=== PATIENT | male | born 1945 | race Caucasian/White ===

== ENCOUNTER 2019-01-25 13:12 | Emergency (ER) | payer MEDICARE ==
[2019-01-25 13:31] VITALS: TEMP 97.4
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
[2019-01-25] MEDS ORDERED: MORPHINE SULFATE 4 MG/ML SYRINGE IVP STA ×2 (14:55→15:59)
[2019-01-25] MEDS ORDERED: ETOMIDATE 2 MG/ML 10 ML VIAL IVP STA ×2 (14:55→15:59)
[2019-01-25] MEDS ORDERED: SODIUM CHLORIDE 0.9% 500 ML 500 ML IV STA (14:58)
--- NOTE | 2019-01-25 15:08 | XR ---
EXAMINATION TYPE: XR shoulder limited LT DATE OF EXAM: 01/25/2019 CLINICAL HISTORY: Falling injury with pain TECHNIQUE: 2 views of the left shoulder are obtained. COMPARISON: None. FINDINGS: There is inferior medial anterior positioning of humeral head relative to glenoid cavity c onsistent anterior dislocation. Glenoid rim is intact. Mild to moderate narrowing and spurring adequ ately thicker joint is present. No acute fracture is identified. The visualized ribs are intact and u nremarkable. IMPRESSION: There is anterior glenohumeral joint dislocation.
[2019-01-25] MEDS ORDERED: MIDAZOLAM 1 MG/ML 5 ML VIAL IV STA (15:59)
--- NOTE | 2019-01-25 16:39 | XR ---
EXAMINATION TYPE: XR shoulder complete LT DATE OF EXAM: 01/25/2019 CLINICAL HISTORY: Post reduction COMPARISON: NONE TECHNIQUE: Two views of the left shoulder are obtained. FINDINGS: Glenohumeral joint is relocated. No evidence for fracture. Degenerative changes AC joint an d glenohumeral joint space. IMPRESSION: 1. Glenohumeral joint is relocated. ICD 10 NO FRACTURE, INITIAL EVALUATION
[2019-01-25 16:56] VITALS: BP 130/71; PULSE 84; RESP 16
== END 2019-01-25 17:27 | disposition home or self-care (01) ==
LOC: EC 13:12
DX: S43.015A Anterior dislocation of left humerus, initial encounter (principal); I10 Essential (primary) hypertension; F03.90 Unspecified dementia, unspecified severity, without behavioral disturbance, psychotic disturbance, mood disturbance, and anxiety; E78.5 Hyperlipidemia, unspecified; V98.8XXA Other specified transport accidents, initial encounter; Y92.39 Other specified sports and athletic area as the place of occurrence of the external cause
CPT/HCPCS: 73030; 73020; 99283; 23650; 99152; 99153; 96374; 96376; 96361 ×2; J2270; J2250

== ENCOUNTER 2021-01-19 00:02 | Emergency (ER) | payer MEDICARE ==
[2021-01-19] MEDS ORDERED: SODIUM CHLORIDE 0.9% 1,000 ML IV STA ×2 (00:15→02:08)
[2021-01-19 00:20] VITALS: TEMP 98.2
--- NOTE | 2021-01-19 00:29 | ED ---
Weakness HPI - General Chief complaint: Nausea/Vomiting/Diarrhea Stated complaint: nausea,diarrhea, feels heavy in extremities Time Seen by Provider: 01/19/21 00:15 Source: patient, RN notes reviewed, old records reviewed, Caregiver Mode of arrival: wheelchair Limitations: no limitations, altered mental status - History of Present Illness Initial comments: This is a 75-year-old male sent from dementia so blood pressure issues. Patient coming in for nausea vomiting and diarrhea, not feeling well week symptoms for a month. No other significant medical history, diarrhea was worse tonight. No fevers. No abdominal pain. No chest pain or shortness of breath no other complaints MD Complaint: generalized weakness -: month(s) Location: generalized Severity: moderate Severity scale (1-10): 5 Consistency: constant Improves with: none Worsens with: none Context: recent illness, history of similar Associated Symptoms: confusion, loss of appetite, nausea/vomiting - Related Data Allergies Allergy/AdvReac Type Severity Reaction Status Date / Time No Known Allergies Allergy Verified 01/25/19 13:31 Review of Systems ROS Statement: Those systems with pertinent positive or pertinent negative responses have been documented in the HPI. ROS Other: All systems not noted in ROS Statement are negative. Past Medical History Past Medical History: Dementia, Hyperlipidemia, Hypertension History of Any Multi-Drug Resistant Organisms: None Reported Past Surgical History: No Surgical Hx Reported Past Psychological History: No Psychological Hx Reported Smoking Status: Never smoker Past Alcohol Use History: None Reported Past Drug Use History: None Reported General Exam Limitations: no limitations General appearance: alert, in no apparent distress Head exam: Present: atraumatic, normocephalic, normal inspection Eye exam: Present: normal appearance, PERRL, EOMI. Absent: scleral icterus, conjunctival injection, periorbital swelling ENT exam: Present: normal exam, mucous membranes moist Neck exam: Present: normal inspection. Absent: tenderness, meningismus, lymphadenopathy Respiratory exam: Present: normal lung sounds bilaterally. Absent: respiratory distress, wheezes, rales, rhonchi, stridor Cardiovascular Exam: Present: regular rate, normal rhythm, normal heart sounds. Absent: systolic murmur, diastolic murmur, rubs, gallop, clicks GI/Abdominal exam: Present: soft, normal bowel sounds. Absent: distended, tenderness, guarding, rebound, rigid Extremities exam: Present: normal inspection, full ROM, normal capillary refill. Absent: tenderness, pedal edema, joint swelling, calf tenderness Back exam: Present: normal inspection Neurological exam: Present: alert, oriented X3, CN II-XII intact Psychiatric exam: Present: normal affect, normal mood Skin exam: Present: warm, dry, intact, normal color. Absent: rash Course Vital Signs 01/19/21 01/19/21 01/19/21 00:14 01:59 02:42 Temperature 98.2 F Pulse Rate 65 68 71 Respiratory 18 20 20 Rate Blood Pressure 124/65 135/74 151/71 O2 Sat by Pulse 95 97 97 Oximetry - Reevaluation(s) Reevaluation #1: 01/19/21 01:00 Medical record is reviewed EKG Findings - EKG Comments: EKG Findings:: EKG is sinus rhythm 64 MS 266 QRS 114 QTc 455 Medical Decision Making - Lab Data Result diagrams: 01/19/21 00:45 01/19/21 00:45 Lab Results 01/19/21 01/19/21 01/19/21 Range/Units 00:45 00:45 00:45 WBC 15.4 H (3.8-10.6) k/uL RBC 4.71 (4.30-5.90) m/uL Hgb 14.7 (13.0-17.5) gm/dL Hct 44.6 (39.0-53.0) % MCV 94.7 (80.0-100.0) fL MCH 31.3 (25.0-35.0) pg MCHC 33.0 (31.0-37.0) g/dL RDW 13.2 (11.5-15.5) % Plt Count 324 (150-450) k/uL MPV 7.4 Neutrophils % 83 % Lymphocytes % 8 % Monocytes % 7 % Eosinophils % 1 % Basophils % 0 % Neutrophils # 12.8 H (1.3-7.7) k/uL Lymphocytes # 1.2 (1.0-4.8) k/uL Monocytes # 1.0 (0-1.0) k/uL Eosinophils # 0.2 (0-0.7) k/uL Basophils # 0.0 (0-0.2) k/uL Sodium 141 (137-145) mmol/L Potassium 3.9 (3.5-5.1) mmol/L Chloride 103 (98-107) mmol/L Carbon Dioxide 24 (22-30) mmol/L Anion Gap 14 mmol/L BUN 24 H (9-20) mg/dL Creatinine 1.50 H (0.66-1.25) mg/dL Est GFR (CKD-EPI)AfAm 52 (>60 ml/min/1.73 sqM) Est GFR (CKD-EPI)NonAf 45 (>60 ml/min/1.73 sqM) Glucose 188 H (74-99) mg/dL Plasma Lactic Acid Noé (0.7-2.0) mmol/L Calcium 9.6 (8.4-10.2) mg/dL Phosphorus 3.9 (2.5-4.5) mg/dL Magnesium 1.9 (1.6-2.3) mg/dL Total Bilirubin 0.5 (0.2-1.3) mg/dL AST 35 (17-59) U/L ALT 38 (4-49) U/L Alkaline Phosphatase 95 (38-126) U/L Lactate Dehydrogenase (313-618) U/L Troponin I (0.000-0.034) ng/mL C-Reactive Protein (<1.0) mg/dL NT-Pro-B Natriuret Pep pg/mL Total Protein 8.2 (6.3-8.2) g/dL Albumin 4.6 (3.5-5.0) g/dL Urine Color Yellow Urine Appearance Clear (Clear) Urine pH 5.0 (5.0-8.0) Ur Specific [place] 1.035 (1.001-1.035) Urine Protein 1+ H (Negative) Urine Glucose (UA) 4+ H (Negative) Urine Ketones Negative (Negative) Urine Blood Negative (Negative) Urine Nitrite Negative (Negative) Urine Bilirubin Negative (Negative) Urine Urobilinogen <2.0 (<2.0) mg/dL Ur Leukocyte Esterase Negative (Negative) Urine RBC <1 (0-5) /hpf Urine WBC <1 (0-5) /hpf Urine Mucus Rare H (None) /hpf Coronavirus (PCR) (Not Detectd) 01/19/21 01/19/21 01/19/21 Range/Units 00:45 00:45 00:45 WBC (3.8-10.6) k/uL RBC (4.30-5.90) m/uL Hgb (13.0-17.5) gm/dL Hct (39.0-53.0) % MCV (80.0-100.0) fL MCH (25.0-35.0) pg MCHC (31.0-37.0) g/dL RDW (11.5-15.5) % Plt Count (150-450) k/uL MPV Neutrophils % % Lymphocytes % % Monocytes % % Eosinophils % % Basophils % % Neutrophils # (1.3-7.7) k/uL Lymphocytes # (1.0-4.8) k/uL Monocytes # (0-1.0) k/uL Eosinophils # (0-0.7) k/uL Basophils # (0-0.2) k/uL Sodium (137-145) mmol/L Potassium (3.5-5.1) mmol/L Chloride (98-107) mmol/L Carbon Dioxide (22-30) mmol/L Anion Gap mmol/L BUN (9-20) mg/dL Creatinine (0.66-1.25) mg/dL Est GFR (CKD-EPI)AfAm (>60 ml/min/1.73 sqM) Est GFR (CKD-EPI)NonAf (>60 ml/min/1.73 sqM) Glucose (74-99) mg/dL Plasma Lactic Acid Noé 1.3 (0.7-2.0) mmol/L Calcium (8.4-10.2) mg/dL Phosphorus (2.5-4.5) mg/dL Magnesium (1.6-2.3) mg/dL Total Bilirubin (0.2-1.3) mg/dL AST (17-59) U/L ALT (4-49) U/L Alkaline Phosphatase (38-126) U/L Lactate Dehydrogenase (313-618) U/L Troponin I <0.012 (0.000-0.034) ng/mL C-Reactive Protein (<1.0) mg/dL NT-Pro-B Natriuret Pep 146 pg/mL Total Protein (6.3-8.2) g/dL Albumin (3.5-5.0) g/dL Urine Color Urine Appearance (Clear) Urine pH (5.0-8.0) Ur Specific [place] (1.001-1.035) Urine Protein (Negative) Urine Glucose (UA) (Negative) Urine Ketones (Negative) Urine Blood (Negative) Urine Nitrite (Negative) Urine Bilirubin (Negative) Urine Urobilinogen (<2.0) mg/dL Ur Leukocyte Esterase (Negative) Urine RBC (0-5) /hpf Urine WBC (0-5) /hpf Urine Mucus (None) /hpf Coronavirus (PCR) (Not Detectd) 01/19/21 01/19/21 Range/Units 00:45 04:41 WBC (3.8-10.6) k/uL RBC (4.30-5.90) m/uL Hgb (13.0-17.5) gm/dL Hct (39.0-53.0) % MCV (80.0-100.0) fL MCH (25.0-35.0) pg MCHC (31.0-37.0) g/dL RDW (11.5-15.5) % Plt Count (150-450) k/uL MPV Neutrophils % % Lymphocytes % % Monocytes % % Eosinophils % % Basophils % % Neutrophils # (1.3-7.7) k/uL Lymphocytes # (1.0-4.8) k/uL Monocytes # (0-1.0) k/uL Eosinophils # (0-0.7) k/uL Basophils # (0-0.2) k/uL Sodium (137-145) mmol/L Potassium (3.5-5.1) mmol/L Chloride (98-107) mmol/L Carbon Dioxide (22-30) mmol/L Anion Gap mmol/L BUN (9-20) mg/dL Creatinine (0.66-1.25) mg/dL Est GFR (CKD-EPI)AfAm (>60 ml/min/1.73 sqM) Est GFR (CKD-EPI)NonAf (>60 ml/min/1.73 sqM) Glucose (74-99) mg/dL Plasma Lactic Acid Noé (0.7-2.0) mmol/L Calcium (8.4-10.2) mg/dL Phosphorus (2.5-4.5) mg/dL Magnesium (1.6-2.3) mg/dL Total Bilirubin (0.2-1.3) mg/dL AST (17-59) U/L ALT (4-49) U/L Alkaline Phosphatase (38-126) U/L Lactate Dehydrogenase 528 (313-618) U/L Troponin I (0.000-0.034) ng/mL C-Reactive Protein <0.5 (<1.0) mg/dL NT-Pro-B Natriuret Pep pg/mL Total Protein (6.3-8.2) g/dL Albumin (3.5-5.0) g/dL Urine Color Urine Appearance (Clear) Urine pH (5.0-8.0) Ur Specific [place] (1.001-1.035) Urine Protein (Negative) Urine Glucose (UA) (Negative) Urine Ketones (Negative) Urine Blood (Negative) Urine Nitrite (Negative) Urine Bilirubin (Negative) Urine Urobilinogen (<2.0) mg/dL Ur Leukocyte Esterase (Negative) Urine RBC (0-5) /hpf Urine WBC (0-5) /hpf Urine Mucus (None) /hpf Coronavirus (PCR) Not Detected (Not Detectd) Disposition Clinical Impression: Gastroenteritis Disposition: HOME SELF-CARE Condition: Good Instructions (If sedation given, give patient instructions): Acute Nausea and Vomiting (ED) Is patient prescribed a controlled substance at d/c from ED?: No Referrals: Seng Geiger MD [Primary Care Provider] - 1-2 days
[2021-01-19 01:04] LABS: Appearance,Urine Clear (Clear); Bilirubin,Urine Negative (Negative); Blood,Urine Negative (Negative); Color,Urine Yellow; Glucose,Urine (UA) 4+ (Negative); Ketones,Urine Negative (Negative); Leukocyte Esterase,Urine Negative (Negative); Mucus,Urine Rare /hpf; Nitrite,Urine Negative (Negative); Protein,Urine 1+ (Negative); RBC,Urine <1 /hpf (0-5); Specific Gravity,Urine 1.035 (1.001-1.035); Urobilinogen,Urine <2.0 mg/dL (<2.0); WBC,Urine <1 /hpf (0-5)
[2021-01-19 01:17] LABS: Albumin 4.6 g/dL (3.5-5.0); Calcium 9.6 mg/dL (8.4-10.2); Magnesium 1.9 mg/dL (1.6-2.3); Phosphorus 3.9 mg/dL (2.5-4.5); Potassium 3.9 mmol/L (3.5-5.1); Total Bilirubin 0.5 mg/dL (0.2-1.3); Total Protein 8.2 g/dL (6.3-8.2)
[2021-01-19 01:54] LABS: Basophils % (A) 0 %; Eosinophils # (A) 0.2 k/uL (0-0.7); Eosinophils % (A) 1 %; HCT 44.6 % (39.0-53.0); HGB 14.7 gm/dL (13.0-17.5); Lymphocytes # (A) 1.2 k/uL (1.0-4.8); Lymphocytes % (A) 8 %; MCH 31.3 pg (25.0-35.0); MCV 94.7 fL (80.0-100.0); Mean Platelet Volume 7.4; Monocytes % (A) 7 %; Neutrophils # (A) 12.8 k/uL (1.3-7.7); Neutrophils % (A) 83 %; Platelet Count 324 k/uL (150-450); RBC 4.71 m/uL (4.30-5.90); RDW 13.2 % (11.5-15.5); WBC 15.4 k/uL (3.8-10.6)
[2021-01-19 01:59] VITALS: RESP 20
[2021-01-19] MEDS ORDERED: KETOROLAC 15 MG/ML 1 ML VIAL IVP STA (02:09)
[2021-01-19] MEDS ORDERED: MORPHINE SULFATE 4 MG/ML SYRINGE IVP STA (02:09)
[2021-01-19] MEDS ORDERED: ONDANSETRON 4 MG/2 ML VIAL IVP STA (02:09)
--- NOTE | 2021-01-19 02:56 | CT ---
EXAMINATION TYPE: CT angio chest DATE OF EXAM: 01/19/2021 COMPARISON: None HISTORY: R/O PE, Weakness CT DLP: 426.4 mGycm Automated exposure control for dose reduction was used. CONTRAST: Performed with IV Contrast, patient injected with 80 mL of Isovue 370. There are 3-D post processed images. The lungs are clear of infiltrate. There is no pleural effusion. There is no pericardial effusion. Th ere are no hilar masses. There is normal contrast opacification of the pulmonary arteries. There are no filling defects. Thora cic aorta appears intact. There is no aneurysm or dissection. There is no mediastinal adenopathy. The bony thorax is intact. There is degenerative hypertrophic spurring throughout the thoracic spine. There is no compression fracture. Sternum is intact. IMPRESSION: Negative exam. No evidence of pulmonary embolism.
--- NOTE | 2021-01-19 03:04 | CT ---
EXAMINATION TYPE: CT abdomen pelvis w con DATE OF EXAM: 01/19/2021 COMPARISON: None HISTORY: N/V/D, Weakness CT DLP: 1279.7 mGycm Automated exposure control for dose reduction was used. CONTRAST: Performed with IV Contrast, patient injected with 80 mL of Isovue 370. Images obtained from the diaphragm to the floor the pelvis with IV contrast. Lung bases are clear. There is no pleural effusion. Heart size is normal. There is no pericardial eff usion. Liver spleen stomach pancreas gallbladder appear intact. The bile ducts are not dilated. There is no adrenal mass. Kidneys show satisfactory contrast opacification. There is no hydronephrosi s. Delayed images show normal renal excretion. There is no retroperitoneal adenopathy. Ureters are no t dilated. Abdominal aorta shows mild atheromatous change. The prostate is enlarged and measures 6.4 cm. Bladder distends smoothly. There is no inguinal hernia. There is no free fluid in the pelvis. The re is no evidence of a pelvic mass. Appendix appears normal. There is no mesenteric edema. There is no ascites or free air. There is no sign of a bowel obstructio n. The lumbar vertebra have normal alignment. There is disc space narrowing at L4-5. There is spurring o f the endplates throughout the lumbar spine. There is no compression fracture. The bony pelvis is int act. The hip joints are intact. There is some degenerative cyst formation in the right acetabulum. IMPRESSION: Enlarged prostate. No acute abnormality of the abdomen pelvis. Normal appendix. No intestinal abnorma lity identified.
[2021-01-19 04:09] LABS: C Reactive Protein <0.5 mg/dL (<1.0); LDH 528 U/L (313-618)
[2021-01-19 05:52] VITALS: BP 135/84; PULSE 74
== END 2021-01-19 05:51 | disposition home or self-care (01) ==
LOC: EC 00:02
DX: K52.9 Noninfective gastroenteritis and colitis, unspecified (principal); I10 Essential (primary) hypertension; E78.5 Hyperlipidemia, unspecified; F03.90 Unspecified dementia, unspecified severity, without behavioral disturbance, psychotic disturbance, mood disturbance, and anxiety; Z20.822 Contact with and (suspected) exposure to COVID-19
CPT/HCPCS: 99285; 96374; 96375 ×2; 96361 ×5; 36415; 93005; 83880; 80053; 83605; 83615; 83735; 84100; 84484; 85025; 86140; 81001; 87635; 71275; 74177; J2270; J2405; J1885; Q9967

== ENCOUNTER → 2021-03-12 | Outpatient (CLI) | payer MEDICARE ==
[2021-03-12 12:11] LABS: Appearance,Urine Clear (Clear); Bilirubin,Urine Negative (Negative); Blood,Urine Negative (Negative); Color,Urine Yellow; Glucose,Urine (UA) 4+ (Negative); Ketones,Urine Negative (Negative); Leukocyte Esterase,Urine Negative (Negative); Nitrite,Urine Negative (Negative); Protein,Urine Negative (Negative); Urobilinogen,Urine <2.0 mg/dL (<2.0)
[2021-03-12 12:19] LABS: Partial Thromboplastin Time 23.6 sec (22.0-30.0); Prothrombin Time 10.5 sec (9.0-12.0)
[2021-03-12 12:37] LABS: Albumin 4.4 g/dL (3.5-5.0); Calcium 9.3 mg/dL (8.4-10.2); Total Bilirubin 0.3 mg/dL (0.2-1.3); Total Protein 7.5 g/dL (6.3-8.2)
[2021-03-12 13:01] LABS: HCT 40.2 % (39.0-53.0); HGB 13.2 gm/dL (13.0-17.5); MCH 31.1 pg (25.0-35.0); MCHC 32.8 g/dL (31.0-37.0); MCV 94.8 fL (80.0-100.0); Mean Platelet Volume 7.8; Platelet Count 362 k/uL (150-450); RBC 4.24 m/uL (4.30-5.90); RDW 13.2 % (11.5-15.5); WBC 8.5 k/uL (3.8-10.6)
== END | disposition home or self-care (01) ==
LOC: LABPAT 10:34
PROVIDERS: ATTEND Orthopaedic Surgery
DX: Z01.812 Encounter for preprocedural laboratory examination (principal); M17.11 Unilateral primary osteoarthritis, right knee
CPT/HCPCS: 80053; 81003; 85027; 85610; 85730; 87070

== ENCOUNTER → 2021-03-30 | Outpatient (CLI) | payer MEDICARE ==
[2021-03-30 19:45] LABS: ALT 33 U/L (10-49); AST 22 U/L (14-35); Chol/HDL Ratio 2.65 Ratio; LDL Cholesterol,Calculated 25.2 mg/dL (0.0-131.0)
== END | disposition home or self-care (01) ==
LOC: LABWHC1 08:43
PROVIDERS: ATTEND Internal Medicine Interventional Cardiology
DX: E78.2 Mixed hyperlipidemia (principal)
CPT/HCPCS: 36415; 80061; 84450; 84460

== ENCOUNTER → 2021-05-31 | Outpatient (CLI) | payer MEDICARE ==
[2021-05-31 14:59] LABS: Appearance,Urine Clear (Clear); Bilirubin,Urine Negative (Negative); Blood,Urine Negative (Negative); Color,Urine Yellow; Glucose,Urine (UA) 4+ (Negative); Ketones,Urine Negative (Negative); Leukocyte Esterase,Urine Negative (Negative); Nitrite,Urine Negative (Negative); PH, Urine 6.5 (5.0-8.0); Protein,Urine Negative (Negative); Specific Gravity,Urine 1.029 (1.001-1.035); Urobilinogen,Urine <2.0 mg/dL (<2.0)
[2021-05-31 15:12] LABS: Prothrombin Time 10.9 sec (9.0-12.0)
[2021-05-31 18:21] LABS: HCT 40.5 % (39.6-50.0); MCH 29.3 pg (27.0-32.0); MCHC 32.1 g/dL (32.0-37.0); MCV 91.2 fL (80.0-97.0); Mean Platelet Volume 10.1 fL (9.5-12.2); NRBC Per 100 WBC 0 /100 WBCS (0.0-0.0); Platelet Count 315 X 10*3/uL (140-440); RBC 4.44 X 10*6/uL (4.40-5.60); WBC 9.49 X 10*3/uL (4.50-10.00)
[2021-05-31 18:42] LABS: African American GFR (CKD) 47.5 (60.0-200.0); Albumin 4.4 g/dL (3.8-4.9); Albumin/Globulin Ratio 1.52 (1.60-3.17); Anion Gap 14.2 mmol/L (10.00-18.00); BUN/Creat Ratio 14.31 Ratio (12.00-20.00); Blood Urea Nitrogen 22.9 mg/dL (9.0-27.0); Calcium 9.2 mg/dL (8.7-10.3); Globulin 2.9 g/dL (1.6-3.3); Total Bilirubin 0.3 mg/dL (0.30-1.20); Total Protein 7.2 g/dL (6.2-8.2)
== END | disposition home or self-care (01) ==
LOC: LABPAT 13:01
PROVIDERS: ATTEND Orthopaedic Surgery
DX: Z01.812 Encounter for preprocedural laboratory examination (principal); M17.11 Unilateral primary osteoarthritis, right knee
CPT/HCPCS: 36415; 80053; 81003; 85027; 85610; 85730; 87070

== ENCOUNTER 2021-06-07 12:45 | Day surgery (SDC) | payer MEDICARE ==
[2021-06-03 09:57] VITALS: BMI 34.7
[~2021-06-07 12:45] MED LIST: ACETAMINOPHEN TAB 500 MG TAB PO PRN; DEXAMETHASONE SOD PHOSPHATE 4 MG/ML 1 ML VIAL IV ONE; MELOXICAM 7.5 MG TAB PO PRN; ONDANSETRON 4 MG/2 ML VIAL IVP ONE; ONDANSETRON 4 MG/2 ML VIAL IVP PRN; TRANEXAMIC ACID 1,000 MG in SODIUM CHLORIDE 0.9% 100 ML IVPB PRN
[2021-06-07 13:35] LABS: Glucose,Whole Blood 143 mg/dL (75-99)
[2021-06-07] MEDS: LACTATED RINGERS 1,000 ML IV SCH (13:45)
[2021-06-07] MEDS ORDERED: MIDAZOLAM 2 MG/2 ML VIAL IVP ONE ×2 (14:39→14:50)
[2021-06-07] MEDS ORDERED: bisacodyL 10 MG SUPP RECTAL PRN (14:59)
[2021-06-07] MEDS ORDERED: NA PHOS,M-B/NA PHOS,DI-BA 133 ML ENEMA RECTAL PRN (14:59)
[2021-06-07] MEDS ORDERED: NALOXONE 0.4 MG/ML 1 ML VIAL IV PRN (14:59)
[2021-06-07] MEDS ORDERED: HYDROmorphone 0.2 MG/1 ML SYRINGE IVP PRN (14:59)
[2021-06-07] MEDS ORDERED: ONDANSETRON 4 MG/2 ML VIAL IVP PRN (14:59)
[2021-06-07] MEDS ORDERED: TEMAZEPAM 15 MG CAP PO PRN (14:59)
[2021-06-07] MEDS ORDERED: HYDROcodone/APAP 7.5-325MG 1 EACH TAB PO PRN (14:59)
[2021-06-07] MEDS ORDERED: MAGNESIUM HYDROXIDE 2,400 MG/10 ML CUP PO PRN (14:59)
[2021-06-07] MEDS ORDERED: ROPIVACAINE 0.2%-NS ON-Q PUMP 1,090 MG, EMPTY PAIN BALL 1 EACH MISCELLANE PRN (14:59)
[2021-06-07] MEDS ORDERED: HYDROcodone/APAP 5-325MG 1 EACH TAB PO PRN (14:59)
[2021-06-07] MEDS ORDERED: HYDROmorphone 1 MG/ML 1 ML SYRINGE IVP PRN ×2 (14:59)
--- NOTE | 2021-06-07 15:01 | P.ANPRN ---
Procedure Note - Anesthesia - Nerve Block Performed Right Adductor Canal Infusion Time Out Performed: Yes Date of Procedure: 06/07/21 Procedure Start Time: 14:38 Procedure Stop Time: 14:50 Location of Patient: PreOp Indication: Requested by Surgeon Specifically requested for management of pain by DrJina: Juan Garibay Sedation Type: Sedate with meaningful contact maintained Preparation: Sterile Prep, Sterile Dressing Position: Supine Catheter: Indwelling Needle Types: Pajunk Needle Gauge: 18 Ultrasound used to visualize needle placement: Yes Ultrasound used to observe medication spread: Yes Injectate: 0.5% Ropivacaine (see comment for volume) (15 ml + 15 ml NS PF) Blood Aspirated: No Pain Paresthesia on Injection Noted: No Resistance on Injection: Normal Image Stored and Saved: Yes Events: Uneventful and Well Tolerated
--- NOTE | 2021-06-07 15:03 | P.ANPRN ---
Procedure Note - Anesthesia - Nerve Block Performed Right iPack Single Time Out Performed: Yes Date of Procedure: 06/07/21 Procedure Start Time: 14:51 Procedure Stop Time: 14:58 Location of Patient: PreOp Indication: Requested by Surgeon Specifically requested for management of pain by DrJina: Juan Garibay Sedation Type: Sedate with meaningful contact maintained Preparation: Sterile Prep Position: Left Lateral Needle Types: Pajunk Needle Gauge: 21 Ultrasound used to visualize needle placement: Yes Ultrasound used to observe medication spread: Yes Injectate: 0.5% Ropivacaine (see comment for volume) (15 ml + 15 ml NS PF) Blood Aspirated: No Pain Paresthesia on Injection Noted: No Resistance on Injection: Normal Image Stored and Saved: Yes Events: Uneventful and Well Tolerated
[2021-06-07] MEDS ORDERED: SODIUM CHLORIDE 0.9% (PF) 10 ML VIAL ONE (15:13)
[2021-06-07] MEDS ORDERED: TRANEXAMIC ACID 1,000 MG/10 ML VIAL ONE (15:13)
[2021-06-07] MEDS ORDERED: MIDAZOLAM 2 MG/2 ML VIAL ONE (15:13)
[2021-06-07] MEDS ORDERED: ROPIVACAINE 5 MG/ML 30 ML VIAL ONE (15:13)
[2021-06-07] MEDS ORDERED: PROPOFOL 10 MG/ML 20 ML VIAL IV ONE (15:13)
[2021-06-07] MEDS ORDERED: SODIUM CHLORIDE 0.9% 100 ML BAG ONE (15:13)
[2021-06-07] MEDS ORDERED: ceFAZolin 3,000 MG in SODIUM CHLORIDE 0.9% IRRIGATIO 3,000 ML IRRIGATION ONE (15:56)
[2021-06-07] MEDS ORDERED: LACTATED RINGERS 1,000 ML IV ONE ×3 (16:04→18:49)
--- NOTE | 2021-06-07 17:01 | P.OP ---
Date of Procedure: 06/07/21 Procedure(s) Performed: PREOPERATIVE DIAGNOSIS: Right knee severe osteoarthritis with genu varum POSTOPERATIVE DIAGNOSIS: Right knee severe osteoarthritis with genu varum OPERATION: Right knee cemented total replacement arthroplasty. ANESTHESIA: General plus regional with On-Q pain pump for postoperative pain relief ESTIMATED BLOOD LOSS: 100 ml. ICT QUALITY ASSURANCE ENGINEER: Chastity Felton PA-C (assistance with: patient positioning, retraction, exposure, hemostasis, leg positioning, implantation, irrigation, closure, dressing) COMPLICATIONS: None apparent. COMPONENTS IMPLANTED: Persona system from [employer] INDICATIONS: Christopher is a 76 year old male with a history of right knee osteoarthritis. The patient's knee is end-stage, and conservative management has failed. The operation of knee replacement has been discussed at length in the office, as well as potential risks and complications. These are inclusive of, but not limited to: bleeding, infection, scarring, discomfort, blood vessel and nerve damage, need for further surgery, failure to relieve symptoms, persistence, recurrence, or worsening of problems, loosening, dislocation, wear, blood clot, pulmonary embolism, , gait dysfunction, stiffness, and other risks as discussed in the office. The patient elects to proceed and the consent form has been signed. PROCEDURE: The patient was taken to the operating room and positioned on the operating room table in the supine position. Anesthesia was initiated. Care was taken to make sure that all pressure points were adequately padded. The operative lower extremity was prepped and draped in the usual aseptic fashion using ChloraPrep. Ioban drape was used for the case and the patient received intravenous antibiotics within one hour of the incision. A pneumotourniquet and leg matos were used for the case. The limb was exsanguinated with an Esmarch bandage and the tourniquet was inflated to 250 mmHg. Time-out was called confirming the patient's identity, side, procedure and administration of antibiotics and tranexamic acid. The incision was then created midline directly over the knee, carried down through skin and into the subcutaneous tissues and down to fascia. Full thickness subcutaneous medial flap was developed. Medial parapatellar arthrotomy was performed and the interior of the knee was inspected. There was end-stage osteoarthritis of the knee with a mild to moderate genu varum type deformity. The fat pad was excised and proximal medial release on the tibia was completed using meticulous dissection and a curved osteotome. The anterior cruciate ligament was taken down. Note was made of significant attrition of the anterior and significant degenerative appearance of the cruciate ligaments. The exposure was excellent. The knee was flexed 90 degrees and the patella was everted. A spot was chosen on the femur approximately 1 cm anterior to the posterior cruciate ligament insertion and an intramedullary hole was created within the femur. The intramedullary guide was then set to 5 degrees of valgus. The distal cutting block was attached and pinned into position. An appropriate amount of distal femoral resection was set. The oscillating saw was then used to make the distal femoral cut. This cut was confirmed to be flat with the flat end of an oste otome. The retractors were placed around the tibia and the tibial surface was addressed. The angle and depth of resection was adjusted using an extramedullary cutting guide. The guide had a built-in 3 degree posterior slope cut. Once the cutting guide was adjusted appropriately and in line with the axis of the tibia and confirmed to be in good position in relation to the second metatarsal and t ransmalleolar axis, the tibial cut was then created with protection of the posterior neurovascular structures and the collateral ligaments. The tibial cut surface was removed and sized. Femoral sizing was then accomplished using anterior referencing. Care was taken to analyze the posterior condyles for signs of deficiency or severe wear, and adjustments to the guide were made, as appropriate. 3 degree external rotation pins were placed. The cutting jig for the femur was applied to these pins. The planned cuts were further analyzed prior to performing them with the oscillating saw. No femoral notching was produced. Bone fragments were removed and the cut surfaces were finished, as necessary, with a reciprocating saw. Spacer block technique was then used to confirm that the flexion and extension gaps were equal. Soft tissue releases and adjustment of the tibial and/or femoral cuts were made, as necessary, until the gaps were equal. This included release of the posterior cruciate ligament, which was excessively tight in this patient. The femur was then further finished for a posterior cruciate ligament substituting component. Patellar resurfacing was performed using a reamer. The size of the required patellar component was estimated and the patellar surface was then reamed down to a residual thickness which would recreate the ewiiaapaayp thickness with the component. The exact placement of the patellar component was adjusted for position based on preoperative x-rays and intraoperative findings. The trial components were inserted. The tibial tray was allowed to self center and the patella was noted to track very well. The position of the tibial component was marked and the tibia was then finished for a stemmed tibial component. Cement was mixed on the back table and applied to the final components. Trial components were removed and the cut surfaces of the bone were pulse lavaged thoroughly and dried. Cement was then applied to the tibial surface and pressurized into the surface using finger pressurization technique. The tibial component was then applied and excess cement was removed after it was impacted securely and noted to be flush with the cut surface. In similar fashion, the cement was applied to the cut femoral surface, pressurized in using finger pressurization and the component was impacted into place. Excess cement was removed. The polyethylene spacer was then implanted and locked into position. The patellar component was then applied in similar technique and a patellar clamp was used to hold the patella in place as the cement hardened. Once the cement had fully hardened, the knee was reinspected. Any other cement extrusion was removed and final kinematic testing showed range of motion from 0 to 130 degrees with excellent stability, both medially and laterally and appropriate alignment of the leg. Patellar tracking was excellent. The knee was then thoroughly pulse lavaged with normal saline. The tourniquet was deflated and hemostasis was obtained with electrocautery and IV tranexamic acid, 1 g given at the start of the operation and 1 g at the start of closure. Closure was with #2 Ethibond in the fascia/capsule and supplemented with #2 Quill, 2-0 Vicryl suture was used for the subcutaneous tissues and 3-0 Quill for the skin. Dermabond/Steri-Strips were then applied. A lightly compressive dressing was applied using Webril and an Santhosh wrap. The patient was then transferred to [facility] and taken to the recovery room in stable condition. Sponge and needle counts were correct.
[2021-06-07] MEDS: HYDROmorphone 0.5 MG/0.5 ML SYRINGE IVP PRN ×3 (18:24→18:45)
--- NOTE | 2021-06-07 18:32 | XR ---
EXAMINATION TYPE: XR knee limited RT DATE OF EXAM: 06/07/2021 5:59 PM INDICATION: Patient age:Male; 76 years old; Reason for study: Evaluation for Postop abnormality and alignment; COMPARISON: None. TECHNIQUE: The Right knee(s) was examined in AP lateral projections. FINDINGS: Total right knee arthroplasty changes with hardware in place. No acute fractures identifi ed. Gas seen within the suprapatellar recess of the knee joint. Osseous density seen within the media l aspect of the thigh could represent bony fragment from surgery. There is good anatomic alignment of the right lower extremity. IMPRESSION: 1. Interval right total knee arthroplasty changes with good anatomic alignment.
[2021-06-07] MEDS ORDERED: SENNOSIDES-DOCUSATE SODIUM 1 EACH TAB PO SCH (21:00)
[2021-06-07 21:50] LABS: Glucose,Whole Blood 235 mg/dL (75-99)
[2021-06-07] MEDS ORDERED: TAMSULOSIN 0.4 MG CAP.ER.24H PO SCH (22:15)
[2021-06-07] MEDS: INSULIN ASPART (NovoLOG) 100 UNIT/ML VIAL SQ SCH (22:44)
[2021-06-08] MEDS ORDERED: ASPIRIN 81 MG PO SCH (06:00)
[2021-06-08 06:49] LABS: Glucose,Whole Blood 217 mg/dL (75-99)
--- NOTE | 2021-06-08 07:15 | P.PN ---
Progress Note - Text Progress Note Date: 06/08/21 Postoperative day # 1 status post total knee arthroplasty, and adductor canal catheter placed for postoperative analgesia, currently at ropivacaine 0.2% 8 mL per hour and continuous infusion, visual analogue scale is 3-4/10, patient using oral pain medication for breakthrough pain. Assessment and plan= Acute postoperative pain, adductor canal catheter for pain control, pain is well controlled we'll continue the same management.
[2021-06-08] MEDS ORDERED: INSULIN ASPART (NovoLOG) 100 UNIT/ML VIAL SQ SCH (07:30)
[2021-06-08] MEDS ORDERED: PANTOPRAZOLE 40 MG TABLET PO SCH (07:30)
[2021-06-08] MEDS ORDERED: INSULN ASP PRT/INSULIN ASPART 100 UNIT/ML 10 ML VIAL SQ SCH (07:30)
[2021-06-08 07:33] VITALS: BP 132/72; PULSE 64; RESP 18; TEMP 97.8
--- NOTE | 2021-06-08 08:20 | P.CONS ---
History of Present Illness - Reason for Consult Consult date: 06/08/21 Diabetes and medical management Requesting physician: Juan Garibay - Chief Complaint Postop knee - History of Present Illness This is a consultation on a 76-year-old who is here for knee repair. No new complaints history diabetes blood sugar has been stable. Pain is nominal. Appropriate postop protocols are in place. No nausea, vomiting or diarrhea. Review of Systems All systems: negative Past Medical History Past Medical History: Coronary Artery Disease (CAD), Diabetes Mellitus, GERD/Reflux, Hyperlipidemia, Hypertension, Myocardial Infarction ([place]), Osteoarthritis (OA), Sleep Apnea/CPAP/BIPAP Additional Past Medical History / Comment(s): hx seizures "years ago", heart murmer, Last Myocardial Infarction Date:: unknown History of Any Multi-Drug Resistant Organisms: None Reported Past Surgical History: No Surgical Hx Reported Additional Past Surgical History / Comment(s): cherri cataracts Past Anesthesia/Blood Transfusion Reactions: No Reported Reaction Past Psychological History: No Psychological Hx Reported Smoking Status: Former smoker Past Alcohol Use History: None Reported Additional Past Alcohol Use History / Comment(s): quit smoking 35 yrs ago Past Drug Use History: None Reported - Past Family History Mother Family Medical History: No Reported History Medications and Allergies Home Medications Medication Instructions Recorded Confirmed Type Apo Perindopril 4 mg PO DAILY 03/23/21 06/03/21 History Canagliflozin [Invokana] 300 mg PO DAILY 03/23/21 06/03/21 History Ezetimibe [Zetia] 10 mg PO DAILY 03/23/21 06/03/21 History Insulin NPH Hum/Reg Insulin Hm 33 unit SQ AC-BID 03/23/21 06/03/21 History [NovoLIN 70-30 100 UNIT/ML VIAL] Nitroglycerin [Nitro-Dur 0.6MG/Hr 1 patch TRANSDERM DAILY 03/23/21 06/03/21 History Patch] Rosuvastatin [Crestor] 10 mg PO DAILY 03/23/21 06/03/21 History Tamsulosin [Flomax] 0.4 mg PO PC-SUPPER 03/23/21 06/03/21 History amLODIPine BESYLATE 10 mg PO DAILY 03/23/21 06/03/21 History Aspirin [Adult Low Dose Aspirin EC] 81 mg PO DAILY 06/03/21 06/03/21 History Pantoprazole [Protonix] 40 mg PO DAILY 06/03/21 06/03/21 History hydrALAZINE HCL [Apresoline] 25 mg PO DAILY 06/03/21 06/03/21 History sitaGLIPtin PHOS/metFORMIN HCL 2 each PO HS 06/03/21 06/03/21 History [Janumet 50-1,000 mg Tablet] Aspirin [Adult Low Dose Aspirin EC] 81 mg PO BID #1 tab 06/07/21 Rx Gabapentin [Neurontin] 300 mg PO BID 5 Days #10 cap 06/07/21 Rx HYDROcodone/APAP 7.5-325MG [[place] 1 - 2 tab PO Q6HR PRN #32 tab 06/07/21 Rx 7.5-325] Ondansetron Odt [Zofran Odt] 4 mg PO Q8HR PRN #14 tab 06/07/21 Rx Sennosides-Docusate Sodium 1 tab PO BID #60 tablet 06/07/21 Rx [Senokot-S] Allergies Allergy/AdvReac Type Severity Reaction Status Date / Time aspirin AdvReac Abdominal Verified 06/07/21 13:07 Pain Physical Exam Vitals: Vital Signs Temp Pulse Pulse Resp BP Pulse Ox 06/08/21 07:32 97.8 F 64 18 132/72 94 L 06/08/21 01:29 98.1 F 60 60 16 115/57 93 L 06/07/21 19:24 97.9 F 59 L 18 149/68 96 06/07/21 19:04 60 16 131/60 98 06/07/21 18:46 60 16 131/73 98 06/07/21 18:31 56 L 16 136/61 98 06/07/21 18:15 56 L 16 131/75 99 06/07/21 18:02 57 L 16 126/63 99 06/07/21 17:45 54 L 16 121/59 99 06/07/21 17:35 97.2 F L 58 L 16 117/55 94 L 06/07/21 13:34 97.3 F L 59 L 20 113/83 98 06/07/21 13:16 97.3 F L 59 L 20 113/83 98 Intake and Output 06/07/21 06/08/21 06/08/21 22:59 06:59 14:59 Intake Total 1351 Output Total 100 1800 Balance 1251 -1800 Intake: IV 1351 Output: Urine 1800 Estimated Blood Loss 100 Other: Voiding Method Toilet # Voids 3 # Bowel Movements 0 Weight 86 kg - Constitutional General appearance: no acute distress - EENT Eyes: EOMI - Neck Neck: no lymphadenopathy - Respiratory Respiratory: bilateral: CTA - Cardiovascular Rhythm: regular Heart sounds: normal: S1, S2 Abnormal Heart Sounds: no S3 Gallop - Gastrointestinal General gastrointestinal: soft, no tenderness - Integumentary Integumentary: no cellulitis - Neurologic Neurologic: CNII-XII intact Results Labs: Abnormal Lab Results - Last 24 Hours (Table) 06/07/21 06/07/21 06/08/21 Range/Units 13:33 21:29 06:46 POC Glucose (mg/dL) 143 H 235 H 217 H (75-99) mg/dL Assessment and Plan (1) CAD (coronary artery disease) Current Visit: Yes Status: Acute Code(s): I25.10 - ATHSCL HEART DISEASE OF [place] CORONARY ARTERY W/O ANG PCTRS SNOMED Code(s): 93489442 (2) History of myocardial infarction Current Visit: Yes Status: Acute Code(s): I25.2 - OLD MYOCARDIAL INFARCTION SNOMED Code(s): 383318737 (3) Hypertension Current Visit: Yes Status: Acute Code(s): I10 - ESSENTIAL (PRIMARY) HYPERTENSION SNOMED Code(s): 82412209 (4) Diabetes Current Visit: Yes Status: Acute Code(s): E11.9 - TYPE 2 DIABETES MELLITUS WITHOUT COMPLICATIONS SNOMED Code(s): 78062203 (5) Osteoarthritis of right knee Current Visit: Yes Status: Acute Code(s): M17.11 - UNILATERAL PRIMARY OSTEOARTHRITIS, RIGHT KNEE SNOMED Code(s): 234154717445396 (6) Status post total right knee replacement Current Visit: Yes Status: Acute Code(s): Z96.651 - PRESENCE OF RIGHT ARTIFICIAL KNEE JOINT SNOMED Code(s): 6322428046850 Plan: We'll can reconcile medications. Follow blood sugar and vitals closely. Postop pulmonary toilet with anticoagulation as dedicated from orthopedics for new prep anticipate discharge later today secondary to the fact that he is already ambulating without difficulty and pain is nominal.
[2021-06-08] MEDS: INSULIN ASPART (NovoLOG) 100 UNIT/ML VIAL SQ SCH ×2 (08:36→13:35)
[2021-06-08] MEDS: LACTATED RINGERS 1,000 ML IV SCH (08:41)
[2021-06-08] MEDS ORDERED: amLODIPine 10 MG TAB PO SCH (09:00)
[2021-06-08] MEDS ORDERED: hydrALAZINE HCL 25 MG TAB PO SCH (09:00)
[2021-06-08] MEDS ORDERED: lisinopriL 10 MG TAB PO SCH (09:00)
[2021-06-08] MEDS ORDERED: NON FORMULARY DRUG (Canagliflozin [Invokana] 300 MG Tablet) PO SCH (09:00)
[2021-06-08] MEDS ORDERED: EZETIMIBE 10 MG TAB PO SCH (09:00)
[2021-06-08] MEDS ORDERED: ATORVASTATIN 20 MG TAB PO SCH (09:00)
[2021-06-08] MEDS ORDERED: NITROGLYCERIN 0.3MG/HR PATCH TRANSDERM SCH (09:00)
[2021-06-08 09:13] LABS: Basophils # (A) 0.02 X 10*3/uL (0.00-0.10); Basophils % (A) 0.2 %; Eosinophils # (A) 0 X 10*3/uL (0.04-0.35); Eosinophils % (A) 0 %; HCT 34.8 % (39.6-50.0); HGB 11.3 g/dL (13.0-17.0); Immature Grans, Automated 0.3 %; Lymphocytes # (A) 1.52 X 10*3/uL (0.90-5.00); Lymphocytes % (A) 14.2 %; MCH 29.4 pg (27.0-32.0); MCHC 32.5 g/dL (32.0-37.0); MCV 90.6 fL (80.0-97.0); Monocytes % (A) 11.2 %; NRBC Per 100 WBC 0 /100 WBCS (0.0-0.0); Neutrophils # (A) 7.94 X 10*3/uL (1.80-7.70); Neutrophils % (A) 74.1 %; Platelet Count 306 X 10*3/uL (140-440); RBC 3.84 X 10*6/uL (4.40-5.60); RDW 13.1 % (11.5-14.5); WBC 10.71 X 10*3/uL (4.50-10.00)
--- NOTE | 2021-06-08 09:40 | P.DS ---
Providers Expected date of discharge: 06/08/21 Attending physician: Juan Garibay Consults: 06/07/21 21:50 Consult Physician Routine Consulting Provider: Seng Geiger Reason/Comments: medical management Do you want consulting provider notified?: Yes Primary care physician: Seng Geiger [facility] Course: This is a 76-year-old male who has been followed in our office by Dr. Garibay for continued complaints of right knee pain due to right knee osteoarthritis. Treatment options were discussed, and patient elected to undergo a right total knee arthroplasty. Patient was seen pre-operatively by Dr. Geiger, Dr. Marshall and cleared for surgery. Patient underwent a right total knee arthroplasty on 06/07/[address] Garibay. The procedure was performed without complication or sequelae. The patient is doing fairly well postoperatively. Vital signs and labs are stable on postoperative day #1. Patient was examined bedside today. Patient states he is overall doing very well and the pain in his right knee is well-controlled. He has been ambulating with a walker with minimal assistance. Patient has been working with physical therapy. Patient is tolerating his diet well. He is voiding without issues. Patient is comfortable being discharged home today. Patient denies chest pain, shortness of breath, nausea, vomiting, fevers, chills. On examination, the patient is sitting up in the bedside chair in no apparent distress. He is alert and orientated 3. On inspection of the right knee, there is a clean, dry, intact Optifoam dressing in place. There is no bleeding or drainage the dressing. Patient has good strength and ROM of the right ankle and toes. Motor and sensory function is intact of the right lower extremity. The dorsalis pedis pulse is easily palpable, the right lower extremity is warm and well perfused with brisk capillary refill. Calf is soft and non-tender to palpation. Patient is discharged home with home health care today in good condition, pending medical clearance. Patient will follow-up with Chastity Felton PA-C, Dr. Garibay in the office in 2 weeks. Please see med rec for accurate list of discharge medication. Plan - Discharge Summary Discharge Rx Participant: Yes New Discharge Prescriptions: New HYDROcodone/APAP 7.5-325MG [[place] 7.5-325] 1 - 2 tab PO Q6HR PRN #32 tab PRN Reason: Pain Sennosides-Docusate Sodium [Senokot-S] 1 tab PO BID #60 tablet Aspirin [Adult Low Dose Aspirin EC] 81 mg PO BID #1 tab Gabapentin [Neurontin] 300 mg PO BID 5 Days #10 cap Ondansetron Odt [Zofran Odt] 4 mg PO Q8HR PRN #14 tab PRN Reason: Nausea No Action sitaGLIPtin PHOS/metFORMIN HCL [Janumet 50-1,000 mg Tablet] 2 each PO HS Nitroglycerin [Nitro-Dur 0.6MG/Hr Patch] 1 patch TRANSDERM DAILY Canagliflozin [Invokana] 300 mg PO DAILY Insulin NPH Hum/Reg Insulin Hm [NovoLIN 70-30 100 UNIT/ML VIAL] 33 unit SQ AC-BID amLODIPine BESYLATE 10 mg PO DAILY Ezetimibe [Zetia] 10 mg PO DAILY Rosuvastatin [Crestor] 10 mg PO DAILY Tamsulosin [Flomax] 0.4 mg PO PC-SUPPER Apo Perindopril 4 mg PO DAILY Pantoprazole [Protonix] 40 mg PO DAILY Aspirin [Adult Low Dose Aspirin EC] 81 mg PO DAILY hydrALAZINE HCL [Apresoline] 25 mg PO DAILY Discharge Medication List Apo Perindopril 4 mg PO DAILY 03/23/21 [History] Canagliflozin [Invokana] 300 mg PO DAILY 03/23/21 [History] Ezetimibe [Zetia] 10 mg PO DAILY 03/23/21 [History] Insulin NPH Hum/Reg Insulin Hm [NovoLIN 70-30 100 UNIT/ML VIAL] 33 unit SQ AC- BID 03/23/21 [History] Nitroglycerin [Nitro-Dur 0.6MG/Hr Patch] 1 patch TRANSDERM DAILY 03/23/21 [History] Rosuvastatin [Crestor] 10 mg PO DAILY 03/23/21 [History] Tamsulosin [Flomax] 0.4 mg PO PC-SUPPER 03/23/21 [History] amLODIPine BESYLATE 10 mg PO DAILY 03/23/21 [History] Aspirin [Adult Low Dose Aspirin EC] 81 mg PO DAILY 06/03/21 [History] Pantoprazole [Protonix] 40 mg PO DAILY 06/03/21 [History] hydrALAZINE HCL [Apresoline] 25 mg PO DAILY 06/03/21 [History] sitaGLIPtin PHOS/metFORMIN HCL [Janumet 50-1,000 mg Tablet] 2 each PO HS 06/03/21 [History] Aspirin [Adult Low Dose Aspirin EC] 81 mg PO BID #1 tab 06/07/21 [Rx] Gabapentin [Neurontin] 300 mg PO BID 5 Days #10 cap 06/07/21 [Rx] HYDROcodone/APAP 7.5-325MG [[place] 7.5-325] 1 - 2 tab PO Q6HR PRN #32 tab 06/07/21 [Rx] Ondansetron Odt [Zofran Odt] 4 mg PO Q8HR PRN #14 tab 06/07/21 [Rx] Sennosides-Docusate Sodium [Senokot-S] 1 tab PO BID #60 tablet 06/07/21 [Rx] Follow up Appointment(s)/Referral(s): Chastity Felton, PAC [PHYSICIAN [employer]] - 2 Weeks Activity/Diet/Wound Care/Special Instructions: May bear wt as tolerated w walker. May shower. Leave Optifoam dressng intact 7 days. Continue Protonix while on aspirin.
[2021-06-08 11:26] LABS: Glucose,Whole Blood 223 mg/dL (75-99)
== END 2021-06-08 14:15 | disposition home health service (06) ==
LOC: OR 12:45 → 4SSUR 17:29 → OR 06-08 14:15
PROVIDERS: ATTEND Orthopaedic Surgery
DX: M17.11 Unilateral primary osteoarthritis, right knee (principal); M21.161 Varus deformity, not elsewhere classified, right knee; I10 Essential (primary) hypertension; E78.2 Mixed hyperlipidemia; E11.9 Type 2 diabetes mellitus without complications; E78.5 Hyperlipidemia, unspecified; I25.2 Old myocardial infarction; I25.10 Atherosclerotic heart disease of native coronary artery without angina pectoris; K21.9 Gastro-esophageal reflux disease without esophagitis; G47.30 Sleep apnea, unspecified; R00.2 Palpitations; Z79.4 Long term (current) use of insulin; Z79.899 Other long term (current) drug therapy; Z87.891 Personal history of nicotine dependence; Z79.84 Long term (current) use of oral hypoglycemic drugs; Z79.82 Long term (current) use of aspirin; Z88.6 Allergy status to analgesic agent; Z98.42 Cataract extraction status, left eye; Z98.41 Cataract extraction status, right eye; Z97.3 Presence of spectacles and contact lenses; Z83.3 Family history of diabetes mellitus
CPT/HCPCS: 97161; 64999; 64448; 76942; 85025; 88300; 83036; 73560; 27447; C1713 ×2; C1776; J2250; J1100; J0690 ×3; J2405; J2795 ×2; J2704; J1170

== ENCOUNTER 2021-12-27 06:32 | Observation (INO) | payer MEDICARE ==
[2021-12-27] MEDS ORDERED: ASPIRIN 81 MG PO STA (06:45)
--- NOTE | 2021-12-27 06:53 | ED ---
Chest Pain HPI - General Chief Complaint: Chest Pain Stated Complaint: Chest Pain Time Seen by Provider: 12/27/21 06:34 Source: patient, RN notes reviewed Mode of arrival: ambulatory Limitations: no limitations - History of Present Illness Initial Comments: 76-year-old male presents emergency Department chief complaint of chest pain. Patient states he is having some left-sided pain but has worsened left-sided chest pain. Patient does have a history of hyperlipidemia, diabetes. Patient states blood sugar was elevated today. Patient does see Dr. Marshall and Dr. Geiger. Patient denies any shortness breath patient had mild cough no fever or chills bodyaches no nausea vomiting diarrhea constipation. - Related Data Home Medications Medication Instructions Recorded Confirmed Apo Perindopril 4 mg PO DAILY 03/23/21 06/03/21 Canagliflozin [Invokana] 300 mg PO DAILY 03/23/21 06/03/21 Ezetimibe [Zetia] 10 mg PO DAILY 03/23/21 06/03/21 Insulin NPH Hum/Reg Insulin Hm 33 unit SQ AC-BID 03/23/21 06/03/21 [NovoLIN 70-30 100 UNIT/ML VIAL] Nitroglycerin [Nitro-Dur 0.6MG/Hr 1 patch TRANSDERM DAILY 03/23/21 06/03/21 Patch] Rosuvastatin [Crestor] 10 mg PO DAILY 03/23/21 06/03/21 Tamsulosin [Flomax] 0.4 mg PO PC-SUPPER 03/23/21 06/03/21 amLODIPine BESYLATE 10 mg PO DAILY 03/23/21 06/03/21 Aspirin [Adult Low Dose Aspirin EC] 81 mg PO DAILY 06/03/21 06/03/21 Pantoprazole [Protonix] 40 mg PO DAILY 06/03/21 06/03/21 hydrALAZINE HCL [Apresoline] 25 mg PO DAILY 06/03/21 06/03/21 sitaGLIPtin PHOS/metFORMIN HCL 2 each PO HS 06/03/21 06/03/21 [Janumet 50-1,000 mg Tablet] Previous Rx's Medication Instructions Recorded Aspirin [Adult Low Dose Aspirin EC] 81 mg PO BID #1 tab 06/07/21 Gabapentin [Neurontin] 300 mg PO BID 5 Days #10 cap 06/07/21 HYDROcodone/APAP 7.5-325MG [[place] 1 - 2 tab PO Q6HR PRN #32 tab 06/07/21 7.5-325] Ondansetron Odt [Zofran Odt] 4 mg PO Q8HR PRN #14 tab 06/07/21 Sennosides-Docusate Sodium 1 tab PO BID #60 tablet 06/07/21 [Senokot-S] Allergies Allergy/AdvReac Type Severity Reaction Status Date / Time aspirin AdvReac Abdominal Verified 12/27/21 06:37 Pain Review of Systems ROS Statement: Those systems with pertinent positive or pertinent negative responses have been documented in the HPI. ROS Other: All systems not noted in ROS Statement are negative. EKG Findings - EKG Comments: EKG Findings:: EKG performed at 6:53 sinus rhythm with first-degree block rate of 68 NE 238 QRS 128 QT/QTC 4:30/432 diffuse inverted T waves noted on prior EKG Past Medical History Past Medical History: Dementia, Hyperlipidemia, Hypertension History of Any Multi-Drug Resistant Organisms: None Reported Past Surgical History: No Surgical Hx Reported Past Psychological History: No Psychological Hx Reported Smoking Status: Never smoker Past Alcohol Use History: None Reported Past Drug Use History: None Reported General Exam Limitations: no limitations General appearance: alert, in no apparent distress Head exam: Present: atraumatic, normocephalic, normal inspection Eye exam: Present: normal appearance, PERRL, EOMI. Absent: scleral icterus, conjunctival injection, periorbital swelling ENT exam: Present: normal exam, normal oropharynx, mucous membranes moist Neck exam: Present: normal inspection, full ROM. Absent: tenderness, meningismus, lymphadenopathy Respiratory exam: Present: normal lung sounds bilaterally. Absent: respiratory distress, wheezes, rales, rhonchi, stridor Cardiovascular Exam: Present: regular rate, normal rhythm, normal heart sounds. Absent: systolic murmur, diastolic murmur, rubs, gallop, clicks Course Vital Signs 12/27/21 12/27/21 06:35 07:44 Temperature 98.1 F Pulse Rate 67 62 Pulse Rate [ 60 [employer] ] Respiratory 18 18 Rate Blood Pressure 152/73 130/83 O2 Sat by Pulse 99 98 Oximetry Chest Pain MDM - MDM 76-year-old male presented for chest pain and short was negative including labs, EKG and chest x-ray no acute changes patient will be admitted for cardiac rule out Disposition Clinical Impression: Chest pain Disposition: ADMITTED IP TO THIS HOSP Condition: Fair Referrals: Seng Geiger MD [Primary Care Provider] - 1-2 days Time of Disposition: 07:57
[2021-12-27 07:18] LABS: Basophils # (A) 0.1 k/uL (0-0.2); Basophils % (A) 1 %; Eosinophils # (A) 0.2 k/uL (0-0.7); Eosinophils % (A) 2 %; HCT 43.8 % (39.0-53.0); HGB 14.3 gm/dL (13.0-17.5); Lymphocytes # (A) 3.1 k/uL (1.0-4.8); Lymphocytes % (A) 25 %; MCH 29.7 pg (25.0-35.0); MCHC 32.6 g/dL (31.0-37.0); MCV 91.2 fL (80.0-100.0); Monocytes # (A) 0.8 k/uL (0-1.0); Monocytes % (A) 6 %; Neutrophils % (A) 64 %; Platelet Count 312 k/uL (150-450); RDW 13.8 % (11.5-15.5); WBC 12.5 k/uL (3.8-10.6)
[2021-12-27 07:28] LABS: Albumin 4.7 g/dL (3.5-5.0); Calcium 9.4 mg/dL (8.4-10.2); Total Bilirubin 0.7 mg/dL (0.2-1.3)
[2021-12-27 07:31] LABS: Partial Thromboplastin Time 24.7 sec (22.0-30.0); Prothrombin Time 10.9 sec (9.0-12.0)
[2021-12-27 07:33] LABS: Magnesium 1.7 mg/dL (1.6-2.3); Potassium 4.5 mmol/L (3.5-5.1)
--- NOTE | 2021-12-27 07:51 | XR ---
EXAMINATION TYPE: XR chest 2V DATE OF EXAM: 12/27/2021 COMPARISON: None HISTORY: 76-year-old male with chest pain TECHNIQUE: PA and lateral views FINDINGS: Heart normal size. Aorta and pulmonary vasculature within normal limits. No consolidation or pleural effusion. IMPRESSION: No acute cardiopulmonary process.
[2021-12-27] MEDS ORDERED: NITROGLYCERIN SL TABS 0.4 MG TAB SUBLINGUAL PRN (07:57)
--- NOTE | 2021-12-27 08:20 | P.HPIM ---
History of Present Illness Chief Complaint: chest pain This is a 76-year-old male with known history of diabetes who came in with chest pain which has been lasting for the last several weeks. No provocative palliative factors stated however the patient states that it is obese a 7 out of 10 and was getting worse and more frequent. Some dizziness no loss of consciousness. Blood sugars fairly well-controlled at this time the patient is compliant with his other medication. Some nausea but no diaphoresis. No radiation to the left arm or jaw. He states it felt more musculoskeletal across his chest wall. Review of Systems Constitutional: Denies chills, Denies fever Ears, nose, mouth and throat: Denies headache, Denies sore throat Cardiovascular: Reports as per HPI, Reports chest pain, Reports lightheadedness, Denies shortness of breath Respiratory: Denies cough Gastrointestinal: Denies abdominal pain, Denies diarrhea, Denies nausea, Denies vomiting Musculoskeletal: Denies myalgias Integumentary: Denies pruritus, Denies rash Past Medical History Past Medical History: Dementia, Hyperlipidemia, Hypertension History of Any Multi-Drug Resistant Organisms: None Reported Past Surgical History: No Surgical Hx Reported Past Psychological History: No Psychological Hx Reported Smoking Status: Never smoker Past Alcohol Use History: None Reported Past Drug Use History: None Reported Medications and Allergies Home Medications Medication Instructions Recorded Confirmed Type Apo Perindopril 4 mg PO DAILY 03/23/21 06/03/21 History Canagliflozin [Invokana] 300 mg PO DAILY 03/23/21 06/03/21 History Ezetimibe [Zetia] 10 mg PO DAILY 03/23/21 06/03/21 History Insulin NPH Hum/Reg Insulin Hm 33 unit SQ AC-BID 03/23/21 06/03/21 History [NovoLIN 70-30 100 UNIT/ML VIAL] Nitroglycerin [Nitro-Dur 0.6MG/Hr 1 patch TRANSDERM DAILY 03/23/21 06/03/21 History Patch] RX: amLODIPine BESYLATE 10 mg PO DAILY 03/23/21 06/03/21 History Rosuvastatin [Crestor] 10 mg PO DAILY 03/23/21 06/03/21 History Tamsulosin [Flomax] 0.4 mg PO PC-SUPPER 03/23/21 06/03/21 History Aspirin [Adult Low Dose Aspirin EC] 81 mg PO DAILY 06/03/21 06/03/21 History Pantoprazole [Protonix] 40 mg PO DAILY 06/03/21 06/03/21 History hydrALAZINE HCL [Apresoline] 25 mg PO DAILY 06/03/21 06/03/21 History sitaGLIPtin PHOS/metFORMIN HCL 2 each PO HS 06/03/21 06/03/21 History [Janumet 50-1,000 mg Tablet] HYDROcodone/APAP 7.5-325MG [[place] 1 - 2 tab PO Q6HR PRN #32 tab 06/07/21 Rx 7.5-325] Ondansetron Odt [Zofran Odt] 4 mg PO Q8HR PRN #14 tab 06/07/21 Rx RX: Aspirin [Adult Low Dose 81 mg PO BID #1 tab 06/07/21 Rx Aspirin EC] RX: Gabapentin [Neurontin] 300 mg PO BID 5 Days #10 cap 06/07/21 Rx Sennosides-Docusate Sodium 1 tab PO BID #60 tablet 06/07/21 Rx [Senokot-S] Allergies Allergy/AdvReac Type Severity Reaction Status Date / Time aspirin AdvReac Abdominal Verified 12/27/21 06:37 Pain Physical Exam Vitals: Vital Signs Temp Pulse Pulse Resp BP Pulse Ox 12/27/21 07:44 62 60 18 130/83 98 12/27/21 06:35 98.1 F 67 18 152/73 99 Intake and Output 12/26/21 12/27/21 12/27/21 22:59 06:59 14:59 Other: Weight 86.183 kg - Constitutional General appearance: no acute distress - EENT Eyes: EOMI - Neck Neck: no lymphadenopathy - Respiratory Respiratory: bilateral: diminished - Cardiovascular Rhythm: regular Heart sounds: normal: S1, S2 Abnormal Heart Sounds: no S3 Gallop - Gastrointestinal General gastrointestinal: soft, no tenderness - Neurologic Neurologic: CNII-XII intact Results CBC & Chem 7: 12/27/21 06:53 12/27/21 06:53 Labs: Abnormal Lab Results - Last 24 Hours (Table) 12/27/21 12/27/21 Range/Units 06:53 06:53 WBC 12.5 H (3.8-10.6) k/uL Neutrophils # 8.0 H (1.3-7.7) k/uL Sodium 135 L (137-145) mmol/L Carbon Dioxide 19 L (22-30) mmol/L BUN 30 H (9-20) mg/dL Glucose 312 H (74-99) mg/dL Assessment and Plan (1) Chest pain Current Visit: Yes Status: Acute Code(s): R07.9 - CHEST PAIN, UNSPECIFIED SNOMED Code(s): 41664770 (2) CAD (coronary artery disease) Current Visit: No Status: Acute Code(s): I25.10 - ATHSCL HEART DISEASE OF [place] CORONARY ARTERY W/O ANG PCTRS SNOMED Code(s): 50135038 (3) Diabetes Current Visit: No Status: Acute Code(s): E11.9 - TYPE 2 DIABETES MELLITUS WITHOUT COMPLICATIONS SNOMED Code(s): 10741194 (4) History of myocardial infarction Current Visit: No Status: Acute Code(s): I25.2 - OLD MYOCARDIAL INFARCTION SNOMED Code(s): 032842086 Plan: Atypical type chest pain and history of diabetes with coronary artery disease. History of myocardial infarctions past. Reconcile home medications. Consult cardiology. Probable stress testing as necessary. Observation to rule out myocardial infarction. Time with Patient: Less than 30
[2021-12-27] MEDS ORDERED: DEXTROSE 50% SYRINGE 50 ML IVP PRN ×2 (08:21)
[2021-12-27] MEDS ORDERED: HEPARIN SODIUM 1,000 UN/ML (10ML VL) IV PRN (09:34)
[2021-12-27] MEDS ORDERED: HEPARIN SODIUM 1,000 UN/ML (10ML VL) IV ONE (09:34)
--- NOTE | 2021-12-27 09:40 | P.CRDCN ---
History of Present Illness History of present illness: HISTORY OF PRESENT ILLNESS: This is a 76-year-old male with a past medical history significant for mild CAD per patient, hyperlipidemia, hypertension, and diabetes. Patient follows in the office with Dr. Marshall. We have been asked to see the patient in consultation for chest pain. Patient examined at the bedside. Patient reports having chest pain for the past couple weeks. He states the pain starts on the left side of his chest and goes across his chest. He states it feels like an electrical shock. He states the pain lasts about 10 seconds and then goes away but he reports multiple episodes of it. He states the pain occurs at rest and with exertion. He is a nonsmoker. He currently denies chest pain or pressure. Patient reports he had a cardiac catheterization many years ago and was told he had mild blockages but has not required any stenting. * EKG reveals and his mechanism with T-wave inversions in anterolateral leads with mild ST elevation in V1-V2, similar to previous EKG * Repeat EKG reveals T-wave inversions now in inferior leads, new from previous EKG * Chest xray negative for acute process * Laboratory data: WBC 12.5. Platelet count 312. Hemoglobin 14.3. Sodium 135. Potassium 4.5. BUN 30. Creatinine 1.21. Troponin negative 1. ProBNP 103. * Current home cardiac medications include Crestor 10 mg at night, hydrochlorothiazide 25 mg daily, Zetia 10 mg daily, aspirin 81 mg daily, amlodipine 10 mg daily * Most recent echocardiogram obtained in March 2021 revealed ejection fraction 55-60%, small hypokinetic area of anterior lateral wall from the base to the mid wall. Mild MR, mild TR * Patient underwent Lexiscan stress test in April 2021 which revealed small fixed inferior wall defect consistent with small tissue attenuation. No evidence of stress-induced ischemia REVIEW OF SYSTEMS: At the time of my exam: CONSTITUTIONAL: Denies fever or chills. HEENT: Denies blurred vision, vision changes, or eye pain. Denies hemoptysis CARDIOVASCULAR: Denies chest pain. Denies orthopnea. Denies PND. Denies palpitations RESPIRATORY: Denies shortness of breath. GASTROINTESTINAL: Denies abdominal pain. Denies nausea or vomiting. HEMATOLOGIC: Denies bleeding disorders. GENITOURINARY: Denies any blood in urine. SKIN: Denies pruitis. Denies rash. PHYSICAL EXAM: VITAL SIGNS: Reviewed. GENERAL: Well-developed in no acute distress. HEENT: Head is normocephalic. Pupils are equal, round. Sclerae anicteric. Mucous membranes of the mouth are moist. Neck supple. No JVD or thyromegaly LUNGS: Respirations even and unlabored. Lungs essentially clear to auscultation bilaterally. HEART: Regular rate and rhythm. S1 and S2 heard. ABDOMEN: Soft. Nondistended. Nontender. EXTREMITIES: Normal range of motion. No clubbing or cyanosis. Peripheral pulses intact. No lower extremity edema NEUROLOGIC: Awake and alert. Oriented x 3. ASSESSMENT: Unstable angina Abnormal EKG Mild CAD per patient Hyperlipidemia Hypertension Diabetes PLAN: Obtain 2-D echo to assess cardiac structure and function Resume home cardiac medications Hold hydrochlorothiazide due to elevated BUN Begin IV heparin Trend troponins Add Imdur 30 mg daily and metoprolol tartrate 12.5 mg twice a day Further recommendations pending patient's course Nurse practitioner note has been reviewed by physician. Signing provider agrees with the documented findings, assessment, and plan of care. Past Medical History Past Medical History: Dementia, Hyperlipidemia, Hypertension History of Any Multi-Drug Resistant Organisms: None Reported Past Surgical History: No Surgical Hx Reported Past Psychological History: No Psychological Hx Reported Smoking Status: Never smoker Past Alcohol Use History: None Reported Past Drug Use History: None Reported Medications and Allergies Home Medications Medication Instructions Recorded Confirmed Type Canagliflozin [Invokana] 300 mg PO DAILY 03/23/21 12/27/21 History Ezetimibe [Zetia] 10 mg PO DAILY 03/23/21 12/27/21 History Insulin NPH Hum/Reg Insulin Hm 33 unit SQ AC-BID 03/23/21 12/27/21 History [NovoLIN 70-30 100 UNIT/ML VIAL] Rosuvastatin [Crestor] 10 mg PO HS 03/23/21 12/27/21 History Tamsulosin [Flomax] 0.4 mg PO HS 03/23/21 12/27/21 History amLODIPine BESYLATE 10 mg PO DAILY 03/23/21 12/27/21 History Aspirin [Adult Low Dose Aspirin EC] 81 mg PO DAILY 06/03/21 12/27/21 History Pantoprazole [Protonix] 40 mg PO DAILY 06/03/21 12/27/21 History Ascorbic Acid [Vitamin C] 500 mg PO DAILY 12/27/21 12/27/21 History Cholecalciferol (Vitamin D3) 125 mcg PO DAILY 12/27/21 12/27/21 History [Vitamin D3 (125 MCG = 5,000 IU)] hydroCHLOROthiazide [Hydrodiuril] 25 mg PO DAILY 12/27/21 12/27/21 History sitaGLIPtin PHOS/metFORMIN HCL 2 tab PO W/SUPPER 12/27/21 12/27/21 History [Janumet Xr 50-1,000 mg Tablet] Allergies Allergy/AdvReac Type Severity Reaction Status Date / Time aspirin AdvReac Abdominal Verified 12/27/21 06:37 Pain Physical Exam Vitals: Vital Signs Temp Pulse Pulse Resp BP Pulse Ox 12/27/21 07:44 62 60 18 130/83 98 12/27/21 06:35 98.1 F 67 18 152/73 99 Intake and Output 12/26/21 12/27/21 12/27/21 22:59 06:59 14:59 Other: Weight 86.183 kg Results 12/27/21 06:53 12/27/21 06:53 Cardiac Enzymes 12/27/21 12/27/21 Range/Units 06:53 06:53 AST 36 (17-59) U/L Troponin I <0.012 (0.000-0.034) ng/mL Coagulation 12/27/21 Range/Units 06:53 PT 10.9 (9.0-12.0) sec APTT 24.7 (22.0-30.0) sec CBC 12/27/21 Range/Units 06:53 WBC 12.5 H (3.8-10.6) k/uL RBC 4.80 (4.30-5.90) m/uL Hgb 14.3 (13.0-17.5) gm/dL Hct 43.8 (39.0-53.0) % Plt Count 312 (150-450) k/uL Comprehensive Metabolic Panel 12/27/21 Range/Units 06:53 Sodium 135 L (137-145) mmol/L Potassium 4.5 (3.5-5.1) mmol/L Chloride 98 (98-107) mmol/L Carbon Dioxide 19 L (22-30) mmol/L BUN 30 H (9-20) mg/dL Creatinine 1.21 (0.66-1.25) mg/dL Glucose 312 H (74-99) mg/dL Calcium 9.4 (8.4-10.2) mg/dL AST 36 (17-59) U/L ALT 37 (4-49) U/L Alkaline Phosphatase 93 (38-126) U/L Total Protein 8.0 (6.3-8.2) g/dL Albumin 4.7 (3.5-5.0) g/dL Current Medications Generic Name Dose Route Start Last Admin Trade Name Freq PRN Reason Stop Dose Admin Aspirin 325 mg 12/28/21 09:00 Aspirin 325 Mg Tab PO DAILY KRYSTAL Nitroglycerin 0.4 mg 12/27/21 07:57 Nitroglycerin Sl Tabs 0.4 Mg Tab SUBLINGUAL Q5M PRN Chest Pain Intake and Output 12/26/21 12/27/21 12/27/21 22:59 06:59 14:59 Other: Weight 86.183 kg 12/27/21 06:53 12/27/21 06:53
[2021-12-27] MEDS ORDERED: hydroCHLOROthiazide 25 MG TAB PO SCH (09:45)
[2021-12-27 10:07] LABS: Basophils # (A) 0.1 k/uL (0-0.2); Basophils % (A) 1 %; Eosinophils # (A) 0.2 k/uL (0-0.7); Eosinophils % (A) 2 %; HCT 40.9 % (39.0-53.0); HGB 13.3 gm/dL (13.0-17.5); Lymphocytes # (A) 2.4 k/uL (1.0-4.8); Lymphocytes % (A) 22 %; MCH 29.5 pg (25.0-35.0); MCHC 32.5 g/dL (31.0-37.0); MCV 90.7 fL (80.0-100.0); Mean Platelet Volume 8.1; Monocytes # (A) 0.7 k/uL (0-1.0); Monocytes % (A) 6 %; Neutrophils # (A) 7.5 k/uL (1.3-7.7); Neutrophils % (A) 67 %; Platelet Count 304 k/uL (150-450); RDW 13.7 % (11.5-15.5); WBC 11.1 k/uL (3.8-10.6)
[2021-12-27 10:23] LABS: Partial Thromboplastin Time 24.2 sec (22.0-30.0); Prothrombin Time 10.4 sec (9.0-12.0)
[2021-12-27 10:37] LABS: Glucose,Whole Blood 161 mg/dL (70-110)
[2021-12-27] MEDS: EZETIMIBE 10 MG TAB PO SCH (10:40)
[2021-12-27] MEDS: amLODIPine 10 MG TAB PO SCH (10:40)
[2021-12-27] MEDS: HEPARIN SOD,PORK IN 0.45% NACL 25,000 UNIT in 0.45% NACL 1 250ML.BAG IV SCH (10:45)
[2021-12-27 17:03] LABS: Glucose,Whole Blood 272 mg/dL (70-110)
[2021-12-27] MEDS: LINAGLIPTIN 5 MG TABLET PO SCH (17:33)
[2021-12-27] MEDS: INSULN ASP PRT/INSULIN ASPART 100 UNIT/ML 10 ML VIAL SQ SCH (17:33)
[2021-12-27] MEDS: metFORMIN 500 MG TAB PO SCH (17:33)
[2021-12-27 20:20] LABS: Glucose,Whole Blood 273 mg/dL (70-110)
[2021-12-27] MEDS ORDERED: TAMSULOSIN 0.4 MG CAP.ER.24H PO SCH (21:00)
[2021-12-27] MEDS ORDERED: ATORVASTATIN 20 MG TAB PO SCH (21:00)
[2021-12-27] MEDS: METOPROLOL TARTRATE 12.5 MG TAB PO SCH (21:07)
[2021-12-28 06:48] LABS: Partial Thromboplastin Time 42.3 sec (22.0-30.0); Prothrombin Time 10.7 sec (9.0-12.0)
[2021-12-28 06:58] LABS: Glucose,Whole Blood 148 mg/dL (70-110)
[2021-12-28] MEDS ORDERED: PANTOPRAZOLE 40 MG TABLET PO SCH (07:30)
--- NOTE | 2021-12-28 08:28 | P.PN ---
Subjective Principal diagnosis: Chest pain. The patient is 76-year-old who came in with chest pain yesterday. Stress testing is pending today. The patient states she slept relatively well and had minimal problems. He did not have any chest pain when going to the bathroom no dizziness or syncope. Objective - Vital Signs Vital signs: Vital Signs Temp 98.1 F 12/28/21 07:00 Pulse 55 L 12/28/21 07:00 Resp 16 12/28/21 07:00 BP 115/67 12/28/21 07:00 Pulse Ox 97 12/28/21 07:00 FiO2 Intake & Output 12/27/21 12/28/21 12/28/21 18:59 06:59 18:59 Intake Total 118 250 Balance 118 250 Weight 86.183 kg Intake: Oral 118 250 Other: Voiding Method Toilet # Voids 1 2 - Constitutional General appearance: Present: cooperative. Absent: no acute distress - Neck Neck: Absent: lymphadenopathy - Respiratory Respiratory: bilateral: diminished - Cardiovascular Rhythm: regular Heart sounds: normal: S1, S2 Abnormal Heart Sounds: Absent: S3 Gallop - Gastrointestinal General gastrointestinal: Present: soft. Absent: tenderness - Integumentary Integumentary: Absent: cellulitis - Labs CBC & Chem 7: 12/27/21 09:37 12/27/21 06:53 Labs: Abnormal Lab Results - Last 24 Hours (Table) 12/27/21 12/27/21 12/27/21 Range/Units 09:37 09:37 10:35 WBC 11.1 H (3.8-10.6) k/uL APTT (22.0-30.0) sec POC Glucose (mg/dL) 161 H (70-110) mg/dL Hemoglobin A1c 9.9 H (0.0-6.0) % 12/27/21 12/27/21 12/27/21 Range/Units 15:36 17:02 20:18 WBC (3.8-10.6) k/uL APTT 44.7 H (22.0-30.0) sec POC Glucose (mg/dL) 272 H 273 H (70-110) mg/dL Hemoglobin A1c (0.0-6.0) % 12/28/21 12/28/21 Range/Units 05:27 06:55 WBC (3.8-10.6) k/uL APTT 42.3 H (22.0-30.0) sec POC Glucose (mg/dL) 148 H (70-110) mg/dL Hemoglobin A1c (0.0-6.0) % Assessment and Plan (1) Chest pain Current Visit: Yes Status: Acute Code(s): R07.9 - CHEST PAIN, UNSPECIFIED SNOMED Code(s): 86580952 (2) CAD (coronary artery disease) Current Visit: No Status: Acute Code(s): I25.10 - ATHSCL HEART DISEASE OF [place] CORONARY ARTERY W/O ANG PCTRS SNOMED Code(s): 29647468 (3) Diabetes Current Visit: No Status: Acute Code(s): E11.9 - TYPE 2 DIABETES MELLITUS WITHOUT COMPLICATIONS SNOMED Code(s): 17216672 (4) History of myocardial infarction Current Visit: No Status: Acute Code(s): I25.2 - OLD MYOCARDIAL INFARCTION SNOMED Code(s): 933059549 Plan: Atypical type chest pain and history of diabetes with coronary artery disease. Await stress testing. We'll continue to follow. See orders otherwise. Anticipate discharge if workup is negative
[2021-12-28] MEDS: HEPARIN SOD,PORK IN 0.45% NACL 25,000 UNIT in 0.45% NACL 1 250ML.BAG IV SCH (08:56)
[2021-12-28] MEDS ORDERED: ASPIRIN 81 MG PO SCH (09:00)
[2021-12-28] MEDS ORDERED: ASCORBIC ACID 500 MG TAB PO SCH (09:00)
[2021-12-28] MEDS ORDERED: ASPIRIN 325 MG TAB PO SCH (09:00)
[2021-12-28] MEDS ORDERED: DAPAGLIFLOZIN PROPANEDIOL 10 MG TABLET PO SCH (09:00)
[2021-12-28] MEDS ORDERED: CHOLECALCIFEROL 125 MCG (5000 IU) TABLET PO SCH (09:00)
[2021-12-28] MEDS ORDERED: ISOSORBIDE MONONITRATE ER 30 MG TAB.ER.24H PO SCH (09:00)
[2021-12-28] MEDS ORDERED: ASPIRIN 325 MG TAB PO STA (09:18)
[2021-12-28] MEDS ORDERED: NITROGLYCERIN SL TABS 0.4 MG TAB SUBLINGUAL PRN (09:18)
[2021-12-28] MEDS ORDERED: ATORVASTATIN 80 MG TAB PO STA (09:18)
[2021-12-28] MEDS ORDERED: ALPRAZolam 0.5 MG TAB PO PRN (09:18)
[2021-12-28] MEDS ORDERED: ALPRAZolam 0.25 MG TAB PO PRN (09:18)
[2021-12-28 09:29] LABS: Basophils # (A) 0.04 X 10*3/uL (0.00-0.10); Basophils % (A) 0.4 %; Eosinophils # (A) 0.39 X 10*3/uL (0.04-0.35); Eosinophils % (A) 3.4 %; HCT 38.5 % (39.6-50.0); HGB 12.5 g/dL (13.0-17.0); Immature Grans, Automated 0.7 %; Lymphocytes # (A) 2.91 X 10*3/uL (0.90-5.00); Lymphocytes % (A) 25.6 %; MCH 29.6 pg (27.0-32.0); MCHC 32.5 g/dL (32.0-37.0); Mean Platelet Volume 10.5 fL (9.5-12.2); Monocytes # (A) 1.12 X 10*3/uL (0.20-1.00); Monocytes % (A) 9.8 %; NRBC Per 100 WBC 0 /100 WBCS (0.0-0.0); Neutrophils # (A) 6.84 X 10*3/uL (1.80-7.70); Neutrophils % (A) 60.1 %; Platelet Count 303 X 10*3/uL (140-440); RBC 4.23 X 10*6/uL (4.40-5.60); RDW 13.9 % (11.5-14.5); WBC 11.38 X 10*3/uL (4.50-10.00)
[2021-12-28] MEDS ORDERED: SODIUM CHLORIDE 0.9% 1,000 ML in EMPTY BAG 1 BAG IV SCH (09:30)
--- NOTE | 2021-12-28 09:47 | CA ---
Transthoracic Echo Report Name: Christopher Reeves Age: 76 Gender: M : 1945 Exam Date: 12/27/2021 14:26 Exam Location: [facility] Ht (in): 62 Wt (lb): 190 Ordering Physician: Luis Augustin Attending/Referring Phys: [id number], Demetria Advertising Project Manager Bridgette Melgoza, MEERA Procedure CPT: Indications: Chest Pain Cardiac Hx: Technical Quality: Contrast 1: Total Dose (mL): Contrast 2: Total Dose (mL): MEASUREMENTS (Male / Female) Normal Values 2D ECHO LV Diastolic Diameter PLAX 4.4 cm 4.2 - 5.9 / 3.9 - 5.3 cm LV Systolic Diameter PLAX 4.0 cm IVS Diastolic Thickness 1.2 cm 0.6 - 1.0 / 0.6 - 0.9 cm LVPW Diastolic Thickness 1.3 cm 0.6 - 1.0 / 0.6 - 0.9 cm LV Relative Wall Thickness 0.6 LA Systolic Diameter LX 3.6 cm 3.0 - 4.0 / 2.7 - 3.8 cm LA Volume 50.6 cm??? 18 - 58 / 22 - 52 cm??? M-MODE Aortic Root Diameter MM 3.6 cm LA Systolic Diameter MM 3.5 cm LA Ao Ratio MM 1.0 MV E Point Septal Separation 0.6 cm AV Cusp Separation MM 2.0 cm DOPPLER MV Area PHT 3.4 cm??? Mitral E Point Velocity 46.6 cm/s Mitral A Point Velocity 82.9 cm/s Mitral E to A Ratio 0.6 MV Deceleration Time 224.0 ms FINDINGS Left Ventricle Left ventricular ejection fraction is estimated at 50-55%. Right Ventricle Normal right ventricular size and function. Right ventricular systolic pressure within normal limits. Right Atrium Normal right atrial size. Left Atrium Normal left atrial size. Mitral Valve Structurally normal mitral valve. Mild mitral regurgitation. Mitral annular calcification. Aortic Valve Trileaflet aortic valve. Aortic valve sclerosis. Tricuspid Valve Structurally normal tricuspid valve. Pulmonic Valve Structurally normal pulmonic valve. Pericardium Normal pericardium. Aorta Normal size aortic root and proximal ascending aorta. CONCLUSIONS Normal left ventricular dimension and systolic function Previewed by: Dr. Jose Brizuela MD (Electronically Signed) Final Date: 28 December 2021 09:46
[2021-12-28 10:01] LABS: Chol/HDL Ratio 2.41 Ratio; LDL Cholesterol,Calculated 3.2 mg/dL (0.0-131.0)
[2021-12-28] MEDS: metFORMIN 500 MG TAB PO SCH (10:40)
[2021-12-28] MEDS: amLODIPine 10 MG TAB PO SCH (10:40)
[2021-12-28] MEDS: METOPROLOL TARTRATE 12.5 MG TAB PO SCH (10:40)
[2021-12-28] MEDS: INSULN ASP PRT/INSULIN ASPART 100 UNIT/ML 10 ML VIAL SQ SCH ×2 (10:40→17:51)
[2021-12-28] MEDS: EZETIMIBE 10 MG TAB PO SCH (10:42)
[2021-12-28] MEDS ORDERED: HEPARIN SODIUM 1,000 UN/ML (10ML VL) ONE (11:56)
[2021-12-28] MEDS ORDERED: VERAPAMIL 2.5 MG/ML 2 ML AMP ONE (11:56)
[2021-12-28] MEDS ORDERED: fentaNYL (PF) 50 MCG/ML 2 ML AMP ONE (11:56)
[2021-12-28] MEDS ORDERED: LIDOCAINE 1% INJ 10MG/ML (30 ML VIAL-PF) SQ ONE (12:33)
[2021-12-28] MEDS ORDERED: fentaNYL (PF) 50 MCG/ML 2 ML AMP IV ONE (12:33)
[2021-12-28] MEDS ORDERED: VERAPAMIL SYRINGE (5 MG/10 ML) INTRAARTER ONE ×2 (12:34→12:35)
[2021-12-28] MEDS ORDERED: IV FLUID CONTINUATION 1,000 ML IV ONE (12:35)
[2021-12-28] MEDS ORDERED: HEPARIN SODIUM 1,000 UN/ML (10ML VL) IV ONE (12:42)
[2021-12-28] MEDS ORDERED: RX INFO: IV CONTRAST WAS GIVEN 1 EACH MISC MISCELLANE PRN (12:53)
[2021-12-28] MEDS ORDERED: SODIUM CHLORIDE 0.9% 1,000 ML IV SCH (13:00)
--- NOTE | 2021-12-28 13:00 | P.CARDCATH ---
Date of Procedure: 12/28/21 Description of Procedure: Cardiac Catheterization: The patient is a 76-year-old male with a known history of CAD who presented with symptoms of chest discomfort, he had no evidence of enzymatic changes but because of the recurrent symptoms and his baseline EKG recommendations were made regarding further evaluation. Recommendations were made regarding cardiac catheterization, the risks and the complications were discussed with the patient who is in full understanding and agreement. Procedure Description: Patient was brought to cardiac cath lab technologist in fasting semi-sedated state after receiving Fentanyl and Benadryl achieiving moderate conscious sedated state. Using Xylocaine Anesthesia and Seldinger technique, a 6-[place] sheath was introduced in the right radial artery . Subsequently, selective coronary angiography was performed using a 5-[place] 3.5 bend Shaan catheter. Multiple views of the coronary artery including hemiaxial views were obtained. The 5-[place] Pigtail catheter was used to cross the aortic valve and LVEDP was calculated. Following that, catheter and sheath were removed. Hemostasis was obtained with deployment of TR band . There was no immediate complication. Patient was returned to room in stable condition. Of note, the patient received a total of 4500 units of intravenous heparin as well as intra-arterial verapamil. Findings: Fluoroscopy: Significant calcifications of the coronary arteries was noted Left main: This is a short sized vessel, bifurcating into LAD and left cir cumflex, left main has no high-grade stenosis LAD: This is a large size vessel, reaching to the apex, giving rise to small diagonal branch, the LAD has mild plaque proximally of 20% there is another 20- 30% plaque in the midsegment with no high-grade stenosis Left circumflex: This is a large codominant vessel giving rise to 2 obtuse marginal branch and distally bifurcating into PDA and PLV, the left circumflex has mild intimal disease but no high-grade stenosis RCA: This is a large codominant vessel giving rise to a large PDA, the right coronary artery has mild intimal disease in the distal stenosis segment of 20% and there is a plaque in the midsegment of 20% Left Ventriculogram: Not performed Hemodynamics: There was no gradient across the aortic valve , LVEDP was 12-14 mmHg Conclusion: 1. Calcified coronary arteries 2. Mild triple-vessel coronary artery disease 3. Codominant system 4. Normal LVEDP Recommendations: I have recommended to continue medical therapy with the aggressive coronary risk modification. The findings and the recommendations were discussed with the patient and the family and they were in full understanding and agreement. Duration of sedation is 16 minutes.
[2021-12-28 13:05] VITALS: RESP 18; TEMP 97.9
--- NOTE | 2021-12-28 13:51 | P.DS ---
Providers Date of admission: 12/27/21 07:19 Attending physician: Seng Geiger Consults: 12/27/21 07:57 Consult Physician Urgent Consulting Provider: Jose Brizuela Consult Reason/Comments: chest pain Do you want consulting provider notified?: Yes Primary care physician: Seng Geiger - Discharge Diagnosis(es) (1) Chest pain Current Visit: Yes Status: Acute (2) CAD (coronary artery disease) Current Visit: No Status: Acute (3) Diabetes Current Visit: No Status: Acute (4) History of myocardial infarction Current Visit: No Status: Acute Hospital Course: This is discharge summary 76-year-old male who is admitted for Chest pain with typical features. Given his history and physical, cardiology ended up doing a cardiac catheterization which found mild disease but nothing of prominence to repair. The patient will be discharged once stable and cleared by cardiology the patient's follow-up with me in about 3-5 days. Patient Condition at Discharge: Fair Plan - Discharge Summary New Discharge Prescriptions: No Action Ascorbic Acid [Vitamin C] 500 mg PO DAILY Cholecalciferol (Vitamin D3) [Vitamin D3 (125 MCG = 5,000 IU)] 125 mcg PO DAILY hydroCHLOROthiazide [Hydrodiuril] 25 mg PO DAILY Canagliflozin [Invokana] 300 mg PO DAILY Insulin NPH Hum/Reg Insulin Hm [NovoLIN 70-30 100 UNIT/ML VIAL] 33 unit SQ AC-BID amLODIPine BESYLATE 10 mg PO DAILY Ezetimibe [Zetia] 10 mg PO DAILY Rosuvastatin [Crestor] 10 mg PO HS Tamsulosin [Flomax] 0.4 mg PO HS Pantoprazole [Protonix] 40 mg PO DAILY Aspirin [Adult Low Dose Aspirin EC] 81 mg PO DAILY sitaGLIPtin PHOS/metFORMIN HCL [Janumet Xr 50-1,000 mg Tablet] 2 tab PO W/SUPPER Discharge Medication List Canagliflozin [Invokana] 300 mg PO DAILY 03/23/21 [History] Ezetimibe [Zetia] 10 mg PO DAILY 03/23/21 [History] Insulin NPH Hum/Reg Insulin Hm [NovoLIN 70-30 100 UNIT/ML VIAL] 33 unit SQ AC- BID 03/23/21 [History] Rosuvastatin [Crestor] 10 mg PO HS 03/23/21 [History] Tamsulosin [Flomax] 0.4 mg PO HS 03/23/21 [History] amLODIPine BESYLATE 10 mg PO DAILY 03/23/21 [History] Aspirin [Adult Low Dose Aspirin EC] 81 mg PO DAILY 06/03/21 [History] Pantoprazole [Protonix] 40 mg PO DAILY 06/03/21 [History] Ascorbic Acid [Vitamin C] 500 mg PO DAILY 12/27/21 [History] Cholecalciferol (Vitamin D3) [Vitamin D3 (125 MCG = 5,000 IU)] 125 mcg PO DAILY 12/27/21 [History] hydroCHLOROthiazide [Hydrodiuril] 25 mg PO DAILY 12/27/21 [History] sitaGLIPtin PHOS/metFORMIN HCL [Janumet Xr 50-1,000 mg Tablet] 2 tab PO W/SUPPER 12/27/21 [History] Follow up Appointment(s)/Referral(s): Juan M Marshall MD [STAFF PHYSICIAN] - 1 Week Seng Geiger MD [Primary Care Provider] - 1-2 days Activity/Diet/Wound Care/Special Instructions: Resume Metformin in 48 hours Discharge Disposition: HOME SELF-CARE
[2021-12-28 17:05] LABS: Glucose,Whole Blood 248 mg/dL (70-110)
[2021-12-28 17:15] VITALS: BP 110/61; PULSE 54
[2021-12-28] MEDS: LINAGLIPTIN 5 MG TABLET PO SCH (17:52)
[2021-12-29] MEDS ORDERED: HEPARIN SODIUM,PORCINE 10,000 UNIT in SODIUM CHLORIDE 0.9% 1,000 ML IRRIGATION PRN (07:00)
[2021-12-29] MEDS ORDERED: HEPARIN SODIUM,PORCINE 2,500 UNIT in SODIUM CHLORIDE 0.9% 250 ML IRRIGATION PRN (07:00)
== END 2021-12-28 18:37 | disposition home or self-care (01) ==
LOC: EC 06:32 → 6NMEDSUR 07:19
PROVIDERS: ADMIT Family Medicine; ATTEND Family Medicine
DX: I25.110 Atherosclerotic heart disease of native coronary artery with unstable angina pectoris (principal); R94.31 Abnormal electrocardiogram [ECG] [EKG]; F03.90 Unspecified dementia, unspecified severity, without behavioral disturbance, psychotic disturbance, mood disturbance, and anxiety; I10 Essential (primary) hypertension; E78.5 Hyperlipidemia, unspecified; E11.9 Type 2 diabetes mellitus without complications; I25.2 Old myocardial infarction; Z79.4 Long term (current) use of insulin; Z79.82 Long term (current) use of aspirin; Z79.84 Long term (current) use of oral hypoglycemic drugs; Z79.899 Other long term (current) drug therapy; Z88.6 Allergy status to analgesic agent
CPT/HCPCS: 96365; 96366 ×2; 96372; 96375; 96376; 99285; 36415; 93005; 93306; 93458; 83880; 80061; 80053; 83735; 84484; 85025 ×2; 85610 ×2; 85730 ×2; 83036; 71046; G0378 ×2; C1894; C1769; J2001; J3010; J1644 ×4

== ENCOUNTER 2022-08-06 13:07 | Inpatient (IN) | payer MEDICARE ==
[2022-08-06] MEDS ORDERED: SODIUM CHLORIDE 0.9% 500 ML 500 ML IV STA (13:41)
--- NOTE | 2022-08-06 13:49 | ED ---
General Adult HPI - General Chief complaint: Neuro Symptoms/Deficit Stated complaint: AMS Time Seen by Provider: 08/06/22 13:35 Source: patient, family, RN notes reviewed, old records reviewed Mode of arrival: wheelchair - History of Present Illness Initial comments: 77-year-old male presenting for evaluation of generalized weakness. Family had noted that the patient did have some slurred speech at around noon today which was 90 minutes prior to arrival. This is improved at the time of my evaluation with clear speech. The onset of this symptom was not known, the patient was last seen 24 hours prior to this and he is uncertain if or when he had developed any slurring of his speech. He denied focal numbness or weakness. Denied chest pain. Denied abdominal pain. No pain complaints. No vomiting. No fever. - Related Data Home Medications Medication Instructions Recorded Confirmed Canagliflozin [Invokana] 300 mg PO DAILY 03/23/21 12/27/21 Ezetimibe [Zetia] 10 mg PO DAILY 03/23/21 12/27/21 Insulin NPH Hum/Reg Insulin Hm 33 unit SQ AC-BID 03/23/21 12/27/21 [NovoLIN 70-30 100 UNIT/ML VIAL] Rosuvastatin [Crestor] 10 mg PO HS 03/23/21 12/27/21 Tamsulosin [Flomax] 0.4 mg PO HS 03/23/21 12/27/21 amLODIPine BESYLATE 10 mg PO DAILY 03/23/21 12/27/21 Aspirin [Adult Low Dose Aspirin EC] 81 mg PO DAILY 06/03/21 12/27/21 Pantoprazole [Protonix] 40 mg PO DAILY 06/03/21 12/27/21 Ascorbic Acid [Vitamin C] 500 mg PO DAILY 12/27/21 12/27/21 Cholecalciferol (Vitamin D3) 125 mcg PO DAILY 12/27/21 12/27/21 [Vitamin D3 (125 MCG = 5,000 IU)] hydroCHLOROthiazide [Hydrodiuril] 25 mg PO DAILY 12/27/21 12/27/21 sitaGLIPtin PHOS/metFORMIN HCL 2 tab PO W/SUPPER 12/27/21 12/27/21 [Janumet Xr 50-1,000 mg Tablet] Previous Rx's Medication Instructions Recorded Isosorbide Mononitrate ER [Imdur] 30 mg PO DAILY #30 tab 12/28/21 Metoprolol Tartrate [Lopressor] 12.5 mg PO BID #60 tab 12/28/21 Nitroglycerin Sl Tabs [Nitrostat] 0.4 mg SUBLINGUAL Q5M PRN #50 tab 12/28/21 Allergies Allergy/AdvReac Type Severity Reaction Status Date / Time aspirin AdvReac Abdominal Verified 08/06/22 13:29 Pain Review of Systems ROS Statement: Those systems with pertinent positive or pertinent negative responses have been documented in the HPI. ROS Other: All systems not noted in ROS Statement are negative. Past Medical History Past Medical History: Dementia, Hyperlipidemia, Hypertension History of Any Multi-Drug Resistant Organisms: None Reported Past Surgical History: No Surgical Hx Reported Additional Past Surgical History / Comment(s): Right Knee replacement, cataracts, Left knee steriod injection Past Psychological History: No Psychological Hx Reported Smoking Status: Never smoker Past Alcohol Use History: None Reported Past Drug Use History: None Reported General Exam General appearance: alert, in no apparent distress Head exam: Present: atraumatic, normocephalic Eye exam: Present: normal appearance, PERRL Neck exam: Present: normal inspection. Absent: tenderness Cardiovascular Exam: Present: regular rate, normal rhythm GI/Abdominal exam: Present: soft. Absent: distended, tenderness, guarding Extremities exam: Present: normal inspection, normal capillary refill. Absent: pedal edema Neurological exam: Present: alert, oriented X3, CN II-XII intact, other (NIH of 0). Absent: motor sensory deficit Psychiatric exam: Present: normal affect, normal mood Skin exam: Present: warm, dry, intact. Absent: cyanosis, diaphoretic Course Vital Signs 08/06/22 08/06/22 08/06/22 13:25 13:50 14:00 Temperature 98.3 F Pulse Rate 81 63 64 Respiratory 18 18 20 Rate Blood Pressure 138/70 150/77 150/77 O2 Sat by Pulse 99 95 99 Oximetry 08/06/22 08/06/22 08/06/22 14:10 14:20 14:30 Temperature Pulse Rate 63 64 61 Respiratory 16 16 20 Rate Blood Pressure 144/79 140/70 140/70 O2 Sat by Pulse 99 95 98 Oximetry EKG Findings - EKG Comments: EKG Findings:: EKG: Sinus rhythm with first-degree AV block, left axis deviation rate of 65, VT interval 258, QRS duration 141 Medical Decision Making - Medical Decision Making Was pt. sent in by a medical professional or institution (, [facility], APPEALS NURSE, urgent care, hospital, or [place] [facility] facility...) When possible be specific @ -No Did you speak to anyone other than the patient for history (EMS, parent, family, police, friend...)? What history was obtained from this source @ -No Did you review nursing and triage notes (agree or disagree)? Why? @ -I reviewed and agree with nursing and triage notes Were old charts reviewed (outside hosp., previous admission, EMS record, old EKG, old radiological studies, urgent care reports/EKG's, [place] [facility] facility records)? Report findings @ -No old charts were reviewed Differential Diagnosis (chest pain, altered mental status, abdominal pain women, abdominal pain men, vaginal bleeding, weakness, fever, dyspnea, syncope, headache, dizziness, GI bleed, back pain, seizure, CVA, palpatations, mental health, musculoskeletal)? @ Differential CVA Ischemic stroke, hemorrhagic stroke, brain tumor, atypical migraine, Wernicke's encephalopathy, seizure, multiple sclerosis, meningitis, encephalitis, hypog lycemia, Guillain-Ventura, electrolytes disturbance, myasthenia gravis.... This is not meant to be an all-inclusive list EKG interpreted by me (3pts min.). @ -As above X-rays interpreted by me (1pt min.). @ -None done CT interpreted by me (1pt min.). @Negative for intracranial hemorrhage or mass effect U/S interpreted by me (1pt. min.). @ -None done What testing was considered but not performed or refused? (CT, X-rays, U/S, labs)? Why? @ -None What meds were considered but not given or refused? Why? @ -None Did you discuss the management of the patient with other professionals (professionals i.e. , RAFA[facility], APPEALS NURSE, lab, RT, psych nurse, older adult social work specialist, slash trimmer, teacher, child support officer, case maker)? Give summary @ -Dr. West Was smoking cessation discussed for >3mins.? @ -No Was critical care preformed (if so, how long)? @ -No Were there social determinants of health that impacted care today? How? (Homelessness, low income, unemployed, alcoholism, drug addiction, transportation, low edu. Level, literacy, decrease access to med. care, assisted, rehab)? @ -No Was there de-escalation of care discussed even if they declined (Discuss DNR or withdrawal of care, Hospice)? DNR status @ -No What co-morbidities impacted this encounter? (DM, HTN, Smoking, COPD, CAD, Canc er, CVA, ARF, Chemo, Hep., AIDS, mental health diagnosis, sleep apnea, morbid obesity)? @ -[Hypertension, dementia Was patient admitted / discharged? Hospital course, mention meds given and route, prescriptions, significant lab abnormalities, going to OR and other pertinent info. @77-year-old male with an episode of slurred speech, generalized weakness. No focal weakness, no speech abnormality present on evaluation. NIH of 0. Symptoms suggestive of TIA. I did perform CT imaging as well as laboratory testing in the emergency department. Patient will require admission for further evaluation of TIA and neurology consultation. Undiagnosed new problem with uncertain prognosis? @ -No Drug Therapy requiring intensive monitoring for toxicity (Heparin, Nitro, Insulin, Cardizem)? @ -No Were any procedures done? @ -No Diagnosis/symptom? @TIA Acute, or Chronic, or Acute on Chronic? @Acute Uncomplicated (without systemic symptoms) or Complicated (systemic symptoms)? @Complicated Side effects of treatment? @ -No Exacerbation, Progression, or Severe Exacerbation? @ -No Poses a threat to life or bodily function? How? (Chest pain, [place], AL, pneumonia, PE, COPD, DKA, ARF, appy, cholecystitis, CVA, Diverticulitis, Homicidal, Suicidal, threat to staff... and all critical care pts) @ -[Yes, CVA - Lab Data Result diagrams: 08/06/22 13:43 08/06/22 13:43 Lab Results 08/06/22 08/06/22 08/06/22 Range/Units 13:43 13:43 13:43 WBC 10.3 (3.8-10.6) k/uL RBC 4.56 (4.30-5.90) m/uL Hgb 13.8 (13.0-17.5) gm/dL Hct 42.0 (39.0-53.0) % MCV 92.0 (80.0-100.0) fL MCH 30.3 (25.0-35.0) pg MCHC 32.9 (31.0-37.0) g/dL RDW 14.4 (11.5-15.5) % Plt Count 351 (150-450) k/uL MPV 8.0 Neutrophils % 61 % Lymphocytes % 27 % Monocytes % 7 % Eosinophils % 2 % Basophils % 0 % Neutrophils # 6.2 (1.3-7.7) k/uL Lymphocytes # 2.8 (1.0-4.8) k/uL Monocytes # 0.8 (0-1.0) k/uL Eosinophils # 0.2 (0-0.7) k/uL Basophils # 0.0 (0-0.2) k/uL PT 10.2 (9.0-12.0) sec INR 1.0 (<1.2) APTT 23.0 (22.0-30.0) sec Sodium 139 (137-145) mmol/L Potassium 4.2 (3.5-5.1) mmol/L Chloride 101 (98-107) mmol/L Carbon Dioxide 24 (22-30) mmol/L Anion Gap 14 mmol/L BUN 22 H (9-20) mg/dL Creatinine 1.29 H (0.66-1.25) mg/dL Est GFR (CKD-EPI)AfAm 61 (>60 ml/min/1.73 sqM) Est GFR (CKD-EPI)NonAf 53 (>60 ml/min/1.73 sqM) Glucose 166 H (74-99) mg/dL Calcium 9.0 (8.4-10.2) mg/dL Total Bilirubin 0.6 (0.2-1.3) mg/dL AST 44 (17-59) U/L ALT 48 (4-49) U/L Alkaline Phosphatase 74 (38-126) U/L Troponin I (0.000-0.034) ng/mL Total Protein 8.2 (6.3-8.2) g/dL Albumin 4.5 (3.5-5.0) g/dL 08/06/22 Range/Units 13:43 WBC (3.8-10.6) k/uL RBC (4.30-5.90) m/uL Hgb (13.0-17.5) gm/dL Hct (39.0-53.0) % MCV (80.0-100.0) fL MCH (25.0-35.0) pg MCHC (31.0-37.0) g/dL RDW (11.5-15.5) % Plt Count (150-450) k/uL MPV Neutrophils % % Lymphocytes % % Monocytes % % Eosinophils % % Basophils % % Neutrophils # (1.3-7.7) k/uL Lymphocytes # (1.0-4.8) k/uL Monocytes # (0-1.0) k/uL Eosinophils # (0-0.7) k/uL Basophils # (0-0.2) k/uL PT (9.0-12.0) sec INR (<1.2) APTT (22.0-30.0) sec Sodium (137-145) mmol/L Potassium (3.5-5.1) mmol/L Chloride (98-107) mmol/L Carbon Dioxide (22-30) mmol/L Anion Gap mmol/L BUN (9-20) mg/dL Creatinine (0.66-1.25) mg/dL Est GFR (CKD-EPI)AfAm (>60 ml/min/1.73 sqM) Est GFR (CKD-EPI)NonAf (>60 ml/min/1.73 sqM) Glucose (74-99) mg/dL Calcium (8.4-10.2) mg/dL Total Bilirubin (0.2-1.3) mg/dL AST (17-59) U/L ALT (4-49) U/L Alkaline Phosphatase (38-126) U/L Troponin I 0.017 (0.000-0.034) ng/mL Total Protein (6.3-8.2) g/dL Albumin (3.5-5.0) g/dL Disposition Clinical Impression: Transient cerebral ischemia Disposition: ADMITTED IP TO THIS HOSP Condition: Stable Is patient prescribed a controlled substance at d/c from ED?: No Referrals: Seng Geiger MD [Primary Care Provider] - 1-2 days Time of Disposition: 15:26
[2022-08-06 13:53] LABS: Basophils % (A) 0 %; Eosinophils # (A) 0.2 k/uL (0-0.7); Eosinophils % (A) 2 %; HGB 13.8 gm/dL (13.0-17.5); Lymphocytes # (A) 2.8 k/uL (1.0-4.8); Lymphocytes % (A) 27 %; MCH 30.3 pg (25.0-35.0); MCHC 32.9 g/dL (31.0-37.0); Monocytes # (A) 0.8 k/uL (0-1.0); Monocytes % (A) 7 %; Neutrophils # (A) 6.2 k/uL (1.3-7.7); Neutrophils % (A) 61 %; Platelet Count 351 k/uL (150-450); RBC 4.56 m/uL (4.30-5.90); RDW 14.4 % (11.5-15.5); WBC 10.3 k/uL (3.8-10.6)
--- NOTE | 2022-08-06 14:08 | CT ---
EXAMINATION TYPE: CT brain wo con DATE OF EXAM: 08/06/2022 COMPARISON: None HISTORY: Neuro deficit, acute, stroke suspected CT DLP: 1159.4 mGycm Automated exposure control for dose reduction was used. FINDINGS: The ventricles, basal cisterns and sulci over convexities are within normal limits for the patient's age and there is no mass effect or shift of midline structures. No abnormal density is seen throughout the brain parenchyma. There is no acute intra or extra-axial h emorrhage. The posterior fossa including the brainstem, fourth ventricle and cerebellar pontine angles appear no rmal. The intraorbital contents appear normal and symmetric. Visualized paranasal sinuses and mastoid air cells are well aerated. IMPRESSION: NO ACUTE BLEED OR MASS EFFECT. NO SIGNIFICANT ABNORMALITY SEEN.
[2022-08-06 14:11] LABS: Albumin 4.5 g/dL (3.5-5.0); Potassium 4.2 mmol/L (3.5-5.1); Total Bilirubin 0.6 mg/dL (0.2-1.3); Total Protein 8.2 g/dL (6.3-8.2)
--- NOTE | 2022-08-06 14:11 | XR ---
EXAMINATION TYPE: XR chest 2V DATE OF EXAM: 08/06/2022 COMPARISON: 12/27/2021 HISTORY: Mental status change TECHNIQUE: Frontal and lateral views of the chest are obtained. FINDINGS: There is no focal air space opacity, pleural effusion, or pneumothorax seen. The cardiac silhouette size is within normal limits. The osseous structures are intact. IMPRESSION: No acute cardiopulmonary process.
[2022-08-06 14:12] LABS: Prothrombin Time 10.2 sec (9.0-12.0)
--- NOTE | 2022-08-06 15:12 | P.HPIM ---
History of Present Illness H&P Date: 08/06/22 History of present illness; patient is 77-year-old gentleman with past medical history significant for hyperlipidemia, hypertension who presented to the ER because of slurred speech. Patient was all right 2 hours ago when he started noticing that he was not his usual self, family noticed that his speech was slurred. 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 Denies any weakness of any extremity. Denies any numbness. There was no noticeable facial droop. Because of this slurred speech patient brought to the ER. Initial lab work in the ER showed WBC 10.3, hemoglobin 13.8, sodium 139, potassium 4.2, BUN 22, creatinine 1.[address] head without contrast done showed no acute intracranial process REVIEW OF SYSTEMS: CONSTITUTIONAL: No fever, no malaise, no fatigue. HEENT: No recent visual problems or hearing problems. Denied any sore throat. CARDIOVASCULAR: No chest pain, orthopnea, PND, no palpitations, no syncope. PULMONARY: No shortness of breath, no cough, no hemoptysis. GASTROINTESTINAL: No diarrhea, no nausea, no vomiting, no abdominal pain. NEUROLOGICAL: No headaches, no weakness, no numbness. HEMATOLOGICAL: Denies any bleeding or petechiae. GENITOURINARY: Denies any burning micturition, frequency, or urgency. MUSCULOSKELETAL/RHEUMATOLOGICAL: Denies any joint pain, swelling, or any muscle pain. ENDOCRINE: Denies any polyuria or polydipsia. The rest of the 14-point review of systems is negative. PHYSICAL EXAMINATION: GENERAL: The patient is alert and oriented x3, not in any acute distress. Well developed, well nourished. HEENT: Pupils are round and equally reacting to light. EOMI. No scleral icterus. No conjunctival pallor. Normocephalic, atraumatic. No pharyngeal erythema. No thyromegaly. CARDIOVASCULAR: S1 and S2 present. No murmurs, rubs, or gallops. PULMONARY: Chest is clear to auscultation, no wheezing or crackles. ABDOMEN: Soft, nontender, nondistended, normoactive bowel sounds. No palpable organomegaly. MUSCULOSKELETAL: No joint swelling or deformity. EXTREMITIES: No cyanosis, clubbing, or pedal edema. NEUROLOGICAL: Gross neurological examination did not reveal any focal deficits. SKIN: No rashes. Assessment and plan TIA Hyperlipidemia Hypertension Plan Monitor vital signs monitor CBC Monitor CMP Telemetry monitoring MRI brain ordered. Consult neurology Resume home meds Past Medical History Past Medical History: Dementia, Hyperlipidemia, Hypertension History of Any Multi-Drug Resistant Organisms: None Reported Past Surgical History: No Surgical Hx Reported Additional Past Surgical History / Comment(s): Right Knee replacement, cataracts, Left knee steriod injection Past Psychological History: No Psychological Hx Reported Smoking Status: Never smoker Past Alcohol Use History: None Reported Past Drug Use History: None Reported Medications and Allergies Home Medications Medication Instructions Recorded Confirmed Type Canagliflozin [Invokana] 300 mg PO DAILY 03/23/21 12/27/21 History Ezetimibe [Zetia] 10 mg PO DAILY 03/23/21 12/27/21 History Insulin NPH Hum/Reg Insulin Hm 33 unit SQ AC-BID 03/23/21 12/27/21 History [NovoLIN 70-30 100 UNIT/ML VIAL] Rosuvastatin [Crestor] 10 mg PO HS 03/23/21 12/27/21 History Tamsulosin [Flomax] 0.4 mg PO HS 03/23/21 12/27/21 History amLODIPine BESYLATE 10 mg PO DAILY 03/23/21 12/27/21 History Aspirin [Adult Low Dose Aspirin EC] 81 mg PO DAILY 06/03/21 12/27/21 History Pantoprazole [Protonix] 40 mg PO DAILY 06/03/21 12/27/21 History Ascorbic Acid [Vitamin C] 500 mg PO DAILY 12/27/21 12/27/21 History Cholecalciferol (Vitamin D3) 125 mcg PO DAILY 12/27/21 12/27/21 History [Vitamin D3 (125 MCG = 5,000 IU)] hydroCHLOROthiazide [Hydrodiuril] 25 mg PO DAILY 12/27/21 12/27/21 History sitaGLIPtin PHOS/metFORMIN HCL 2 tab PO W/SUPPER 12/27/21 12/27/21 History [Janumet Xr 50-1,000 mg Tablet] Isosorbide Mononitrate ER [Imdur] 30 mg PO DAILY #30 tab 12/28/21 Rx Metoprolol Tartrate [Lopressor] 12.5 mg PO BID #60 tab 12/28/21 Rx Nitroglycerin Sl Tabs [Nitrostat] 0.4 mg SUBLINGUAL Q5M PRN #50 tab 12/28/21 Rx Allergies Allergy/AdvReac Type Severity Reaction Status Date / Time aspirin AdvReac Abdominal Verified 08/06/22 13:29 Pain Physical Exam Vitals: Vital Signs Temp Pulse Resp BP Pulse Ox 08/06/22 14:30 61 20 140/70 98 08/06/22 14:20 64 16 140/70 95 08/06/22 14:10 63 16 144/79 99 08/06/22 14:00 64 20 150/77 99 08/06/22 13:50 63 18 150/77 95 08/06/22 13:25 98.3 F 81 18 138/70 99 Intake and Output 08/06/22 08/06/22 08/06/22 06:59 14:59 22:59 Other: Weight 86.183 kg Results CBC & Chem 7: 08/06/22 13:43 08/06/22 13:43 Labs: Abnormal Lab Results - Last 24 Hours (Table) 08/06/22 Range/Units 13:43 BUN 22 H (9-20) mg/dL Creatinine 1.29 H (0.66-1.25) mg/dL Glucose 166 H (74-99) mg/dL
[2022-08-06 16:27] LABS: Glucose,Whole Blood 128 mg/dL (70-110)
[2022-08-06] MEDS ORDERED: DEXTROSE 50% SYRINGE 50 ML IVP PRN ×2 (16:34)
[2022-08-06] MEDS: INSULIN ASPART (NovoLOG) 100 UNIT/ML VIAL SQ SCH ×2 (16:41→20:16)
[2022-08-06 17:37] LABS: Appearance,Urine Clear (Clear); Bilirubin,Urine Negative (Negative); Blood,Urine Negative (Negative); Color,Urine Light Yellow; Glucose,Urine (UA) 4+ (Negative); Ketones,Urine Negative (Negative); Leukocyte Esterase,Urine Negative (Negative); Nitrite,Urine Negative (Negative); Protein,Urine Negative (Negative); Specific Gravity,Urine 1.022 (1.001-1.035); Urobilinogen,Urine <2.0 mg/dL (<2.0)
[2022-08-06] MEDS: SODIUM CHLORIDE 0.9% 1,000 ML IV SCH (17:45)
[2022-08-06 20:05] LABS: Glucose,Whole Blood 220 mg/dL (70-110)
[2022-08-06] MEDS: TAMSULOSIN 0.4 MG CAP.ER.24H PO SCH (20:17)
[2022-08-06] MEDS: ATORVASTATIN 20 MG TAB PO SCH (20:17)
[2022-08-06] MEDS ORDERED: INSULN ASP PRT/INSULIN ASPART 100 UNIT/ML 10 ML VIAL SQ SCH (21:00)
[2022-08-07] MEDS: SODIUM CHLORIDE 0.9% 1,000 ML IV SCH ×2 (04:32→12:02)
[2022-08-07 06:02] LABS: Glucose,Whole Blood 166 mg/dL (70-110)
[2022-08-07] MEDS: INSULIN ASPART (NovoLOG) 100 UNIT/ML VIAL SQ SCH ×4 (06:10→20:48)
[2022-08-07 07:46] LABS: HGB 12.7 gm/dL (13.0-17.5); MCH 29.8 pg (25.0-35.0); MCHC 31.8 g/dL (31.0-37.0); MCV 93.7 fL (80.0-100.0); Mean Platelet Volume 8.3; Platelet Count 333 k/uL (150-450); RBC 4.27 m/uL (4.30-5.90); RDW 14.5 % (11.5-15.5); WBC 8.6 k/uL (3.8-10.6)
[2022-08-07 08:04] LABS: ALT 43 U/L (4-49); AST 33 U/L (17-59); African American GFR (CKD) 62 (>60 ml/min/1.73 sqM); Alkaline Phosphatase 64 U/L (38-126); Anion Gap 11 mmol/L; Blood Urea Nitrogen 22 mg/dL (9-20); Calcium 8.8 mg/dL (8.4-10.2); Carbon Dioxide 24 mmol/L (22-30); Chloride 104 mmol/L (98-107); Glucose 172 mg/dL (74-99); Non-African American GFR(CKD) 54 (>60 ml/min/1.73 sqM); Potassium 4.3 mmol/L (3.5-5.1); Sodium 139 mmol/L (137-145); Total Bilirubin 0.6 mg/dL (0.2-1.3); Total Protein 7.4 g/dL (6.3-8.2)
[2022-08-07] MEDS: amLODIPine 10 MG TAB PO SCH (08:08)
[2022-08-07] MEDS: EZETIMIBE 10 MG TAB PO SCH (08:08)
[2022-08-07] MEDS: hydrALAZINE HCL 25 MG TAB PO SCH (08:08)
[2022-08-07] MEDS: CLOPIDOGREL 75 MG TAB PO SCH (08:09)
[2022-08-07] MEDS: lisinopriL 10 MG TAB PO SCH (08:09)
[2022-08-07] MEDS: ASPIRIN 81 MG PO SCH (08:09)
[2022-08-07] MEDS: NITROGLYCERIN 0.3MG/HR PATCH TRANSDERM SCH (08:52)
[2022-08-07] MEDS ORDERED: NITROGLYCERIN 0.6 MG/HR TRANSDERM SCH (09:00)
[2022-08-07 11:27] LABS: Glucose,Whole Blood 220 mg/dL (70-110)
--- NOTE | 2022-08-07 13:19 | P.PN ---
Subjective Progress Note Date: 08/07/22 patient is 77-year-old gentleman with past medical history significant for hyperlipidemia, hypertension who presented to the ER because of slurred speech. Patient was all right 2 hours ago when he started noticing that he was not his usual self, family noticed that his speech was slurred. 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 Denies any weakness of any extremity. Denies any numbness. There was no noticeable facial droop. Because of this slurred speech patient brought to the ER. Initial lab work in the ER showed WBC 10.3, hemoglobin 13.8, sodium 139, potassium 4.2, BUN 22, creatinine 1.[address] head without contrast done showed no acute intracranial proceess 08/07. Patient seen and examined. Denies any slurred speech. States he feels better but not completely back to normal REVIEW OF SYSTEMS: CONSTITUTIONAL: No fever, no malaise,. CARDIOVASCULAR: No chest pain, no palpitations, no syncope. PULMONARY: No shortness of breath, no cough, GASTROINTESTINAL: No diarrhea, no nausea, no vomiting, no abdominal pain. NEUROLOGICAL: No headaches, no weakness, PHYSICAL EXAMINATION: GENERAL: The patient is alert and oriented x3, not in any acute distress. Well developed, well nourished. HEENT: Pupils are round and equally reacting to light. EOMI. No scleral icterus. No conjunctival pallor. Normocephalic, atraumatic. No pharyngeal erythema. No thyromegaly. CARDIOVASCULAR: S1 and S2 present. No murmurs, rubs, or gallops. PULMONARY: Chest is clear to auscultation, no wheezing or crackles. ABDOMEN: Soft, nontender, nondistended, normoactive bowel sounds. No palpable organomegaly. MUSCULOSKELETAL: No joint swelling or deformity. EXTREMITIES: No cyanosis, clubbing, or pedal edema. NEUROLOGICAL: Gross neurological examination did not reveal any focal deficits. SKIN: No rashes. Assessment and plan TIA Hyperlipidemia Hypertension Plan Monitor vital signs Monitor CBC Monitor CMP Continue aspirin and Lipitor Continue telemetry monitoring ordered 2-D echo Ordered MRI brain Follow-up in neurology recommendations Objective - Vital Signs Vital signs: Vital Signs Temp 97.2 F L 08/07/22 12:00 Pulse 58 L 08/07/22 12:00 Resp 16 08/07/22 12:00 BP 124/59 08/07/22 12:00 Pulse Ox 95 08/07/22 13:06 FiO2 Intake & Output 08/06/22 08/07/22 08/07/22 18:59 06:59 18:59 Intake Total 118 807 480 Balance 118 807 480 Weight 86.183 kg Intake: Oral 118 807 480 Other: Voiding Method Toilet Toilet # Voids 1 1 - Labs CBC & Chem 7: 08/07/22 07:18 08/07/22 07:18 Labs: Abnormal Lab Results - Last 24 Hours (Table) 08/06/22 08/06/22 08/06/22 Range/Units 13:43 16:26 17:20 RBC (4.30-5.90) m/uL Hgb (13.0-17.5) gm/dL BUN 22 H (9-20) mg/dL Creatinine 1.29 H (0.66-1.25) mg/dL Glucose 166 H (74-99) mg/dL POC Glucose (mg/dL) 128 H (70-110) mg/dL Hemoglobin A1c (0.0-6.0) % Urine Glucose (UA) 4+ H (Negative) 08/06/22 08/07/22 08/07/22 Range/Units 20:04 06:01 07:18 RBC (4.30-5.90) m/uL Hgb (13.0-17.5) gm/dL BUN (9-20) mg/dL Creatinine (0.66-1.25) mg/dL Glucose (74-99) mg/dL POC Glucose (mg/dL) 220 H 166 H (70-110) mg/dL Hemoglobin A1c 9.0 H (0.0-6.0) % Urine Glucose (UA) (Negative) 08/07/22 08/07/22 08/07/22 Range/Units 07:18 07:18 11:25 RBC 4.27 L (4.30-5.90) m/uL Hgb 12.7 L (13.0-17.5) gm/dL BUN 22 H (9-20) mg/dL Creatinine 1.27 H (0.66-1.25) mg/dL Glucose 172 H (74-99) mg/dL POC Glucose (mg/dL) 220 H (70-110) mg/dL Hemoglobin A1c (0.0-6.0) % Urine Glucose (UA) (Negative)
[2022-08-07 14:31] LABS: Chol/HDL Ratio 3.02 Ratio; LDL Cholesterol,Calculated 26.7 mg/dL (0.0-131.0)
--- NOTE | 2022-08-07 16:09 | P.CNNES ---
History of Present Illness Consult date: 08/07/22 History of Present Illness: The patient is a 77-year-old male who is seen in neurologic consultation on August 07, 2022, via teleneurology. The patient has some difficulty telling me why he came into the hospital. He reports that his speech was slurred and his eyes were blurred. The patient reportedly was having difficulty walking. His says his arms and legs wouldn't work. According to the patient's was present at the bedside. The patient was initially at their daughter's home. The kids did not feel he was acting quite right. The patient then left, getting into his car and drove home. He states that at home he was sitting on the couch and was having difficulty with all of these symptoms. He apparently called his telling her of his symp toms. When the family got to the home, they had to assist the patient to the car. He was reportedly very unsteady. He had difficulty walking. He had difficulty getting up from the couch. The patient denies a history of previous symptoms. He reports that he is feeling much better now. He is unable to tell me how long his symptoms lasted. In the emergency department, a CT scan the brain was performed. There was no sign of acute hemorrhage or infarct. CT angiogram was not performed. Past Medical History Past Medical History: Dementia, Diabetes Mellitus, Hyperlipidemia, Hypertension, Myocardial Infarction (MS), Osteoarthritis (OA), Prostate Disorder, Sleep Apnea/CPAP/BIPAP Last Myocardial Infarction Date:: 0000 History of Any Multi-Drug Resistant Organisms: None Reported Past Surgical History: Orthopedic Surgery Additional Past Surgical History / Comment(s): Right Knee replacement, cataracts, Left knee steriod injection Past Anesthesia/Blood Transfusion Reactions: No Reported Reaction Past Psychological History: No Psychological Hx Reported Smoking Status: Never smoker Past Alcohol Use History: None Reported Past Drug Use History: None Reported - Past Family History Father Additional Family Medical History / Comment(s): brain aneurysm Mother Family Medical History: Coronary Artery Disease (CAD), Diabetes Mellitus Medications and Allergies Home Medications Medication Instructions Recorded Confirmed Type Canagliflozin [Invokana] 300 mg PO DAILY 03/23/21 08/06/22 History Ezetimibe [Zetia] 10 mg PO DAILY 03/23/21 08/06/22 History Insulin NPH Hum/Reg Insulin Hm 33 unit SQ BID 03/23/21 08/06/22 History [NovoLIN 70-30 100 UNIT/ML VIAL] Rosuvastatin [Crestor] 10 mg PO HS 03/23/21 08/06/22 History Tamsulosin [Flomax] 0.4 mg PO HS 03/23/21 08/06/22 History amLODIPine BESYLATE 10 mg PO DAILY 03/23/21 08/06/22 History Aspirin [Adult Low Dose Aspirin EC] 81 mg PO DAILY 06/03/21 08/06/22 History Dulaglutide [Trulicity] 0.75 mg SQ TU 08/06/22 08/06/22 History Hydrazide 25mg 25 mg PO DAILY 08/06/22 08/06/22 History Nitroglycerin [Nitro-Dur 0.6MG/Hr 1 patch TRANSDERM DAILY 08/06/22 08/06/22 History Patch] Perindopril 4mg 4 mg PO DAILY 08/06/22 08/06/22 History metFORMIN HCL 1,000 mg PO BID 08/06/22 08/06/22 History Allergies Allergy/AdvReac Type Severity Reaction Status Date / Time aspirin AdvReac Abdominal Verified 08/06/22 15:38 Pain Physical Examination - Vital Signs Vital Signs: Vital Signs Temp Pulse Pulse Resp BP BP Pulse Ox 08/07/22 08:20 61 16 08/07/22 08:12 98.0 F 61 16 130/70 95 08/07/22 04:00 97.2 F L 58 L 20 139/65 98 08/07/22 02:00 61 18 08/07/22 00:00 96.8 F L 61 18 135/72 98 08/06/22 20:00 98.5 F 64 16 143/65 96 08/06/22 16:03 97.0 F L 62 16 134/77 97 08/06/22 15:30 59 L 20 145/69 95 08/06/22 15:00 60 18 134/67 95 08/06/22 14:30 61 20 140/70 98 08/06/22 14:20 64 16 140/70 95 08/06/22 14:10 63 16 144/79 99 08/06/22 14:00 64 20 150/77 99 08/06/22 13:50 63 18 150/77 95 08/06/22 13:25 98.3 F 81 18 138/70 99 Intake and Output 08/06/22 08/07/22 08/07/22 22:59 06:59 14:59 Intake Total 365 560 480 Balance 365 560 480 Intake: Oral 365 560 480 Other: Voiding Method Toilet Toilet Toilet # Voids 1 1 Weight 86.183 kg Gen.: The patient is reclining in the bed. He is in no acute distress. He is noted to be frequently moving arms and legs. He acts as if he is restless or fidgeting. According to the patient and his , these movements have been present for a long time. HEENT: Head is atraumatic, normocephalic. Fundus not visualized. There is no scleral icterus. Mucous membranes are moist Neck: Supple without carotid bruits Heart: Regular rate and rhythm Lungs: Essentially clear to auscultation. The patient has a strong cough and sniff reflex Extremities: Without edema Neurological examination Mental status: The patient is awake, alert and oriented 3. Is able to state his name, date of , age, current location, year and president. His speech is clear. Cranial nerves: Pupils are equal at 2 mm and reactive. Visual koch are full to confrontation. Extraocular movements are intact. Facial sensation is intact. There is bilateral ptosis. There is no facial asymmetry. Hearing is diminished. Uvula and palate are midline. Shoulder shrug is symmetric. Tongue protrudes midline Motor: Right sided strength 5/5. Left agency operator and biceps strength 4/5. Left hip flexors 4/5. Left ankle plantar and dorsiflexors 5/5. Coordination: Finger to nose and rapid alternating movements are intact. Xzkn-in-[id number] testing is intact. Deep tendon reflexes: 2+/4+ in the upper extremities. Lower extremity reflexes are absent. Gait: Not assessed Results - Laboratory Findings CBC and BMP: 08/07/22 07:18 08/07/22 07:18 Abnormal Lab Findings: Abnormal Labs 08/06/22 08/06/22 08/06/22 13:43 16:26 17:20 RBC Hgb BUN 22 H Creatinine 1.29 H Glucose 166 H POC Glucose (mg/dL) 128 H Hemoglobin A1c Urine Glucose (UA) 4+ H 08/06/22 08/07/22 08/07/22 20:04 06:01 07:18 RBC Hgb BUN Creatinine Glucose POC Glucose (mg/dL) 220 H 166 H Hemoglobin A1c 9.0 H Urine Glucose (UA) 08/07/22 08/07/22 08/07/22 07:18 07:18 11:25 RBC 4.27 L Hgb 12.7 L BUN 22 H Creatinine 1.27 H Glucose 172 H POC Glucose (mg/dL) 220 H Hemoglobin A1c Urine Glucose (UA) Assessment and Plan Assessment: 1. Reported slurred speech and ataxia in a 77-year-old patient with multiple stroke risk factors. Must consider TIA involving the posterior circulation 2. Reported history of dementia 3. History of hyperlipidemia 4. History of hypertension 5. History of diabetes mellitus Plan: 1. MRI of the brain for further evaluation of cerebral ischemia and posterior circulation 2. 2-D echocardiogram 3. Lipid panel, hemoglobin A1c, TSH 4. PT, OT and speech therapy evaluations 5. Plavix 75 mg should be added to the patient's medication regimen. Dual antiplatelet therapy should continue for 21 days then aspirin discontinued and the patient should continue on Plavix monotherapy Thank you for allowing us to participate in care of this patient Dr. Victor Manuel Zhang will assume neurologic coverage of this patient as of August 08, 2022 Time with Patient: Greater than 30 (Spent 60 minutes caring for this patient today including, obtaining a history, doing the examination, reviewing imaging, chart documentation, labs, placing orders and creating this note)
[2022-08-07 16:41] LABS: Glucose,Whole Blood 223 mg/dL (70-110)
[2022-08-07 20:47] LABS: Glucose,Whole Blood 214 mg/dL (70-110)
[2022-08-07] MEDS: ATORVASTATIN 20 MG TAB PO SCH (20:48)
[2022-08-07] MEDS: TAMSULOSIN 0.4 MG CAP.ER.24H PO SCH (20:48)
[2022-08-08] MEDS: SODIUM CHLORIDE 0.9% 1,000 ML IV SCH ×3 (01:19→16:45)
[2022-08-08 06:22] LABS: Glucose,Whole Blood 194 mg/dL (70-110)
[2022-08-08] MEDS: INSULIN ASPART (NovoLOG) 100 UNIT/ML VIAL SQ SCH ×4 (06:25→20:37)
--- NOTE | 2022-08-08 09:05 | MR ---
EXAMINATION TYPE: MR brain wo con DATE OF EXAM: 08/08/2022 COMPARISON: CT 08/06/2022 HISTORY: 77-year-old male TIA TECHNIQUE: Multiplanar, multisequence images of the brain and brainstem were obtained without IV con trast. Diffusion weighted imaging is performed. FINDINGS: No evidence for acute infarction, hemorrhage, mass, mass effect, midline shift, herniation, effacemen t of basal cisterns, or extra-axial fluid collection. There is [id number] volume loss overlying the bilateral convexities. No hydrocephalus. Major intracranial flow voids are intact. Moderate scattered burden of T2 bright white matter change with foci throughout the subcortical, deep white matter, and periventricular regions of both cerebral hemispheres. Additional foci of increased white matter change in the bilateral paramedian kali. Midline structures demonstrate normal morphology. The craniocervical junction is normal. Post contrast images demonstrate no evidence of pathologic enhancement. Dural venous sinuses are pat ent. There is mild mucosal thickening in the ethmoid air cells. Globes are intact. IMPRESSION: 1. No acute intracranial abnormality seen. 2. Mild to moderate cerebral atrophy. 3. Moderate burden of chronic small vessel ischemic disease. 4. Mild chronic ethmoid sinus disease.
[2022-08-08] MEDS: ASPIRIN 81 MG PO SCH (09:15)
[2022-08-08] MEDS: EZETIMIBE 10 MG TAB PO SCH (09:16)
[2022-08-08] MEDS: hydrALAZINE HCL 25 MG TAB PO SCH (09:16)
[2022-08-08] MEDS: amLODIPine 10 MG TAB PO SCH (09:16)
[2022-08-08] MEDS: CLOPIDOGREL 75 MG TAB PO SCH (09:16)
[2022-08-08] MEDS: lisinopriL 10 MG TAB PO SCH (09:17)
[2022-08-08] MEDS: NITROGLYCERIN 0.3MG/HR PATCH TRANSDERM SCH (09:17)
--- NOTE | 2022-08-08 11:08 | P.PN ---
Subjective Progress Note Date: 08/08/22 I am seeing the patient for the first time during this admission. Patient stated he had slurred speech and felt off at home. He currently feels back to baseline. Please refer to Dr. Foy's note for further details. Objective - Vital Signs Vital signs: Vital Signs Temp 97.6 F 08/08/22 08:10 Pulse 58 L 08/08/22 08:10 Resp 16 08/08/22 08:10 BP 138/71 08/08/22 08:10 Pulse Ox 98 08/08/22 08:10 FiO2 Intake & Output 08/07/22 08/08/22 08/08/22 18:59 06:59 18:59 Intake Total 716 168 Output Total 400 Balance 716 -400 168 Intake: Intake, IV Titration 50 Amount Sodium Chloride 0.9% 1, 50 000 ml @ 100 mls/hr IV . Q10H KRYSTAL Rx#:[id number] Oral 716 118 Output: Urine 400 Other: Voiding Method Toilet # Voids 1 - Exam GENERAL: The patient is lying in bed and is not in acute distress. NEUROLOGICAL: Higher mental function: The patient is awake, alert, oriented to self, place and time. Patient is following commands. No aphasia and no neglect. Cranial nerves: The pupils are round, equal and reactive to light. Visual koch are full to confrontation throughout. Extraocular movement is intact no nystagmus is noted. The facial strength is normal throughout. Tongue is midline and moved [id number] without any difficulty. No dysarthria is noted. Shoulder shrug is normal bilaterally. Motor: The strength is 5 over 5 throughout. Normal tone and bulk. Cerebellum: Normal finger to nose bilaterally. Sensation: Sensation is normal to touch throughout. SOME OF THE WORK-UP DURING THIS HOSPITAL VISIT CONSISTED OF: Lipid panel triglycerides 147, cholesterol is 84, LDL of 26 and HDL 27 TSH is 2.2 Hemoglobin A1c is 9.0. MR the brain is reported as no acute intracranial abnormality seen. Mild to moderate cerebral atrophy. I personally reviewed the MRI and agree there is no acute or subacute ischemia. - Labs CBC & Chem 7: 08/07/22 07:18 08/07/22 07:18 Labs: Abnormal Lab Results - Last 24 Hours (Table) 08/07/22 08/07/22 08/07/22 Range/Units 07:18 11:25 16:38 POC Glucose (mg/dL) 220 H 223 H (70-110) mg/dL HDL Cholesterol 27.80 L (40.00-60.00) mg/dL 08/07/22 08/08/22 Range/Units 20:45 06:21 POC Glucose (mg/dL) 214 H 194 H (70-110) mg/dL HDL Cholesterol (40.00-60.00) mg/dL Assessment and Plan Assessment: 1. Reported slurred speech and ataxia in a 77-year-old patient with multiple stroke risk factors. Probable TIA. MRI Brain is negative for acute or subacute ischemic stroke. 2. Reported history of dementia 3. History of hyperlipidemia 4. History of hypertension 5. History of diabetes mellitus and recent HbA1c is 9.0 Plan: Patient states he was suppose to be on ASA at home but not taking it since giving him upset stomach and refuses ASA EC as well. He is on Plavix 75mg daily (new) for secondary prophylaxis and Lipitor 20mg qhs for secondary stroke prophylaxis. Pending 2-D echocardiogram I ordered 2D echo. PT, OT and speech therapy evaluations Will defer the rest of medical management to the primary team. For DVT prophylaxis: Started on subq heparin 5000U every 8 hours. Upon discharge, patient to follow-up with neurologist within 1-2 weeks. If all work-up is negative and no further new issues, patient is clear from neurological perspective. The plan is discussed with patient and his nurse. Time with Patient: Less than 30
--- NOTE | 2022-08-08 11:25 | CA ---
Transthoracic Echo Report Name: Christopher Reeves Age: 77 Gender: M : 1945 Exam Date: 08/08/2022 10:03 Exam Location: [place] Echo Ht (in): 62 Wt (lb): 190 Ordering Physician: Tong West MD Attending/Referring Phys: Hris Specialist Piter Rockwell RDCS Procedure CPT: Indications: tia Cardiac Hx: HTN; CP; High Chol; Obesity; DM; Technical Quality: Fair Contrast 1: Total Dose (mL): Contrast 2: Total Dose (mL): MEASUREMENTS (Male / Female) Normal Values 2D ECHO LV Diastolic Diameter PLAX 5.2 cm 4.2 - 5.9 / 3.9 - 5.3 cm LV Systolic Diameter PLAX 4.5 cm LV Fractional Shortening PLAX 13.5 % IVS Diastolic Thickness 1.2 cm 0.6 - 1.0 / 0.6 - 0.9 cm IVS Systolic Thickness 1.5 cm LVPW Diastolic Thickness 1.3 cm 0.6 - 1.0 / 0.6 - 0.9 cm LVPW Systolic Thickness 1.3 cm LV Relative Wall Thickness 0.5 LVOT Diameter 2.2 cm LA Systolic Diameter LX 3.5 cm 3.0 - 4.0 / 2.7 - 3.8 cm LV Diastolic Volume MOD BP 128.0 cm??? 67 - 155 / 56 - 104 cm??? LV Systolic Volume MOD BP 38.1 cm??? 22 - 58 / 19 - 49 cm??? LV Ejection Fraction MOD BP 70.2 % >= 55 % LV Stroke Volume MOD BP 89.8 cm??? LV Diastolic Volume MOD 4C 120.4 cm??? LV Systolic Volume MOD 4C 46.6 cm??? LV Ejection Fraction MOD 4C 61.3 % LV Stroke Volume MOD 4C 73.7 cm??? LV Diastolic Length 4C 8.0 cm LV Systolic Length 4C 6.2 cm LV Diastolic Volume MOD 2C 127.9 cm??? LV Systolic Volume MOD 2C 30.6 cm??? LV Ejection Fraction MOD 2C 76.1 % LV Stroke Volume MOD 2C 97.3 cm??? LV Diastolic Length 2C 8.5 cm LV Systolic Length 2C 6.3 cm Ascending Aorta Diameter 3.1 cm M-MODE Aortic Root Diameter MM 3.7 cm LA Systolic Diameter MM 4.5 cm LA Ao Ratio MM 1.2 MV E Point Septal Separation 1.1 cm AV Cusp Separation MM 1.3 cm DOPPLER AV Peak Velocity 131.0 cm/s AV Peak Gradient 6.9 mmHg LVOT Peak Velocity 98.5 cm/s LVOT Peak Gradient 3.9 mmHg AV Area Cont Eq pk 2.9 cm??? MV Deceleration Beauregard 392.9 cm/s??? MR Peak Velocity 241.8 cm/s MR Peak Gradient 23.4 mmHg Mitral E Point Velocity 88.9 cm/s Mitral A Point Velocity 117.1 cm/s Mitral E to A Ratio 0.8 MV Deceleration Time 226.3 ms MV E' Velocity 4.4 cm/s Mitral E to MV E' Ratio 20.1 TR Peak Velocity 265.6 cm/s TR Peak Gradient 28.2 mmHg Right Ventricular Systolic Press 38.2 mmHg PV Peak Velocity 80.1 cm/s PV Peak Gradient 2.6 mmHg FINDINGS Left Ventricle Left ventricular ejection fraction is estimated at 50-55%. Mild concentric left ventricular hypertrophy. Abnormal left ventricular diastolic filling pattern. Normal basal systolic function. Right Ventricle Normal right ventricular size and function. RVSP- 38 mm Hg Right Atrium Mild right atrial dilatation. Left Atrium Normal left atrial size. Mitral Valve Mild thickening/calcification of the anterior mitral valve leaflet. Mild thickening/calcification of the posterior mitral valve leaflet. Mitral annular calcification. No mitral stenosis. Mild mitral regurgitation. Aortic Valve Trileaflet aortic valve. Diffuse thickening (sclerosis) of the aortic valve cusps without reduced excursion. No aortic stenosis. No aortic regurgitation. Tricuspid Valve [id number] tricuspid regurgitation. Pulmonic Valve Pulmonic valve not well visualized. Pericardium Normal pericardium. No pericardial effusion. Aorta Normal aortic size CONCLUSIONS Left ventricular ejection fraction 50-55% Mildly increased left ventricular wall thickness RVSP 38 Mild mitral regurgitation Mild to moderate tricuspid regurgitation No pericardial effusion Previewed by: Dr. Mat Dietz DO (Electronically Signed) Final Date: 08 Aug 2022 11:24
[2022-08-08 11:51] LABS: Glucose,Whole Blood 308 mg/dL (70-110)
[2022-08-08 13:38] VITALS: BMI 34.7
--- NOTE | 2022-08-08 15:37 | US ---
EXAMINATION TYPE: US carotid duplex BILAT DATE OF EXAM: 08/08/2022 COMPARISON: NONE CLINICAL INDICATION: Male, 77 years old with history of stroke; TECHNIQUE: Carotid duplex ultrasound examination. Indirect Doppler criteria was utilized. FINDINGS: Fuel House Attendant notes: Exam done portable EXAM MEASUREMENTS: RIGHT: Peak Systolic Velocity (PSV) cm/sec ----- Right CCA: 84.9 ----- Right ICA: 105.2 ----- Right ECA: 86.5 ICA/CCA ratio: 1.2 RIGHT: End Diastole cm/sec ----- Right CCA: 9.8 ----- Right ICA: 21.6 ----- Right ECA: 0.0 LEFT: Peak Systolic Velocity (PSV) cm/sec ----- Left CCA: 75.6 ----- Left ICA: 77.3 ----- Left ECA: 184.7 ICA/CCA ratio: 1.0 LEFT: End Diastole cm/sec ----- Left CCA: 11.5 ----- Left ICA: 19.8 ----- Left ECA: 9.8 VERTEBRALS (direction of flow): Right Vertebral: Antegrade Left Vertebral: Antegrade Rhythm: Normal Fuel House Attendant notes: No significant stenosis IMPRESSION: No hemodynamically significant internal carotid artery stenosis on either side. Criteria for Assigning % of Stenosis / Diameter reduction (Estimation based on the indirect measurements of the internal carotid artery velocities (ICA PSV). 1. Normal (no stenosis)=ICA PSV < 125 cm/s: ratio < 2.0: ICA EDV<40 cm/s. 2. Less than 50% stenosis=ICA PSV < 125 cm/s: ratio < 2.0: ICA EDV<40 cm/s. 3. 50 to 69% stenosis=ICA PSV of 125 to 230 cm/s: ration 2.0 ? 4.0: ICA EDV 40-100 cm/s. 4. Greater than 70% stenosis to near occlusion= ICA PSV > 230 cm/s: ratio > 4.0: ICA EDV > 100 cm/s. 5. Near occlusion= ICA PSV velocities may be low or undetectable: variable ratio and ICA EDV. 6. Total occlusion=unable to detect flow.
[2022-08-08 16:48] LABS: Glucose,Whole Blood 250 mg/dL (70-110)
--- NOTE | 2022-08-08 17:50 | P.PN ---
Subjective Progress Note Date: 08/08/22 Principal diagnosis: Slurred speech with TIA symptoms. The patient is a 77-year-old male with slurred speech and fatigue. He is admitted essentially for TIA symptomatology. He is seen now after significant workup in speech and swallowing study which he passed appropriately. He does complain of significant fatigue. No more slurred speech stated however. Objective - Vital Signs Vital signs: Vital Signs Temp 97.7 F 08/08/22 16:00 Pulse 54 L 08/08/22 16:00 Resp 16 08/08/22 16:00 BP 149/72 08/08/22 16:00 Pulse Ox 97 08/08/22 16:00 FiO2 Intake & Output 08/07/22 08/08/22 08/08/22 18:59 06:59 18:59 Intake Total 716 818 Output Total 400 Balance 716 -400 818 Weight 86.183 kg Intake: Intake, IV Titration 450 Amount Sodium Chloride 0.9% 1, 450 000 ml @ 100 mls/hr IV . Q10H KRYSTAL Rx#:[id number] Oral 716 368 Output: Urine 400 Other: Voiding Method Toilet # Voids 1 - Constitutional General appearance: Present: obese - EENT Eyes: Absent: abnormal pupil - Neck Neck: Absent: lymphadenopathy - Respiratory Respiratory: bilateral: diminished - Cardiovascular Rhythm: regular Heart sounds: normal: S1, S2 Abnormal Heart Sounds: Absent: S3 Gallop - Gastrointestinal General gastrointestinal: Present: soft. Absent: tenderness - Musculoskeletal Musculoskeletal Comment(s): No lateralizing weakness. Good records management clerk strength - Psychiatric Psychiatric: Present: A&O x's 3 - Labs CBC & Chem 7: 08/07/22 07:18 08/07/22 07:18 Labs: Abnormal Lab Results - Last 24 Hours (Table) 08/07/22 08/08/22 08/08/22 Range/Units 20:45 06:21 11:50 POC Glucose (mg/dL) 214 H 194 H 308 H (70-110) mg/dL 08/08/22 Range/Units 16:46 POC Glucose (mg/dL) 250 H (70-110) mg/dL Assessment and Plan (1) Transient cerebral ischemia Current Visit: Yes Status: Acute Code(s): G45.9 - TRANSIENT CEREBRAL ISCHEMIC ATTACK, UNSPECIFIED SNOMED Code(s): 857898954 (2) Diabetes Current Visit: No Status: Acute Code(s): E11.9 - TYPE 2 DIABETES MELLITUS WITHOUT COMPLICATIONS SNOMED Code(s): 10867048 (3) History of myocardial infarction Current Visit: No Status: Acute Code(s): I25.2 - OLD MYOCARDIAL INFARCTION SNOMED Code(s): 326317106 (4) Hypertension Current Visit: No Status: Acute Code(s): I10 - ESSENTIAL (PRIMARY) HYPERTENSION SNOMED Code(s): 89976473 (5) Osteoarthritis of right knee Current Visit: No Status: Acute Code(s): M17.11 - UNILATERAL PRIMARY OSTEOARTHRITIS, RIGHT KNEE SNOMED Code(s): 241527736000955 Plan: Appreciate neurology input. Speech therapy and I had a short discussion. He did do quite well with this. We will continue to follow with neurologic checks. Anticipate discharge in next 24 hours if he is stabilizing.
[2022-08-08 19:36] LABS: Glucose,Whole Blood 328 mg/dL (70-110)
[2022-08-08] MEDS: ATORVASTATIN 20 MG TAB PO SCH (20:37)
[2022-08-08] MEDS: TAMSULOSIN 0.4 MG CAP.ER.24H PO SCH (20:37)
[2022-08-09 05:44] LABS: Glucose,Whole Blood 216 mg/dL (70-110)
[2022-08-09] MEDS: INSULIN ASPART (NovoLOG) 100 UNIT/ML VIAL SQ SCH (06:21)
[2022-08-09] MEDS: ASPIRIN 81 MG PO SCH (08:07)
[2022-08-09] MEDS: SODIUM CHLORIDE 0.9% 1,000 ML IV SCH (08:08)
[2022-08-09] MEDS: NITROGLYCERIN 0.3MG/HR PATCH TRANSDERM SCH (08:14)
[2022-08-09] MEDS: CLOPIDOGREL 75 MG TAB PO SCH (08:14)
[2022-08-09] MEDS: lisinopriL 10 MG TAB PO SCH (08:14)
[2022-08-09] MEDS: amLODIPine 10 MG TAB PO SCH (08:14)
[2022-08-09] MEDS: EZETIMIBE 10 MG TAB PO SCH (08:14)
[2022-08-09] MEDS: hydrALAZINE HCL 25 MG TAB PO SCH (08:14)
--- NOTE | 2022-08-09 08:50 | P.DS ---
Providers Date of admission: 08/06/22 15:22 Attending physician: Seng Geiger Consults: 08/07/22 10:41 Consult Physician Routine Consulting Provider: Caitie Foy Consult Reason/Comments: TIA Do you want consulting provider notified?: Already Contacted Primary care physician: Seng Geiger - Discharge Diagnosis(es) (1) Transient cerebral ischemia Current Visit: Yes Status: Acute (2) Diabetes Current Visit: No Status: Acute (3) History of myocardial infarction Current Visit: No Status: Acute (4) Hypertension Current Visit: No Status: Acute (5) Osteoarthritis of right knee Current Visit: No Status: Acute Hospital Course: This is 69-year-old male who was originally presented to the emergency room with slurred speech and fatigue. He was admitted for a TIA. Testing has been negative, and patient passed swallow study. He reports he is more well rested today. Denies any neurologic complaints, is not moving around in the room, tolerating diet. He will be discharged today and will need to follow up with a neurologist in 1-2 weeks. We'll send a prescription for Plavix. Patient seen and evaluated by nurse practitioner, physician in agreement with plan Patient Condition at Discharge: Stable Plan - Discharge Summary Discharge Rx Participant: Yes New Discharge Prescriptions: New Clopidogrel [Plavix] 75 mg PO DAILY #90 tab Continue metFORMIN HCL 1,000 mg PO BID Dulaglutide [Trulicity] 0.75 mg SQ TU Canagliflozin [Invokana] 300 mg PO DAILY Insulin NPH Hum/Reg Insulin Hm [NovoLIN 70-30 100 UNIT/ML VIAL] 33 unit SQ BID amLODIPine BESYLATE 10 mg PO DAILY Ezetimibe [Zetia] 10 mg PO DAILY Rosuvastatin [Crestor] 10 mg PO HS Tamsulosin [Flomax] 0.4 mg PO HS Aspirin [Adult Low Dose Aspirin EC] 81 mg PO DAILY Nitroglycerin [Nitro-Dur 0.6MG/Hr Patch] 1 patch TRANSDERM DAILY Hydrazide 25mg 25 mg PO DAILY Perindopril 4mg 4 mg PO DAILY Discharge Medication List Canagliflozin [Invokana] 300 mg PO DAILY 03/23/21 [History] Ezetimibe [Zetia] 10 mg PO DAILY 03/23/21 [History] Insulin NPH Hum/Reg Insulin Hm [NovoLIN 70-30 100 UNIT/ML VIAL] 33 unit SQ BID 03/23/21 [History] Rosuvastatin [Crestor] 10 mg PO HS 03/23/21 [History] Tamsulosin [Flomax] 0.4 mg PO HS 03/23/21 [History] amLODIPine BESYLATE 10 mg PO DAILY 03/23/21 [History] Aspirin [Adult Low Dose Aspirin EC] 81 mg PO DAILY 06/03/21 [History] Dulaglutide [Trulicity] 0.75 mg SQ TU 08/06/22 [History] Hydrazide 25mg 25 mg PO DAILY 08/06/22 [History] Nitroglycerin [Nitro-Dur 0.6MG/Hr Patch] 1 patch TRANSDERM DAILY 08/06/22 [History] Perindopril 4mg 4 mg PO DAILY 08/06/22 [History] metFORMIN HCL 1,000 mg PO BID 08/06/22 [History] Clopidogrel [Plavix] 75 mg PO DAILY #90 tab 08/09/22 [Rx] Follow up Appointment(s)/Referral(s): Nano Rodriguez MD [REFERRING] - 1 Week (needs to see neurologist in 1-2 weeks ) Seng Geiger MD [Primary Care Provider] - 1 Week Discharge Disposition: HOME SELF-CARE
[2022-08-09 10:00] VITALS: BP 140/68; PULSE 56; RESP 16; TEMP 97.7
== END 2022-08-09 09:59 | disposition home or self-care (01) | DRG 69 ==
LOC: EC 13:07 → 3SCARD 15:22
PROVIDERS: ADMIT Family Medicine; ATTEND Family Medicine
DX: G45.9 Transient cerebral ischemic attack, unspecified (principal); R47.81 Slurred speech; R29.700 NIHSS score 0; R27.0 Ataxia, unspecified; H53.8 Other visual disturbances; F03.90 Unspecified dementia, unspecified severity, without behavioral disturbance, psychotic disturbance, mood disturbance, and anxiety; E78.5 Hyperlipidemia, unspecified; N42.9 Disorder of prostate, unspecified; I44.0 Atrioventricular block, first degree; E11.9 Type 2 diabetes mellitus without complications; M17.11 Unilateral primary osteoarthritis, right knee; I10 Essential (primary) hypertension; G47.30 Sleep apnea, unspecified; Z96.651 Presence of right artificial knee joint; I25.2 Old myocardial infarction; Z79.899 Other long term (current) drug therapy; Z79.84 Long term (current) use of oral hypoglycemic drugs; Z79.4 Long term (current) use of insulin; Z71.3 Dietary counseling and surveillance; Z88.6 Allergy status to analgesic agent
CPT/HCPCS: 36415; 70450; 70551; 71046; 80053; 80061; 81003; 83036; 84443; 84484; 85025; 85027; 85610; 85730; 93005; 93306; 93880; 94760; 96360; 99285

== ENCOUNTER → 2023-02-17 | Outpatient (CLI) | payer MEDICARE | END | disposition home or self-care (01) | LOC: LABPRL 15:30 | PROVIDERS: ATTEND Family Medicine | DX: R19.7 Diarrhea, unspecified (principal) | CPT/HCPCS: 87045; 87046 ==

== ENCOUNTER 2023-05-10 11:09 | Observation (INO) | payer MEDICARE ==
[2023-05-10] MEDS: SODIUM CHLORIDE 0.9% 1,000 ML IV STA (12:10)
[2023-05-10 12:17] LABS: Basophils # (A) 0.1 k/uL (0-0.2); Basophils % (A) 1 %; Eosinophils # (A) 0.2 k/uL (0-0.7); Eosinophils % (A) 2 %; HCT 38.7 % (39.0-53.0); HGB 12.7 gm/dL (13.0-17.5); Lymphocytes # (A) 1.8 k/uL (1.0-4.8); Lymphocytes % (A) 19 %; MCH 30.9 pg (25.0-35.0); MCHC 32.7 g/dL (31.0-37.0); MCV 94.4 fL (80.0-100.0); Mean Platelet Volume 7.7; Monocytes # (A) 0.6 k/uL (0-1.0); Monocytes % (A) 7 %; Neutrophils # (A) 6.5 k/uL (1.3-7.7); Neutrophils % (A) 70 %; Platelet Count 406 k/uL (150-450); RDW 13.2 % (11.5-15.5); WBC 9.3 k/uL (3.8-10.6)
[2023-05-10 12:30] LABS: ALT 19 U/L (4-49); AST 22 U/L (17-59); African American GFR (CKD) 89 (>60 ml/min/1.73 sqM); Albumin 4.2 g/dL (3.5-5.0); Alkaline Phosphatase 67 U/L (38-126); Anion Gap 12 mmol/L; Blood Urea Nitrogen 18 mg/dL (9-20); Calcium 9.1 mg/dL (8.4-10.2); Carbon Dioxide 22 mmol/L (22-30); Chloride 106 mmol/L (98-107); Glucose 122 mg/dL (74-99); Magnesium 1.4 mg/dL (1.6-2.3); Non-African American GFR(CKD) 77 (>60 ml/min/1.73 sqM); Potassium 4.2 mmol/L (3.5-5.1); Sodium 140 mmol/L (137-145); Total Bilirubin 0.5 mg/dL (0.2-1.3); Total Protein 7.5 g/dL (6.3-8.2)
[2023-05-10 12:37] LABS: Partial Thromboplastin Time 22.8 sec (22.0-30.0)
--- NOTE | 2023-05-10 12:40 | CT ---
EXAMINATION TYPE: CT brain brian wo con DATE OF EXAM: 05/10/2023 COMPARISON: 08/06/2022 HISTORY: Fall, syncope, +LOC, pt states he has been falling more frequently CT DLP: 1490.[address] of the brain was performed. The ventricles, basal cisterns and sulci overlying the cerebral convexities demonstrate mild enlargem ent. There is no evidence for intracranial hemorrhage or sulcal effacement. There is decreased attenuatio n about the periventricular white matter and deep white matter of both cerebral hemispheres, compatib le with chronic small vessel ischemia. No mass effects are seen. If symptoms persist consider MRI. Osseous calvarium is intact. IMPRESSION: 1. Age related atrophic and chronic small vessel ischemic change without acute intracranial process seen at this time.
--- NOTE | 2023-05-10 13:01 | XR ---
EXAMINATION TYPE: XR chest 2V DATE OF EXAM: 05/10/2023 12:39 PM CLINICAL INDICATION:Male, 78 years old with history of syncope; COMPARISON: Chest radiographs from 08/06/2022. TECHNIQUE: XR chest 2V Frontal and lateral views of the chest. FINDINGS: Lungs/Pleura: There is no evidence of pleural effusion, focal consolidation, or pneumothorax. Pulmonary vascularity: Unremarkable. Heart/mediastinum: Cardiomediastinal silhouette is unremarkable. Musculoskeletal: Degenerative changes of the shoulder joints. Other findings: None IMPRESSION: No acute cardiopulmonary disease/process.
--- NOTE | 2023-05-10 14:07 | ED ---
General Adult HPI - General Chief complaint: Syncope Stated complaint: Dizziness Time Seen by Provider: 05/10/23 11:31 Source: patient, RN notes reviewed Mode of arrival: ambulatory Limitations: no limitations - History of Present Illness Initial comments: 78-year-old male presents emergency department with chief complaint of syncopal episode. Patient was at urology office in which she had a prostate biopsy was going to leave his at the counter and when he passed out. He states he had no sensations this can happen. Patient did strike his head patient does complain of mild headache he denies any chest pain shortness of breath no nausea vomiting he states he did eat some light breakfast. He has had no change in appetite he states he is still extremely lightheaded, dizzy at this time. - Related Data Home Medications Medication Instructions Recorded Confirmed Canagliflozin [Invokana] 300 mg PO DAILY 03/23/21 08/06/22 Ezetimibe [Zetia] 10 mg PO DAILY 03/23/21 08/06/22 Insulin NPH Hum/Reg Insulin Hm 33 unit SQ BID 03/23/21 08/06/22 [NovoLIN 70-30 100 UNIT/ML VIAL] Rosuvastatin [Crestor] 10 mg PO HS 03/23/21 08/06/22 Tamsulosin [Flomax] 0.4 mg PO HS 03/23/21 08/06/22 amLODIPine BESYLATE 10 mg PO DAILY 03/23/21 08/06/22 Aspirin [Adult Low Dose Aspirin EC] 81 mg PO DAILY 06/03/21 08/06/22 Dulaglutide [Trulicity] 0.75 mg SQ TU 08/06/22 08/06/22 Hydrazide 25mg 25 mg PO DAILY 08/06/22 08/06/22 Nitroglycerin [Nitro-Dur 0.6MG/Hr 1 patch TRANSDERM DAILY 08/06/22 08/06/22 Patch] Perindopril 4mg 4 mg PO DAILY 08/06/22 08/06/22 metFORMIN HCL 1,000 mg PO BID 08/06/22 08/06/22 Previous Rx's Medication Instructions Recorded Clopidogrel [Plavix] 75 mg PO DAILY #90 tab 08/09/22 Allergies Allergy/AdvReac Type Severity Reaction Status Date / Time aspirin AdvReac Abdominal Verified 05/10/23 11:22 Pain Review of Systems ROS Statement: Those systems with pertinent positive or pertinent negative responses have been documented in the HPI. ROS Other: All systems not noted in ROS Statement are negative. Past Medical History Past Medical History: Dementia, Diabetes Mellitus, Hyperlipidemia, Hypertension, Myocardial Infarction (LA), Osteoarthritis (OA), Prostate Disorder, Sleep Apnea/CPAP/BIPAP Last Myocardial Infarction Date:: 0000 History of Any Multi-Drug Resistant Organisms: None Reported Past Surgical History: Orthopedic Surgery Additional Past Surgical History / Comment(s): Right Knee replacement, cataracts, Left knee steriod injection Past Anesthesia/Blood Transfusion Reactions: No Reported Reaction Past Psychological History: No Psychological Hx Reported Smoking Status: Never smoker Past Alcohol Use History: None Reported Past Drug Use History: None Reported - Past Family History Father Additional Family Medical History / Comment(s): brain aneurysm Mother Family Medical History: Coronary Artery Disease (CAD), Diabetes Mellitus General Exam Limitations: no limitations General appearance: alert, in no apparent distress Head exam: Present: atraumatic, normocephalic, normal inspection Eye exam: Present: normal appearance, PERRL, EOMI. Absent: scleral icterus, conjunctival injection, periorbital swelling ENT exam: Present: normal exam, normal oropharynx, mucous membranes moist Neck exam: Present: normal inspection, full ROM. Absent: tenderness, meningismus, lymphadenopathy Respiratory exam: Present: normal lung sounds bilaterally. Absent: respiratory distress, wheezes, rales, rhonchi, stridor Cardiovascular Exam: Present: regular rate, normal rhythm, normal heart sounds. Absent: systolic murmur, diastolic murmur, rubs, gallop, clicks Neurological exam: Present: alert, oriented X3, CN II-XII intact, reflexes normal. Absent: motor sensory deficit Course Vital Signs 05/10/23 05/10/23 05/10/23 11:18 11:50 13:13 Temperature 97.4 F L Pulse Rate 62 59 L Pulse Rate [ 70 Sitting Cigar Binder] Pulse Rate [ 68 Standing Cigar Binder ] Pulse Rate [ 65 Supine Cigar Binder] Respiratory 18 16 18 Rate Blood Pressure 108/60 130/66 Blood Pressure 122/65 [Right Arm Sitting] Blood Pressure 132/72 [Right Arm Standing] Blood Pressure 122/70 [Right Arm Supine] O2 Sat by Pulse 99 98 96 Oximetry EKG Findings - EKG Comments: EKG Findings:: EKG performed at 11: 31 sinus rhythm rate of 61 MN 201 QRS 121 QT/QTc 269/271 - EKG Results: EKG: interpreted by DANIAD Medical Decision Making - Medical Decision Making Was pt. sent in by a medical professional or institution (, RAFAEL, TRAIN SYSTEM OPERATOR, urgent care, hospital, or fdc...) When possible be specific @ -Your just Did you speak to anyone other than the patient for history (EMS, parent, family, police, friend...)? What history was obtained from this source @ -No Did you review nursing and triage notes (agree or disagree)? Why? @ -I reviewed and agree with nursing and triage notes Were old charts reviewed (outside hosp., previous admission, EMS record, old EKG, old radiological studies, urgent care reports/EKG's, fdc records)? Report findings @ -No old charts were reviewed Differential Diagnosis (chest pain, altered mental status, abdominal pain women, abdominal pain men, vaginal bleeding, weakness, fever, dyspnea, syncope, headache, dizziness, GI bleed, back pain, seizure, CVA, palpatations, mental health, musculoskeletal)? @ -Differential Syncope: Valvular disease, hypertrophic cardiomyopathy, pulmonary embolism, tamponade, tachycardia, bradycardia, LA, hypovolemia, hemorrhage, dissection, anemia, intracranial hemorrhage, seizure, hypoglycemia, carbon monoxide poisoning, this is not meant to be an all-inclusive list. EKG interpreted by me (3pts min.). @ -As above X-rays interpreted by me (1pt min.). @ -[Chest x-ray shows no acute process CT interpreted by me (1pt min.). @ -CT brain, C-spine show no acute intracranial hemorrhage, mass effect cervical fracture U/S interpreted by me (1pt. min.). @ -[None done What testing was considered but not performed or refused? (CT, X-rays, U/S, labs)? Why? @ -None What meds were considered but not given or refused? Why? @ -None Did you discuss the management of the patient with other professionals (professionals i.e. RAFAEL Daugherty, TRAIN SYSTEM OPERATOR, lab, RT, psych nurse, social media analyst, patient service coordinator, t eacher, aadc plans staff officer, business case analyst)? Give summary @ -[Dr. Geiger for admission Was smoking cessation discussed for >3mins.? @ -No Was critical care preformed (if so, how long)? @ -No Were there social determinants of health that impacted care today? How? (Homelessness, low income, unemployed, alcoholism, drug addiction, transportation, low edu. Level, literacy, decrease access to med. care, group home, rehab)? @ -No Was there de-escalation of care discussed even if they declined (Discuss DNR or withdrawal of care, Hospice)? DNR status @ -No What co-morbidities impacted this encounter? (DM, HTN, Smoking, COPD, CAD, Cancer, CVA, ARF, Chemo, Hep., AIDS, mental health diagnosis, sleep apnea, morbid obesity)? @ -None Was patient admitted / discharged? Hospital course, mention meds given and route, prescriptions, significant lab abnormalities, going to OR and other pertinent info. @ -Admitted patient presented for syncopal episode laboratory studies unremarkable, orthostatics were negative. Patient remains symptomatic and unsafe for discharge. Patient be admitted with echocardiogram, cardiology evaluation Undiagnosed new problem with uncertain prognosis? @ -No Drug Therapy requiring intensive monitoring for toxicity (Heparin, Nitro, Insulin, Cardizem)? @ -No Were any procedures done? @ -No Diagnosis/symptom? @ -[Syncope Acute, or Chronic, or Acute on Chronic? @ -Acute Uncomplicated (without systemic symptoms) or Complicated (systemic symptoms)? @ -[Complicated Side effects of treatment? @ -[No Exacerbation, Progression, or Severe Exacerbation? @ -No Poses a threat to life or bodily function? How? (Chest pain, USA, LA, pneumonia, PE, COPD, DKA, ARF, appy, cholecystitis, CVA, Diverticulitis, Homicidal, Suicidal, threat to staff... and all critical care pts) @ -No - Lab Data Result diagrams: 05/10/23 11:56 05/10/23 11:56 Lab Results 05/10/23 05/10/23 05/10/23 Range/Units 11:56 11:56 11:56 WBC 9.3 (3.8-10.6) k/uL RBC 4.10 L (4.30-5.90) m/uL Hgb 12.7 L (13.0-17.5) gm/dL Hct 38.7 L (39.0-53.0) % MCV 94.4 (80.0-100.0) fL MCH 30.9 (25.0-35.0) pg MCHC 32.7 (31.0-37.0) g/dL RDW 13.2 (11.5-15.5) % Plt Count 406 (150-450) k/uL MPV 7.7 Neutrophils % 70 % Lymphocytes % 19 % Monocytes % 7 % Eosinophils % 2 % Basophils % 1 % Neutrophils # 6.5 (1.3-7.7) k/uL Lymphocytes # 1.8 (1.0-4.8) k/uL Monocytes # 0.6 (0-1.0) k/uL Eosinophils # 0.2 (0-0.7) k/uL Basophils # 0.1 (0-0.2) k/uL PT 11.0 (10.0-12.5) sec INR 1.0 (<1.2) APTT 22.8 (22.0-30.0) sec Sodium 140 (137-145) mmol/L Potassium 4.2 (3.5-5.1) mmol/L Chloride 106 (98-107) mmol/L Carbon Dioxide 22 (22-30) mmol/L Anion Gap 12 mmol/L BUN 18 (9-20) mg/dL Creatinine 0.94 (0.66-1.25) mg/dL Est GFR (CKD-EPI)AfAm 89 (>60 ml/min/1.73 sqM) Est GFR (CKD-EPI)NonAf 77 (>60 ml/min/1.73 sqM) Glucose 122 H (74-99) mg/dL Calcium 9.1 (8.4-10.2) mg/dL Magnesium 1.4 L (1.6-2.3) mg/dL Total Bilirubin 0.5 (0.2-1.3) mg/dL AST 22 (17-59) U/L ALT 19 (4-49) U/L Alkaline Phosphatase 67 (38-126) U/L Troponin I (0.000-0.034) ng/mL Total Protein 7.5 (6.3-8.2) g/dL Albumin 4.2 (3.5-5.0) g/dL 05/10/23 Range/Units 11:56 WBC (3.8-10.6) k/uL RBC (4.30-5.90) m/uL Hgb (13.0-17.5) gm/dL Hct (39.0-53.0) % MCV (80.0-100.0) fL MCH (25.0-35.0) pg MCHC (31.0-37.0) g/dL RDW (11.5-15.5) % Plt Count (150-450) k/uL MPV Neutrophils % % Lymphocytes % % Monocytes % % Eosinophils % % Basophils % % Neutrophils # (1.3-7.7) k/uL Lymphocytes # (1.0-4.8) k/uL Monocytes # (0-1.0) k/uL Eosinophils # (0-0.7) k/uL Basophils # (0-0.2) k/uL PT (10.0-12.5) sec INR (<1.2) APTT (22.0-30.0) sec Sodium (137-145) mmol/L Potassium (3.5-5.1) mmol/L Chloride (98-107) mmol/L Carbon Dioxide (22-30) mmol/L Anion Gap mmol/L BUN (9-20) mg/dL Creatinine (0.66-1.25) mg/dL Est GFR (CKD-EPI)AfAm (>60 ml/min/1.73 sqM) Est GFR (CKD-EPI)NonAf (>60 ml/min/1.73 sqM) Glucose (74-99) mg/dL Calcium (8.4-10.2) mg/dL Magnesium (1.6-2.3) mg/dL Total Bilirubin (0.2-1.3) mg/dL AST (17-59) U/L ALT (4-49) U/L Alkaline Phosphatase (38-126) U/L Troponin I <0.012 (0.000-0.034) ng/mL Total Protein (6.3-8.2) g/dL Albumin (3.5-5.0) g/dL Disposition Clinical Impression: Syncope Disposition: ADMITTED IP TO THIS [facility] Referrals: Seng Geiger MD [Primary Care Provider] - 1-2 days Time of Disposition: 14:06
[2023-05-10] MEDS: MAGNESIUM OXIDE 400 MG TAB PO STA (14:26)
[2023-05-10] MEDS: SODIUM CHLORIDE 0.9% 1,000 ML IV SCH (14:26)
[2023-05-10 20:33] LABS: Glucose,Whole Blood 175 mg/dL (70-110)
[2023-05-10] MEDS ORDERED: DEXTROSE 50% SYRINGE 50 ML IVP PRN ×2 (21:45)
[2023-05-10] MEDS: INSULIN ASPART (NovoLOG) 100 UNIT/ML VIAL SQ ONE (22:06)
[2023-05-10] MEDS: TAMSULOSIN 0.4 MG CAP.ER.24H PO SCH (22:06)
[2023-05-10] MEDS: ATORVASTATIN 20 MG TAB PO SCH (22:06)
[2023-05-11 06:19] LABS: Glucose,Whole Blood 106 mg/dL (70-110)
[2023-05-11] MEDS: INSULIN ASPART (NovoLOG) 100 UNIT/ML VIAL SQ SCH (06:34)
--- NOTE | 2023-05-11 06:59 | CA ---
Transthoracic Echo Report Name: Christopher Reeves Age: 78 Gender: M : 1945 Exam Date: 05/10/2023 15:52 Exam Location: [place] [facility] Ht (in): 62 Wt (lb): 170 Ordering Physician: Luis Augustin Attending/Referring Phys: [id number], Demetria Pickle Water Pump Operator Cheryl Shannon RDCS Procedure CPT: Indications: Syncope Cardiac Hx: Technical Quality: Fair Contrast 1: Total Dose (mL): Contrast 2: Total Dose (mL): MEASUREMENTS (Male / Female) Normal Values 2D ECHO LV Diastolic Diameter PLAX 4.8 cm 4.2 - 5.9 / 3.9 - 5.3 cm LV Systolic Diameter PLAX 3.7 cm IVS Diastolic Thickness 1.0 cm 0.6 - 1.0 / 0.6 - 0.9 cm LVPW Diastolic Thickness 1.1 cm 0.6 - 1.0 / 0.6 - 0.9 cm LV Relative Wall Thickness 0.4 RV Internal Dim ED PLAX 3.4 cm LA Systolic Diameter LX 4.2 cm 3.0 - 4.0 / 2.7 - 3.8 cm LV Diastolic Volume MOD 4C 115.6 cm??? LV Systolic Volume MOD 4C 47.6 cm??? LV Ejection Fraction MOD 4C 58.8 % LV Cardiac Index MOD 4C 2368.6 cm???/min???m??? LV Diastolic Length 4C 9.2 cm LV Systolic Length 4C 7.6 cm LV Diastolic Volume MOD 2C 118.1 cm??? LV Systolic Volume MOD 2C 40.9 cm??? LV Ejection Fraction MOD 2C 65.3 % LV Cardiac Index MOD 2C 2688.3 cm???/min???m??? LV Diastolic Length 2C 8.7 cm LV Systolic Length 2C 7.2 cm LA Volume 50.9 cm??? 18 - 58 / 22 - 52 cm??? LA Volume Index 27.3 cm???/m??? 16 - 28 cm???/m??? M-MODE Aortic Root Diameter MM 3.9 cm MV E Point Septal Separation 0.9 cm AV Cusp Separation MM 1.8 cm DOPPLER AV Peak Velocity 152.5 cm/s AV Peak Gradient 9.3 mmHg MV Area PHT 2.4 cm??? Mitral E Point Velocity 77.2 cm/s Mitral A Point Velocity 118.7 cm/s Mitral E to A Ratio 0.7 MV Deceleration Time 314.4 ms MV E' Velocity 5.2 cm/s Mitral E to MV E' Ratio 14.9 TR Peak Velocity 232.2 cm/s TR Peak Gradient 21.6 mmHg Right Ventricular Systolic Press 25.9 mmHg FINDINGS Left Ventricle Left ventricular ejection fraction is estimated at 55-60 %. Left ventricular cavity size normal. Left ventricular wall thickness normal.normal left ventricular wall motion. Right Ventricle Mild right ventricular dilatation. Right ventricular systolic pressure within normal limits. Right Atrium Normal right atrial size. Left Atrium Mildly increased left atrial diameter. Mitral Valve Structurally normal mitral valve. No mitral stenosis or prolapse.trace mitral regurgitation. Mitral annular calcification. Aortic Valve Trileaflet aortic valve. No aortic valve stenosis or regurgitation.aortic valve sclerosis. Tricuspid Valve Structurally normal tricuspid valve. Mild tricuspid regurgitation. Pulmonic Valve No pulmonic regurgitation.pulmonic valve not well visualized. Pericardium No pericardial effusion. Aorta Mild aortic dilatation at the level of the sinuses of valsalva 39 mm CONCLUSIONS 1. Normal left ventricle size and systolic function 2. Mild tricuspid regurgitation with trace mitral regurgitation. Previewed by: Dr. Juan M Marshall MD (Electronically Signed) Final Date: 11 May 2023 06:58
[2023-05-11 08:22] VITALS: BP 123/62; PULSE 65; RESP 16; TEMP 97.4
--- NOTE | 2023-05-11 08:57 | P.CRDCN ---
History of Present Illness Consult date: 05/11/23 History of present illness: History of Present Illness: The patient is a 78-year-old male with a known history of mild CAD, hypertension, hyperlipidemia, diabetes mellitus and a prior history of CVA who yesterday was at his urologist and after undergoing prostate biopsy because of an elevated PSA he got up to the window to make an appointment when he felt dizzy and had a brief syncopal episode. He does not recall any tonic-clonic activity, no loss of bladder control. He denies any chest discomfort or change in his breathing. His activity level has been stable, he has mild dyspnea on exertion but no PND or orthopnea. He underwent cardiac catheterization in 2021 and was found to have mild triple-vessel disease. His low ventricle systolic function by echocardiography was normal. Since admission he had no evidence of arrhythmia. He continues to be in sinus mechanism. Troponin was normal on admission and he had a normal renal functions. Echocardiogram done yesterday with a normal ventricular size and systolic function with mild tricuspid regurgitation. Medications: Ozempic, amlodipine, insulin, Synjardy, rosuvastatin 10 mg daily, clopidogrel 75 mg daily, tamsulosin. Aceon 40 mg daily Review of Systems: Respiratory: He has mild dyspnea on exertion but no recent wheezing or cough GI: No nausea or vomiting . No history of peptic ulcer disease. No recent GI bleed. : No hematuria or dysuria. He has nocturia Nervous System: No seizure. He has a prior history of stroke with recovery and no evidence of significant residual Physical Examination: 78-year-old male, alert oriented no apparent distress,Blood pressure 123/62, Heart rate 65 Head: Normocephalic. Eyes: Sclerae nonicteric. Neck: Good carotid upstroke, no bruit, no jugular venous distention. Lungs: Clear to auscultation. Heart: Regular rate and rhythm, S1-S2, no S3, no rub. Systolic ejection murmur. Abdomen: Soft nontender, positive bowel sounds no organomegaly. Extremities: No edema, intact distal pulses. Labs: Hemoglobin 12.7, WBC 9.3, platelets 406. BUN 18, creatinine 1.94. Troponin less than 0.012. Chest x-ray with no acute infiltrate. EKG: Sinus mechanism normal axis with nonspecific ST-T wave changes with no change compared to prior EKG Impression: 1. Syncope, probable orthostatic hypotension after the procedure, patient was n.p.o. prior to the procedure. No evidence of ischemia or malignant arrhythmia 2. History of CAD, stable 3. History of hypertension 4. History of diabetes 5. History of hyperlipidemia Plan: 1. Continue present therapy 2. Increase physical activity 3. If stable probable discharge home today 4. Thank you for this consult we will follow with you Past Medical History Past Medical History: Dementia, Diabetes Mellitus, Hyperlipidemia, Hypertension, Myocardial Infarction ([place]), Osteoarthritis (OA), Prostate Disorder, Sleep Apnea/CPAP/BIPAP Last Myocardial Infarction Date:: History of Any Multi-Drug Resistant Organisms: None Reported Past Surgical History: Orthopedic Surgery Additional Past Surgical History / Comment(s): Right Knee replacement, cataracts, Left knee steriod injection Past Anesthesia/Blood Transfusion Reactions: No Reported Reaction Past Psychological History: No Psychological Hx Reported Smoking Status: Never smoker Past Alcohol Use History: None Reported Past Drug Use History: None Reported - Past Family History Father Additional Family Medical History / Comment(s): brain aneurysm Mother Family Medical History: Coronary Artery Disease (CAD), Diabetes Mellitus Medications and Allergies Home Medications Medication Instructions Recorded Confirmed Type Tamsulosin [Flomax] 0.4 mg PO HS 03/23/21 05/10/23 History amLODIPine BESYLATE 10 mg PO DAILY 03/23/21 05/10/23 History Ascorbic Acid [Vitamin C] 1,000 mg PO DAILY 05/10/23 05/10/23 History Ciprofloxacin HCl [Cipro] 500 mg PO ONCE 05/10/23 05/10/23 History Clopidogrel [Plavix] 75 mg PO DIRECTED 05/10/23 05/10/23 History Empagliflozin/Metformin HCl 1 tab PO BID 05/10/23 05/10/23 History [Synjardy 12.5-1,000 mg Tablet] Insulin Glargine,Hum.rec.anlog 31 unit SQ AC-SUPPER 05/10/23 05/10/23 History [Basaglar Zayraikpen U-100] Perindopril Erbumine [Aceon] 4 mg PO DAILY 05/10/23 05/10/23 History Rosuvastatin [Crestor] 10 mg PO HS 05/10/23 05/10/23 History Semaglutide [Ozempic] 2 mg SQ TU 05/10/23 05/10/23 History Turmeric Root Extract [Turmeric] 500 mg PO DAILY 05/10/23 05/10/23 History Vitamin E (Dl,Tocopheryl Acet) 400 unit PO DAILY 05/10/23 05/10/23 History [Vitamin E (400 Iu = 180 mg)] Allergies Allergy/AdvReac Type Severity Reaction Status Date / Time aspirin AdvReac Abdominal Verified 05/10/23 17:57 Pain Physical Exam Vitals: Vital Signs Temp Pulse Pulse Pulse Pulse Pulse Resp 05/11/23 07:00 97.4 F L 65 16 05/11/23 00:04 97.9 F 67 18 05/10/23 22:00 61 05/10/23 20:53 97.5 F L 61 16 05/10/23 20:40 64 16 05/10/23 20:27 84 16 05/10/23 14:30 62 16 05/10/23 13:13 70 68 65 18 05/10/23 11:50 59 L 16 05/10/23 11:18 97.4 F L 62 18 BP BP BP BP BP Pulse Ox 05/11/23 07:00 123/62 96 05/11/23 00:04 143/71 99 05/10/23 22:00 05/10/23 20:53 131/68 96 05/10/23 20:40 131/72 95 05/10/23 20:27 110/51 97 05/10/23 14:30 121/73 98 05/10/23 13:13 122/65 132/72 122/70 96 05/10/23 11:50 130/66 98 05/10/23 11:18 108/60 99 Intake and Output 05/10/23 05/11/23 05/11/23 22:59 06:59 14:59 Other: Voiding Method Toilet # Voids 1 2 Results 05/10/23 11:56 05/10/23 11:56 Cardiac Enzymes 05/10/23 05/10/23 05/10/23 Range/Units 11:56 11:56 15:05 AST 22 (17-59) U/L Troponin I <0.012 <0.012 (0.000-0.034) ng/mL 05/10/23 Range/Units 17:15 AST (17-59) U/L Troponin I <0.012 (0.000-0.034) ng/mL Coagulation 05/10/23 Range/Units 11:56 PT 11.0 (10.0-12.5) sec APTT 22.8 (22.0-30.0) sec CBC 05/10/23 Range/Units 11:56 WBC 9.3 (3.8-10.6) k/uL RBC 4.10 L (4.30-5.90) m/uL Hgb 12.7 L (13.0-17.5) gm/dL Hct 38.7 L (39.0-53.0) % Plt Count 406 (150-450) k/uL Comprehensive Metabolic Panel 05/10/23 Range/Units 11:56 Sodium 140 (137-145) mmol/L Potassium 4.2 (3.5-5.1) mmol/L Chloride 106 (98-107) mmol/L Carbon Dioxide 22 (22-30) mmol/L BUN 18 (9-20) mg/dL Creatinine 0.94 (0.66-1.25) mg/dL Glucose 122 H (74-99) mg/dL Calcium 9.1 (8.4-10.2) mg/dL AST 22 (17-59) U/L ALT 19 (4-49) U/L Alkaline Phosphatase 67 (38-126) U/L Total Protein 7.5 (6.3-8.2) g/dL Albumin 4.2 (3.5-5.0) g/dL Current Medications Generic Name Dose Route Start Last Admin Trade Name Freq PRN Reason Stop Dose Admin Ascorbic Acid 1,000 mg 05/11/23 09:00 Ascorbic Acid 500 Mg Tab PO DAILY [facility] Atorvastatin Calcium 20 mg 05/10/23 21:45 05/10/23 22:06 Atorvastatin 20 Mg Tab PO 20 mg HS KRYSTAL Administration Dapagliflozin 10 mg 05/11/23 09:00 Dapagliflozin Propanediol 10 Mg Tablet PO DAILY KRYSTAL Dextrose/Water 25 ml 05/10/23 21:45 Dextrose 50% Syringe 50 Ml IVP PER PROTOCOL PRN Hypoglycemia Protocol Dextrose/Water 50 ml 05/10/23 21:45 Dextrose 50% Syringe 50 Ml IVP PER PROTOCOL PRN Hypoglycemia Protocol Sodium Chloride 1,000 mls @ 75 mls/hr 05/10/23 14:15 05/11/23 06:53 Saline 0.9% IV 75 mls/hr .[id number] [facility] Administration Insulin Aspart 0 unit 05/11/23 07:30 05/11/23 06:34 Insulin Aspart (Novolog) 100 Unit/Ml Vial SQ Not Given ACHS [facility] Protocol Lisinopril 10 mg 05/11/23 09:00 Lisinopril 10 Mg Tab PO DAILY [facility] Metformin HCl 1,000 mg 05/11/23 09:00 Metformin 500 Mg Tab PO BID [facility] Tamsulosin HCl 0.4 mg 05/10/23 21:45 05/10/23 22:06 Tamsulosin 0.4 Mg Cap.Er.24h PO 0.4 mg HS [facility] Administration Vitamin E 400 unit 05/11/23 09:00 Vitamin E (Dl,Tocopheryl Acet) 400 Unit (180 Mg) Cap PO DAILY [facility] Intake and Output 05/10/23 05/11/23 05/11/23 22:59 06:59 14:59 Other: Voiding Method Toilet # Voids 1 2 05/10/23 11:56 05/10/23 11:56
[2023-05-11] MEDS: ASCORBIC ACID 500 MG TAB PO SCH (09:46)
[2023-05-11] MEDS: lisinopriL 10 MG TAB PO SCH (09:46)
[2023-05-11] MEDS: DAPAGLIFLOZIN PROPANEDIOL 10 MG TABLET PO SCH (09:46)
[2023-05-11] MEDS: VITAMIN E (DL,TOCOPHERYL ACET) 400 UNIT (180 MG) CAP PO SCH (09:46)
[2023-05-11] MEDS: metFORMIN 500 MG TAB PO SCH (09:47)
[2023-05-11] MEDS ORDERED: Magnesium Replacement Protocol 1 EACH MISC MISCELLANE PRN (11:20)
[2023-05-11] MEDS: MAGNESIUM SULFATE-D5W PMX 1 GM in DEXTROSE/WATER 1 100ML.BAG IVPB SCH (11:31)
--- NOTE | 2023-05-12 08:55 | P.DS ---
Providers Date of admission: 05/10/23 13:43 Expected date of discharge: 05/11/23 Attending physician: Seng Geiger Consults: 05/10/23 14:07 Consult Physician Urgent Consulting Provider: Jose Brizuela Consult Reason/Comments: syncope Do you want consulting provider notified?: Yes Primary care physician: Seng Geiger Hospital Course: Final diagnosis Episode of dizziness and lightheadedness with syncope, likely orthostatic hypotension Status post prostate biopsy at urology office yesterday prior to the syncopal event Elevated PSA, currently undergoing workup outpatient History of coronary artery disease Hypomagnesemia Hypertension history Diabetes mellitus history Hyperlipidemia History of sleep apnea Obesity with a BMI of 31.1 GI prophylaxis DVT prophylaxis Full code Discharge disposition Patient is being discharged in a stable condition with guarded prognosis to home. Patient will follow-up with Dr. Geiger in the outpatient setting upon discharge. Patient is to continue with current medications and close blood pressure monitoring by keeping a diary of daily readings and outpatient follow- up with cardiology as scheduled. Recommend repeat labs in the next few days to monitor magnesium level. Total time taken is greater than 35 minutes. Hospital course This is a 78-year-old male who was recently admitted with feeling dizzy and lightheaded while being at an appointment at the urology office with a brief episode of syncope. Patient was seen and evaluated by cardiology most likely orthostatic hypotension after the procedure as patient was n.p.o. and having a biopsy. Patient did have a mildly low magnesium level of 1.4 which is being replaced and recommend outpatient follow-up with repeat labs and keeping scheduled appointment with Dr. Geiger early this week. Patient has been cleared by cardiology with medication adjustments recommending outpatient follow-up in the next 1 to 2 weeks. Instructed the patient to obtain blood pressure daily and keep a diary of readings for primary as well as cardiology follow-up. Please refer to cardiology notes for further HPI. Currently no reports of chest pain, shortness of breath, or palpitations. Patient is afebrile. No reports of nausea or vomiting and patient is tolerating diet. Patient will be discharged home today. Physical exam: Gen: This is a 78-year-old male who is awake, alert and oriented x 3, well- developed, well-nourished, obese HEENT: Head is atraumatic, normocephalic. Pupils equal, round. Sclerae is anicteric. NECK: Supple. No JVD. No lymphadenopathy. No thyromegaly. LUNGS: Clear to auscultation. No wheezes or rhonchi. No intercostal retractions. HEART: S1, S2 are muffled ABDOMEN: Soft. Bowel sounds are present. No masses. No tenderness. EXTREMITIES: No pedal edema. No calf tenderness. NEUROLOGICAL: Patient is awake, alert and oriented x3. Cranial nerves 2 through 12 are grossly intact. Please refer to medication reconciliation sheet for a list of medications. The impression and plan of care has been dictated by Stephanie Chase, Nurse Practitioner as directed. Dr. Brandon MD I have performed a history and examination and MDM of this patient, discussed the same with the dictator, and agree with the dictator's assessment and plan as written ,documented as a scribe. Based on total visit time, I have performed more than 50% of the visit. Patient Condition at Discharge: Fair Plan - Discharge Summary Discharge Rx Participant: No New Discharge Prescriptions: New lisinopriL [Zestril] 10 mg PO DAILY #30 tab Continue Rosuvastatin [Crestor] 10 mg PO HS Ascorbic Acid [Vitamin C] 1,000 mg PO DAILY Tamsulosin [Flomax] 0.4 mg PO HS Clopidogrel [Plavix] 75 mg PO DIRECTED Vitamin E (Dl,Tocopheryl Acet) [Vitamin E (400 Iu = 180 mg)] 400 unit PO DAILY Insulin Glargine,Hum.rec.anlog [Basaglar Kwikpen U-100] 31 unit SQ AC-SUPPER Empagliflozin/Metformin HCl [Synjardy 12.5-1,000 mg Tablet] 1 tab PO BID Turmeric Root Extract [Turmeric] 500 mg PO DAILY Semaglutide [Ozempic] 2 mg SQ TU Discontinued Perindopril Erbumine [Aceon] 4 mg PO DAILY Ciprofloxacin HCl [Cipro] 500 mg PO ONCE amLODIPine BESYLATE 10 mg PO DAILY Discharge Medication List Tamsulosin [Flomax] 0.4 mg PO HS 03/23/21 [History] Ascorbic Acid [Vitamin C] 1,000 mg PO DAILY 05/10/23 [History] Clopidogrel [Plavix] 75 mg PO DIRECTED 05/10/23 [History] Empagliflozin/Metformin HCl [Synjardy 12.5-1,000 mg Tablet] 1 tab PO BID 05/10/23 [History] Insulin Glargine,Hum.rec.anlog [Basaglar Kwikpen U-100] 31 unit SQ AC-SUPPER 05/10/23 [History] Rosuvastatin [Crestor] 10 mg PO HS 05/10/23 [History] Semaglutide [Ozempic] 2 mg SQ TU 05/10/23 [History] Turmeric Root Extract [Turmeric] 500 mg PO DAILY 05/10/23 [History] Vitamin E (Dl,Tocopheryl Acet) [Vitamin E (400 Iu = 180 mg)] 400 unit PO DAILY 05/10/23 [History] lisinopriL [Zestril] 10 mg PO DAILY #30 tab 05/11/23 [Rx] Follow up Appointment(s)/Referral(s): Juan M Marshall MD [STAFF PHYSICIAN] - 05/19/23 9:30 am Seng Geiger MD [Primary Care Provider] - 1-2 days Ambulatory/Diagnostic Orders: Basic Metabolic Panel [LAB.AMB] Time Frame: 3 Days, Location: None Selected Patient Instructions/Handouts: Syncope (DC) Activity/Diet/Wound Care/Special Instructions: Activity limited until follow-up Follow-up with primary care provider on discharge Follow-up cardiology outpatient Follow-up primary care provider at your scheduled appointment Continue taking medications as prescribed Monitor blood pressure and keep a diary of all readings for primary and cardiology follow-up Repeat labs in 2 to 3 days to monitor kidney functions and magnesium level Discharge Disposition: HOME SELF-CARE
--- NOTE | 2023-05-12 09:19 | P.HPIM ---
History of Present Illness H&P Date: 05/11/23 This is a 78-year-old male who presented to the emergency department with a possible syncopal episode while at the urology office undergoing a prostate biopsy. Patient was getting up and started feeling lightheaded and had a brief syncopal episode and sent here for further evaluation. Patient had been n.p.o. the night before and reports to feeling fine before the procedure. Patient follows with Dr. Geiger in the outpatient setting with a past medical history of hypertension, diabetes, hyperlipidemia, sleep apnea, elevated PSA undergoing urological workup outpatient. Adjustments to medications being made per cardiology and also encouraged increase activity as tolerated to evaluate for a ny further episodes. Patient's magnesium slightly low at 1.4 and will replace per protocol recommend outpatient labs. Other labs within normal limits. REVIEW OF SYSTEMS: CONSTITUTIONAL: No fever, no malaise, no fatigue. HEENT: No recent visual problems or hearing problems. Denied any sore throat. CARDIOVASCULAR: No chest pain, orthopnea, PND, no palpitations, no syncope. PULMONARY: No shortness of breath, no cough, no hemoptysis. GASTROINTESTINAL: No diarrhea, no nausea, no vomiting, no abdominal pain. NEUROLOGICAL: No headaches, no weakness, no numbness. HEMATOLOGICAL: Denies any bleeding or petechiae. GENITOURINARY: Denies any burning micturition, frequency, or urgency. MUSCULOSKELETAL/RHEUMATOLOGICAL: Denies any joint pain, swelling, or any muscle pain. ENDOCRINE: Denies any polyuria or polydipsia. The rest of the 14-point review of systems is negative. PHYSICAL EXAMINATION: GENERAL: The patient is alert and oriented x3,. Well developed, well nourished. Obese. HEENT: Pupils are round and equally reacting to light. EOMI. No scleral icterus. No conjunctival pallor. Normocephalic, atraumatic. No pharyngeal erythema. No thyromegaly. CARDIOVASCULAR: S1 and S2 present. No murmurs, rubs, or gallops. PULMONARY: Chest is clear to auscultation, no wheezing or crackles. ABDOMEN: Soft, nontender, nondistended, normoactive bowel sounds. No palpable organomegaly. MUSCULOSKELETAL: No joint swelling or deformity. EXTREMITIES: No cyanosis, clubbing, or pedal edema. NEUROLOGICAL: Gross neurological examination did not reveal any focal deficits. SKIN: No rashes. Assessment: Episode of dizziness and lightheadedness with syncope, likely orthostatic hypotension Status post prostate biopsy at urology office yesterday prior to the syncopal event Elevated PSA, currently undergoing workup outpatient History of coronary artery disease Hypomagnesemia Hypertension history Diabetes mellitus history Hyperlipidemia History of sleep apnea Obesity with a BMI of 31.1 GI prophylaxis DVT prophylaxis Full code Plan: Patient was admitted for syncopal episode being evaluated by cardiology most likely orthostatic hypotension and patient had been n.p.o. from the night before for a biopsy at the urology office having a syncopal episode. Patient continued on telemetry monitoring with no episodes Patient's magnesium slightly low at 1.4 and will replace recommend follow-up labs in the outpatient setting and close outpatient follow-up with primary care provider Patient would like to go home and has been cleared by cardiology. Will replace magnesium and likely discharge this afternoon. The impression and plan of care has been dictated by Stephanie Chase, Nurse Practitioner as directed. Dr. Brandon MD I have performed a history and examination and MDM of this patient, discussed the same with the dictator, and agree with the dictator's assessment and plan as written ,documented as a scribe. Based on total visit time, I have performed more than 50% of the visit. Past Medical History Past Medical History: Dementia, Diabetes Mellitus, Hyperlipidemia, Hypertension, Myocardial Infarction ([place]), Osteoarthritis (OA), Prostate Disorder, Sleep Apnea/CPAP/BIPAP Last Myocardial Infarction Date:: History of Any Multi-Drug Resistant Organisms: None Reported Past Surgical History: Orthopedic Surgery Additional Past Surgical History / Comment(s): Right Knee replacement, cataracts, Left knee steriod injection Past Anesthesia/Blood Transfusion Reactions: No Reported Reaction Past Psychological History: No Psychological Hx Reported Smoking Status: Never smoker Past Alcohol Use History: None Reported Past Drug Use History: None Reported - Past Family History Father Additional Family Medical History / Comment(s): brain aneurysm Mother Family Medical History: Coronary Artery Disease (CAD), Diabetes Mellitus Medications and Allergies Home Medications Medication Instructions Recorded Confirmed Type Tamsulosin [Flomax] 0.4 mg PO HS 03/23/21 05/10/23 History Ascorbic Acid [Vitamin C] 1,000 mg PO DAILY 05/10/23 05/10/23 History Clopidogrel [Plavix] 75 mg PO DIRECTED 05/10/23 05/10/23 History Empagliflozin/Metformin HCl 1 tab PO BID 05/10/23 05/10/23 History [Synjardy 12.5-1,000 mg Tablet] Insulin Glargine,Hum.rec.anlog 31 unit SQ AC-SUPPER 05/10/23 05/10/23 History [Basaglar Kwikpen U-100] Rosuvastatin [Crestor] 10 mg PO HS 05/10/23 05/10/23 History Semaglutide [Ozempic] 2 mg SQ TU 05/10/23 05/10/23 History Turmeric Root Extract [Turmeric] 500 mg PO DAILY 05/10/23 05/10/23 History Vitamin E (Dl,Tocopheryl Acet) 400 unit PO DAILY 05/10/23 05/10/23 History [Vitamin E (400 Iu = 180 mg)] lisinopriL [Zestril] 10 mg PO DAILY #30 tab 05/11/23 Rx Allergies Allergy/AdvReac Type Severity Reaction Status Date / Time aspirin AdvReac Abdominal Verified 05/10/23 17:57 Pain Physical Exam Vitals: Vital Signs Pulse Ox 05/11/23 09:17 97 Results CBC & Chem 7: 05/10/23 11:56 05/10/23 11:56 Thrombosis Risk Factor Assmnt - Choose All That Apply Any of the Below Risk Factors Present?: Yes Each Factor Represents 1 point: Obesity (BMI >25) Other Risk Factors: Yes Each Risk Factor Represents 3 Points: Age 75 years or older Other congenital or acquired thrombophilia - If yes, enter type in comment: No Thrombosis Risk Factor Assessment Total Risk Factor Score: 4 Thrombosis Risk Factor Assessment Level: Moderate Risk
== END 2023-05-11 14:16 | disposition home or self-care (01) ==
LOC: EC 11:09 → 6NMEDSUR 13:43
PROVIDERS: ADMIT Family Medicine; ATTEND Family Medicine
DX: R55 Syncope and collapse (principal); R97.20 Elevated prostate specific antigen [PSA]; E83.42 Hypomagnesemia; I25.10 Atherosclerotic heart disease of native coronary artery without angina pectoris; I10 Essential (primary) hypertension; E11.9 Type 2 diabetes mellitus without complications; E78.5 Hyperlipidemia, unspecified; G47.30 Sleep apnea, unspecified; F03.90 Unspecified dementia, unspecified severity, without behavioral disturbance, psychotic disturbance, mood disturbance, and anxiety; I25.2 Old myocardial infarction; E66.9 Obesity, unspecified; Z68.31 Body mass index [BMI] 31.0-31.9, adult; Z86.73 Personal history of transient ischemic attack (TIA), and cerebral infarction without residual deficits; Z79.4 Long term (current) use of insulin; Z79.02 Long term (current) use of antithrombotics/antiplatelets; Z79.82 Long term (current) use of aspirin; Z79.84 Long term (current) use of oral hypoglycemic drugs; Z79.85 Long-term (current) use of injectable non-insulin antidiabetic drugs; Z79.899 Other long term (current) drug therapy; Z88.6 Allergy status to analgesic agent
CPT/HCPCS: 96365; 96372; 96361; 99285; 36415; 94760; 93005; 93306; 80053; 83735 ×2; 84484; 85025; 85610; 85730; 83036; 71046; 72125; 70450; G0378 ×2; J3475

== ENCOUNTER → 2023-05-12 | Outpatient (CLI) | payer MEDICARE ==
[2023-05-12 15:22] LABS: BUN/Creat Ratio 16.92 Ratio (12.00-20.00); Blood Urea Nitrogen 20.3 mg/dL (9.0-27.0); Calcium 9.4 mg/dL (8.7-10.3); Carbon Dioxide 23.5 mmol/L (21.6-31.8); Chloride 105 mmol/L (96-109); Glucose 123 mg/dL (70-110); Potassium 4.4 mmol/L (3.5-5.5); Sodium 139 mmol/L (135-145)
== END | disposition home or self-care (01) ==
LOC: LABWHC1 08:36
PROVIDERS: ATTEND Registered Nurse
DX: E83.42 Hypomagnesemia (principal); R55 Syncope and collapse
CPT/HCPCS: 36415; 80048

== ENCOUNTER → 2023-10-09 | Outpatient (CLI) | payer MEDICARE | END | disposition home or self-care (01) | LOC: LABWHC1 07:57 | PROVIDERS: ATTEND Urology | DX: R97.20 Elevated prostate specific antigen [PSA] (principal) | CPT/HCPCS: 36415; 84153 ==

== ENCOUNTER → 2023-11-13 | Outpatient (CLI) | payer MEDICARE ==
--- NOTE | 2023-12-12 09:14 | MR ---
Patient: Christopher Reeves W Ordering Physician: Unknown, Unknown ID: [id number] Phone, Pager: Phone: N/ A Pager: N/A : 1945 Age/Gender: 78Y, M Primary Location: N/A Procedure: MRI PROSTATE WWO CONTR AST Study Date: 11/13/2023 8:07:34 AM EXAMINATION TYPE: MR Prostate wo/w con DATE OF EXAM: 11/25/2023 7:46 AM COMPARISON: None. CLINICAL INDICATION: Elevated PSA TECHNIQUE: Multi-planar, multi-sequence imaging of the pelvis is performed prior to and following the uncomplicated administration of bolus intravenous gadolinium. CONTRAST: 7 cc Gadavist. Interpretive Criteria: PI-RADS v2.1 SERUM PSA: 02/2023 =20.9, 03/2023=17.9, 10/2023=18.1 SURGICAL PATHOLOGY: No data available. FINDINGS: Prostatic dimensions: 7.1 x 5.7 x 4.4 cm. Ellipsoid Volume:93.24 (PSA density=0.22 ng/mL/mL) CENTRAL GLAND (Central and Transition Zones/CZ+TZ): Geographic area of high DWI and low ADC signal extending across midline extending apex to base measur ing 38 x 22 x 36 mm. There is postcontrast enhancement within this region. PI-RADS 5 PERIPHERAL ZONE (PZ): Bilateral linear, indistinct wedgelike areas of low ADC, and low T2 signal, No evidence of masslike a bnormality, or localized perfusional hypervascularity, to further suggest a focus of clinically signi ficant prostate cancer. (PI-RADS 2) SEMINAL VESICLES (SV): Symmetric and unremarkable. PERIPROSTATIC TISSUES: Unremarkable. LYMPH NODES: No enlarged pelvic lymph node. REMAINING PELVIS: Trabeculated bladder wall likely secondary to chronic bladder outlet obstruction. No abnormal free or organized intrapelvic fluid collection. No pathologic bowel dilation or mural thickening. No hernia visualized OSSEOUS STRUCTURES: No suspicious osseous abnormality. Right degeneration of the head with subchondral cystic change of t he superior acetabulum. IMPRESSION: 1. PI-RADS 5 lesion of the mid gland crossing midline extending base to apex 38 x 22 x 36 mm. No extr acapsular extension definitively visualized at this time. 2. Substantial BPH, estimated gland volume 93.24 mL. 3. No suspicious osseous lesion. No lymphadenopathy. No evidence of prostate adenocarcinoma involving the periprostatic tissues.
== END | disposition home or self-care (01) ==
LOC: RADMRIMAIN 08:35
PROVIDERS: ATTEND Urology
DX: R97.20 Elevated prostate specific antigen [PSA] (principal); N40.0 Benign prostatic hyperplasia without lower urinary tract symptoms
CPT/HCPCS: 72197; A9585

== ENCOUNTER → 2024-03-21 | Outpatient (CLI) | payer MEDICARE ==
--- NOTE | 2024-03-21 15:55 | CT ---
EXAMINATION TYPE: CT brain wo con CT DLP: 1219 mGycm, Automated exposure control for dose reduction was used. DATE OF EXAM: 03/21/2024 3:25 PM COMPARISON: CT brain C-spine 05/10/2023, MRI brain 08/08/2022, CT brain 08/06/2022 CLINICAL INDICATION:Male, 78 years old with history of G45.9 TRANSIENT CEREBRAL ISCHEMIC ATTACK, Head aches and dizzy spells x2 years. TECHNIQUE: Brain: Multiple axial CT images of the brain were obtained without IV contrast. . Coronal and sagitta l reformats reviewed. FINDINGS: Brain: Extra-axial spaces: No abnormal extra-axial fluid collections. Ventricular system: Within normal limits Cerebral parenchyma: Mild cerebral atrophy. No acute intraparenchymal hemorrhage or mass effect. The arreaga-white junction is well differentiated. Scattered hypoattenuating areas are seen within the joana ventricular white matter. Cerebellum: Unremarkable. Mass effect: No evidence of midline shift. Intracranial vasculature: Atherosclerotic calcifications of the intracranial vessels. Soft tissues: Normal. Calvarium/osseous structures: No depressed skull fracture. Paranasal sinuses and mastoid air cells: Clear Visualized orbits: Bilateral aphakia IMPRESSION: 1. No acute intracranial process. 2. Nonspecific white matter changes, likely secondary to chronic small vessel ischemic disease. [facility], , 03/21/2024 3:53 PM
== END | disposition home or self-care (01) ==
LOC: RADCTMAIN 15:01
PROVIDERS: ATTEND Family Medicine
DX: G45.9 Transient cerebral ischemic attack, unspecified (principal); R90.82 White matter disease, unspecified; H27.03 Aphakia, bilateral
CPT/HCPCS: 70450

== ENCOUNTER 2024-04-17 11:12 | Emergency (ER) | payer MEDICARE ==
[2024-04-17 11:26] VITALS: RESP 18
--- NOTE | 2024-04-17 12:17 | ED ---
Back Pain HPI - General Chief Complaint: Back Pain/Injury Stated Complaint: back and leg pain Time Seen by Provider: 04/17/24 11:25 Source: patient, RN notes reviewed Mode of arrival: ambulatory Limitations: no limitations - History of Present Illness Initial Comments: This is an 79-year-old male with history of chronic pain and arthritis presenting with bilateral leg and low back pain (01/10) x 3 days. Patient endorses history of chronic "all over" pain, which he normally manages with Tylenol. Describes knee pain as "throbbing" that worsens when both upright/walking and supine. Patient denies radiculopathy, paresthesia, saddle paresthesia, urinary incontinence/retention. MD Complaint: other Onset/Timin -: days(s) Similar Symptoms Previously: Yes Severity scale (1-10): 10 Worsens With: movement, supine, sitting upright Associated Symptoms: denies other symptoms - Related Data Home Medications Medication Instructions Recorded Confirmed Tamsulosin [Flomax] 0.4 mg PO HS 03/23/21 05/10/23 Ascorbic Acid [Vitamin C] 1,000 mg PO DAILY 05/10/23 05/10/23 Clopidogrel [Plavix] 75 mg PO DIRECTED 05/10/23 05/10/23 Empagliflozin/Metformin HCl 1 tab PO BID 05/10/23 05/10/23 [Synjardy 12.5-1,000 mg Tablet] Insulin Glargine,Hum.rec.anlog 31 unit SQ AC-SUPPER 05/10/23 05/10/23 [Basaglar Kwikpen U-100] Rosuvastatin [Crestor] 10 mg PO HS 05/10/23 05/10/23 Semaglutide [Ozempic] 2 mg SQ TU 05/10/23 05/10/23 Turmeric Root Extract [Turmeric] 500 mg PO DAILY 05/10/23 05/10/23 Vitamin E (Dl,Tocopheryl Acet) 400 unit PO DAILY 05/10/23 05/10/23 [Vitamin E (400 Iu = 180 mg)] Previous Rx's Medication Instructions Recorded lisinopriL [Zestril] 10 mg PO DAILY #30 tab 05/11/23 Allergies Allergy/AdvReac Type Severity Reaction Status Date / Time aspirin AdvReac Abdominal Verified 04/17/24 11:26 Pain Review of Systems ROS Statement: Those systems with pertinent positive or pertinent negative responses have been documented in the HPI. ROS Other: All systems not noted in ROS Statement are negative. Past Medical History Past Medical History: Dementia, Diabetes Mellitus, Hyperlipidemia, Hypertension, Myocardial Infarction ([place]), Osteoarthritis (OA), Prostate Disorder, Sleep Apnea/CPAP/BIPAP Last Myocardial Infarction Date:: 0000 History of Any Multi-Drug Resistant Organisms: None Reported Past Surgical History: Orthopedic Surgery Additional Past Surgical History / Comment(s): Right Knee replacement, cataracts, Left knee steriod injection Past Anesthesia/Blood Transfusion Reactions: No Reported Reaction Past Psychological History: No Psychological Hx Reported Smoking Status: Never smoker Past Alcohol Use History: None Reported Past Drug Use History: None Reported - Past Family History Father Additional Family Medical History / Comment(s): brain aneurysm Mother Family Medical History: Coronary Artery Disease (CAD), Diabetes Mellitus General Exam Limitations: no limitations General appearance: alert, in no apparent distress Head exam: Present: atraumatic, normocephalic, normal inspection Eye exam: Present: normal appearance, PERRL, EOMI. Absent: scleral icterus, conjunctival injection, periorbital swelling ENT exam: Present: normal exam, mucous membranes moist Neck exam: Present: normal inspection. Absent: tenderness, meningismus, lymphadenopathy Respiratory exam: Present: normal lung sounds bilaterally. Absent: respiratory distress, wheezes, rales, rhonchi, stridor Cardiovascular Exam: Present: regular rate, normal rhythm, normal heart sounds. Absent: systolic murmur, diastolic murmur, rubs, gallop, clicks GI/Abdominal exam: Present: soft, normal bowel sounds. Absent: distended, tenderness, guarding, rebound, rigid Extremities exam: Present: normal inspection, full ROM, normal capillary refill. Absent: tenderness, pedal edema, joint swelling, calf tenderness Back exam: Present: normal inspection. Absent: tenderness, paraspinal tenderness, vertebral tenderness Neurological exam: Present: alert, oriented X3, CN II-XII intact Psychiatric exam: Present: normal affect, normal mood Skin exam: Present: warm, dry, intact, normal color. Absent: rash Course Vital Signs 04/17/24 11:23 Temperature 98.6 F Pulse Rate 74 Respiratory 18 Rate Blood Pressure 139/84 O2 Sat by Pulse 99 Oximetry Medical Decision Making - Medical Decision Making Was pt. sent in by a medical professional or institution (RAFAEL Daugherty, CIRCULATION TENDER, urgent care, hospital, or penitentiary...) When possible be specific @ -[No] Did you speak to anyone other than the patient for history (EMS, parent, family, police, friend...)? What history was obtained from this source @ -[No] Did you review nursing and triage notes (agree or disagree)? Why? @ -[I reviewed and agree with nursing and triage notes] Were old charts reviewed (outside hosp., previous admission, EMS record, old EKG, old radiological studies, urgent care reports/EKG's, penitentiary records)? Report findings @ -[No old charts were reviewed] Differential Diagnosis (chest pain, altered mental status, abdominal pain women, abdominal pain men, vaginal bleeding, weakness, fever, dyspnea, syncope, headache, dizziness, GI bleed, back pain, seizure, CVA, palpatations, mental health, musculoskeletal)? @ -Differential Back Pain: Strain, zoster, cauda equina syndrome, epidural abscess, vertebral osteomyelitis, discitis, fracture, subluxation, disc herniation, DJD, spinal stenosis, dissection, AAA, pancreatitis, peptic ulcer disease, pyelonephritis, kidney stone, this is not meant to be an all-inclusive list. EKG interpreted by me (3pts min.). @ -Not done X-rays interpreted by me (1pt min.). @ -[None done] CT interpreted by me (1pt min.). @ -[None done] U/S interpreted by me (1pt. min.). @ -[None done] What testing was considered but not performed or refused? (CT, X-rays, U/S, labs)? Why? @ -[None] What meds were considered but not given or refused? Why? @ -[None] Did you discuss the management of the patient with other professionals (professionals i.e. RAFAEL Daugherty, CIRCULATION TENDER, lab, RT, psych nurse, social work coordinator, director of distribution, teacher, risk officer, housing case manager)? Give summary @ -[No] Was smoking cessation discussed for >3mins.? @ -[No] Was critical care preformed (if so, how long)? @ -[No] Were there social determinants of health that impacted care today? How? (Homelessness, low income, unemployed, alcoholism, drug addiction, transportation, low edu. Level, literacy, decrease access to med. care, fdc, rehab)? @ -[No] Was there de-escalation of care discussed even if they declined (Discuss DNR or withdrawal of care, Hospice)? DNR status @ -[No] What co-morbidities impacted this encounter? (DM, HTN, Smoking, COPD, CAD, Cancer, CVA, ARF, Chemo, Hep., AIDS, mental health diagnosis, sleep apnea, morbid obesity)? @ -[None] Was patient admitted / discharged? Hospital course, mention meds given and route, prescriptions, significant lab abnormalities, going to OR and other pertinent info. @ -[hospital course] Undiagnosed new problem with uncertain prognosis? @ -[No] Drug Therapy requiring intensive monitoring for toxicity (Heparin, Nitro, Insulin, Cardizem)? @ -[No] Were any procedures done? @ -[No] Diagnosis/symptom? @ -Arthritis/chronic pain Acute, or Chronic, or Acute on Chronic? @ -Acute on chronic Uncomplicated (without systemic symptoms) or Complicated (systemic symptoms)? @ -Uncomplicated Side effects of treatment? @ -[No] Exacerbation, Progression, or Severe Exacerbation? @ -[No] Poses a threat to life or bodily function? How? (Chest pain, [place], [place], pneumonia, PE, COPD, DKA, ARF, appy, cholecystitis, CVA, Diverticulitis, Homicidal, Diamond icidal, threat to staff... and all critical care pts) @ -[No] Disposition Clinical Impression: Mechanical back pain, Arthritis Disposition: HOME SELF-CARE Condition: Good Instructions (If sedation given, give patient instructions): Acute Low Back Pain (ED) Is patient prescribed a controlled substance at d/c from ED?: No Referrals: Seng Geiger MD [Primary Care Provider] - 1-2 days Time of Disposition: 12:58
[2024-04-17] MEDS: KETOROLAC 15 MG/ML 1 ML VIAL IM STA (12:24)
[2024-04-17] MEDS: methylPREDNISolone SOD SUCCI 125 MG/2 ML VIAL IM ONE (12:24)
[2024-04-17 13:17] VITALS: BP 129/78; PULSE 67; TEMP 98.1
== END 2024-04-17 13:17 | disposition home or self-care (01) ==
LOC: EC 11:12
DX: M54.50 Low back pain, unspecified (principal); M19.90 Unspecified osteoarthritis, unspecified site; Z88.6 Allergy status to analgesic agent
CPT/HCPCS: 99283; 96372; J1885; J2919

== ENCOUNTER 2024-05-24 23:13 | Emergency (ER) | payer MEDICARE ==
[2024-05-24 23:19] VITALS: TEMP 97.7
[2024-05-25] MEDS: KETOROLAC 15 MG/ML 1 ML VIAL IVP STA ×2 (00:18→03:53)
[2024-05-25 00:27] LABS: Basophils % (A) 0 %; Eosinophils # (A) 0.2 k/uL (0-0.7); Eosinophils % (A) 2 %; HCT 38.4 % (39.0-53.0); Lymphocytes # (A) 2.1 k/uL (1.0-4.8); Lymphocytes % (A) 17 %; MCH 31.6 pg (25.0-35.0); MCHC 33.8 g/dL (31.0-37.0); MCV 93.6 fL (80.0-100.0); Mean Platelet Volume 7.2; Monocytes # (A) 0.9 k/uL (0-1.0); Monocytes % (A) 7 %; Neutrophils # (A) 8.7 k/uL (1.3-7.7); Neutrophils % (A) 71 %; Platelet Count 350 k/uL (150-450); RDW 13.6 % (11.5-15.5); WBC 12.2 k/uL (3.8-10.6)
[2024-05-25 02:15] LABS: ALT 17 U/L (4-49); African American GFR (CKD) >90 (>60 ml/min/1.73 sqM); Anion Gap 16 mmol/L; Blood Urea Nitrogen 25 mg/dL (9-20); Calcium 8.6 mg/dL (8.4-10.2); Carbon Dioxide 18 mmol/L (22-30); Chloride 102 mmol/L (98-107); Glucose 103 mg/dL (74-99); Non-African American GFR(CKD) 84 (>60 ml/min/1.73 sqM); Sodium 136 mmol/L (137-145)
[2024-05-25 02:29] LABS: Appearance,Urine Clear (Clear); Bilirubin,Urine Negative (Negative); Blood,Urine Negative (Negative); Color,Urine Light Yellow; Glucose,Urine (UA) 4+ (Negative); Ketones,Urine Negative (Negative); Leukocyte Esterase,Urine Negative (Negative); Nitrite,Urine Negative (Negative); PH, Urine 5.5 (5.0-8.0); Protein,Urine Trace (Negative); Specific Gravity,Urine 1.037 (1.001-1.035); Urobilinogen,Urine <2.0 mg/dL (<2.0)
[2024-05-25 02:48] LABS: AST 57 U/L (17-59); Alkaline Phosphatase 326 U/L (38-126); Potassium 4.9 mmol/L (3.5-5.1); Total Bilirubin 0.9 mg/dL (0.2-1.3); Total Protein 7.2 g/dL (6.3-8.2)
--- NOTE | 2024-05-25 03:47 | CT ---
EXAM: CT Abdomen and Pelvis With Intravenous Contrast CLINICAL HISTORY: ITS.REASON CT Reason: right groin pain TECHNIQUE: Axial computed tomography images of the abdomen and pelvis with intravenous contrast. CTDI is 18.6 mGy and DLP is 860.1 mGy-cm. This CT exam was performed using one or more of the following dose reduction techniques: automated exposure control, adjustment of the mA and/or kV according to patient size, and/or use of iterative reconstruction technique. COMPARISON: No relevant prior studies available. FINDINGS: Lung bases: Unremarkable. No mass. No consolidation. ABDOMEN: Liver: Unremarkable. No mass. Gallbladder and bile ducts: Unremarkable. No calcified stones. No ductal dilation. Pancreas: Unremarkable. No mass. No ductal dilation. Spleen: Unremarkable. No splenomegaly. Adrenals: Unremarkable. No mass. Kidneys and ureters: Unremarkable. No hydronephrosis or delayed nephrogram. Stomach and bowel: Mild fecal retention, correlate for constipation. No mucosal thickening. No bowel obstruction. No free air. PELVIS: Appendix: No findings to suggest acute appendicitis. Bladder: Wall thickening of the urinary bladder, correlate for UTI. Reproductive: Unremarkable as visualized. ABDOMEN and PELVIS: Intraperitoneal space: See above. Bones/joints: No acute fracture. No dislocation. Soft tissues: Unremarkable. Vasculature: Unremarkable. No abdominal aortic aneurysm. Lymph nodes: Unremarkable. No enlarged lymph nodes. IMPRESSION: 1. No bowel obstruction. No free air. 2. Wall thickening of the urinary bladder, correlate for UTI. 3. Mild fecal retention, correlate for constipation.
--- NOTE | 2024-05-25 03:50 | ED ---
General Adult HPI - General Chief complaint: Recheck/Abnormal Lab/Rx Stated complaint: abd back and leg pain Time Seen by Provider: 05/25/24 03:48 Source: patient, RN notes reviewed Mode of arrival: ambulatory Limitations: no limitations - History of Present Illness Initial comments: 79-year-old male presenting for right groin pain x 2 weeks. Patient states pain is dull and constant. Denies urinary symptoms, abdominal pain, back pain, nausea, vomiting. Denies testicular pain or swelling. - Related Data Home Medications Medication Instructions Recorded Confirmed Tamsulosin [Flomax] 0.4 mg PO HS 03/23/21 05/10/23 Ascorbic Acid [Vitamin C] 1,000 mg PO DAILY 05/10/23 05/10/23 Clopidogrel [Plavix] 75 mg PO DIRECTED 05/10/23 05/10/23 Empagliflozin/Metformin HCl 1 tab PO BID 05/10/23 05/10/23 [Synjardy 12.5-1,000 mg Tablet] Insulin Glargine,Hum.rec.anlog 31 unit SQ AC-SUPPER 05/10/23 05/10/23 [Basaglar Kwikpen U-100] Rosuvastatin [Crestor] 10 mg PO HS 05/10/23 05/10/23 Semaglutide [Ozempic] 2 mg SQ TU 05/10/23 05/10/23 Turmeric Root Extract [Turmeric] 500 mg PO DAILY 05/10/23 05/10/23 Vitamin E (Dl,Tocopheryl Acet) 400 unit PO DAILY 05/10/23 05/10/23 [Vitamin E (400 Iu = 180 mg)] Previous Rx's Medication Instructions Recorded lisinopriL [Zestril] 10 mg PO DAILY #30 tab 05/11/23 Allergies Allergy/AdvReac Type Severity Reaction Status Date / Time aspirin AdvReac Abdominal Verified 05/24/24 23:19 Pain Review of Systems ROS Statement: Those systems with pertinent positive or pertinent negative responses have been documented in the HPI. ROS Other: All systems not noted in ROS Statement are negative. Past Medical History Past Medical History: Dementia, Diabetes Mellitus, Hyperlipidemia, Hypertension, Myocardial Infarction (AL), Osteoarthritis (OA), Prostate Disorder, Sleep Apnea/CPAP/BIPAP Last Myocardial Infarction Date:: 0000 History of Any Multi-Drug Resistant Organisms: None Reported Past Surgical History: Orthopedic Surgery Additional Past Surgical History / Comment(s): Right Knee replacement, cataracts, Left knee steriod injection Past Anesthesia/Blood Transfusion Reactions: No Reported Reaction Past Psychological History: No Psychological Hx Reported Smoking Status: Never smoker Past Alcohol Use History: None Reported Past Drug Use History: None Reported - Past Family History Father Additional Family Medical History / Comment(s): brain aneurysm Mother Family Medical History: Coronary Artery Disease (CAD), Diabetes Mellitus General Exam Limitations: no limitations General appearance: alert, in no apparent distress Head exam: Present: atraumatic, normocephalic, normal inspection GI/Abdominal exam: Present: soft, normal bowel sounds. Absent: distended, tenderness, guarding, rebound, rigid, pulsatile mass, hernia Back exam: Absent: CVA tenderness (R), CVA tenderness (L) Neurological exam: Present: alert, oriented X3 Psychiatric exam: Present: normal affect, normal mood Skin exam: Present: warm, dry, intact, normal color. Absent: rash Course Vital Signs 05/24/24 05/25/24 23:14 03:59 Temperature 97.7 F Pulse Rate 78 62 Respiratory 18 16 Rate Blood Pressure 151/81 169/84 O2 Sat by Pulse 99 99 Oximetry Medical Decision Making - Medical Decision Making Was pt. sent in by a medical professional or institution ([facility]FA[facility] Daugherty, [facility], urgent care, hospital, or retirement...) When possible be specific @ -No Did you speak to anyone other than the patient for history (EMS, parent, family, police, friend...)? What history was obtained from this source @ -No Did you review nursing and triage notes (agree or disagree)? Why? @ -I reviewed and agree with nursing and triage notes Were old charts reviewed (outside hosp., previous admission, EMS record, old EKG, old radiological studies, urgent care reports/EKG's, retirement records)? Report findings @ -No old charts were reviewed Differential Diagnosis (chest pain, altered mental status, abdominal pain women, abdominal pain men, vaginal bleeding, weakness, fever, dyspnea, syncope, headache, dizziness, GI bleed, back pain, seizure, CVA, palpatations, mental health, musculoskeletal)? @ -Differential Abdominal Pain Men: Appendicitis, cholecystitis, diverticulosis, ischemic bowel, pancreatitis, hepatitis, UTI, gastroenteritis, AAA, incarcerated hernia, bowel obstruction, constipation, inflammatory bowel, hepatitis, peptic ulcer disease, splenic infa rction, perforated viscus, testicular torsion, this is not meant to be an all- inclusive list EKG interpreted by me (3pts min.). @ -None X-rays interpreted by me (1pt min.). @ -None done CT interpreted by me (1pt min.). @ -CT abdomen pelvis negative for acute process U/S interpreted by me (1pt. min.). @ -None done What testing was considered but not performed or refused? (CT, X-rays, U/S, labs)? Why? @ -None What meds were considered but not given or refused? Why? @ -None Did you discuss the management of the patient with other professionals (professionals i.e. , PA, [facility], lab, RT, psych nurse, social sciences instructor, check processing clerk, teacher, parcel post officer, nurse case management)? Give summary @ -No Was smoking cessation discussed for >3mins.? @ -No Was critical care preformed (if so, how long)? @ -No Were there social determinants of health that impacted care today? How? (Homelessness, low income, unemployed, alcoholism, drug addiction, transportation, low edu. Level, literacy, decrease access to med. care, [facility], rehab)? @ -No Was there de-escalation of care discussed even if they declined (Discuss DNR or withdrawal of care, Hospice)? DNR status @ -No What co-morbidities impacted this encounter? (DM, HTN, Smoking, COPD, CAD, Cancer, CVA, ARF, Chemo, Hep., AIDS, mental health diagnosis, sleep apnea, mor bid obesity)? @ -None Was patient admitted / discharged? Hospital course, mention meds given and rou te, prescriptions, significant lab abnormalities, going to OR and other pertinent info. @ -Discharge. 79-year-old male presenting for right groin pain x 2 weeks. Abdomen soft and nontender. No testicular pain or swelling. Patient was provided with dose of Toradol for supportive care pending workup. Lab work remarkable for mild leukocytosis of 12.2, alk phos fate 326, BUN 25. Urinalysis remarkable for 4+ glucose however negative for blood or bacteria. CT abdomen pelvis negative for acute process. Discussed results with patient. There does not appear to be any emergent etiology causing symptoms today. Appropriate return precautions and follow-up care discussed. Case was discussed with my ED attending Dr. Ghosh. Undiagnosed new problem with uncertain prognosis? @ -No Drug Therapy requiring intensive monitoring for toxicity (Heparin, Nitro, Insulin, Cardizem)? @ -No Were any procedures done? @ -No Diagnosis/symptom? @ -Right groin pain Acute, or Chronic, or Acute on Chronic? @ -Acute Uncomplicated (without systemic symptoms) or Complicated (systemic symptoms)? @ -Uncomplicated Side effects of treatment? @ -No Exacerbation, Progression, or Severe Exacerbation? @ -No Poses a threat to life or bodily function? How? (Chest pain, USA, AL, pneumonia, PE, COPD, DKA, ARF, appy, cholecystitis, CVA, Diverticulitis, Homicidal, Suicidal, threat to staff... and all critical care pts) @ -No - Lab Data Result diagrams: 05/25/24 00:16 05/25/24 00:16 Lab Results 05/25/24 05/25/24 05/25/24 Range/Units 00:16 00:16 02:21 WBC 12.2 H (3.8-10.6) k/uL RBC 4.10 L (4.30-5.90) m/uL Hgb 13.0 (13.0-17.5) gm/dL Hct 38.4 L (39.0-53.0) % MCV 93.6 (80.0-100.0) fL MCH 31.6 (25.0-35.0) pg MCHC 33.8 (31.0-37.0) g/dL RDW 13.6 (11.5-15.5) % Plt Count 350 (150-450) k/uL MPV 7.2 Neutrophils % 71 % Lymphocytes % 17 % Monocytes % 7 % Eosinophils % 2 % Basophils % 0 % Neutrophils # 8.7 H (1.3-7.7) k/uL Lymphocytes # 2.1 (1.0-4.8) k/uL Monocytes # 0.9 (0-1.0) k/uL Eosinophils # 0.2 (0-0.7) k/uL Basophils # 0.0 (0-0.2) k/uL Sodium 136 L (137-145) mmol/L Potassium 4.9 (3.5-5.1) mmol/L Chloride 102 (98-107) mmol/L Carbon Dioxide 18 L (22-30) mmol/L Anion Gap 16 mmol/L BUN 25 H (9-20) mg/dL Creatinine 0.81 (0.66-1.25) mg/dL Est GFR (CKD-EPI)AfAm >90 (>60 ml/min/1.73 sqM) Est GFR (CKD-EPI)NonAf 84 (>60 ml/min/1.73 sqM) Glucose 103 H (74-99) mg/dL Calcium 8.6 (8.4-10.2) mg/dL Total Bilirubin 0.9 (0.2-1.3) mg/dL AST 57 (17-59) U/L ALT 17 (4-49) U/L Alkaline Phosphatase 326 H (38-126) U/L Total Protein 7.2 (6.3-8.2) g/dL Albumin 4.0 (3.5-5.0) g/dL Urine Color Light Yellow Urine Appearance Clear (Clear) Urine pH 5.5 (5.0-8.0) Ur Specific [place] 1.037 H (1.001-1.035) Urine Protein Trace H (Negative) Urine Glucose (UA) 4+ H (Negative) Urine Ketones Negative (Negative) Urine Blood Negative (Negative) Urine Nitrite Negative (Negative) Urine Bilirubin Negative (Negative) Urine Urobilinogen <2.0 (<2.0) mg/dL Ur Leukocyte Esterase Negative (Negative) Disposition Clinical Impression: Right groin pain Disposition: HOME SELF-CARE Condition: Stable Additional Instructions: Please return to the Emergency Department if symptoms worsen or any other c oncerns. Is patient prescribed a controlled substance at d/c from ED?: No Referrals: Seng Geiger MD [Primary Care Provider] - 1-2 days Time of Disposition: 04:14
[2024-05-25 03:59] VITALS: BP 169/84; PULSE 62; RESP 16
== END 2024-05-25 04:19 | disposition home or self-care (01) ==
LOC: EC 23:13
DX: R10.31 Right lower quadrant pain (principal); Z88.6 Allergy status to analgesic agent
CPT/HCPCS: 99284 ×2; 96376 ×2; 96374 ×2; 36415; 80053; 85025; 81003; 74177; J1885; Q9967

== ENCOUNTER → 2024-06-21 | Outpatient (CLI) | payer MEDICARE ==
--- NOTE | 2024-06-21 14:45 | NM ---
EXAMINATION TYPE: NM bone scan whole body DATE OF EXAM: 06/21/2024 COMPARISON: NONE CLINICAL INDICATION: Male, 79 years old with history of M89.70 MAJOR OSSEOUS DEFECT, UNSPECIFIED SITE ; Delayed whole-body scanning was performed following the injection of mCi Tc 99m MDP. Images acquired hours post injection. FINDINGS: There is evidence of bony metastatic disease involving the proximal humeri, left scapula, bilateral r ibs right greater than left, lower sternal body, thoracic and lumbar segments, sacrum and left hemipe lvis as well as the right femur including the intertrochanteric region through the proximal diaphysis . Superior pubic and inferior rami seen bilaterally. 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 [facility], , 06/21/2024 2:43 PM
== END | disposition home or self-care (01) ==
LOC: RADNMMAIN 06-18 06:47
PROVIDERS: ATTEND Family Medicine
DX: C79.51 Secondary malignant neoplasm of bone (principal); M89.70 Major osseous defect, unspecified site
CPT/HCPCS: 78306; A9503

== ENCOUNTER 2024-06-24 07:23 | Emergency (ER) | payer MEDICARE ==
[2024-06-24 07:31] VITALS: TEMP 98.4
--- NOTE | 2024-06-24 07:47 | ED ---
General Adult HPI - General Chief complaint: Recheck/Abnormal Lab/Rx Stated complaint: back pain Time Seen by Provider: 06/24/24 07:25 Source: patient, RN notes reviewed, old records reviewed Mode of arrival: wheelchair Limitations: no limitations - History of Present Illness Initial comments: This is a 79-year-old male who presents to the emergency department complaining of lower back pain. Patient states he is always had chronic back pain but he wa s recently diagnosed with metastatic disease to his bones but he does not know what the cancer is at this time and still being investigated. Patient states the pain is much worse today and he was nauseous all night and is not sure if it is from the pain or from the tramadol that he is taking. Patient states the tramadol is not helping him much. Patient denies any recent injury or trauma. Patient denies any tenderness to palpation. Patient denies any nausea vomiting or diarrhea. Patient denies any recent fever or chills. - Related Data Home Medications Medication Instructions Recorded Confirmed Tamsulosin [Flomax] 0.4 mg PO HS 03/23/21 05/10/23 Ascorbic Acid [Vitamin C] 1,000 mg PO DAILY 05/10/23 05/10/23 Clopidogrel [Plavix] 75 mg PO DIRECTED 05/10/23 05/10/23 Empagliflozin/Metformin HCl 1 tab PO BID 05/10/23 05/10/23 [Synjardy 12.5-1,000 mg Tablet] Insulin Glargine,Hum.rec.anlog 31 unit SQ AC-SUPPER 05/10/23 05/10/23 [Basaglar Kwikpen U-100] Rosuvastatin [Crestor] 10 mg PO HS 05/10/23 05/10/23 Semaglutide [Ozempic] 2 mg SQ TU 05/10/23 05/10/23 Turmeric Root Extract [Turmeric] 500 mg PO DAILY 05/10/23 05/10/23 Vitamin E (Dl,Tocopheryl Acet) 400 unit PO DAILY 05/10/23 05/10/23 [Vitamin E (400 Iu = 180 mg)] Previous Rx's Medication Instructions Recorded lisinopriL [Zestril] 10 mg PO DAILY #30 tab 05/11/23 Allergies Allergy/AdvReac Type Severity Reaction Status Date / Time aspirin AdvReac Abdominal Verified 06/24/24 07:31 Pain Review of Systems ROS Statement: Those systems with pertinent positive or pertinent negative responses have been documented in the HPI. ROS Other: All systems not noted in ROS Statement are negative. Past Medical History Past Medical History: Dementia, Diabetes Mellitus, Hyperlipidemia, Hypertension, Myocardial Infarction ([place]), Osteoarthritis (OA), Prostate Disorder, Sleep Apnea/CPAP/BIPAP Last Myocardial Infarction Date:: 0000 History of Any Multi-Drug Resistant Organisms: None Reported Past Surgical History: Orthopedic Surgery Additional Past Surgical History / Comment(s): Right Knee replacement, cataracts, Left knee steriod injection Past Anesthesia/Blood Transfusion Reactions: No Reported Reaction Past Psychological History: No Psychological Hx Reported Smoking Status: Never smoker Past Alcohol Use History: None Reported Past Drug Use History: None Reported - Past Family History Father Additional Family Medical History / Comment(s): brain aneurysm Mother Family Medical History: Coronary Artery Disease (CAD), Diabetes Mellitus General Exam - General Exam Comments Initial Comments: GENERAL: Patient is well-developed and well-nourished. Patient is nontoxic and well- hydrated and is in mild distress. ENT: Neck is soft and supple. No significant lymphadenopathy is noted. Oropharynx is clear. Moist mucous membranes. Neck has full range of motion without eliciting any pain. EYES: The sclera were anicteric and conjunctiva were pink and moist. Extraocular movements were intact and pupils were equal round and reactive to light. Eyelids were unremarkable. PULMONARY: Unlabored respirations. Good breath sounds bilaterally. No audible rales rhonchi or wheezing was noted. CARDIOVASCULAR: There is a regular rate and rhythm without any murmurs gallops or rubs. ABDOMEN: Soft and nontender with normal bowel sounds. SKIN: Skin is clear with no lesions or rashes and otherwise unremarkable. NEUROLOGIC: Patient is alert and oriented x3. Cranial nerves II through XII are grossly intact. Motor and sensory are also intact. Normal speech, volume and content. Symmetrical smile. MUSCULOSKELETAL: Normal extremities with adequate strength and full range of motion. No lower extremity swelling or edema. No calf tenderness. LYMPHATICS: No significant lymphadenopathy is noted PSYCHIATRIC: Normal psychiatric evaluation. Limitations: no limitations Course Vital Signs 06/24/24 06/24/24 07:24 09:11 Temperature 98.4 F Pulse Rate 78 74 Respiratory 18 20 Rate Blood Pressure 161/83 134/76 O2 Sat by Pulse 99 95 Oximetry Medical Decision Making - Medical Decision Making Was pt. sent in by a medical professional or institution ([facility], [facility], urgent care, hospital, or halfway...) When possible be specific @ -No Did you speak to anyone other than the patient for history (EMS, parent, family, police, friend...)? What history was obtained from this source @ -No Did you review nursing and triage notes (agree or disagree)? Why? @ -I reviewed and agree with nursing and triage notes Were old charts reviewed (outside hosp., previous admission, EMS record, old EKG, old radiological studies, urgent care reports/EKG's, halfway records)? Report findings @ -No old charts were reviewed Differential Diagnosis? @ -Differential Back Pain: Strain, zoster, cauda equina syndrome, epidural abscess, vertebral osteomyelit is, discitis, fracture, subluxation, disc herniation, DJD, spinal stenosis, dissection, AAA, pancreatitis, peptic ulcer disease, pyelonephritis, kidney stone, this is not meant to be an all-inclusive list. EKG interpreted by me (3pts min.). @ -As above X-rays interpreted by me (1pt min.). @ -None done CT interpreted by me (1pt min.). @ -No scan done U/S interpreted by me (1pt. min.). @ -None done What testing was considered but not performed or refused? (CT, X-rays, U/S, labs)? Why? @ -None What meds were considered but not given or refused? Why? @ -None Did you discuss the management of the patient with other professionals (professionals i.e. RAFAEL Daugherty, [facility] [employer], lab, RT, psych nurse, administrator social welfare, receivable manager, teacher, parachute officer, medical case manager)? Give summary @ -No Was smoking cessation discussed for >3mins.? @ -No Was critical care preformed (if so, how long)? @ -No Were there social determinants of health that impacted care today? How? (Homelessness, low income, unemployed, alcoholism, drug addiction, transportation, low edu. Level, literacy, decrease access to med. care, [facility], rehab)? @ -No Was there de-escalation of care discussed even if they declined (Discuss DNR or withdrawal of care, Hospice)? DNR status @ -No What co-morbidities impacted this encounter? (DM, HTN, Smoking, COPD, CAD, Cancer, CVA, ARF, Chemo, Hep., AIDS, mental health diagnosis, sleep apnea, morbid obesity)? @ -None Was patient admitted / discharged? Hospital course, mention meds given and route, prescriptions, significant lab abnormalities, going to OR and other pertinent info. @ -I reviewed patient's recent bone scan that showed metastatic disease to multiple sites. Patient was given Solu-Medrol Toradol and Dilaudid for his pain he was doing much better. Patient will also be given a few more Ultram for when he goes home because he is running out. Patient states he will start taking Motrin and Tylenol every 3 hours he will alternate he will continue taking the tramadol and if that is not enough he will follow-up with Dr. Geiger Undiagnosed new problem with uncertain prognosis? @ -No Drug Therapy requiring intensive monitoring for toxicity (Heparin, Nitro, Insulin, Cardizem)? @ -No Were any procedures done? @ -No Diagnosis/symptom? @ -Back pain Acute, or Chronic, or Acute on Chronic? @ -Acute Uncomplicated (without systemic symptoms) or Complicated (systemic symptoms)? @ -Complicated Side effects of treatment? @ -No Exacerbation, Progression, or Severe Exacerbation? @ -No Poses a threat to life or bodily function? How? (Chest pain, USA, NE, pneumonia, PE, COPD, DKA, ARF, appy, cholecystitis, CVA, Diverticulitis, Homicidal, Suicidal, threat to staff... and all critical care pts) @ -No Diagnosis/symptom? @ -Metastatic bone lesions Acute, or Chronic, or Acute on Chronic? @ -Acute Uncomplicated (without systemic symptoms) or Complicated (systemic symptoms)? @ -Complicated Side effects of treatment? @ -None Exacerbation, Progression, or Severe Exacerbation] @ -No Poses a threat to life or bodily function? @ -No - Lab Data Result diagrams: 06/24/24 08:05 06/24/24 08:05 Lab Results 06/24/24 06/24/24 06/24/24 Range/Units 07:51 08:05 08:05 WBC 8.7 (3.8-10.6) k/uL RBC 4.25 L (4.30-5.90) m/uL Hgb 12.8 L (13.0-17.5) gm/dL Hct 38.1 L (39.0-53.0) % MCV 89.5 (80.0-100.0) fL MCH 30.2 (25.0-35.0) pg MCHC 33.8 (31.0-37.0) g/dL RDW 13.8 (11.5-15.5) % Plt Count 367 (150-450) k/uL MPV 7.2 Neutrophils % 75 % Lymphocytes % 15 % Monocytes % 7 % Eosinophils % 1 % Basophils % 0 % Neutrophils # 6.5 (1.3-7.7) k/uL Lymphocytes # 1.3 (1.0-4.8) k/uL Monocytes # 0.6 (0-1.0) k/uL Eosinophils # 0.1 (0-0.7) k/uL Basophils # 0.0 (0-0.2) k/uL Sodium 131 L (137-145) mmol/L Potassium 5.1 (3.5-5.1) mmol/L Chloride 96 L (98-107) mmol/L Carbon Dioxide 21 L (22-30) mmol/L Anion Gap 14 mmol/L BUN 22 H (9-20) mg/dL Creatinine 0.60 L (0.66-1.25) mg/dL Est GFR (CKD-EPI)AfAm >90 (>60 ml/min/1.73 sqM) Est GFR (CKD-EPI)NonAf >90 (>60 ml/min/1.73 sqM) Glucose 136 H (74-99) mg/dL Calcium 9.0 (8.4-10.2) mg/dL Total Bilirubin 1.2 (0.2-1.3) mg/dL AST 249 H (17-59) U/L ALT 15 (4-49) U/L Alkaline Phosphatase 761 H (38-126) U/L Total Protein 7.8 (6.3-8.2) g/dL Albumin 4.3 (3.5-5.0) g/dL Urine Color Light yellow Urine Appearance Clear (Clear) Urine pH 6.0 (5.0-8.0) Ur Specific [place] 1.028 (1.001-1.035) Urine Protein 1+ H (Negative) Urine Glucose (UA) 4+ H (Negative) Urine Ketones 2+ H (Negative) Urine Blood Trace H (Negative) Urine Nitrite Negative (Negative) Urine Bilirubin Negative (Negative) Urine Urobilinogen <2.0 (<2.0) mg/dL Ur Leukocyte Esterase Negative (Negative) Urine RBC 3 (0-5) /hpf Urine WBC 2 (0-5) /hpf Ur Squamous Epith Cells 2 (0-4) /hpf Urine Bacteria Rare H (None) /hpf Urine Mucus Rare H (None) /hpf Disposition Clinical Impression: Back pain, Cancer, metastatic to bone Disposition: HOME SELF-CARE Condition: Good Instructions (If sedation given, give patient instructions): Back Pain (ED) Is patient prescribed a controlled substance at d/c from ED?: No Referrals: Seng Geiger MD [Primary Care Provider] - 1-2 days Time of Disposition: 09:48
[2024-06-24] MEDS: KETOROLAC 15 MG/ML 1 ML VIAL IVP STA (08:04)
[2024-06-24] MEDS: HYDROmorphone 0.5 MG/0.5 ML SYRINGE IVP STA ×2 (08:05→09:41)
[2024-06-24] MEDS: methylPREDNISolone SOD SUCCI 125 MG/2 ML VIAL IV STA (08:08)
[2024-06-24 08:11] LABS: Appearance,Urine Clear (Clear); Bacteria,Urine Rare /hpf; Bilirubin,Urine Negative (Negative); Blood,Urine Trace (Negative); Glucose,Urine (UA) 4+ (Negative); Leukocyte Esterase,Urine Negative (Negative); Mucus,Urine Rare /hpf; Nitrite,Urine Negative (Negative); Protein,Urine 1+ (Negative); RBC,Urine 3 /hpf (0-5); Specific Gravity,Urine 1.028 (1.001-1.035); Squamous Epithelial Cell,Urine 2 /hpf (0-4); Urobilinogen,Urine <2.0 mg/dL (<2.0); WBC,Urine 2 /hpf (0-5)
[2024-06-24 08:21] LABS: Basophils % (A) 0 %; Eosinophils # (A) 0.1 k/uL (0-0.7); Eosinophils % (A) 1 %; HCT 38.1 % (39.0-53.0); HGB 12.8 gm/dL (13.0-17.5); Lymphocytes # (A) 1.3 k/uL (1.0-4.8); Lymphocytes % (A) 15 %; MCH 30.2 pg (25.0-35.0); MCHC 33.8 g/dL (31.0-37.0); MCV 89.5 fL (80.0-100.0); Mean Platelet Volume 7.2; Monocytes # (A) 0.6 k/uL (0-1.0); Monocytes % (A) 7 %; Neutrophils # (A) 6.5 k/uL (1.3-7.7); Neutrophils % (A) 75 %; Platelet Count 367 k/uL (150-450); RBC 4.25 m/uL (4.30-5.90); RDW 13.8 % (11.5-15.5); WBC 8.7 k/uL (3.8-10.6)
[2024-06-24 08:26] LABS: Color,Urine Light yellow; Ketones,Urine 2+ (Negative)
[2024-06-24 08:35] LABS: ALT 15 U/L (4-49); African American GFR (CKD) >90 (>60 ml/min/1.73 sqM); Anion Gap 14 mmol/L; Blood Urea Nitrogen 22 mg/dL (9-20); Carbon Dioxide 21 mmol/L (22-30); Chloride 96 mmol/L (98-107); Glucose 136 mg/dL (74-99); Non-African American GFR(CKD) >90 (>60 ml/min/1.73 sqM); Sodium 131 mmol/L (137-145)
[2024-06-24 08:37] LABS: AST 249 U/L (17-59); Albumin 4.3 g/dL (3.5-5.0); Alkaline Phosphatase 761 U/L (38-126); Potassium 5.1 mmol/L (3.5-5.1); Total Bilirubin 1.2 mg/dL (0.2-1.3); Total Protein 7.8 g/dL (6.3-8.2)
--- NOTE | 2024-06-24 08:43 | XR ---
EXAMINATION TYPE: XR KUB DATE OF EXAM: 06/24/2024 8:33 AM CLINICAL INDICATION: Male, 79 years old with history of Abdominal pain lower, pain TECHNIQUE: 2 upright images of the abdomen are obtained. COMPARISON: CT abdomen and pelvis May 25, 2024. FINDINGS: Scattered gas is seen in non-distended small bowel loops. Gas and fecal material is seen in non-distended colon and rectum. Moderate degenerative change of both hips is present. There is multi level spurring in the thoracolumbar spine. No free air is seen. Lung bases are clear. No suspicious c alcifications. IMPRESSION: Overall nonobstructive bowel gas pattern redemonstrated. [facility], , 06/24/2024 8:41 AM
[2024-06-24 09:12] VITALS: RESP 20
[2024-06-24] MEDS: traMADol 50 MG STARTER PACK 3 TAB BTL PO STA (09:42)
[2024-06-24 10:18] VITALS: BP 137/84; PULSE 72
== END 2024-06-24 10:17 | disposition home or self-care (01) ==
LOC: EC 07:23
DX: C79.51 Secondary malignant neoplasm of bone (principal); M54.50 Low back pain, unspecified; Z88.6 Allergy status to analgesic agent
CPT/HCPCS: 36415; 80053; 85025; 81001; 74018; 99283; 96374; 96375 ×2; 96376; J1885; J1171; J2919

== ENCOUNTER 2024-07-10 14:56 | Emergency (ER) | payer MEDICARE ==
--- NOTE | 2024-07-10 15:40 | ED ---
Back Pain HPI - General Source: patient, RN notes reviewed Limitations: no limitations <Brenda Bhagat - Last Filed: 07/10/24 15:38> <Felipe Logan - Last Filed: 07/12/24 00:51> - General Chief Complaint: Back Pain/Injury Stated Complaint: back pain Time Seen by Provider: 07/10/24 15:38 - History of Present Illness Initial Comments: Quick [id number] male presenting for acute on chronic back pain. States he has been dealing with back pain for several months due to metastatic cancer. States he has been taking Percocet for pain however it has not been helping. He has an appointment with Dr. Go tomorrow. He attempted to contact his PCP Dr. Geiger however were told he was not in the office today and to come to the ER. Reports he has been unable to sleep for the past couple of nights due to pain and is hoping to get pain relief today. (Brenda Bhagat) - Related Data Home Medications Medication Instructions Recorded Confirmed Tamsulosin [Flomax] 0.4 mg PO PC-BRKFST 03/23/21 07/11/24 Clopidogrel [Plavix] 75 mg PO HS 05/10/23 07/11/24 Empagliflozin/Metformin HCl 1 tab PO BID 05/10/23 07/11/24 [Synjardy 12.5-1,000 mg Tablet] Rosuvastatin [Crestor] 10 mg PO HS 05/10/23 07/11/24 Insulin Degludec [Tresiba 20 units SQ AC-SUPPER 07/11/24 07/11/24 Flextouch U-100 Pen] Ondansetron Odt [Zofran Odt] 4 mg PO QID PRN 07/11/24 07/11/24 Pantoprazole [Protonix] 40 mg PO DAILY 07/11/24 07/11/24 Semaglutide [Ozempic] 1 mg SQ TU 07/11/24 07/11/24 Previous Rx's Medication Instructions Recorded lisinopriL [Zestril] 10 mg PO DAILY #30 tab 05/11/23 HYDROcodone/APAP 10-325MG [[place] 1 tab PO Q6HR PRN 3 Days #12 tab 07/10/24 10-325] Allergies Allergy/AdvReac Type Severity Reaction Status Date / Time aspirin AdvReac Abdominal Verified 07/11/24 14:16 Pain Review of Systems ROS Other: All systems not noted in ROS Statement are negative. <Brenda Bhagat - Last Filed: 07/10/24 15:38> ROS Other: All systems not noted in ROS Statement are negative. <Felipe Logan - Last Filed: 07/12/24 00:51> ROS Statement: Those systems with pertinent positive or pertinent negative responses have been documented in the HPI. Past Medical History Past Medical History: Dementia, Diabetes Mellitus, Hyperlipidemia, Hypertension, Myocardial Infarction (MS), Osteoarthritis (OA), Prostate Disorder, Sleep Apnea/CPAP/BIPAP Last Myocardial Infarction Date:: 0000 History of Any Multi-Drug Resistant Organisms: None Reported Past Surgical History: Orthopedic Surgery Additional Past Surgical History / Comment(s): Right Knee replacement, cataracts, Left knee steriod injection Past Anesthesia/Blood Transfusion Reactions: No Reported Reaction Past Psychological History: No Psychological Hx Reported Smoking Status: Never smoker Past Alcohol Use History: None Reported Past Drug Use History: None Reported - Past Family History Father Additional Family Medical History / Comment(s): brain aneurysm Mother Family Medical History: Coronary Artery Disease (CAD), Diabetes Mellitus <Brenda Bhagat - Last Filed: 07/10/24 15:38> General Exam Limitations: no limitations <Brenda Bhagat - Last Filed: 07/10/24 15:38> Limitations: no limitations General appearance: alert, in no apparent distress Head exam: Present: atraumatic, normocephalic, normal inspection Eye exam: Present: normal appearance, EOMI Neck exam: Present: normal inspection. Absent: meningismus Respiratory exam: Present: normal lung sounds bilaterally. Absent: respiratory distress, wheezes, rales, rhonchi, stridor Cardiovascular Exam: Present: regular rate, normal rhythm, normal heart sounds. Absent: systolic murmur, diastolic murmur, rubs, gallop, clicks Back exam: Present: normal inspection, tenderness Neurological exam: Present: alert, oriented X3 Psychiatric exam: Present: normal affect, normal mood Skin exam: Present: warm, dry, normal color <Felipe Logan - Last Filed: 07/12/24 00:51> - General Exam Comments Initial Comments: Visual Physical Exam Vital signs reviewed General: Well-appearing, nontoxic, no acute distress. Head: Normocephalic, atraumatic Eyes: PERRLA, EOMI ENT: Airway patent Chest: Nonlabored breathing Skin: No visual rash, normal skin tone Neuro: Alert and oriented 3 Musculoskeletal: No gross abnormalities (Brenda Bhagat) Course Vital Signs 07/10/24 07/10/24 15:04 19:07 Temperature 98.9 F 98.0 F Pulse Rate 80 81 Respiratory 17 20 Rate Blood Pressure 125/77 132/73 O2 Sat by Pulse 96 95 Oximetry Medical Decision Making <Brenda Bhagat - Last Filed: 07/10/24 15:38> - Lab Data Result diagrams: 07/10/24 15:39 07/10/24 15:39 <Felipe Logan - Last Filed: 07/12/24 00:51> - Medical Decision Making I completed the quick note portion of this chart signed Brenda Bhagat PA-C (Brenda Bhagat) Was pt. sent in by a medical professional or institution (, PA, TRACK WELDER, urgent care, hospital, or [place] health care facility...) When possible be specific @ -No Did you speak to anyone other than the patient for history (EMS, parent, family, police, friend...)? What history was obtained from this source @ - Did you review nursing and triage notes (agree or disagree)? Why? @ -I reviewed and agree with nursing and triage notes Were old charts reviewed (outside hosp., previous admission, EMS record, old EKG, old radiological studies, urgent care reports/EKG's, [place] health care facility records)? Report findings @ -No old charts were reviewed Differential Diagnosis (chest pain, altered mental status, abdominal pain women, abdominal pain men, vaginal bleeding, weakness, fever, dyspnea, syncope, headache, dizziness, GI bleed, back pain, seizure, CVA, palpatations, mental health, musculoskeletal)? @ - MDM Differential Back Pain: Strain, zoster, cauda equina syndrome, epidural abscess, vertebral osteomyelitis, discitis, fracture, subluxation, disc herniation, DJD, spinal stenosis, dissection, AAA, pancreatitis, peptic ulcer disease, pyelonephritis, kidney stone… this is not meant to be an all-inclusive list. EKG interpreted by me (3pts min.). @ -As above X-rays interpreted by me (1pt min.). @ -None done CT interpreted by me (1pt min.). @ -None done U/S interpreted by me (1pt. min.). @ -None done What testing was considered but not performed or refused? (CT, X-rays, U/S, labs)? Why? @ -None What meds were considered but not given or refused? Why? @ -None Did you discuss the management of the patient with other professionals (professionals i.e. Dr., PA, TRACK WELDER, lab, RT, psych nurse, sr. social media & mobile manager, information services vice president, teacher, uniform patrol police officer, spring encaser)? Give summary @ -No Was smoking cessation discussed for >3mins.? @ -No Was critical care preformed (if so, how long)? @ -No Were there social determinants of health that impacted care today? How? (Homelessness, low income, unemployed, alcoholism, drug addiction, transportation, low edu. Level, literacy, decrease access to med. care, long-term, rehab)? @ -No Was there de-escalation of care discussed even if they declined (Discuss DNR or withdrawal of care, Hospice)? DNR status @ -No What co-morbidities impacted this encounter? (DM, HTN, Smoking, COPD, CAD, Cancer, CVA, ARF, Chemo, Hep., AIDS, mental health diagnosis, sleep apnea, morbid obesity)? @ -None Was patient admitted / discharged? Hospital course, mention meds given and route, prescriptions, significant lab abnormalities, going to OR and other pertinent info. @ -79-year-old male presenting with chief complaint of low back pain. He has metastatic disease and has an appointment with oncology tomorrow for further diagnostics. He is having no new loss of bowel or bladder control or saddle paresthesia. States that for years now he has had some difficulty controlling his bowel and bladder attributed to his age. No new injury or trauma. Patient is given pain medication on reassessment he reports significant improvement in his pain. He would like to be discharged home. I offered admission and patient would prefer to go home and follow-up at his appointment tomorrow. Provided with [place] for home. Follow-up with PCP. Report back to ER with any new or worsening symptoms. Discussed return parameters and answered all questions. Patient conveyed verbal understanding and agreed to the plan. I discussed this case in detail with my attending Dr. Sweeney Undiagnosed new problem with uncertain prognosis? @ -No Drug Therapy requiring intensive monitoring for toxicity (Heparin, Nitro, Insulin, Cardizem)? @ -No Were any procedures done? @ -No Diagnosis/symptom? @ -Back pain Acute, or Chronic, or Acute on Chronic? @ -Acute Uncomplicated (without systemic symptoms) or Complicated (systemic symptoms)? @ -Uncomplicated Side effects of treatment? @ -No Exacerbation, Progression, or Severe Exacerbation? @ -No Poses a threat to life or bodily function? How? (Chest pain, USA, MS, pneumonia, PE, COPD, DKA, ARF, appy, cholecystitis, CVA, Diverticulitis, Homicidal, Suicidal, threat to staff... and all critical care pts) @ -Considering this back pain is likely due to metastatic disease there is some threat (Felipe Logan) - Lab Data Lab Results 07/10/24 07/10/24 07/10/24 Range/Units 15:39 15:39 17:36 WBC 9.78 (4.50-10.00) 10*3/uL RBC 3.62 L (4.40-5.60) 10*6/uL Hgb 11.0 L (13.0-17.0) g/dL Hct 32.6 L (39.6-50.0) % MCV 90.1 (80.0-97.0) fL MCH 30.4 (27.0-32.0) pg MCHC 33.7 (32.0-37.0) g/dL Plt Count 370 (140-440) 10*3/uL MPV 9.0 L (9.5-12.2) fL Immature Gran % (Auto) 0.8 % Neutrophils % 65.8 % Lymphocytes % 18.5 % Monocytes % 12.6 % Eosinophils % 2.0 % Basophils % 0.3 % Immature Gran # 0.08 H (0.00-0.04) 10*3/uL Neutrophils # 6.43 (1.80-7.70) 10*3/uL Lymphocytes # 1.81 (0.90-5.00) 10*3/uL Monocytes # 1.23 H (0.20-1.00) 10*3/uL Eosinophils # 0.20 (0.04-0.35) 10*3/uL Basophils # 0.03 (0.00-0.10) 10*3/uL Sodium 132 L (137-145) mmol/L Potassium 4.4 (3.5-5.1) mmol/L Chloride 96 L (98-107) mmol/L Carbon Dioxide 24 (22-30) mmol/L Anion Gap 12 mmol/L BUN 17 (9-20) mg/dL Creatinine 0.77 (0.66-1.25) mg/dL Est GFR (CKD-EPI)AfAm >90 (>60 ml/min/1.73 sqM) Est GFR (CKD-EPI)NonAf 86 (>60 ml/min/1.73 sqM) Glucose 93 (74-99) mg/dL Calcium 8.8 (8.4-10.2) mg/dL Total Bilirubin 0.5 (0.2-1.3) mg/dL AST 174 H (17-59) U/L ALT 15 (4-49) U/L Alkaline Phosphatase 907 H (38-126) U/L Total Protein 6.8 (6.3-8.2) g/dL Albumin 3.7 (3.5-5.0) g/dL Urine Color Light Yellow Urine Appearance Clear (Clear) Urine pH 6.0 (5.0-8.0) Ur Specific [place] 1.027 (1.001-1.035) Urine Protein Trace H (Negative) Urine Glucose (UA) 4+ H (Negative) Urine Ketones Negative (Negative) Urine Blood Negative (Negative) Urine Nitrite Negative (Negative) Urine Bilirubin Negative (Negative) Urine Urobilinogen <2.0 (<2.0) mg/dL Ur Leukocyte Esterase Trace H (Negative) Urine RBC 2 (0-5) /hpf Urine WBC 3 (0-5) /hpf Ur Squamous Epith Cells 3 (0-4) /hpf Urine Bacteria Rare H (None) /hpf Urine Mucus Rare H (None) /hpf Disposition <Brenda Bhagat - Last Filed: 07/10/24 15:38> Is patient prescribed a controlled substance at d/c from ED?: Yes If prescribed controlled substance>3 days was MAPS reviewed?: Prescribed <3 Days If opioid is for acute pain is fill amount 7 days or less?: Yes Time of Disposition: 18:24 <Felipe Logan - Last Filed: 07/12/24 00:51> Clinical Impression: Cancer, metastatic to bone, Back pain Disposition: HOME SELF-CARE Condition: Fair Instructions (If sedation given, give patient instructions): Acute Low Back Pain (ED) Additional Instructions: Follow-up with PCP and oncologist. Report back to ER with any new or worsening symptoms. Prescriptions: HYDROcodone/APAP 10-325MG [[place] 10-325] 1 tab PO Q6HR PRN 3 Days #12 tab PRN Reason: Pain Referrals: Seng Geiger MD [Primary Care Provider] - 1-2 days Richard Go [STAFF PHYSICIAN] - 1-2 days
[2024-07-10 16:46] LABS: Basophils # (A) 0.03 10*3/uL (0.00-0.10); Basophils % (A) 0.3 %; HCT 32.6 % (39.6-50.0); Lymphocytes # (A) 1.81 10*3/uL (0.90-5.00); Lymphocytes % (A) 18.5 %; MCH 30.4 pg (27.0-32.0); MCHC 33.7 g/dL (32.0-37.0); MCV 90.1 fL (80.0-97.0); Monocytes # (A) 1.23 10*3/uL (0.20-1.00); Monocytes % (A) 12.6 %; Neutrophils # (A) 6.43 10*3/uL (1.80-7.70); Neutrophils % (A) 65.8 %; Platelet Count 370 10*3/uL (140-440); RBC 3.62 10*6/uL (4.40-5.60); RDW 13.9 % (11.5-14.5); WBC 9.78 10*3/uL (4.50-10.00)
[2024-07-10] MEDS: HYDROmorphone 1 MG/ML 1 ML SYRINGE IVP STA (16:48)
[2024-07-10 17:05] LABS: ALT 15 U/L (4-49); AST 174 U/L (17-59); African American GFR (CKD) >90 (>60 ml/min/1.73 sqM); Albumin 3.7 g/dL (3.5-5.0); Alkaline Phosphatase 907 U/L (38-126); Anion Gap 12 mmol/L; Blood Urea Nitrogen 17 mg/dL (9-20); Calcium 8.8 mg/dL (8.4-10.2); Carbon Dioxide 24 mmol/L (22-30); Chloride 96 mmol/L (98-107); Glucose 93 mg/dL (74-99); Non-African American GFR(CKD) 86 (>60 ml/min/1.73 sqM); Potassium 4.4 mmol/L (3.5-5.1); Sodium 132 mmol/L (137-145); Total Bilirubin 0.5 mg/dL (0.2-1.3); Total Protein 6.8 g/dL (6.3-8.2)
[2024-07-10 17:57] LABS: Appearance,Urine Clear (Clear); Bacteria,Urine Rare /hpf; Bilirubin,Urine Negative (Negative); Blood,Urine Negative (Negative); Color,Urine Light Yellow; Glucose,Urine (UA) 4+ (Negative); Ketones,Urine Negative (Negative); Leukocyte Esterase,Urine Trace (Negative); Mucus,Urine Rare /hpf; Nitrite,Urine Negative (Negative); Protein,Urine Trace (Negative); RBC,Urine 2 /hpf (0-5); Specific Gravity,Urine 1.027 (1.001-1.035); Squamous Epithelial Cell,Urine 3 /hpf (0-4); Urobilinogen,Urine <2.0 mg/dL (<2.0); WBC,Urine 3 /hpf (0-5)
[2024-07-10] MEDS: HYDROcodone/APAP 10-325MG 1 EACH TAB PO ONE (18:56)
[2024-07-10 19:10] VITALS: BP 132/73; PULSE 81; RESP 20; TEMP 98
== END 2024-07-10 19:10 | disposition home or self-care (01) ==
LOC: EC 14:56
DX: C79.51 Secondary malignant neoplasm of bone (principal); G89.3 Neoplasm related pain (acute) (chronic); M54.50 Low back pain, unspecified; Z88.6 Allergy status to analgesic agent
CPT/HCPCS: 36415; 80053; 85025; 81001; 99283; 96374; J1171

== ENCOUNTER 2024-07-11 03:53 | Emergency (ER) | payer MEDICARE ==
[2024-07-11 04:02] VITALS: TEMP 98.8
[2024-07-11] MEDS: MORPHINE SULFATE 4 MG/ML SYRINGE IM STA (04:48)
--- NOTE | 2024-07-11 05:17 | CT ---
EXAMINATION TYPE: CT brain wo con DATE OF EXAM: 07/11/2024 COMPARISON: CT brain March 21, 2024 CLINICAL INDICATION: Male, 79 years old with history of fall injury, headache TECHNIQUE: CT scan of the head is performed without contrast. Automated Exposure Control for Dose Reduction was Utilized. FINDINGS: There is no acute intracranial hemorrhage or midline shift identified. There is mild diff use ventricular and sulcal prominence are demonstrated. There is mild to moderate low-attenuation in the periventricular white matter redemonstrated. The calvarium is intact. Bilateral aphakia is seen . The visualized sinuses are clear. IMPRESSION: No acute intracranial hemorrhage or midline shift. No significant change from most recen t prior. [facility], , 07/11/2024 5:15 AM
--- NOTE | 2024-07-11 05:48 | ED ---
Fall HPI - General Chief Complaint: Fall Stated Complaint: general pain Time Seen by Provider: 07/11/24 03:57 Source: patient, EMS Mode of arrival: EMS - History of Present Illness Initial Comments: This patient is an 79-year-old man here to have evaluation after a ground-level fall. The patient had gotten up to use the bathroom and then was lightheaded and fell. The patient does not believe that he had lost consciousness. Only mild headache, but patient does take Plavix. The patient does have some pre- existing back pain related to metastatic prostate cancer but states he is not having any new back pain. No weakness or numbness of the extremities. No change in bladder or bowel function. 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 Fall Witnessed: no Place Fall Occurred: home Loss of Consciousness: none Prolonged Down Time?: no Symptoms Prior to Fall: lightheadedness Location: head Severity: mild Quality: dull Context: tripped/slipped - Related Data Home Medications Medication Instructions Recorded Confirmed Tamsulosin [Flomax] 0.4 mg PO PC-BRKFST 03/23/21 07/11/24 Clopidogrel [Plavix] 75 mg PO HS 05/10/23 07/11/24 Empagliflozin/Metformin HCl 1 tab PO BID 05/10/23 07/11/24 [Synjardy 12.5-1,000 mg Tablet] Rosuvastatin [Crestor] 10 mg PO HS 05/10/23 07/11/24 Insulin Degludec [Tresiba 20 units SQ AC-SUPPER 07/11/24 07/11/24 Flextouch U-100 Pen] Ondansetron Odt [Zofran ODT] 4 mg PO QID PRN 07/11/24 07/11/24 Pantoprazole [Protonix] 40 mg PO DAILY 07/11/24 07/11/24 Semaglutide [Ozempic] 1 mg SQ TU 07/11/24 07/11/24 Previous Rx's Medication Instructions Recorded lisinopriL [Zestril] 10 mg PO DAILY #30 tab 05/11/23 HYDROcodone/APAP 10-325MG [[place] 1 tab PO Q6HR PRN 3 Days #12 tab 07/10/24 10-325] HYDROcodone/APAP 10-325MG [[place] 1 each PO Q4HR PRN #180 tab 07/18/24 10-325] Morphine Sulfate ER [Ms Contin] 15 mg PO Q12HR #60 tab 07/18/24 Pantoprazole [Protonix] 40 mg PO AC-BID #60 tab 07/18/24 Sennosides-Docusate Sodium 1 each PO BID #60 07/18/24 [Senokot-S] dexAMETHasone ORAL [Hexadrol] 4 mg PO BID #30 tab 07/18/24 polyethylene glycoL 3350 [Miralax] 17 gm PO DAILY PRN #30 packet 07/18/24 Allergies Allergy/AdvReac Type Severity Reaction Status Date / Time aspirin AdvReac Abdominal Verified 07/16/24 14:10 Pain Review of Systems ROS Statement: Those systems with pertinent positive or pertinent negative responses have been documented in the HPI. ROS Other: All systems not noted in ROS Statement are negative. Constitutional: Denies: fever, chills, weakness Respiratory: Denies: cough, dyspnea Cardiovascular: Denies: chest pain, edema, syncope Gastrointestinal: Denies: abdominal pain, vomiting, diarrhea, constipation Genitourinary: Denies: dysuria, frequency Musculoskeletal: Reports: as per HPI, back pain Skin: Denies: rash Neurological: Reports: headache. Denies: weakness, numbness, paresthesias, confusion Past Medical History Past Medical History: Dementia, Diabetes Mellitus, Hyperlipidemia, Hypertension, Myocardial Infarction ([place]), Osteoarthritis (OA), Prostate Disorder, Sleep Apnea/CPAP/BIPAP Last Myocardial Infarction Date:: 0000 History of Any Multi-Drug Resistant Organisms: None Reported Past Surgical History: Orthopedic Surgery Additional Past Surgical History / Comment(s): Right Knee replacement, cataracts, Left knee steriod injection Past Anesthesia/Blood Transfusion Reactions: No Reported Reaction Past Psychological History: No Psychological Hx Reported Smoking Status: Never smoker Past Alcohol Use History: None Reported Past Drug Use History: None Reported - Past Family History Father Additional Family Medical History / Comment(s): brain aneurysm Mother Family Medical History: Coronary Artery Disease (CAD), Diabetes Mellitus General Exam Limitations: no limitations General appearance: alert, in no apparent distress Head exam: Present: atraumatic, normocephalic Eye exam: Present: normal appearance. Absent: scleral icterus, conjunctival injection ENT exam: Present: normal oropharynx Neck exam: Present: normal inspection, full ROM. Absent: tenderness Respiratory exam: Present: normal lung sounds bilaterally. Absent: respiratory distress, wheezes, rales, rhonchi, stridor, accessory muscle use Cardiovascular Exam: Present: regular rate, normal rhythm, normal heart sounds. Absent: systolic murmur, diastolic murmur, rubs, gallop GI/Abdominal exam: Present: soft. Absent: distended, tenderness, guarding, rebound, rigid, mass Extremities exam: Present: normal inspection, normal capillary refill. Absent: pedal edema, calf tenderness Back exam: Present: normal inspection. Absent: CVA tenderness (R), CVA tenderness (L), paraspinal tenderness, vertebral tenderness Neurological exam: Present: alert. Absent: motor sensory deficit Skin exam: Present: warm, dry, intact, normal color. Absent: rash Course Vital Signs 07/11/24 07/11/24 07/11/24 03:57 06:06 07:45 Temperature 98.8 F 98.8 F Pulse Rate 100 98 101 H Respiratory 17 17 16 Rate Blood Pressure 132/76 136/81 129/67 O2 Sat by Pulse 97 96 94 L Oximetry Medical Decision Making - Medical Decision Making The patient had CT scan of the brain that I interpreted as negative for acute bony injury, negative for acute intercranial hemorrhage, mass effect or midline shift. Was pt. sent in by a medical professional or institution (RAFAEL Daugherty, FRAUD REPRESENTATIVE, urgent care, hospital, or snf...) When possible be specific @ -[No] Did you speak to anyone other than the patient for history (EMS, parent, family, police, friend...)? What history was obtained from this source @ -[No] Did you review nursing and triage notes (agree or disagree)? Why? @ -[I reviewed and agree with nursing and triage notes] Were old charts reviewed (outside hosp., previous admission, EMS record, old EKG, old radiological studies, urgent care reports/EKG's, snf records)? Report findings @ -[No old charts were reviewed] Differential Diagnosis (chest pain, altered mental status, abdominal pain women, abdominal pain men, vaginal bleeding, weakness, fever, dyspnea, syncope, headache, dizziness, GI bleed, back pain, seizure, CVA, palpatations, mental health, musculoskeletal)? @ -[Differential Musculoskeletal Muscular strain, contusion, ligament sprain, fracture, arthritis, septic arthritis, bursitis, cellulitis, muscle spasm, nerve compression, DVT, arterial occlusion, herpes zoster, electrolyte abnormality, tumor.... This is not meant t o be in all inclusive list EKG interpreted by me (3pts min.). @ -[As above] X-rays interpreted by me (1pt min.). @ -[None done] CT interpreted by me (1pt min.). @ -[I interpreted as above U/S interpreted by me (1pt. min.). @ -[None done] What testing was considered but not performed or refused? (CT, X-rays, U/S, labs)? Why? @ -[None] What meds were considered but not given or refused? Why? @ -[None] Did you discuss the management of the patient with other professionals (professionals i.e. , PA, FRAUD REPRESENTATIVE, lab, RT, psych nurse, social science manager, lance crewmember/mlrs sergeant, teacher, ecological technical officer, director case)? Give summary @ -[No] Was smoking cessation discussed for >3mins.? @ -[No] Was critical care preformed (if so, how long)? @ -[No] Were there social determinants of health that impacted care today? How? (Homelessness, low income, unemployed, alcoholism, drug addiction, transportation, low edu. Level, literacy, decrease access to med. care, fci, rehab)? @ -[No] Was there de-escalation of care discussed even if they declined (Discuss DNR or withdrawal of care, Hospice)? DNR status @ -[No] What co-morbidities impacted this encounter? (DM, HTN, Smoking, COPD, CAD, Cancer, CVA, ARF, Chemo, Hep., AIDS, mental health diagnosis, sleep apnea, morbid obesity)? @ -[Anticoagulant medication use Was patient admitted / discharged? Hospital course, mention meds given and route, prescriptions, significant lab abnormalities, going to OR and other pertinent info. @ -[Patient is an 79-year-old man here for ground-level fall. Given that the patient is taking blood thinners he had CT scan that I interpreted as negative. The patient then was at baseline and stable to return to his residence. Undiagnosed new problem with uncertain prognosis? @ -[No] Drug Therapy requiring intensive monitoring for toxicity (Heparin, Nitro, Insulin, Cardizem)? @ -[No] Were any procedures done? @ -[No] Diagnosis/symptom? @ -[Acute fall injury Minor closed head injury Acute, or Chronic, or Acute on Chronic? @ -[Acute Uncomplicated (without systemic symptoms) or Complicated (systemic symptoms)? @ -[Uncomplicated Side effects of treatment? @ -[No] Exacerbation, Progression, or Severe Exacerbation? @ -[No] Poses a threat to life or bodily function? How? (Chest pain, [place], [place], pneumonia, PE, COPD, DKA, ARF, appy, cholecystitis, CVA, Diverticulitis, Homicidal, Suicidal, threat to staff... and all critical care pts) @ -[No] All treatments are based on ideal body weight as in ED triage Disposition Clinical Impression: Fall Disposition: HOME SELF-CARE Condition: Fair Instructions (If sedation given, give patient instructions): Fall Prevention for Older Adults (ED) Is patient prescribed a controlled substance at d/c from ED?: No Referrals: Seng Geiger MD [Primary Care Provider] - 1-2 days
[2024-07-11] MEDS: HYDROmorphone 1 MG/ML 1 ML SYRINGE IM STA ×2 (06:02→07:47)
[2024-07-11 07:46] VITALS: BP 129/67; PULSE 101; RESP 16
[2024-07-11] MEDS: HYDROmorphone 1 MG/ML 1 ML SYRINGE IVP STA (08:59)
== END 2024-07-11 09:05 | disposition home or self-care (01) ==
LOC: EC 03:53
DX: S09.90XA Unspecified injury of head, initial encounter (principal); Z79.01 Long term (current) use of anticoagulants; Z88.6 Allergy status to analgesic agent; W01.0XXA Fall on same level from slipping, tripping and stumbling without subsequent striking against object, initial encounter; Y92.009 Unspecified place in unspecified non-institutional (private) residence as the place of occurrence of the external cause
CPT/HCPCS: 70450; 99284; 96374; 96372 ×3; J2270; J1171

== ENCOUNTER 2024-07-11 11:13 | Inpatient (IN) | payer MEDICARE ==
[2024-07-11] MEDS ORDERED: NALOXONE 0.4 MG/ML 1 ML VIAL IV PRN (12:27)
[2024-07-11] MEDS ORDERED: ONDANSETRON 4 MG/2 ML VIAL IVP PRN (12:27)
[2024-07-11] MEDS ORDERED: MORPHINE SULFATE 4 MG/ML SYRINGE IV PRN (12:27)
[2024-07-11] MEDS ORDERED: MORPHINE SULFATE 4 MG/ML SYRINGE IVP PRN (12:30)
--- NOTE | 2024-07-11 12:31 | ED ---
Recheck HPI - General Chief Complaint: Recheck/Abnormal Lab/Rx Stated Complaint: pain Time Seen by Provider: 07/11/24 11:54 Source: patient, family, RN notes reviewed Mode of arrival: ambulatory Limitations: no limitations - History of Present Illness Initial Comments: This is a 79-year-old male with multiple comorbid conditions presenting for reevaluation. Patient was recently evaluated in the emergency department for back pain where he was discharged to follow-up outpatient with oncology. Patient is reporting from Dr. Go's office was recommended that he be admitted for pain control with further oncology and orthopedic spine surgery consult. Patient states that he is having diffuse pain most notable of the lumbar spine at this time. He is denying abdominal pain, difficulty breathing, chest pain, heart palpitations, urinary bowel habit changes. - Related Data Home Medications Medication Instructions Recorded Confirmed Tamsulosin [Flomax] 0.4 mg PO PC-BRKFST 03/23/21 07/11/24 Clopidogrel [Plavix] 75 mg PO HS 05/10/23 07/11/24 Empagliflozin/Metformin HCl 1 tab PO BID 05/10/23 07/11/24 [Synjardy 12.5-1,000 mg Tablet] Rosuvastatin [Crestor] 10 mg PO HS 05/10/23 07/11/24 Insulin Degludec [Tresiba 20 units SQ AC-SUPPER 07/11/24 07/11/24 Flextouch U-100 Pen] Ondansetron Odt [Zofran Odt] 4 mg PO QID PRN 07/11/24 07/11/24 Pantoprazole [Protonix] 40 mg PO DAILY 07/11/24 07/11/24 Semaglutide [Ozempic] 1 mg SQ TU 07/11/24 07/11/24 Previous Rx's Medication Instructions Recorded lisinopriL [Zestril] 10 mg PO DAILY #30 tab 05/11/23 HYDROcodone/APAP 10-325MG [[place] 1 tab PO Q6HR PRN 3 Days #12 tab 07/10/24 10-325] Allergies Allergy/AdvReac Type Severity Reaction Status Date / Time aspirin AdvReac Abdominal Verified 07/11/24 14:16 Pain Review of Systems ROS Statement: Those systems with pertinent positive or pertinent negative responses have been documented in the HPI. ROS Other: All systems not noted in ROS Statement are negative. Past Medical History Past Medical History: Dementia, Diabetes Mellitus, Hyperlipidemia, Hypertension, Myocardial Infarction (CA), Osteoarthritis (OA), Prostate Disorder, Sleep Apnea/CPAP/BIPAP Last Myocardial Infarction Date:: 0000 History of Any Multi-Drug Resistant Organisms: None Reported Past Surgical History: Orthopedic Surgery Additional Past Surgical History / Comment(s): Right Knee replacement, cataracts, Left knee steriod injection Past Anesthesia/Blood Transfusion Reactions: No Reported Reaction Past Psychological History: No Psychological Hx Reported Smoking Status: Never smoker Past Alcohol Use History: None Reported Past Drug Use History: None Reported - Past Family History Father Additional Family Medical History / Comment(s): brain aneurysm Mother Family Medical History: Coronary Artery Disease (CAD), Diabetes Mellitus General Exam Limitations: no limitations Course Vital Signs 07/11/24 11:15 Temperature 97.8 F Pulse Rate 88 Respiratory 18 Rate Blood Pressure 139/71 O2 Sat by Pulse 95 Oximetry Medical Decision Making - Medical Decision Making Was pt. sent in by a medical professional or institution (, PA, [employer]PAR[employer]ER, urgent care, hospital, or jail...) When possible be specific @ -Was advised by Dr. go, report emergency room for admission for continued pain management with oncology and orthopedic non destructive testing specialist on consult. Did you speak to anyone other than the patient for history (EMS, parent, family, police, friend...)? What history was obtained from this source @ -No Did you review nursing and triage notes (agree or disagree)? Why? @ -I reviewed and agree with nursing and triage notes Were old charts reviewed (outside hosp., previous admission, EMS record, old EKG, old radiological studies, urgent care reports/EKG's, jail records)? Report findings @ -No old charts were reviewed Differential Diagnosis (chest pain, altered mental status, abdominal pain women, abdominal pain men, vaginal bleeding, weakness, fever, dyspnea, syncope, headache, dizziness, GI bleed, back pain, seizure, CVA, palpatations, mental health, musculoskeletal)? @ -Differential Weakness: Hypoglycemia, shock, sepsis, hyponatremia, anemia, infection, CA, ETOH, adverse medicine reaction, overdose, stroke, this is not meant to be an all-inclusive list. EKG interpreted by me (3pts min.). @ -none X-rays interpreted by me (1pt min.). @ -None done CT interpreted by me (1pt min.). @ -None done U/S interpreted by me (1pt. min.). @ -None done What testing was considered but not performed or refused? (CT, X-rays, U/S, labs)? Why? @ -None What meds were considered but not given or refused? Why? @ -None Did you discuss the management of the patient with other professionals (professionals i.e. DrJina, PA, [employer]ER, lab, RT, psych nurse, foster care social worker, shaker flatwork, teacher, licensing officer, behavioral health case manager)? Give summary @ -No Was smoking cessation discussed for >3mins.? @ -No Was critical care preformed (if so, how long)? @ -No Were there social determinants of health that impacted care today? How? (Homelessness, low income, unemployed, alcoholism, drug addiction, transportation, low edu. Level, literacy, decrease access to med. care, group home, r ehab)? @ -No Was there de-escalation of care discussed even if they declined (Discuss DNR or withdrawal of care, Hospice)? DNR status @ -No What co-morbidities impacted this encounter? (DM, HTN, Smoking, COPD, CAD, Cancer, CVA, ARF, Chemo, Hep., AIDS, mental health diagnosis, sleep apnea, morbid obesity)? @ -None Was patient admitted / discharged? Hospital course, mention meds given and route, prescriptions, significant lab abnormalities, going to OR and other pertinent info. @ Admitted. 79-year-old male presenting for generalized pain. Patient will be admitted to internal medicine, Dr. Geiger, with oncology and orthopedic non destructive testing specialist on consult. Is recommend that patient be placed on IV push Decadron every 6 hours. Case was discussed and the patient was personally evaluated by my attending Dr. Bang Undiagnosed new problem with uncertain prognosis? @ -No Drug Therapy requiring intensive monitoring for toxicity (Heparin, Nitro, Insulin, Cardizem)? @ -No Were any procedures done? @ -No Diagnosis/symptom? @ -intractable Pain, bony metastasis Acute, or Chronic, or Acute on Chronic? @ -Acute Uncomplicated (without systemic symptoms) or Complicated (systemic symptoms)? @ -Complicated Side effects of treatment? @ -No Exacerbation, Progression, or Severe Exacerbation? @ -No Poses a threat to life or bodily function? How? (Chest pain, [place], CA, pneumonia, PE, COPD, DKA, ARF, appy, cholecystitis, CVA, Diverticulitis, Homicidal, Suicidal, threat to staff... and all critical care pts) @ -No - Lab Data Result diagrams: 07/11/24 12:34 07/11/24 12:35 Disposition Clinical Impression: Intractable pain Disposition: ADMITTED IP TO THIS [facility] Condition: Stable Decision to Admit Reason: Admit from EC Decision Date: 07/11/24 Decision Time: 12:27
[2024-07-11] MEDS: DEXAMETHASONE SOD PHOSPHATE 4 MG/ML 1 ML VIAL IVP SCH (12:38)
[2024-07-11] MEDS: HYDROmorphone 0.5 MG/0.5 ML SYRINGE IVP STA (12:38)
[2024-07-11 12:42] LABS: Basophils # (A) 0.03 10*3/uL (0.00-0.10); Basophils % (A) 0.3 %; Eosinophils # (A) 0.02 10*3/uL (0.04-0.35); Eosinophils % (A) 0.2 %; HCT 32.5 % (39.6-50.0); HGB 11.3 g/dL (13.0-17.0); Lymphocytes # (A) 1.32 10*3/uL (0.90-5.00); Lymphocytes % (A) 11.2 %; MCH 31.4 pg (27.0-32.0); MCHC 34.8 g/dL (32.0-37.0); MCV 90.3 fL (80.0-97.0); Mean Platelet Volume 9.1 fL (9.5-12.2); Monocytes # (A) 1.56 10*3/uL (0.20-1.00); Monocytes % (A) 13.3 %; Neutrophils # (A) 8.75 10*3/uL (1.80-7.70); Neutrophils % (A) 74.3 %; Platelet Count 348 10*3/uL (140-440); RDW 14.1 % (11.5-14.5); WBC 11.76 10*3/uL (4.50-10.00)
[2024-07-11 13:14] LABS: ALT 16 U/L (4-49); AST 61 U/L (17-59); African American GFR (CKD) >90 (>60 ml/min/1.73 sqM); Albumin 3.5 g/dL (3.5-5.0); Alkaline Phosphatase 712 U/L (38-126); Anion Gap 12 mmol/L; Blood Urea Nitrogen 19 mg/dL (9-20); Calcium 8.3 mg/dL (8.4-10.2); Carbon Dioxide 24 mmol/L (22-30); Chloride 97 mmol/L (98-107); Glucose 99 mg/dL (74-99); Non-African American GFR(CKD) 87 (>60 ml/min/1.73 sqM); Sodium 133 mmol/L (137-145); Total Bilirubin 0.7 mg/dL (0.2-1.3); Total Protein 6.6 g/dL (6.3-8.2)
[2024-07-11] MEDS: HYDROmorphone 1 MG/ML 1 ML SYRINGE IVP PRN (14:42)
[2024-07-11] MEDS ORDERED: DEXTROSE 50% SYRINGE 50 ML IVP PRN ×2 (16:27)
[2024-07-11] MEDS ORDERED: polyethylene glycoL 3350 17 GM POWD.PACK PO PRN (16:50)
[2024-07-11] MEDS: MORPHINE SULFATE 4 MG/ML SYRINGE IVP STA (17:33)
[2024-07-11] MEDS ORDERED: ONDANSETRON ODT 4 MG TAB PO PRN (17:43)
[2024-07-11] MEDS ORDERED: DEXAMETHASONE SOD PHOSPHATE 4 MG/ML 1 ML VIAL IVP SCH (18:00)
[2024-07-11] MEDS: lisinopriL 10 MG TAB PO SCH (18:19)
[2024-07-11 18:20] LABS: Glucose,Whole Blood 173 mg/dL (70-110)
[2024-07-11] MEDS: INSULIN GLARGINE (LANTUS) 100 UNIT/ML SYR SQ SCH (18:20)
[2024-07-11 20:11] LABS: Glucose,Whole Blood 151 mg/dL (70-110)
[2024-07-11] MEDS: PANTOPRAZOLE 40 MG/10 ML VIAL IVP SCH (20:11)
[2024-07-11] MEDS: metFORMIN 500 MG TAB PO SCH (20:11)
[2024-07-11] MEDS: SENNOSIDES-DOCUSATE SODIUM 1 EACH TAB PO SCH (20:11)
[2024-07-11] MEDS: CLOPIDOGREL 75 MG TAB PO SCH (20:12)
[2024-07-11] MEDS: HYDROmorphone 2 MG/ML 1 ML SYRINGE IVP PRN (20:12)
[2024-07-11] MEDS: ATORVASTATIN 20 MG TAB PO SCH (20:12)
[2024-07-11] MEDS ORDERED: NON FORMULARY DRUG (Empagliflozin/Metformin Hcl [Synjardy 12.5-1,000 Mg Tablet] 1 EACH Tab PO SCH (21:00)
[2024-07-12] MEDS: MORPHINE SULFATE 4 MG/ML SYRINGE IVP PRN (00:08)
[2024-07-12 07:22] LABS: Glucose,Whole Blood 134 mg/dL (70-110)
--- NOTE | 2024-07-12 08:25 | P.HPIM ---
History of Present Illness H&P Date: 07/12/24 Chief Complaint: Fall Intractable pain this is a history and physical an 79-year-old male admitted for intractable pain. He has recently diagnosed with metastatic prostate cancer. He was home and had multiple falls and has had significant pain. He is admitted after being evaluated by the ER and oncology for appropriate pain control. Past medical history includes diabetes. Otherwise his past medical history includes coronary artery disease metastatic prostate cancer hypertension and hyperlipidemia and sleep apnea. Review of Systems Constitutional: Denies chills, Denies fever Eyes: denies blurred vision, denies pain Ears, nose, mouth and throat: Denies headache, Denies sore throat Cardiovascular: Denies chest pain, Denies shortness of breath Respiratory: Denies cough Gastrointestinal: Denies abdominal pain, Denies diarrhea, Denies nausea, Denies vomiting Past Medical History Past Medical History: Diabetes Mellitus, Hyperlipidemia, Hypertension, Myocardial Infarction ([place]), Osteoarthritis (OA), Prostate Disorder, Sleep Apnea/CPAP/BIPAP Additional Past Medical History / Comment(s): type 1 diabetes,has CPAP at home, back pain started in 2023 - metastatic cancer to bone but primary source is still unknown. Last Myocardial Infarction Date:: 1999 History of Any Multi-Drug Resistant Organisms: None Reported Past Surgical History: Orthopedic Surgery Additional Past Surgical History / Comment(s): Right Knee replacement, cataracts surgery, Left knee steriod injection,biopsy of prostate by Dr. Devries 2023 Past Anesthesia/Blood Transfusion Reactions: No Reported Reaction Past Psychological History: No Psychological Hx Reported Smoking Status: Former smoker Past Alcohol Use History: None Reported Past Drug Use History: None Reported - Past Family History Father Additional Family Medical History / Comment(s): brain aneurysm Mother Family Medical History: Coronary Artery Disease (CAD), Diabetes Mellitus Medications and Allergies Home Medications Medication Instructions Recorded Confirmed Type Tamsulosin [Flomax] 0.4 mg PO PC-BRKFST 03/23/21 07/11/24 History Clopidogrel [Plavix] 75 mg PO HS 05/10/23 07/11/24 History Empagliflozin/Metformin HCl 1 tab PO BID 05/10/23 07/11/24 History [Synjardy 12.5-1,000 mg Tablet] Rosuvastatin [Crestor] 10 mg PO HS 05/10/23 07/11/24 History lisinopriL [Zestril] 10 mg PO DAILY #30 tab 05/11/23 07/11/24 Rx HYDROcodone/APAP 10-325MG [[place] 1 tab PO Q6HR PRN 3 Days #12 tab 07/10/24 07/11/24 Rx 10-325] Insulin Degludec [Tresiba 20 units SQ AC-SUPPER 07/11/24 07/11/24 History Flextouch U-100 Pen] Ondansetron Odt [Zofran Odt] 4 mg PO QID PRN 07/11/24 07/11/24 History Pantoprazole [Protonix] 40 mg PO DAILY 07/11/24 07/11/24 History Semaglutide [Ozempic] 1 mg SQ TU 07/11/24 07/11/24 History Allergies Allergy/AdvReac Type Severity Reaction Status Date / Time aspirin AdvReac Abdominal Verified 07/11/24 14:16 Pain Physical Exam Vitals: Vital Signs Temp Pulse Pulse Resp BP BP Pulse Ox 07/12/24 07:15 97.6 F 82 22 142/77 93 L 07/12/24 01:12 97.5 F L 81 17 123/64 94 L 07/11/24 19:02 98.3 F 94 16 156/78 94 L 07/11/24 15:43 98.2 F 79 16 135/79 96 07/11/24 11:15 97.8 F 88 18 139/71 95 Intake and Output 07/11/24 07/12/24 07/12/24 22:59 06:59 14:59 Intake Total 480 Balance 480 Intake: Oral 480 Other: Voiding Method Toilet Urinal # Voids 1 # Bowel Movements 1 Weight 72.575 kg - Constitutional General appearance: no acute distress - EENT Eyes: EOMI - Neck Neck: no lymphadenopathy - Respiratory Respiratory: bilateral: diminished - Cardiovascular Rhythm: regular Heart sounds: normal: S1, S2 Abnormal Heart Sounds: no S3 Gallop - Gastrointestinal General gastrointestinal: soft, no tenderness - Integumentary Integumentary: no cellulitis - Psychiatric Psychiatric: A&O x's 3 Results CBC & Chem 7: 07/11/24 12:34 07/11/24 12:35 Labs: Abnormal Lab Results - Last 24 Hours (Table) 07/11/24 07/11/2425 Range/Units 12:34 12:35 18:18 WBC 11.76 H (4.50-10.00) 10*3/uL RBC 3.60 L (4.40-5.60) 10*6/uL Hgb 11.3 L (13.0-17.0) g/dL Hct 32.5 L (39.6-50.0) % MPV 9.1 L (9.5-12.2) fL Immature Gran # 0.08 H (0.00-0.04) 10*3/uL Neutrophils # 8.75 H (1.80-7.70) 10*3/uL Monocytes # 1.56 H (0.20-1.00) 10*3/uL Eosinophils # 0.02 L (0.04-0.35) 10*3/uL Sodium 133 L (137-145) mmol/L Chloride 97 L (98-107) mmol/L POC Glucose (mg/dL) 173 H (70-110) mg/dL Calcium 8.3 L (8.4-10.2) mg/dL AST 61 H (17-59) U/L Alkaline Phosphatase 712 H (38-126) U/L 07/11/24 07/12/24 Range/Units 20:09 07:11 WBC (4.50-10.00) 10*3/uL RBC (4.40-5.60) 10*6/uL Hgb (13.0-17.0) g/dL Hct (39.6-50.0) % MPV (9.5-12.2) fL Immature Gran # (0.00-0.04) 10*3/uL Neutrophils # (1.80-7.70) 10*3/uL Monocytes # (0.20-1.00) 10*3/uL Eosinophils # (0.04-0.35) 10*3/uL Sodium (137-145) mmol/L Chloride (98-107) mmol/L POC Glucose (mg/dL) 151 H 134 H (70-110) mg/dL Calcium (8.4-10.2) mg/dL AST (17-59) U/L Alkaline Phosphatase (38-126) U/L Thrombosis Risk Factor Assmnt - Choose All That Apply Any of the Below Risk Factors Present?: Yes Each Factor Represents 1 point: Obesity (BMI >25) Other Risk Factors: Yes Each Risk Factor Represents 2 Points: Malignancy Each Risk Factor Represents 3 Points: Age 75 years or older Other congenital or acquired thrombophilia - If yes, enter type in comment: No Thrombosis Risk Factor Assessment Total Risk Factor Score: 6 Thrombosis Risk Factor Assessment Level: High Risk Assessment and Plan (1) Prostate cancer Current Visit: Yes Status: Acute Code(s): C61 - MALIGNANT NEOPLASM OF PROSTATE SNOMED Code(s): 714876272 (2) Intractable pain Current Visit: Yes Status: Acute Code(s): R52 - PAIN, UNSPECIFIED SNOMED Code(s): 72952619 (3) CAD (coronary artery disease) Current Visit: No Status: Acute Code(s): I25.10 - ATHSCL HEART DISEASE OF [place] CORONARY ARTERY W/O ANG PCTRS SNOMED Code(s): 42398448 (4) Cancer, metastatic to bone Current Visit: No Status: Acute Code(s): C79.51 - SECONDARY MALIGNANT NEOPLASM OF BONE SNOMED Code(s): 36244935 (5) Diabetes Current Visit: No Status: Acute Code(s): E11.9 - TYPE 2 DIABETES MELLITUS WITHOUT COMPLICATIONS SNOMED Code(s): 18372215 (6) History of myocardial infarction Current Visit: No Status: Acute Code(s): I25.2 - OLD MYOCARDIAL INFARCTION SNOMED Code(s): 877409966 Plan: admitted for appropriate control and oncologic workup. Reconcile medications place on sliding scale. Check CBC and CMP in a.m. See orders otherwise.
--- NOTE | 2024-07-12 08:49 | XR ---
EXAMINATION TYPE: XR pelvis AP view, XR femur RT DATE OF EXAM: 07/12/2024 8:31 AM COMPARISON: None CLINICAL INDICATION: Male, 79 years old with history of metastasis; pain. TECHNIQUE: XR pelvis AP view, XR femur RT, examined in a single projection. Frontal and lateral views of the right femur demonstrate total knee arthroplasty. Hardware appears in tact. No evidence for osseous erosion. FINDINGS: No lytic or sclerotic lesions identified. There is no evidence of fracture or dislocation. There is no soft tissue abnormality. No abnormal calcifications are present. Multilevel degenerative changes of the lower spine. The hips appear intact. Osteophyte formation of the superior acetabulum bilaterally with mild joint space narrowing. Cam deformity of the femoral heads. Remote injury to the iliopsoas insertion on the right lesser trochanter. IMPRESSION: 1. No lytic or sclerotic lesion identified. 2. No acute osseous pathology. 3. Moderate degeneration changes of the hips with CAM deformity of the femoral heads. 4. Total right knee arthroplasty appears intact. [facility], , 07/12/2024 8:47 AM
--- NOTE | 2024-07-12 09:00 | XR ---
EXAMINATION TYPE: XR humerus LT DATE OF EXAM: 07/12/2024 8:31 AM COMPARISON: 01/25/2019. CLINICAL INDICATION: Male, 79 years old with history of metastasis; PHH, pain TECHNIQUE: XR humerus LT examined in frontal and lateral projections. FINDINGS: No sclerotic or lytic lesions identified. No evidence of acute osseous pathology, joint dis location, or soft tissue swelling. The remaining portions of the visualized chest are unremarkable. D egeneration changes of the shoulder with osteophyte formation of the glenoid, humeral head acromion a nd clavicle. There is superior migration of the humeral head on into the acromion. IMPRESSION: 1. No osteolytic or osteoblastic lesions. 2. No acute osseous pathology. 3. Moderate left shoulder osteoarthrosis changes with likely focal thickness rotator cuff tear. [facility], , 07/12/2024 8:57 AM
--- NOTE | 2024-07-12 09:01 | XR ---
EXAMINATION TYPE: XR lumbosacral spine min 4V DATE OF EXAM: 07/12/2024 8:31 AM COMPARISON: None CLINICAL INDICATION: Male, 79 years old with history of metastasis; , pain TECHNIQUE: XR lumbosacral spine min 4V - Frontal, lateral , bilateral oblique and coned in L5-S1 late ral views of the spine. FINDINGS: No lytic or blastic lesions. No evidence of any acute osseous pathology. No evidence of lo ss of vertebral body height is seen. There is normal alignment of the lumbar vertebral bodies. Modera te scattered disc space narrowing. Multilevel marginal osteophyte formation throughout the visualized spine. There is facet joint arthropathy throughout the spine. Scattered at least mild neural foramin al stenosis. Atherosclerosis of the arterial vasculature. IMPRESSION: 1. No acute fracture. 2. Moderate multilevel disc degeneration. [facility], , 07/12/2024 8:59 AM
[2024-07-12] MEDS: DAPAGLIFLOZIN PROPANEDIOL 10 MG TABLET PO SCH (09:08)
[2024-07-12] MEDS: TAMSULOSIN 0.4 MG CAP.ER.24H PO SCH (09:08)
--- NOTE | 2024-07-12 11:59 | P.CNOR ---
History of Present Illness - [facility] Consult date: 07/12/24 Requesting physician: Susie George Consult reason: low back pain History of present illness: Patient is a very pleasant 79-year-old male who is seen examined at the bedside with multiple family members present. He was seen and evaluated by Dr. Go in the outpatient setting yesterday and was referred to come to the hospital for admission for pain control. Patient states he has been experiencing ongoing low back pain near the lumbosacral junction since February 2024 without injury. He is not currently experiencing any significant lower extremity weakness or radiculopathy bilaterally. Patient is known to have metastatic cancer. Medicine notes states this is recently diagnosed as prostate. Patient states he just learned of their diagnosis yesterday and was not sure of the primary source. Patient did have bone scan imaging performed taken on 06/21/2024 which showed evidence of bony metastatic disease to the proximal humerus, left scapula, bilateral ribs, sternal body, thoracic and lumbar spines, sacrum, left hemipelvis, and right femur. Patient is neurovascular intact with his lower extremities. Since being admitted multiple imaging modalities have been ordered and performed with x-ray imaging. Multiple MRIs of the cervical, thoracic, lumbar spine are p ending. Patient is admitted to medicine. Past Medical History Past Medical History: Diabetes Mellitus, Hyperlipidemia, Hypertension, Myocardial Infarction ([place]), Osteoarthritis (OA), Prostate Disorder, Sleep Apnea/CPAP/BIPAP Additional Past Medical History / Comment(s): type 1 diabetes,has CPAP at home, back pain started in 2023 - metastatic cancer to bone but primary source is still unknown. Last Myocardial Infarction Date:: 1999 History of Any Multi-Drug Resistant Organisms: None Reported Past Surgical History: Orthopedic Surgery Additional Past Surgical History / Comment(s): Right Knee replacement, cataracts surgery, Left knee steriod injection,biopsy of prostate by Dr. Devries 2023 Past Anesthesia/Blood Transfusion Reactions: No Reported Reaction Past Psychological History: No Psychological Hx Reported Smoking Status: Former smoker Past Alcohol Use History: None Reported Past Drug Use History: None Reported - Past Family History Father Additional Family Medical History / Comment(s): brain aneurysm Mother Family Medical History: Coronary Artery Disease (CAD), Diabetes Mellitus Medications and Allergies Home Medications Medication Instructions Recorded Confirmed Type Tamsulosin [Flomax] 0.4 mg PO PC-BRKFST 03/23/21 07/11/24 History Clopidogrel [Plavix] 75 mg PO HS 05/10/23 07/11/24 History Empagliflozin/Metformin HCl 1 tab PO BID 05/10/23 07/11/24 History [Synjardy 12.5-1,000 mg Tablet] Rosuvastatin [Crestor] 10 mg PO HS 05/10/23 07/11/24 History lisinopriL [Zestril] 10 mg PO DAILY #30 tab 05/11/23 07/11/24 Rx HYDROcodone/APAP 10-325MG [[place] 1 tab PO Q6HR PRN 3 Days #12 tab 07/10/24 07/11/24 Rx 10-325] Insulin Degludec [Tresiba 20 units SQ AC-SUPPER 07/11/24 07/11/24 History Flextouch U-100 Pen] Ondansetron Odt [Zofran Odt] 4 mg PO QID PRN 07/11/24 07/11/24 History Pantoprazole [Protonix] 40 mg PO DAILY 07/11/24 07/11/24 History Semaglutide [Ozempic] 1 mg SQ TU 07/11/24 07/11/24 History Allergies Allergy/AdvReac Type Severity Reaction Status Date / Time aspirin AdvReac Abdominal Verified 07/11/24 14:16 Pain Physical Examination Osteopathic Statement: *. No significant issues noted on an osteopathic structural exam other than those noted in the History and Physical/Consult. Physical exam: Patient is awake, alert, and oriented 3 Vital signs stable Good chest excursion with deep inspiration and expiration Examination of lumbar spine reveals skin is intact with no abrasions, lacerations, or bruises; no erythema, purulence or signs of infection Dorsiflexion, plantarflexion, and extensor hallucis longus positive sustained bilaterally Lower extremity strength 5/5 bilaterally No lower extremity hyperreflexia bilaterally Straight leg test negative bilateral lower extremities No signs or symptoms of DVT; no calf pain No pain with internal and external rotation of the hips bilaterally Neurovascularly intact Results Pertinent Studies: X-rays of the lumbosacral spine taken on 07/12/2024: No lytic or blastic lesions; no evidence of acute osseous pathology; no compression fracture deformity; oste ophytic spurring X-rays of the left humerus taken on 07/12/2024: No osteolytic or osteoblastic lesions; no acute osseous pathology; moderate left shoulder osteoarthritis changes X-ray of the pelvis and right femur taken on 07/12/2024: No lytic or sclerotic l esion identified; no acute osseous pathology; moderate degenerative changes of the hips with cam deformity; no bony cortical destruction within the right femur; evidence of right total knee arthroplasty with hardware Nuclear medicine whole-body bone scan imaging taken on 06/21/2024: Evidence of bony metastatic disease to the proximal humerus, left scapula, bilateral ribs, sternal body, thoracic and lumbar spines, sacrum, left hemipelvis, and right femur. - Labs Labs: Abnormal Lab Results - Last 24 Hours (Table) 07/11/24 07/11/24 07/11/24 Range/Units 12:34 12:34 12:35 WBC 11.76 H (4.50-10.00) 10*3/uL RBC 3.60 L (4.40-5.60) 10*6/uL Hgb 11.3 L (13.0-17.0) g/dL Hct 32.5 L (39.6-50.0) % MPV 9.1 L (9.5-12.2) fL Immature Gran # 0.08 H (0.00-0.04) 10*3/uL Neutrophils # 8.75 H (1.80-7.70) 10*3/uL Monocytes # 1.56 H (0.20-1.00) 10*3/uL Eosinophils # 0.02 L (0.04-0.35) 10*3/uL Sodium 133 L (137-145) mmol/L Chloride 97 L (98-107) mmol/L POC Glucose (mg/dL) (70-110) mg/dL Hemoglobin A1c 7.0 H (<=6.0) % Calcium 8.3 L (8.4-10.2) mg/dL AST 61 H (17-59) U/L Alkaline Phosphatase 712 H (38-126) U/L 07/11/24 07/11/24 07/12/24 Range/Units 18:18 20:09 07:11 WBC (4.50-10.00) 10*3/uL RBC (4.40-5.60) 10*6/uL Hgb (13.0-17.0) g/dL Hct (39.6-50.0) % MPV (9.5-12.2) fL Immature Gran # (0.00-0.04) 10*3/uL Neutrophils # (1.80-7.70) 10*3/uL Monocytes # (0.20-1.00) 10*3/uL Eosinophils # (0.04-0.35) 10*3/uL Sodium (137-145) mmol/L Chloride (98-107) mmol/L POC Glucose (mg/dL) 173 H 151 H 134 H (70-110) mg/dL Hemoglobin A1c (<=6.0) % Calcium (8.4-10.2) mg/dL AST (17-59) U/L Alkaline Phosphatase (38-126) U/L H & H 07/11/24 Range/Units 12:34 Hgb 11.3 L (13.0-17.0) g/dL Hct 32.5 L (39.6-50.0) % Result Diagrams: 07/11/24 12:34 07/11/24 12:35 Assessment and Plan Assessment: Assessment: Intractable low back pain Metastatic prostate cancer to bone to the proximal humerus, left scapula, bilateral ribs, sternal body, thoracic and lumbar spines, sacrum, left hemipelvis, and right femur Diabetes mellitus Hypertension Hyperlipidemia History of prostate disorder History myocardial infarction (1) Intractable low back pain Current Visit: Yes Status: Acute Code(s): M54.59 - OTHER LOW BACK PAIN SNOMED Code(s): 67792555785693664 (2) Osteophyte Current Visit: Yes Status: Acute Code(s): M25.70 - OSTEOPHYTE, UNSPECIFIED JOINT SNOMED Code(s): 903229395316098 (3) Prostate cancer Current Visit: Yes Status: Acute Code(s): C61 - MALIGNANT NEOPLASM OF PROSTATE SNOMED Code(s): 215636249 (4) Cancer, metastatic to bone Current Visit: No Status: Acute Code(s): C79.51 - SECONDARY MALIGNANT NEOPLASM OF BONE SNOMED Code(s): 37154001 (5) Hyperlipidemia Current Visit: Yes Status: Acute Code(s): E78.5 - HYPERLIPIDEMIA, UNSPECIFIED SNOMED Code(s): 78424172 (6) History of prostate disorder Current Visit: Yes Status: Acute Code(s): Z87.438 - PERSONAL HISTORY OF OTHER DISEASES OF MALE GENITAL ORGANS SNOMED Code(s): 854928501 (7) History of myocardial infarction Current Visit: No Status: Acute Code(s): I25.2 - OLD MYOCARDIAL INFARCTION SNOMED Code(s): 025889908 (8) Hypertension Current Visit: No Status: Acute Code(s): I10 - ESSENTIAL (PRIMARY) HYPERTENSION SNOMED Code(s): 63353096 Plan: Plan: 1. Patient has been experiencing ongoing low back pain near the lumbosacral junction since February 2024. He did recently undergo nuclear medicine bone scan imaging on 06/21/2024 which shows evidence of bony metastatic disease to the proximal humerus, left scapula, bilateral ribs, sternal body, thoracic and lumbar spines, sacrum, left hemipelvis, and right femur. Cervical, thoracic, lumbar MRI imaging is pending. He has undergone multiple imaging modalities with x-ray. X-ray imaging does not show evidence of lytic or sclerotic lesions identified. I do not see any cortical bone destruction. Patient is neurovascularly intact to his bilateral lower extremities. He does not have specific weakness with his lower extremities. I do not see neurologic compromise. Currently, we will plan with conservative treatment. We will plan for LSO bracing. Prescription has been written, signed, and provided to case management to obtain his bracing. This bracing may be utilized for comfort and support with increased activities as needed. Brace does not need to be worn while lying in bed or bathing. 2. Patient will continue with extensive workup with oncology. Patient will continue be seen examined by medicine for his other medical diagnoses as well. 3. We could consider evaluation and possible treatment with Dr. Treviño in interventional radiology following completion and reviewing of further imaging. We could defer this to Dr. Go in patient has been experiencing oncology. The patient is seen and examined at bedside. I agree with the dictation and statements above. I reviewed the available imaging that we have thus far. The MRI of the cervical and thoracic is not yet available. The bone scan is reviewed. It shows evidence of uptake particularly at the lumbar spine and the left humerus and right femur. X-rays of these areas do not show acute fractures. There is significant degenerative changes at each of these areas. At the humerus and femur I do not see extensive cortical involvement or impending fracture areas. At this point I do not have any plans for surgical intervention. Much of his back pain may be stemming from exacerbation of his degenerative changes given his issues. He has metastasis diffusely through his skeletal system but we do not plan a specific orthopedic intervention at this point. He should continue with his oncology and possible radiation oncology management. It is okay for him to weight-bear as tolerated bilateral lower extremities. He may have some benefit with bracing for his lumbar spine. He should continue with pain control per medicine or oncology. Time with Patient: Greater than 30 (Including obtaining history, physical examination, reviewing of imaging, and dictation.)
[2024-07-12 12:07] LABS: Glucose,Whole Blood 152 mg/dL (70-110)
--- NOTE | 2024-07-12 12:53 | MR ---
EXAMINATION TYPE: MR cspine/tspine wo/w con DATE OF EXAM: 07/12/2024 11:16 AM COMPARISON: None. CLINICAL INDICATION: Male, 79 years old with history of Please do thoracic and cervical MRI 1st, Pain , falls, Hx of cancer TECHNIQUE: Multiplanar multiecho imaging on a 3.0 Marci magnet is performed through the cervical spin e. IV Contrast: 7.5 mL Gadobutrol (None, if empty) FINDINGS: The craniovertebral junction is normal. Vertebral body alignment is normal. C7-T1: There is a large central and left paracentral disc herniation with moderate anterior thecal s ac compression. No cord contact is evident. No spinal canal stenosis is present. This is better visua lized on the postcontrast images. C6-7: Broad-based disc bulge is moderate anterior thecal sac compression greater to the left paracent ral region. No AP spinal canal stenosis is present. No cord deformity is evident. Moderate left serafin inal narrowing from uncovertebral joint hypertrophy is present. C5-6: Broad-based disc bulge has moderate anterior thecal sac compression. Some central focal bulge m ay be present with anterior thecal sac contact. Cord contact is not identified. No spinal canal steno sis is evident. Right foraminal stenosis is present. Some left foraminal narrowing is present from un covertebral joint hypertrophy.. C4-5: Small central protrusion is present with minimal anterior thecal sac compression. No cord conta ct or spinal canal stenosis is present.. C3-4: Broad-based disc bulge is mild anterior thecal sac flattening. This may have cord contact. No A P spinal canal stenosis is present. Neural foramen are patent. C2-3: Small central bulge is present with mild anterior thecal sac compression. No AP spinal canal st enosis is present. Neural foramen are patent. IMPRESSION: 1. Central and left paracentral disc bulging with moderate anterior thecal sac compression C6-7. 2. Large central and left paracentral disc herniation with subligamentous disc extension is moderate anterior thecal sac compression without cord contact C7-T1. 3. C5-6 disc bulging has moderate anterior thecal sac compression. There may be a small central protr usion without spinal canal stenosis. This comes in close approximation with the spinal cord. 4. Signal change C6 and T1-T2 suspicious for metastatic disease. EXAMINATION TYPE: MR cspine/tspine wo/w con DATE OF EXAM: 07/12/2024 11:16 AM COMPARISON: None. CLINICAL INDICATION: Male, 79 years old with history of Please do thoracic and cervical MRI 1st, Pain , falls, Hx of cancer TECHNIQUE: Multiplanar, multiecho imaging on a 3.0 Marci magnet is performed through the thoracic spi ne. IV Contrast: 7.5 mL Gadobutrol (None, if empty) FINDINGS: Spinal cord maintains normal signal through its visualized course. Vertebral body alignment is normal. Vertebral body heights are preserved. There is diffuse signal changes throughout the thoracic spine s uspicious for metastasis. Disc space narrowing is present T9-10. Endplate changes are along the inferior T9 level. Disc hydration levels are preserved. No spinal canal stenosis is evident. IMPRESSION: 1. Diffuse signal change with enhancement throughout the thoracic vertebral bodies suspicious for met astatic disease. 2. Inferior endplate changes at T9. [facility], , 07/12/2024 12:51 PM
[2024-07-12 17:57] LABS: Glucose,Whole Blood 220 mg/dL (70-110)
[2024-07-12] MEDS: DEXAMETHASONE SOD PHOSPHATE 4 MG/ML 1 ML VIAL IVP SCH (20:05)
[2024-07-12 20:07] LABS: Glucose,Whole Blood 209 mg/dL (70-110)
[2024-07-13] MEDS: HYDROcodone/APAP 10-325MG 1 EACH TAB PO PRN (01:43)
[2024-07-13 06:53] LABS: Glucose,Whole Blood 137 mg/dL (70-110)
[2024-07-13] MEDS: IOPAMIDOL CONTRAST (ORAL USE) VIAL PO PRN (09:19)
[2024-07-13 09:24] LABS: ALT 24 U/L (10-49); AST 63 U/L (14-35); Albumin 3.1 g/dL (3.8-4.9); Albumin/Globulin Ratio 1.24 Ratio (1.60-3.17); Alkaline Phosphatase 601 U/L (41-126); Blood Urea Nitrogen 34.3 mg/dL (9.0-27.0); Calcium 7.8 mg/dL (8.7-10.3); Carbon Dioxide 21.8 mmol/L (21.6-31.8); Chloride 100 mmol/L (96-109); Globulin 2.5 g/dL (1.6-3.3); Glucose 146 mg/dL (70-110); Potassium 4.5 mmol/L (3.5-5.5); Sodium 134 mmol/L (135-145); Total Bilirubin 0.3 mg/dL (0.3-1.2); Total Protein 5.6 g/dL (6.2-8.2)
[2024-07-13 09:33] LABS: HCT 31.3 % (39.6-50.0); HGB 10.1 g/dL (13.0-17.0); MCH 29.7 pg (27.0-32.0); MCHC 32.3 g/dL (32.0-37.0); MCV 92.1 FL (80.0-97.0); Mean Platelet Volume 9.1 FL (9.5-12.2); NRBC Per 100 WBC 0 X 10*3/uL (0.00-0.01); Platelet Count 429 X 10*3/uL (140-440); RDW 14.5 % (11.5-14.5); WBC 11.18 X 10*3/uL (4.50-10.00)
--- NOTE | 2024-07-13 11:52 | CT ---
EXAMINATION TYPE: CT ChestAbdPelvis w con DATE OF EXAM: 07/13/2024 10:43 AM COMPARISON: 05/25/2024 CLINICAL INDICATION: Male, 79 years old with history of suspected metastatic prostate cancer, staging , Suspected metatstatic prostate cancer, staging TECHNIQUE: CT ChestAbdPelvis w con , with sagittal coronal reformats. If MIP/3-D images were created, there are created on a separate workstation. Contrast used:100 ml mL of Isovue 300 with IV Contrast, (none if empty) Oral contrast used: with Oral Contrast (none if empty) CT DLP: 868.2 mGycm, Automated exposure control for dose reduction was used. FINDINGS: CT CHEST: Portion of the thyroid visualized is normal. There are numerous punctate nodularities within the periphery of the lungs. Larger nodule measuring 0 .7 cm posterior right lung. Series 5 image 19. The 0.7 cm nodule is in the posterior right lung. Seri es 5 image 25. There is a 0.6 cm nodule in the periphery of the posterior right lung. Series 5 image 38. There is a 0.8 cm nodule in the left costophrenic sulcus. Series 5 image 52. No enlarged mediastinal or hilar adenopathy is evident. Moderate coronary artery calcifications pres ent. The ascending aorta diameter at the level of the main pulmonary artery is 3.5 cm. The main pulmonary artery diameter at the bifurcation is 3.[address] ABDOMEN: Liver: Normal Spleen: Normal Pancreas: Normal Adrenal glands: The adrenal glands are normal. Gallbladder: Normal Kidneys: No masses are evident. No hydronephrosis is present. No cysts are present. Delayed images were obtained through the kidneys, which remain unremarkable. Aorta: Vascular calcification is within the aorta. Inferior vena cava: Normal. CT PELVIS: Loops of bowel within the abdomen and pelvis are normal. Some wall thickening to the distal sigmoid c olon and rectum is not excluded. Consider follow-up this study is bilateral contrast limiting hortencia l evaluation. Appendix: Normal as visualized. Urinary bladder: Normal. Genitourinary structures: Prostate is prominent. Patient's prostate cancer however is not identified. Osseous structures: Sclerosis of the right femoral neck and intertrochanteric region. There is hetero genous appearance to the L5 vertebral body. Lucency is within the L4 vertebral body, L3 vertebral bod y, posterior L2 and L1 levels. Milder lucencies are within the thoracic vertebral levels. There is a sclerotic area at the right humeral head. IMPRESSION: 1. Multiple small scattered lung nodules. Larger reference nodules are measured above. Findings are s uspicious for metastatic disease. 2. Heterogenous lytic areas within the axial lumbar spine and within thoracic vertebral levels suspic ious for metastasis. Sclerotic area within the right femoral neck and right humeral head are suspicio us for metastasis. [facility], , 07/13/2024 11:50 AM
--- NOTE | 2024-07-13 12:04 | MR ---
EXAMINATION TYPE: MR lumbar spine wo/w con DATE OF EXAM: 07/13/2024 11:48 AM COMPARISON: None. CLINICAL INDICATION: Male, 79 years old with history of intractable back pain/bone mets, Intractable back pain, bone mets. TECHNIQUE: Multiplanar, multisequence images of the lumbar spine were acquired. IV Contrast: 7 mL Gadobutrol (None, if empty) FINDINGS: Cord ends at the L1-L2 level. There are multiple levels of heterogenous signal through the lumbar spine compatible with metastatic disease. L5-S1: Disc space narrowing is present. Mild disc bulge has anterior thecal sac contact. No AP spinal canal stenosis present. Mild facet hypertrophy is present. Left foraminal stenosis present. L4-L5: Mild disc bulge and thecal sac flattening. Facet hypertrophy and ligamentum flavum laxity post erior lateral thecal sac compression. Mild canal narrowing is present. No AP spinal canal stenosis pr esent. Moderate bilateral foraminal stenosis is present. L3-L4: No focal disc herniation or significant disc bulge. There is a superior endplate L3 soft tiss ue density extending into the vertebral body. Schmorl's node and neoplasm could be considered. No spi nal canal stenosis. Neural foramen are patent. L2-L3: No focal disc herniation or significant disc bulge. No spinal canal stenosis. Neural foramen are patent. Mild facet hypertrophy is present L1-L2: Mild disc bulge with anterior thecal sac contact. No AP spinal canal stenosis is present. T12-L1: No focal disc herniation or significant disc bulge. No spinal canal stenosis. Neural forame n are patent. IMPRESSION: 1. Extensive changes through the lumbar spine vertebral bodies compatible with metastatic disease, gr eatest L3 and L5. 2. Disc bulging L5-S1 and L4-5 with anterior thecal sac flattening. 3. Some mild canal narrowing at L4-5 is present from facet hypertrophy and ligamentum flavum laxity. [facility], , 07/13/2024 12:01 PM
[2024-07-13 12:20] LABS: Glucose,Whole Blood 104 mg/dL (70-110)
--- NOTE | 2024-07-13 13:01 | P.CONS ---
History of Present Illness - Reason for Consult Consult date: 07/13/24 intractable pain Requesting physician: Susie George - Chief Complaint BLE weakness, back pain - History of Present Illness Mr Reeves is a 79 year old male with multiple medical issues, who recently established care with Dr. Go for metastatic disease. The patient was noted to have elevated PSA, with deviation of the elevation not known at this time. According to available labs, in 02/23 it was 20.9, and in 03/25 17.9. 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 The patient then had DNA methylation test ordered by neurology, which confirmed a 57% likelihood of detecting cancer repeat biopsy. However the patient did not follow-up, as he was having other medical issues at the time. According to his family, who provided a significant amount of the history, these appear to be related to lightheadedness and near syncopal episodes CT brain and C-spine without contrast in 05/27 showed age-related atrophic and chronic small vessel ischemic change without any acute pathology. PSA in 10/24 w as 18.1. The patient had MRI of the prostate in 11/24, showing BI-RADS 5 lesion in the mid gland, crossing the midline, 3.8 x 2.2 x 3.6 cm there was no obvious extracapsular extension seen. It appears that the patient continued to refuse follow-up with urology. The patient started developing back pain in the mid to lower back, starting around 02/24. This has been progressive since. CT abdomen and pelvis with contrast on 05/25/24 showed some wall thickening of the urinary bladder, with mild constipation, with no other acute findings. Bone scan from 06/21/24 showed extensive bony metastatic disease involving proximal humeri, left scapula, bilateral ribs, lower sternum, thoracic and lumbar segments of the spine, sacrum, left hemipelvis, and right femur. MRI lumbar spine without contrast showed diffuse abnormal appearance He reports progressive decrease in his ability to bear weight and ambulate, especially over the past few weeks. He has had multiple falls and has had several visits to the ER for falls, and back pain. Most recent one was in 07/10/24. On close questioning he endorses some changes in sensation in the lower extremities, as well as episodes of loss of control of the bladder and bowel. Given his history, and PSA level, metastatic disease from the prostate is the primary differential. However he different primary with metastasis to the bone is not ruled out at this time. The immediate concern, given the patient's symptoms and physical exam, is early cord compression. He has extensive involvement throughout the spine. He has been having progressive symptoms, over the last several weeks with decreasing ability to ambulate, and multiple falls. Physical exam was concerning for possible patchy sensation loss of the lower extremities, as well as reported intermittent episodes of loss of bowel and bladder control, the patient was referred to the ER for admission and further evaluation with MRI spinal survey and spinal surgery consult. Patient has been started on IV decadron. At todays visit, he is reporting some improvement in symptoms. X-rays of LS spine, left humerus, right femur and pelvis negative for acute fracture. MRI thoracic and cervical spine have been ordered and are scheduled for today. MRI lumbar spine has also been ordered by admitting team. Review of Systems 10 point ROS is negative except as stated in the HPI Past Medical History Past Medical History: Diabetes Mellitus, Hyperlipidemia, Hypertension, Myocardial Infarction (NE), Osteoarthritis (OA), Prostate Disorder, Sleep Apnea/CPAP/BIPAP Additional Past Medical History / Comment(s): type 1 diabetes,has CPAP at home, back pain started in 2023 - metastatic cancer to bone but primary source is still unknown. Last Myocardial Infarction Date:: 1999 History of Any Multi-Drug Resistant Organisms: None Reported Past Surgical History: Orthopedic Surgery Additional Past Surgical History / Comment(s): Right Knee replacement, cataracts surgery, Left knee steriod injection,biopsy of prostate by Dr. Devries 2023 Past Anesthesia/Blood Transfusion Reactions: No Reported Reaction Past Psychological History: No Psychological Hx Reported Smoking Status: Former smoker Past Alcohol Use History: None Reported Past Drug Use History: None Reported - Past Family History Father Additional Family Medical History / Comment(s): brain aneurysm Mother Family Medical History: Coronary Artery Disease (CAD), Diabetes Mellitus Medications and Allergies Home Medications Medication Instructions Recorded Confirmed Type Tamsulosin [Flomax] 0.4 mg PO PC-BRKFST 03/23/21 07/11/24 History Clopidogrel [Plavix] 75 mg PO HS 05/10/23 07/11/24 History Empagliflozin/Metformin HCl 1 tab PO BID 05/10/23 07/11/24 History [Synjardy 12.5-1,000 mg Tablet] Rosuvastatin [Crestor] 10 mg PO HS 05/10/23 07/11/24 History lisinopriL [Zestril] 10 mg PO DAILY #30 tab 05/11/23 07/11/24 Rx HYDROcodone/APAP 10-325MG [[place] 1 tab PO Q6HR PRN 3 Days #12 tab 07/10/24 07/11/24 Rx 10-325] Insulin Degludec [Tresiba 20 units SQ AC-SUPPER 07/11/24 07/11/24 History Flextouch U-100 Pen] Ondansetron Odt [Zofran Odt] 4 mg PO QID PRN 07/11/24 07/11/24 History Pantoprazole [Protonix] 40 mg PO DAILY 07/11/24 07/11/24 History Semaglutide [Ozempic] 1 mg SQ TU 07/11/24 07/11/24 History Allergies Allergy/AdvReac Type Severity Reaction Status Date / Time aspirin AdvReac Abdominal Verified 07/11/24 14:16 Pain Physical Exam Vitals: Vital Signs Temp Pulse Pulse Resp BP BP Pulse Ox 07/12/24 07:15 97.6 F 82 22 142/77 93 L 07/12/24 01:12 97.5 F L 81 17 123/64 94 L 07/11/24 19:02 98.3 F 94 16 156/78 94 L 07/11/24 15:43 98.2 F 79 16 135/79 96 07/11/24 11:15 97.8 F 88 18 139/71 95 Intake and Output 07/11/24 07/12/24 07/12/24 22:59 06:59 14:59 Intake Total 480 Balance 480 Intake: Oral 480 Other: Voiding Method Toilet Toilet Urinal Urinal # Voids 1 # Bowel Movements 1 Weight 72.575 kg - Constitutional General appearance: average body habitus, no acute distress - EENT Eyes: anicteric sclerae, EOMI ENT: hearing grossly normal - Respiratory Respiratory: bilateral: CTA - Cardiovascular Rhythm: regular - Gastrointestinal General gastrointestinal: soft, no tenderness - Integumentary Integumentary: no cyanotic - Musculoskeletal BLE weakness, sensation intact - Psychiatric Psychiatric: A&O x's 3 Results CBC & Chem 7: 07/13/24 05:37 07/13/24 05:37 Labs: Abnormal Lab Results - Last 24 Hours (Table) 07/11/24 07/11/24 07/11/24 Range/Units 12:34 12:34 12:35 WBC 11.76 H (4.50-10.00) 10*3/uL RBC 3.60 L (4.40-5.60) 10*6/uL Hgb 11.3 L (13.0-17.0) g/dL Hct 32.5 L (39.6-50.0) % MPV 9.1 L (9.5-12.2) fL Immature Gran # 0.08 H (0.00-0.04) 10*3/uL Neutrophils # 8.75 H (1.80-7.70) 10*3/uL Monocytes # 1.56 H (0.20-1.00) 10*3/uL Eosinophils # 0.02 L (0.04-0.35) 10*3/uL Sodium 133 L (137-145) mmol/L Chloride 97 L (98-107) mmol/L POC Glucose (mg/dL) (70-110) mg/dL Hemoglobin A1c 7.0 H (<=6.0) % Calcium 8.3 L (8.4-10.2) mg/dL AST 61 H (17-59) U/L Alkaline Phosphatase 712 H (38-126) U/L 07/11/24 07/11/24 07/12/24 Range/Units 18:18 20:09 07:11 WBC (4.50-10.00) 10*3/uL RBC (4.40-5.60) 10*6/uL Hgb (13.0-17.0) g/dL Hct (39.6-50.0) % MPV (9.5-12.2) fL Immature Gran # (0.00-0.04) 10*3/uL Neutrophils # (1.80-7.70) 10*3/uL Monocytes # (0.20-1.00) 10*3/uL Eosinophils # (0.04-0.35) 10*3/uL Sodium (137-145) mmol/L Chloride (98-107) mmol/L POC Glucose (mg/dL) 173 H 151 H 134 H (70-110) mg/dL Hemoglobin A1c (<=6.0) % Calcium (8.4-10.2) mg/dL AST (17-59) U/L Alkaline Phosphatase (38-126) U/L Assessment and Plan (1) History of prostate disorder Current Visit: Yes Status: Acute Priority: High Code(s): Z87.438 - PERSONAL HISTORY OF OTHER DISEASES OF MALE GENITAL ORGANS SNOMED Code(s): 458894196 (2) Intractable pain Current Visit: Yes Status: Acute Priority: High Code(s): R52 - PAIN, UNSPECIFIED SNOMED Code(s): 66116625 (3) Back pain Current Visit: Yes Status: Acute Priority: High Code(s): M54.9 - DORSALGIA, UNSPECIFIED SNOMED Code(s): 128866680 Plan: Metastatic disease, suspected prostate primary: Presented for progressing low back pain and BLE weakness, with frequent falls -History as dictated in the HPI -Recently established care with Dr. Go, being worked up for metatstatic disease, likely prostate primary -Bone scan from 06/21/24 showed extensive bony metastatic disease involving proximal humeri, left scapula, bilateral ribs, lower sternum, thoracic and lumb ar segments of the spine, sacrum, left hemipelvis, and right femur. MRI lumbar spine without contrast showed diffuse abnormal appearance -PSA previously has been elevated but stable in the 17-18 range. Will repeat PSA -IV decadron started -Orthopedic surgery consulted -MRI thoracic and cervical spine have been ordered. MRI lumbar spine has also been ordered by admitting team. -Thoracic and cervical MRI showing diffuse signal change with enhancement throughout the thoracic vertebral bodies. Inferior endplate changes at T9. Central and left paracentral disc bulging with moderate anterior thecal sac compression at C6-7. Large central and left paracentral disc herniation with subligamentous disc extension with moderate anterior thecal sac compression without cord contact C7-T1. C5-6 disc bulging has moderate anterior thecal sac compression. Signal change C6 and T1-T2. Case discussed with orthopedic surgery, Dr. Pisano, will plan for biopsy of lumbar lesion next Monday. Will obtain CT chest abdomen pelvis to complete staging PT consulted Dr attests: I have performed H&P and developed impression and plan of care for patient, discussed with dictator. I agree with dictated noted, documented as a scribe
[2024-07-13 17:08] LABS: Glucose,Whole Blood 154 mg/dL (70-110)
[2024-07-13 20:24] LABS: Glucose,Whole Blood 257 mg/dL (70-110)
--- NOTE | 2024-07-13 22:35 | P.PN ---
Subjective Progress Note Date: 07/13/24 79-year-old male admitted for intractable pain. He has recently diagnosed with metastatic prostate cancer. He was home and had multiple falls and has had significant pain. He is admitted after being evaluated by the ER and oncology for appropriate pain control. Past medical history includes sherrie wallis. Otherwise his past medical history includes coronary artery disease metastatic prostate cancer hypertension and hyperlipidemia and sleep apnea. Objective - Vital Signs Vital signs: Vital Signs Temp 97.3 F L 07/13/24 14:00 Pulse 72 07/13/24 14:00 Resp 18 07/13/24 14:00 BP 134/71 07/13/24 14:00 Pulse Ox 98 07/13/24 14:00 FiO2 Intake & Output 07/12/24 07/13/24 07/13/24 18:59 06:59 18:59 Other: Voiding Method Toilet Toilet Toilet Urinal Urinal Urinal # Voids 1 1 - Exam - Constitutional General appearance: Present: average body habitus, cooperative, no acute distress - EENT Eyes: Present: anicteric sclerae, EOMI, PERRLA, normal appearance ENT: Present: hearing grossly normal, normal oropharynx Ears: bilateral: normal - Neck Neck: Present: normal ROM. Absent: lymphadenopathy, rigidity, thyromegaly Carotids: negative: bruit present Thyroid: bilateral: normal size, negative: enlarged, nodule - Respiratory Respiratory: bilateral: CTA, negative: rales, rhonchi, wheezing - Cardiovascular Rhythm: regular Heart sounds: normal: S1, S2 Abnormal Heart Sounds: Absent: systolic murmur, diastolic murmur - Gastrointestinal General gastrointestinal: Present: normal bowel sounds, soft. Absent: distended, organomegaly, tenderness - Genitourinary Genitourinary Comment(s): deferred - Integumentary Integumentary: Present: normal turgor. Absent: jaundiced, rash, ulcer - Neurologic Neurologic: Present: CNII-XII intact. Absent: focal deficits - Musculoskeletal Musculoskeletal: Present: gait normal, strength equal bilaterally - Psychiatric Psychiatric: Present: A&O x's 3, appropriate affect, intact judgment & insight - Labs CBC & Chem 7: 07/13/24 05:37 07/13/24 05:37 Labs: Abnormal Lab Results - Last 24 Hours (Table) 04/02/2507/12/24 07/13/24 Range/Units 17:54 20:04 05:37 WBC 11.18 H (4.50-10.00) X 10*3/uL RBC 3.40 L (4.40-5.60) X 10*6/uL Hgb 10.1 L (13.0-17.0) g/dL Hct 31.3 L (39.6-50.0) % MPV 9.1 L (9.5-12.2) FL Sodium (135-145) mmol/L Anion Gap (4.00-12.00) mmol/L BUN (9.0-27.0) mg/dL BUN/Creatinine Ratio (12.00-20.00) Ratio Glucose (70-110) mg/dL POC Glucose (mg/dL) 220 H 209 H (70-110) mg/dL Calcium (8.7-10.3) mg/dL AST (14-35) U/L Alkaline Phosphatase (41-126) U/L Total Protein (6.2-8.2) g/dL Albumin (3.8-4.9) g/dL Albumin/Globulin Ratio (1.60-3.17) Ratio 07/13/24 07/13/24 Range/Units 05:37 06:51 WBC (4.50-10.00) X 10*3/uL RBC (4.40-5.60) X 10*6/uL Hgb (13.0-17.0) g/dL Hct (39.6-50.0) % MPV (9.5-12.2) FL Sodium 134 L (135-145) mmol/L Anion Gap 12.20 H (4.00-12.00) mmol/L BUN 34.3 H (9.0-27.0) mg/dL BUN/Creatinine Ratio 34.30 H (12.00-20.00) Ratio Glucose 146 H (70-110) mg/dL POC Glucose (mg/dL) 137 H (70-110) mg/dL Calcium 7.8 L (8.7-10.3) mg/dL AST 63 H (14-35) U/L Alkaline Phosphatase 601 H (41-126) U/L Total Protein 5.6 L (6.2-8.2) g/dL Albumin 3.1 L (3.8-4.9) g/dL Albumin/Globulin Ratio 1.24 L (1.60-3.17) Ratio Assessment and Plan Assessment: Intractable pain Prostate cancer with metastases to bone Diabetes mellitus Coronary artery disease/history of myocardial infarction Patient has been admitted for further workup; oncology on board --Continue with Accu-Cheks; continue with sliding scale -Continue with home med
[2024-07-14 07:14] LABS: Glucose,Whole Blood 167 mg/dL (70-110)
[2024-07-14 12:13] LABS: Glucose,Whole Blood 260 mg/dL (70-110)
--- NOTE | 2024-07-14 16:53 | P.PN ---
Subjective Progress Note Date: 07/14/24 79-year-old male admitted for intractable pain. He has recently diagnosed with metastatic prostate cancer. He was home and had multiple falls and has had significant pain. He is admitted after being evaluated by the ER and oncology for appropriate pain control. Past medical history includes sherrie wallis. Otherwise his past medical history includes coronary artery disease metastatic prostate cancer hypertension and hyperlipidemia and sleep apnea. 07/14/2024 Patient is seen and evaluated sitting up in bedside chair; has been using brace and report improved pain and mobility Vital signs are reviewed and are stable -Thoracic and cervical MRI showing diffuse signal change with enhancement throughout the thoracic vertebral bodies. Inferior endplate changes at T9. Ashley tral and left paracentral disc bulging with moderate anterior thecal sac compression at C6-7. Large central and left paracentral disc herniation with subligamentous disc extension with moderate anterior thecal sac compression without cord contact C7-T1. C5-6 disc bulging has moderate anterior thecal sac compression. Signal change C6 and T1-T2. Case discussed with orthopedic surgery, Dr. Pisano, will plan for biopsy of lumbar lesion next Monday. Will obtain CT chest abdomen pelvis to complete staging PT consulted Objective - Vital Signs Vital signs: Vital Signs Temp 97.5 F L 07/14/24 08:00 Pulse 65 07/14/24 08:00 Resp 20 07/14/24 08:00 BP 118/71 07/14/24 08:00 Pulse Ox 98 07/14/24 08:00 FiO2 Intake & Output 07/13/24 07/14/24 07/14/24 18:59 06:59 18:59 Intake Total 200 Balance 200 Intake: Oral 200 Other: Voiding Method Toilet Toilet Toilet Urinal Urinal Urinal # Voids 4 1 - Exam - Constitutional General appearance: Present: average body habitus, cooperative, no acute distress - EENT Eyes: Present: anicteric sclerae, EOMI, PERRLA, normal appearance ENT: Present: hearing grossly normal, normal oropharynx Ears: bilateral: normal - Neck Neck: Present: normal ROM. Absent: lymphadenopathy, rigidity, thyromegaly Carotids: negative: bruit present Thyroid: bilateral: normal size, negative: enlarged, nodule - Respiratory Respiratory: bilateral: CTA, negative: rales, rhonchi, wheezing - Cardiovascular Rhythm: regular Heart sounds: normal: S1, S2 Abnormal Heart Sounds: Absent: systolic murmur, diastolic murmur - Gastrointestinal General gastrointestinal: Present: normal bowel sounds, soft. Absent: dis tended, organomegaly, tenderness - Genitourinary Genitourinary Comment(s): deferred - Integumentary Integumentary: Present: normal turgor. Absent: jaundiced, rash, ulcer - Neurologic Neurologic: Present: CNII-XII intact. Absent: focal deficits - Musculoskeletal Musculoskeletal: Present: gait normal, strength equal bilaterally - Psychiatric Psychiatric: Present: A&O x's 3, appropriate affect, intact judgment & insight - Labs CBC & Chem 7: 07/13/24 05:37 07/13/24 05:37 Labs: Abnormal Lab Results - Last 24 Hours (Table) 07/13/24 07/13/24 07/14/24 Range/Units 17:07 20:22 07:12 POC Glucose (mg/dL) 154 H 257 H 167 H (70-110) mg/dL Assessment and Plan Assessment: Intractable pain Prostate cancer with metastases to bone Diabetes mellitus Coronary artery disease/history of myocardial infarction Patient has been admitted for further workup; oncology on board --Continue with Accu-Cheks; continue with sliding scale -Continue with home med
[2024-07-14 17:06] LABS: Glucose,Whole Blood 294 mg/dL (70-110)
[2024-07-14 20:16] LABS: Glucose,Whole Blood 210 mg/dL (70-110)
[2024-07-14] MEDS: MORPHINE SULFATE 4 MG/ML SYRINGE IVP PRN (21:15)
[2024-07-14] MEDS: HYDROmorphone 2 MG/ML 1 ML SYRINGE IVP PRN (21:58)
[2024-07-14] MEDS: ONDANSETRON 4 MG/2 ML VIAL IVP PRN (22:03)
[2024-07-14] MEDS: LORazepam 1 MG/0.5 ML VIAL IV PRN (23:09)
[2024-07-15 07:05] LABS: Glucose,Whole Blood 86 mg/dL (70-110)
--- NOTE | 2024-07-15 08:53 | P.PN ---
Subjective Progress Note Date: 07/15/24 This is an 79-year-old male who was admitted for intractable pain. Patient has had a recent workup for metastatic prostate cancer. Patient has been living at home with his and reportedly has had multiple falls at home. He did see oncology for the first time last Monday and they recommended he be admitted for pain control. Patient underwent thoracic and cervical MRI which shows diffuse signal change with enhancement throughout the thoracic vertebral bodies. Inferior endplate changes at T9. Central and left paracentral disc bulging with moderate anterior thecal sac compression at C6-7. Large central and left paracentral disc herniation with subligamentous disc extension with moderate anterior thecal sac compression without cord contact C7-T1. C5-6 disc bulging has moderate anterior thecal sac compression. Signal change C6 and T1-T2. Oncology and orthopedic surgery are on consult. Reportedly there is a plan for possible biopsy of the lumbar lesion tomorrow. Patient did have an episode of uncontrolled pain last night, was given Dilaudid and pain is much better this morning. Patient seen this morning sitting in chair at bedside with numerous family members present. They are waiting to talk to oncology today about plan moving forward. Objective - Vital Signs Vital signs: Vital Signs Temp 97.9 F 07/15/24 07:49 Pulse 73 07/15/24 07:49 Resp 20 07/15/24 07:49 BP 157/75 07/15/24 07:49 Pulse Ox 95 07/15/24 07:49 FiO2 Intake & Output 07/14/24 07/15/24 07/15/24 18:59 06:59 18:59 Intake Total 240 Balance 240 Intake: Oral 240 Other: Voiding Method Toilet Toilet Toilet Urinal Urinal Urinal # Voids 1 2 # Bowel Movements 0 - Constitutional General appearance: Present: cooperative, no acute distress - EENT Eyes: Present: PERRLA - Neck Neck: Present: normal ROM. Absent: lymphadenopathy, rigidity - Respiratory Respiratory: bilateral: diminished - Cardiovascular Heart sounds: normal: S1, S2 - Gastrointestinal General gastrointestinal: Present: soft. Absent: tenderness - Integumentary Integumentary: Present: normal, normal turgor - Musculoskeletal Musculoskeletal: Present: generalized weakness - Psychiatric Psychiatric: Present: A&O x's 3, appropriate affect, intact judgment & insight - Labs CBC & Chem 7: 07/13/24 05:37 04/12/25 05:37 Labs: Abnormal Lab Results - Last 24 Hours (Table) 07/14/24 07/14/24 07/14/24 Range/Units 12:10 17:04 20:14 POC Glucose (mg/dL) 260 H 294 H 210 H (70-110) mg/dL Assessment and Plan (1) Intractable pain Current Visit: Yes Status: Acute Priority: High Code(s): R52 - PAIN, UNSPECIFIED SNOMED Code(s): 91097646 (2) Osteophyte Current Visit: Yes Status: Acute Code(s): M25.70 - OSTEOPHYTE, UNSPECIFIED JOINT SNOMED Code(s): 502672663598573 (3) Prostate cancer Current Visit: Yes Status: Acute Code(s): C61 - MALIGNANT NEOPLASM OF PROSTATE SNOMED Code(s): 911196941 (4) CAD (coronary artery disease) Current Visit: No Status: Acute Code(s): I25.10 - ATHSCL HEART DISEASE OF [place] CORONARY ARTERY W/O ANG PCTRS SNOMED Code(s): 31547598 (5) Cancer, metastatic to bone Current Visit: No Status: Acute Code(s): C79.51 - SECONDARY MALIGNANT NEOPLASM OF BONE SNOMED Code(s): 37688716 (6) Diabetes Current Visit: No Status: Acute Code(s): E11.9 - TYPE 2 DIABETES MELLITUS WITHOUT COMPLICATIONS SNOMED Code(s): 16110665 (7) Hypertension Current Visit: No Status: Acute Code(s): I10 - ESSENTIAL (PRIMARY) HYPERTENSION SNOMED Code(s): 63788145 Plan: Await recommendations from oncology. Patient seen and evaluated by nurse practitioner, physician in agreement with plan.
[2024-07-15 11:56] LABS: Glucose,Whole Blood 122 mg/dL (70-110)
--- NOTE | 2024-07-15 12:38 | P.PN ---
Progress Note - Text Progress Note Date: 07/15/24 Orthopedic spine: History of present illness: Patient is a very pleasant 79-year-old male who is seen examined at the bedside for follow-up evaluation with multiple family members present. He was seen and evaluated by Dr. Go in the outpatient setting yesterday and was referred to come to the hospital for admission for pain control. Patient states he has been experiencing ongoing low back pain near the lumbosacral junction since February 2024 without injury. He is not currently experiencing any significant lower extremity weakness or radiculopathy bilaterally. Patient is known to have metastatic cancer. Medicine notes states this is recently diagnosed as prostate. Patient states he just learned of their diagnosis yesterday and was not sure of the primary source. Patient did have bone scan imaging performed taken on 06/21/2024 which showed evidence of bony metastatic disease to the proximal humerus, left scapula, bilateral ribs, sternal body, thoracic and lumbar spines, sacrum, left hemipelvis, and right femur. Patient is neurova scular intact with his lower extremities. Since being admitted multiple imaging modalities have been ordered and performed with x-ray imaging. Multiple MRIs of the cervical, thoracic, lumbar spine have been performed and have been reviewed as well. Patient is admitted to medicine. Patient was prescribed and fit with LSO bracing. Since that time his back pain has improved. Dr. Go discussed the patient in detail with Dr. Rogerio Pisano and requests bone biopsy. Currently, we will plan to proceed forward with bone biopsy tomorrow, 07/16/2024. Patient may eat today and will become n.p.o. status in anticipation for bone biopsy tomorrow. Patient must be cleared by medicine. Patient's imaging was discussed in significant detail with the patient and his family. We again did discuss were not currently planning for acute surgical intervention in regards to his lumbar spine or right femur. We are planning proceed forward with the bone biopsy per request of oncology. Physical exam: Patient is awake, alert, and oriented 3 Vital signs stable Good chest excursion with deep inspiration and expiration Examination of lumbar spine reveals skin is intact with no abrasions, lacerations, or bruises; no erythema, purulence or signs of infection Dorsiflexion, plantarflexion, and extensor hallucis longus positive sustained bilaterally Lower extremity strength 5/5 bilaterally No lower extremity hyperreflexia bilaterally Straight leg test negative bilateral lower extremities No signs or symptoms of DVT; no calf pain No pain with internal and external rotation of the hips bilaterally Neurovascularly intact Pertinent Studies: MRI of the lumbar spine taken on 07/13/2024: Extensive changes throughout the lumbar spine vertebral bodies compatible with metastatic disease most significant at L3 and L5; L4-5 disc bulge and facet spondylosis with ligamentum flavum hypertrophy resulting in moderate central canal spinal stenosis and bilat eral foraminal; L5-S1 disc bulging and facet spondylosis with bilateral foraminal stenosis greater on the left than the right MRI of the cervical and thoracic spine taken on 07/12/2024: Signal change at C6 and T1-2 suspicious for metastatic disease; C5-6 degenerative disc disease, disc herniation, and spondylosis with central canal stenosis and right foraminal stenosis C6-7 central left paracentral disc bulging with thecal sac compression and left greater than right neuroforaminal stenosis; diffuse signal change enhancement throughout the thoracic vertebral bodies suspicious for metastatic disease; inferior endplate change at T9 X-rays of the lumbosacral spine taken on 07/12/2024: No lytic or blastic lesions; no evidence of acute osseous pathology; no compression fracture deformity; osteophytic spurring X-rays of the left humerus taken on 07/12/2024: No osteolytic or osteoblastic lesions; no acute osseous pathology; moderate left shoulder osteoarthritis changes X-ray of the pelvis and right femur taken on 07/12/2024: No lytic or sclerotic lesion identified; no acute osseous pathology; moderate degenerative changes of the hips with cam deformity; no bony cortical destruction within the right femur; evidence of right total knee arthroplasty with hardware Nuclear medicine whole-body bone scan imaging taken on 06/21/2024: Evidence of bony metastatic disease to the proximal humerus, left scapula, bilateral ribs, sternal body, thoracic and lumbar spines, sacrum, left hemipelvis, and right femur. 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 Patient has been experiencing ongoing low back pain near the lumbosacral junction since February 2024. He did recently undergo nuclear medicine bone scan imaging on 06/21/2024 which shows evidence of bony metastatic disease to the proximal humerus, left scapula, bilateral ribs, sternal body, thoracic and lumbar spines, sacrum, left hemipelvis, and right femur. Cervical, thoracic, lumbar MRI imaging has been performed and reviewed. There are significant bony changes within the thoracic and lumbar spines most compatible with metastatic disease. He has undergone multiple imaging modalities with x-ray. X-ray imaging does not show evidence of lytic or sclerotic lesions identified. I do not see any cortical bone destruction. Patient is neurovascularly intact to his bilateral lower extremities. He does not have specific weakness with his lower extremities. I do not see neurologic compromise. Patient's imaging was discussed in significant detail with the patient and his family. We again did discuss were not currently planning for acute surgical intervention in regards to his lumbar spine or right femur. We are planning proceed forward with the bone biopsy per request of oncology. Currently, we will plan with conservative treatment. We will plan for LSO bracing. Prescription has been written, signed, and provided to case management to obtain his bracing. This bracing may be utilized for comfort and support with increased activities as needed. Brace does not need to be worn while lying in bed or bathing. Dr. Go discussed the patient in detail with Dr. Rogerio Pisano and requests bone biopsy. Currently, we will plan to proceed forward with bone biopsy tomorrow, 07/16/2024. Patient may eat today and will become n.p.o. status in anticipation for bone biopsy tomorrow. Patient must be cleared by medicine. 2. Patient will continue with extensive workup with oncology. Patient will continue be seen examined by medicine for his other medical diagnoses as well. Patient will need clearance by medicine prior to L5 bone biopsy tomorrow. Patient is on Plavix which is currently being held. 3. We could consider evaluation and possible treatment with interventional radiology following completion and reviewing of further imaging. We could defer this to Dr. Go in patient has been experiencing oncology.
[2024-07-15] MEDS: HYDROcodone/APAP 10-325MG 1 EACH TAB PO PRN (13:55)
[2024-07-15 17:07] LABS: Glucose,Whole Blood 226 mg/dL (70-110)
--- NOTE | 2024-07-15 19:44 | P.PN ---
Subjective Progress Note Date: 07/15/24 Principal diagnosis: painful spinal lesions In follow-up today patient is sitting in the chair, and 3 daughters at the bedside. Patient had an episode of severe breakthrough pain overnight that required IV pain medications. Patient has no new symptoms to report at this [facility] Objective - Vital Signs Vital signs: Vital Signs Temp 97.7 F 07/15/24 11:56 Pulse 65 07/15/24 11:56 Resp 20 07/15/24 11:56 BP 155/78 07/15/24 11:56 Pulse Ox 95 07/15/24 11:56 FiO2 Intake & Output 07/14/24 07/15/24 07/15/24 18:59 06:59 18:59 Intake Total 240 Balance 240 Intake: Oral 240 Other: Voiding Method Toilet Toilet Toilet Urinal Urinal Urinal # Voids 1 2 # Bowel Movements 0 - Constitutional General appearance: Present: average body habitus, cooperative, no acute distress - EENT Eyes: Present: anicteric sclerae, EOMI ENT: Present: hearing grossly normal - Respiratory Details: resp unlabored at rest - Cardiovascular Details: skin warm, well perfused - Peripheral edema leg Peripheral Edema: bilateral: None - Integumentary Integumentary: Present: normal - Neurologic Neurologic: Present: CNII-XII intact - Musculoskeletal Musculoskeletal: Present: generalized weakness - Psychiatric Psychiatric: Present: A&O x's 3, appropriate affect, intact judgment & insight - Labs CBC & Chem 7: 07/13/24 05:37 07/13/24 05:37 Labs: Abnormal Lab Results - Last 24 Hours (Table) 07/14/24 07/14/24 07/15/24 Range/Units 17:04 20:14 11:54 POC Glucose (mg/dL) 294 H 210 H 122 H (70-110) mg/dL - Imaging and Cardiology CT scan - abdomen: report reviewed CT scan - chest: report reviewed CT scan - pelvis: report reviewed Assessment and Plan (1) Intractable low back pain Current Visit: Yes Status: Acute Code(s): M54.59 - OTHER LOW BACK PAIN SNOMED Code(s): 51571670126658528 (2) Prostate cancer Current Visit: Yes Status: Acute Code(s): C61 - MALIGNANT NEOPLASM OF PROSTATE SNOMED Code(s): 314853944 Plan: Metastatic disease, suspected prostate primary Presented for progressing low back pain and BLE weakness, with frequent falls -History as dictated in consult -Recently established care with Dr. Go, being worked up for metatstatic disease, likely prostate primary -Bone scan from 06/21/24 showed extensive bony metastatic disease involving proximal humeri, left scapula, bilateral ribs, lower sternum, thoracic and lumbar segments of the spine, sacrum, left hemipelvis, and right femur. MRI lumbar spine without contrast showed diffuse abnormal appearance -PSA previously has been elevated but stable in the 17-18 range. PSA repeated, resulted after pt seen, elevated at 31 -IV decadron started, continue. PPI ordered. Will need to continue steroids, plan for taper -Orthopedic surgery consulted, pending bone biopsy, I think planned for tomorrow or Monday -MRI thoracic, cervical and lumbar spine MRI of the thoracic and cervical spine reporting diffuse signal change with enhancement throughout the vertebral bodies, suspicious for metastatic disease. Lumbar spine MRI reporting extensive changes in the vertebral bodies compatible with metastatic disease, greatest at L4 and L5 CT CAP reporting numerous punctate nodularities within the periphery of the lungs, no enlarged mediastinal or hilar adenopathy. Sclerotic metastasis throughout the spine as well as an area at the right femoral neck and right humeral head suspicious for metastasis -Reviewed pain control with patient and family. Patient is acutely aware that likely we will not be able to get pain to his 0 but, pain needs to be better controlled so he can function. Frequency of [place] has been adjusted. Medications for prevention of narcotic induced constipation ordered. Doctor attests: I performed a history and physical examination of this patient, developed impression and plan of care. Discussed with dictator. I agree with d ictators note, documented as a scribe.
[2024-07-15 20:28] LABS: Glucose,Whole Blood 194 mg/dL (70-110)
[2024-07-16 07:20] LABS: Glucose,Whole Blood 78 mg/dL (70-110)
[2024-07-16] MEDS: PATIENT'S OWN (Semaglutide [Ozempic] 1 MG/0.75 ML Each) SQ SCH (08:02)
--- NOTE | 2024-07-16 08:40 | P.PN ---
Subjective Progress Note Date: 07/16/24 This is an 79-year-old male who was admitted for intractable pain. Patient has had a recent workup for metastatic prostate cancer. Patient has been living at home with his and reportedly has had multiple falls at home. He did see oncology for the first time last Monday and they recommended he be admitted for pain control. Patient underwent thoracic and cervical MRI which shows diffuse signal change with enhancement throughout the thoracic vertebral bodies. Inferior endplate changes at T9. Central and left paracentral disc bulging with moderate anterior thecal sac compression at C6-7. Large central and left paracentral disc herniation with subligamentous disc extension with moderate anterior thecal sac compression without cord contact C7-T1. C5-6 disc bulging has moderate anterior thecal sac compression. Signal change C6 and T1-T2. Oncology and orthopedic surgery are on consult. Reportedly there is a plan for possible biopsy of the lumbar lesion tomorrow. Patient did have an episode of uncontrolled pain last night, was given Dilaudid and pain is much better this morning. Patient seen this morning sitting in chair at bedside with numerous family members present. They are waiting to talk to oncology today about plan moving forward. 07/16/2024 Patient seen and evaluated sitting up in chair at bedside this morning with his daughter present. Patient reports pain has been well-controlled with current regimen. Awaiting possible biopsy of lumbar lesion today with Dr. Pisano. Objective - Vital Signs Vital signs: Vital Signs Temp 98.0 F 07/16/24 07:00 Pulse 67 07/16/24 07:00 Resp 18 07/16/24 07:00 BP 146/70 07/16/24 07:00 Pulse Ox 97 07/16/24 07:00 FiO2 Intake & Output 07/15/24 07/16/24 07/16/24 18:59 06:59 18:59 Intake Total 480 Balance 480 Intake: Oral 480 Other: Voiding Method Toilet Toilet Urinal Urinal # Voids 1 - Constitutional General appearance: Present: cooperative, no acute distress - EENT Eyes: Present: PERRLA - Neck Neck: Present: normal ROM. Absent: lymphadenopathy, rigidity - Respiratory Respiratory: bilateral: CTA - Cardiovascular Heart sounds: normal: S1, S2 - Gastrointestinal General gastrointestinal: Present: soft. Absent: tenderness - Integumentary Integumentary: Present: normal, normal turgor - Musculoskeletal Musculoskeletal: Present: generalized weakness - Psychiatric Psychiatric: Present: A&O x's 3, appropriate affect, intact judgment & insight - Labs CBC & Chem 7: 07/13/24 05:37 07/13/24 05:37 Labs: Abnormal Lab Results - Last 24 Hours (Table) 07/12/24 07/15/24 07/15/24 Range/Units 11:17 11:54 17:03 POC Glucose (mg/dL) 122 H 226 H (70-110) mg/dL Total PSA 31.0 H (<=4.0) ng/mL 07/15/24 Range/Units 20:26 POC Glucose (mg/dL) 194 H (70-110) mg/dL Total PSA (<=4.0) ng/mL Assessment and Plan (1) Intractable pain Current Visit: Yes Status: Acute Priority: High Code(s): R52 - PAIN, UNSPECIFIED SNOMED Code(s): 90679658 (2) Osteophyte Current Visit: Yes Status: Acute Code(s): M25.70 - OSTEOPHYTE, UNSPECIFIED JOINT SNOMED Code(s): 997211197658316 (3) Prostate cancer Current Visit: Yes Status: Acute Code(s): C61 - MALIGNANT NEOPLASM OF PROSTATE SNOMED Code(s): 297637351 (4) CAD (coronary artery disease) Current Visit: No Status: Acute Code(s): I25.10 - ATHSCL HEART DISEASE OF [place] CORONARY ARTERY W/O ANG PCTRS SNOMED Code(s): 61700753 (5) Cancer, metastatic to bone Current Visit: No Status: Acute Code(s): C79.51 - SECONDARY MALIGNANT NEOPLASM OF BONE SNOMED Code(s): 47803569 (6) Diabetes Current Visit: No Status: Acute Code(s): E11.9 - TYPE 2 DIABETES MELLITUS WITHOUT COMPLICATIONS SNOMED Code(s): 26004526 (7) Hypertension Current Visit: No Status: Acute Code(s): I10 - ESSENTIAL (PRIMARY) HYPERTENSION SNOMED Code(s): 79433684 Plan: Appreciate consult oncology and orthopedic. Await biopsy with Dr. Pisano. Patient seen and evaluated by nurse practitioner, physician in agreement with plan.
--- NOTE | 2024-07-16 12:17 | P.PN ---
Progress Note - Text Progress Note Date: 07/16/24 The patient is seen and examined today at bedside. He is sitting up at bedside and wearing his brace and overall comfortable. On exam his vital signs are stable. No fevers. Neurologic status is unchanged. Active range of motion his upper extremities and lower extremities are intact and unchanged assessment and plan Prostate cancer with metastasis We have been asked to obtain a bony sample of the metastatic site. He has obvious findings at L3 and L5 and I think that we can obtain bone biopsy at the L5 pedicle and vertebral body adequately. We discussed the nature of this and the reasoning for this in terms of his oncologic issues. I discussed the risk complications of the procedure and they seem to understand. We answered their questions and we plan to proceed with bone biopsy of L5 today. He will continue n.p.o.
[2024-07-16 12:29] LABS: Glucose,Whole Blood 104 mg/dL (70-110)
--- NOTE | 2024-07-16 13:36 | P.PN ---
Subjective Progress Note Date: 07/16/24 Principal diagnosis: painful spinal lesions In follow-up today patient is sitting up in bed, and 2 daughters at the bedside. Pt reporting pain in the back at a 6, was told to ask for pain meds. Reviewed PSA of 31, which is increased form previous. Bone biopsy is sched for later today. No instances of severe breakthrough pain overnight. No other acute physical c/o. Objective - Vital Signs Vital signs: Vital Signs Temp 97.9 F 07/16/24 12:07 Pulse 69 07/16/24 12:07 Resp 16 07/16/24 12:07 BP 131/66 07/16/24 12:07 Pulse Ox 98 07/16/24 12:07 FiO2 Intake & Output 07/15/24 07/16/24 07/16/24 18:59 06:59 18:59 Intake Total 480 Balance 480 Intake: Oral 480 Other: Voiding Method Toilet Toilet Toilet Urinal Urinal Urinal # Voids 1 - Constitutional General appearance: Present: average body habitus, cooperative, no acute distress - EENT Eyes: Present: anicteric sclerae, EOMI ENT: Present: hearing grossly normal - Respiratory Details: resp unlabored at rest - Cardiovascular Details: skin warm, well perfused - Peripheral edema leg Peripheral Edema: bilateral: None - Integumentary Integumentary: Present: normal - Neurologic Neurologic: Present: CNII-XII intact - Musculoskeletal Musculoskeletal: Present: generalized weakness, strength equal bilaterally - Psychiatric Psychiatric: Present: A&O x's 3, appropriate affect, intact judgment & insight - Labs CBC & Chem 7: 07/13/24 05:37 07/13/24 05:37 Labs: Abnormal Lab Results - Last 24 Hours (Table) 07/12/24 07/15/24 07/15/24 Range/Units 11:17 17:03 20:26 POC Glucose (mg/dL) 226 H 194 H (70-110) mg/dL Total PSA 31.0 H (<=4.0) ng/mL Assessment and Plan (1) Intractable low back pain Current Visit: Yes Status: Acute Priority: High Code(s): M54.59 - OTHER LOW BACK PAIN SNOMED Code(s): 36773310332003612 (2) Prostate cancer Current Visit: Yes Status: Acute Priority: High Code(s): C61 - MALIGNANT NEOPLASM OF PROSTATE SNOMED Code(s): 991862476 Plan: Metastatic disease, suspected prostate primary Presented for progressing low back pain and BLE weakness, with frequent falls -History as dictated in consult -Recently established care with Dr. Go, being worked up for metatstatic disease, likely prostate primary -Bone scan from 06/21/24 showed extensive bony metastatic disease involving proximal humeri, left scapula, bilateral ribs, lower sternum, thoracic and lumbar segments of the spine, sacrum, left hemipelvis, and right femur. MRI lumbar spine without contrast showed diffuse abnormal appearance -Radiation Oncology consulted for painful bone lesions. -PSA previously has been elevated but stable in the 17-18 range. PSA repeated, increased to 31 -IV decadron started, continue. PPI ordered. Will need to continue steroids, plan for taper -Orthopedic surgery consulted, pending bone biopsy, planned for later today -MRI thoracic, cervical and lumbar spine MRI of the thoracic and cervical spine reporting diffuse signal change with enhancement throughout the vertebral bodies, suspicious for metastatic disease. Lumbar spine MRI reporting extensive changes in the vertebral bodies compatible with metastatic disease, greatest at L4 and L5 CT CAP reporting numerous punctate nodularities within the periphery of the lungs, no enlarged mediastinal or hilar adenopathy. Sclerotic metastasis throughout the spine as well as an area at the right femoral neck and right humeral head suspicious for metastasis -Again, reviewed pain control with patient and family. Will work with Pharmacist to convert medication to oral only tomorrow. Medications for prevention of narcotic induced constipation ordered.
[2024-07-16] MEDS: IV FLUID CONTINUATION 1,000 ML IV ONE (14:14)
[2024-07-16 14:21] LABS: Glucose,Whole Blood 102 mg/dL (70-110)
[2024-07-16] MEDS: BUPIVACAINE (PF) 0.5% 30 ML VIAL SQ ONE ×2 (14:51)
[2024-07-16] MEDS: LIDOCAINE 2%-EPI 1:100,000 20 ML VIAL SQ ONE ×2 (14:51)
[2024-07-16] MEDS ORDERED: LIDOCAINE 1% INJ 10MG/ML (20 ML MDV) ONE (15:15)
[2024-07-16] MEDS ORDERED: fentaNYL (PF) 50 MCG/ML 2 ML AMP ONE (15:15)
[2024-07-16] MEDS ORDERED: SUCCINYLCHOLINE CHLORIDE 200 MG/10 ML VIAL IV ONE (15:15)
[2024-07-16] MEDS ORDERED: PROPOFOL 10 MG/ML 20 ML VIAL IV ONE (15:15)
[2024-07-16] MEDS ORDERED: PHENYLEPHRINE-0.9% NACL SYG 1,000 MCG/10 ML SYRINGE ONE (15:15)
[2024-07-16] MEDS ORDERED: MIDAZOLAM 2 MG/2 ML VIAL IV PRN (15:32)
[2024-07-16] MEDS ORDERED: fentaNYL (PF) 50 MCG/ML 2 ML AMP IVP PRN (15:32)
[2024-07-16] MEDS ORDERED: LIDOCAINE 1% (10MG/ML) FOR IV START INTRADERMA PRN (15:32)
[2024-07-16] MEDS ORDERED: HYDROmorphone 0.5 MG/0.5 ML SYRINGE IVP PRN (15:32)
[2024-07-16] MEDS: SODIUM CHLORIDE 0.9% 100 ML with ceFAZolin 2,000 MG IV ONE ×2 (15:55)
[2024-07-16] MEDS ORDERED: BENZOCAINE/MENTHOL LOZENG 1 EACH LOZENGE MUCOUS MEM PRN (16:01)
--- NOTE | 2024-07-16 16:11 | P.OP ---
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 Prostate cancer Low back pain Positive signal change at L5 vertebral body indicative of metastatic cancer Postoperative Diagnosis: Same Anesthesia: GETA Pathology: other (L5 vertebral body biopsy sent to pathology) Condition: stable Disposition: PACU Description of Procedure: BRIEF OPERATIVE NOTE Preoperative Diagnosis: Metastatic cancer with likely vertebral body metastasis L5 Prostate cancer Low back pain Positive signal change at L5 vertebral body indicative of metastatic cancer Postoperative Diagnosis: Same Procedure: Transpedicular vertebral body biopsy of L5 Use of biplanar fluoroscopic guidance Surgeon: Dr. Pisano It Network Engineer: certified anesthesiologist assistant Anesthesia: General anesthesia Estimated blood loss: Less than 10 mL Specimen: L5 vertebral body biopsy sent to pathology in formalin Complications: None apparent Components implanted: None Disposition: To recovery room in good stable condition. OPERATIVE INDICATIONS The patient has been having issues in their back and has been having some problems with his mobility. He has been very recently diagnosed with prostate cancer with likely metastasis in multiple bony locations. Hematology oncology has been working with him and had findings from his prostate biopsy. With the findings of new signal change at multiple levels they asked us to be involved in regards to the possibility of treatment and particularly for a bony biopsy of the vertebral body with metastasis. They wanted to rule out if this was metastasis or an unknown primary at a different location. I discussed this with the patient at length we discussed the different treatment options and the possibility of biopsy. We discussed the different locations for biopsy and felt that the vertebral body had significant signal and would be accessible to obtain biopsy appropriately. We discussed various treatment options including surgery, and the patient wishes to proceed with surgery for biopsy at L5 vertebral body we discussed the risk, patient's alternatives and benefits of surgery including but not limited to, risk of bleeding risk of infection, risk of need for further surgery, risk of decreased, loss of motion, loss of function, cement extravasation, nerve damage, paralysis, heart attack, blindness and . OPERATIVE SUMMARY After discussing all the risks, patient alternatives and benefits at length, the patient elected to proceed with surgical intervention, signed informed consent, and presented for their procedure. The patient was seen and examined in the preoperative holding area and the surgical site was marked. The patient was given antibiotics and brought to the operating room. The patient was sedated and intubated by anesthesia in standard fashion. The patient was positioned on to the operating room table in a prone position on the appropriate well-padded and well molded bilateral chest rolls. We were careful to pad any bony prominences and pressure points. We were careful to maintain the patient's cervical spine and good neutral alignment and position throughout. We used 2 C-arm machines to establish biplanar fluoroscopic guidance in AP and lateral positions. We were able to localize the L5 vertebrae appropriately. The patient was prepped and draped in a normal standard fashion. An appropriate timeout and keystone protocol performed. We were able to proceed with the surgery. The local wound area was infiltrated with local anesthetic. An incision was made over the lateral aspect of the pedicle over the appropriate levels with a small 2 mm stab incision. Intraoperative fluoroscopy was taken which showed a marker at the appropriate level. With the appropriate level positively confirmed, I was able to position a sharp trocar over the lateral aspect of the pedicle. As able to advance the trocar into the pedicle and into the posterior aspect of vertebral body being careful to avoid penetration cephalad caudad or medially. The trocar was placed appropriately into the posterior aspect of vertebral body at the appropriate levels of L5. This was confirmed with C-arm guidance. With the trocar intact I was then able to take a bone biopsy with a biopsy punch. We recorded images of the locations of biopsy at L5. I obtained a good core biopsy of the L5 vertebral body and the biopsy specimen was passed off to be sent to pathology in formalin. With the biopsy obtained, the trochars removed and final images were taken on C- arm. All of the products were removed We were able to proceed with closure. The wound was cleaned and dried and dressed with the appropriate dressing. The drapes were broken down. The patient was gently rolled back onto their hospital bed being careful to maintain their cervical spine and good neutral alignment and position. They were woken up by anesthesia, extubated, and brought to the recovery room in good stable condition. The patient will be admitted to the hospital for observation and for appropriate postoperative care, he will continue his medical management and monitoring and retreatment for his multiple issues. We will continue to follow them closely about the postoperative course.
--- NOTE | 2024-07-16 16:14 | XR ---
EXAMINATION TYPE: XR lumbar spine 2 or 3V, FL guidance operating room Intraoperative/procedural fluor oscopic services were provided. CLINICAL INDICATION:Male, 79 years old with history of L5 BONE BX; , [facility] FINDINGS: Fluoroscopic images demonstrating L5 bone biopsy. No radiographic evidence for complication. Total fluoroscopy time is 17.7 seconds. DAP: 5.1484 Gycm2 Please see the operative/procedural note for further details. [facility], , 07/16/2024 4:11 PM
[2024-07-16 17:14] LABS: Glucose,Whole Blood 104 mg/dL (70-110)
[2024-07-16] MEDS: DEXAMETHASONE SOD PHOSPHATE 4 MG/ML 1 ML VIAL IV ONE (17:19)
[2024-07-16] MEDS: LACTATED RINGERS 1,000 ML IV SCH (17:19)
[2024-07-16] MEDS: ONDANSETRON 4 MG/2 ML VIAL IVP ONE (17:19)
[2024-07-16] MEDS: HYDROmorphone 0.5 MG/0.5 ML SYRINGE IVP PRN (18:17)
[2024-07-16 20:09] LABS: Glucose,Whole Blood 193 mg/dL (70-110)
[2024-07-17 07:04] LABS: Glucose,Whole Blood 131 mg/dL (70-110)
--- NOTE | 2024-07-17 08:15 | P.PN ---
Subjective Principal diagnosis: Metastatic prostate cancer. The patient is status post spinal biopsy. Pain is well-controlled with a mixture of Dilaudid and [place]. He is resting comfortably. No voiding difficulty stated Objective - Vital Signs Vital signs: Vital Signs Temp 98.2 F 07/17/24 07:26 Pulse 73 07/17/24 07:26 Resp 18 07/17/24 07:26 BP 116/69 07/17/24 07:26 Pulse Ox 98 07/17/24 07:26 FiO2 Intake & Output 07/16/24 07/17/24 07/17/24 18:59 06:59 18:59 Intake Total 1340 540 Output Total 5 Balance 1335 540 Intake: IV 800 Oral 540 540 Output: Estimated Blood Loss 5 Other: Voiding Method Toilet Toilet Urinal Urinal # Voids 1 3 - Constitutional General appearance: Present: average body habitus, cooperative - EENT Eyes: Absent: abnormal pupil - Neck Neck: Absent: lymphadenopathy - Respiratory Respiratory: bilateral: diminished - Cardiovascular Rhythm: regular Heart sounds: normal: S1, S2 Abnormal Heart Sounds: Absent: S3 Gallop - Gastrointestinal General gastrointestinal: Present: soft - Labs CBC & Chem 7: 07/13/24 05:37 07/13/24 05:37 Labs: Abnormal Lab Results - Last 24 Hours (Table) 07/16/24 07/17/24 Range/Units 20:08 07:02 POC Glucose (mg/dL) 193 H 131 H (70-110) mg/dL Assessment and Plan (1) Prostate cancer Current Visit: Yes Status: Acute Priority: High Code(s): C61 - MALIGNANT NEOPLASM OF PROSTATE SNOMED Code(s): 372012163 (2) Intractable pain Current Visit: Yes Status: Acute Priority: High Code(s): R52 - PAIN, UNSPECIFIED SNOMED Code(s): 33745880 (3) CAD (coronary artery disease) Current Visit: No Status: Acute Code(s): I25.10 - ATHSCL HEART DISEASE OF [place] CORONARY ARTERY W/O ANG PCTRS SNOMED Code(s): 41839735 (4) Cancer, metastatic to bone Current Visit: No Status: Acute Code(s): C79.51 - SECONDARY MALIGNANT NEOPLASM OF BONE SNOMED Code(s): 24600913 (5) Diabetes Current Visit: No Status: Acute Code(s): E11.9 - TYPE 2 DIABETES MELLITUS WITHOUT COMPLICATIONS SNOMED Code(s): 06573359 (6) History of myocardial infarction Current Visit: No Status: Acute Code(s): I25.2 - OLD MYOCARDIAL INFARCTION SNOMED Code(s): 384284320 Plan: admitted for appropriate control and oncologic workup. Await preliminary biopsy report. Anticipate discharge once cleared by oncology. See orders otherwise
[2024-07-17] MEDS: PANTOPRAZOLE 40 MG TABLET PO SCH (11:41)
[2024-07-17] MEDS: MORPHINE SULFATE ER 15 MG TABLET PO SCH (11:41)
[2024-07-17 12:27] LABS: Glucose,Whole Blood 206 mg/dL (70-110)
--- NOTE | 2024-07-17 14:47 | P.PN ---
Subjective Progress Note Date: 07/17/24 Principal diagnosis: painful spinal lesions In follow-up today patient is sitting up in bed, , 2 daughters and grandson at the bedside. Pt tolerated bone biopsy well, no acute c/o, he is doing ok on current pain mgmt regimen, still used a few doses of IV pain meds. No fevers, N,V, he is tolerating oral intake. He did ambulate today with stand by assist Objective - Vital Signs Vital signs: Vital Signs Temp 98.2 F 07/17/24 07:26 Pulse 73 07/17/24 07:26 Resp 18 07/17/24 07:26 BP 116/69 07/17/24 07:26 Pulse Ox 98 07/17/24 07:26 FiO2 Intake & Output 07/16/24 07/17/24 07/17/24 18:59 06:59 18:59 Intake Total 1340 540 Output Total 5 Balance 1335 540 Intake: IV 800 Oral 540 540 Output: Estimated Blood Loss 5 Other: Voiding Method Toilet Toilet Toilet Urinal Urinal Urinal # Voids 1 3 - Constitutional General appearance: Present: average body habitus, cooperative, no acute distress - EENT Eyes: Present: anicteric sclerae, EOMI ENT: Present: hearing grossly normal - Respiratory Details: resp unlabored at rest - Cardiovascular Details: skin warm, well perfused - Peripheral edema leg Peripheral Edema: bilateral: None - Integumentary Integumentary: Present: normal - Neurologic Neurologic: Present: CNII-XII intact - Musculoskeletal Musculoskeletal: Present: strength equal bilaterally - Psychiatric Psychiatric: Present: A&O x's 3, appropriate affect, intact judgment & insight - Labs CBC & Chem 7: 07/13/24 05:37 07/13/24 05:37 Labs: Abnormal Lab Results - Last 24 Hours (Table) 07/16/24 07/17/24 Range/Units 20:08 07:02 POC Glucose (mg/dL) 193 H 131 H (70-110) mg/dL Assessment and Plan (1) Intractable low back pain Current Visit: Yes Status: Acute Priority: High Code(s): M54.59 - OTHER LOW BACK PAIN SNOMED Code(s): 07070213738139587 (2) Prostate cancer Current Visit: Yes Status: Acute Priority: High Code(s): C61 - MALIGNANT N EOPLASM OF PROSTATE SNOMED Code(s): 681705051 Plan: Metastatic disease, suspected prostate primary Presented for progressing low back pain and BLE weakness, with frequent falls -History as dictated in consult -Recently established care with Dr. Go, being worked up for metatstatic disease, likely prostate primary -Bone scan from 06/21/24 showed extensive bony metastatic disease involving proximal humeri, left scapula, bilateral ribs, lower sternum, thoracic and lumbar segments of the spine, sacrum, left hemipelvis, and right femur. MRI lumbar spine without contrast showed diffuse abnormal appearance -Radiation Oncology consulted for painful bone lesions, reviewe case with Rad Onc today, pending biopsy results to discuss treatment options with pt and family -PSA previously has been elevated but stable in the 17-18 range. PSA repeated, increased to 31 -IV decadron started, changed to oral today in anticipation of discharge to home in the next 24-48 hours. Will need to continue steroids outpt. Plan for taper -MRI thoracic, cervical and lumbar spine MRI of the thoracic and cervical spine reporting diffuse signal change with enhancement throughout the vertebral bodies, suspicious for metastatic disease. Lumbar spine MRI reporting extensive changes in the vertebral bodies compatible with metastatic disease, greatest at L4 and L5 CT CAP reporting numerous punctate nodularities within the periphery of the lungs, no enlarged mediastinal or hilar adenopathy. Sclerotic metastasis throughout the spine as well as an area at the right femoral neck and right humeral head suspicious for metastasis -Pt and family understand pt has metastatic disease, intent of treatment is to control disease and prolong life. -Again, reviewed pain control with patient and family. MS ER added today, to be used with norco for breakthrough pain. If pt tolerates then he can be discharged on the same. --Medications for prevention of narcotic induced constipation ordered. Doctor attests: I performed a history and physical examination of this patient, developed impression and plan of care. Discussed with dictator. I agree with dictators note, documented as a scribe.-
[2024-07-17 17:19] LABS: Glucose,Whole Blood 322 mg/dL (70-110)
[2024-07-17] MEDS: dexAMETHasone 4 MG TAB PO SCH (20:09)
[2024-07-17 20:29] LABS: Glucose,Whole Blood 224 mg/dL (70-110)
[2024-07-18 07:02] LABS: Glucose,Whole Blood 166 mg/dL (70-110)
[2024-07-18 07:27] VITALS: RESP 16
--- NOTE | 2024-07-18 08:54 | P.DS ---
Providers Date of admission: 07/11/24 12:17 Attending physician: Seng Geiger Consults: 07/11/24 12:27 Consult Physician Routine Consulting Provider: Richard Go Consult Reason/Comments: intractable pain Do you want consulting provider notified?: Already Contacted Consult Physician Routine Consulting Provider: Kyra Pisano Consult Reason/Comments: Lumbar metastasis Do you want consulting provider notified?: Yes, Notify in am 07/15/24 13:15 Consult Physician Routine Consulting Provider: Scott Maldonado Consult Reason/Comments: painful lesions to low back-pend Bx Do you want consulting provider notified?: Yes Primary care physician: Richard Abbi - Discharge Diagnosis(es) (1) Intractable pain Current Visit: Yes Status: Acute Priority: High (2) Osteophyte Current Visit: Yes Status: Acute (3) Prostate cancer Current Visit: Yes Status: Acute Priority: High (4) CAD (coronary artery disease) Current Visit: No Status: Acute (5) Cancer, metastatic to bone Current Visit: No Status: Acute (6) Diabetes Current Visit: No Status: Acute (7) Hypertension Current Visit: No Status: Acute Hospital Course: This is an 79-year-old male who originally presented to the emergency department with complaints of intractable pain. Patient has been undergoing a recent workup for metastatic prostate cancer. Patient lives at home with his and reportedly had multiple falls prior to admission. Patient underwent a thoracic and cervical MRI which shows diffuse signal change with enhancement throughout the thoracic vertebral bodies. Inferior endplate changes at T9. Central and left paracentral disc bulging with moderate anterior thecal sac compression at C6-7. Large central and left paracentral disc herniation with subligamentous disc extension with moderate anterior thecal sac compression without cord contact C7- T1. C5-6 disc bulging has moderate anterior thecal sac compression. Signal change C6 and T1-T2. During this admission patient did have a biopsy of his lumbar spine completed, results are pending. Oncology has also been following with patient. Patient's pain currently controlled on regimen of scheduled MS Contin and [place] for breakthrough pain. He has been tolerating this well since starting yesterday. He has been up moving around with assistance in his room. Patient may be discharged today if cleared by consultants. Patient seen and evaluated by nurse practitioner, physician in agreement with plan. Patient Condition at Discharge: Stable Plan - Discharge Summary Discharge Rx Participant: Yes New Discharge Prescriptions: New polyethylene glycoL 3350 [Miralax] 17 gm PO DAILY PRN #30 packet PRN Reason: Constipation HYDROcodone/APAP 10-325MG [[place] 10-325] 1 each PO Q4HR PRN #180 tab PRN Reason: Pain Sennosides-Docusate Sodium [Senokot-S] 1 each PO BID #60 dexAMETHasone ORAL [Hexadrol] 4 mg PO BID #30 tab Morphine Sulfate ER [Ms Contin] 15 mg PO Q12HR #60 tab Pantoprazole [Protonix] 40 mg PO AC-BID #60 tab Continue Rosuvastatin [Crestor] 10 mg PO HS Pantoprazole [Protonix] 40 mg PO DAILY Insulin Degludec [Tresiba Flextouch U-100 Pen] 20 units SQ AC-SUPPER Tamsulosin [Flomax] 0.4 mg PO PC-BRKFST Clopidogrel [Plavix] 75 mg PO HS Empagliflozin/Metformin HCl [Synjardy 12.5-1,000 mg Tablet] 1 tab PO BID lisinopriL [Zestril] 10 mg PO DAILY #30 tab HYDROcodone/APAP 10-325MG [[place] 10-325] 1 tab PO Q6HR PRN 3 Days #12 tab PRN Reason: Pain Ondansetron Odt [Zofran ODT] 4 mg PO QID PRN PRN Reason: nausea Semaglutide [Ozempic] 1 mg SQ TU Discharge Medication List Tamsulosin [Flomax] 0.4 mg PO PC-BRKFST 03/23/21 [History] Clopidogrel [Plavix] 75 mg PO HS 05/10/23 [History] Empagliflozin/Metformin HCl [Synjardy 12.5-1,000 mg Tablet] 1 tab PO BID 05/10/23 [History] Rosuvastatin [Crestor] 10 mg PO HS 05/10/23 [History] lisinopriL [Zestril] 10 mg PO DAILY #30 tab 05/11/23 [Rx] HYDROcodone/APAP 10-325MG [[place] 10-325] 1 tab PO Q6HR PRN 3 Days #12 tab 07/10/24 [Rx] Insulin Degludec [Tresiba Flextouch U-100 Pen] 20 units SQ AC-SUPPER 07/11/24 [History] Ondansetron Odt [Zofran ODT] 4 mg PO QID PRN 07/11/24 [History] Pantoprazole [Protonix] 40 mg PO DAILY 07/11/24 [History] Semaglutide [Ozempic] 1 mg SQ TU 07/11/24 [History] HYDROcodone/APAP 10-325MG [[place] 10-325] 1 each PO Q4HR PRN #180 tab 07/18/24 [Rx] Morphine Sulfate ER [Ms Contin] 15 mg PO Q12HR #60 tab 07/18/24 [Rx] Pantoprazole [Protonix] 40 mg PO AC-BID #60 tab 07/18/24 [Rx] Sennosides-Docusate Sodium [Senokot-S] 1 each PO BID #60 07/18/24 [Rx] dexAMETHasone ORAL [Hexadrol] 4 mg PO BID #30 tab 07/18/24 [Rx] polyethylene glycoL 3350 [Miralax] 17 gm PO DAILY PRN #30 packet 07/18/24 [Rx] Follow up Appointment(s)/Referral(s): Richard Go [Primary Care Provider] - 1 Week Seng Geiger MD [STAFF PHYSICIAN] - 3 Days Discharge Disposition: HOME SELF-CARE
[2024-07-18 12:58] LABS: Glucose,Whole Blood 180 mg/dL (70-110)
[2024-07-18 13:16] VITALS: BP 121/61; PULSE 75; TEMP 98.1
--- NOTE | 2024-07-18 13:50 | P.PN ---
Subjective Progress Note Date: 07/18/24 Principal diagnosis: painful spinal lesions In follow-up today patient reporting he is doing well on pain med regimen, did not require any IV pain medication since early yesterday. Still pending biopsy results. No new c/o, he is ready to go home. No fevers, N,V, he is tolerating oral intake. Objective - Vital Signs Vital signs: Vital Signs Temp 98.1 F 07/18/24 13:14 Pulse 75 07/18/24 13:14 Resp 16 07/18/24 13:14 BP 121/61 07/18/24 13:14 Pulse Ox 98 07/18/24 07:24 FiO2 Intake & Output 07/17/24 07/18/24 07/18/24 18:59 06:59 18:59 Intake Total 1060 540 240 Balance 1060 540 240 Intake: Oral 1060 540 240 Other: Voiding Method Toilet Toilet Toilet Urinal Urinal Urinal # Voids 1 4 4 # Bowel Movements 0 - Constitutional General appearance: Present: average body habitus, cooperative, no acute distress - EENT Eyes: Present: anicteric sclerae, EOMI ENT: Present: hearing grossly normal - Respiratory Details: resp unlabored at rest - Cardiovascular Details: skin warm, well perfused - Peripheral edema leg Peripheral Edema: bilateral: None - Integumentary Integumentary: Present: normal - Neurologic Neurologic: Present: CNII-XII intact - Musculoskeletal Musculoskeletal: Present: generalized weakness - Psychiatric Psychiatric: Present: A&O x's 3, appropriate affect, intact judgment & insight - Labs CBC & Chem 7: 07/13/24 05:37 07/13/24 05:37 Labs: Abnormal Lab Results - Last 24 Hours (Table) 07/17/24 07/17/24 07/18/24 Range/Units 17:16 20:28 07:00 POC Glucose (mg/dL) 322 H 224 H 166 H (70-110) mg/dL 07/18/24 Range/Units 12:54 POC Glucose (mg/dL) 180 H (70-110) mg/dL Assessment and Plan (1) Intractable low back pain Current Visit: Yes Status: Acute Priority: High Code(s): M54.59 - OTHER LOW BACK PAIN SNOMED Code(s): 91222148797381635 (2) Prostate cancer Current Visit: Yes Status: Acute Priority: High Code(s): C61 - MALIGNANT NEOPLASM OF PROSTATE SNOMED Code(s): 773201038 Plan: Metastatic disease, suspected prostate primary Presented for progressing low back pain and BLE weakness, with frequent falls -History as dictated in consult -Recently established care with Dr. Go, being worked up for metastatic disease, likely prostate primary -Bone scan from 06/21/24 showed extensive bony metastatic disease involving proximal humeri, left scapula, bilateral ribs, lower sternum, thoracic and lumbar segments of the spine, sacrum, left hemipelvis, and right femur. MRI floresita mbar spine without contrast showed diffuse abnormal appearance -Radiation Oncology consulted for painful bone lesions, reviewed case with Rad Onc yesterday, pending biopsy results to discuss treatment options with pt and family. Will make outpt referral -PSA previously has been elevated but stable in the 17-18 range. PSA repeated, increased to 31 -IV decadron started, changed to oral yesterday in anticipation of discharge. Will need to continue steroids outpt. Plan for taper after radiation/treatment starts -MRI thoracic, cervical and lumbar spine MRI of the thoracic and cervical spine reporting diffuse signal change with enhancement throughout the vertebral bodies, suspicious for metastatic disease. Lumbar spine MRI reporting extensive changes in the vertebral bodies compatible with metastatic disease, greatest at L4 and L5 CT CAP reporting numerous punctate nodularities within the periphery of the lungs, no enlarged mediastinal or hilar adenopathy. Sclerotic metastasis throughout the spine as well as an area at the right femoral neck and right h umeral head suspicious for metastasis -Pt and family understand pt has metastatic disease, intent of treatment is to control disease and prolong life. -Reviewed pain control with patient and family. MS NICHOL added yesterday with norco for breakthrough pain. Pt reports decent pain control, only used a few doses of norco. -Cont medications for prevention of narcotic induced constipation F/U with Dr. Go for results and options for treatment. Pt will be contacted with appt date and time
[2024-07-18] MEDS ORDERED: ZINC OXIDE PASTE (Z-GUARD) 1 APPLIC TOPICAL PRN (14:26)
== END 2024-07-18 16:57 | disposition home or self-care (01) | DRG 478 ==
LOC: EC 11:13 → 5NMEDONC 12:17
PROVIDERS: ADMIT Family Medicine; ATTEND Family Medicine
PROC: 0QB03ZX Excision of Lumbar Vertebra, Percutaneous Approach, Diagnostic (ICD-10-PCS; principal; 2024-07-16 15:00)
DX: C79.51 Secondary malignant neoplasm of bone (principal); G95.29 Other cord compression; C61 Malignant neoplasm of prostate; E10.9 Type 1 diabetes mellitus without complications; F03.90 Unspecified dementia, unspecified severity, without behavioral disturbance, psychotic disturbance, mood disturbance, and anxiety; I10 Essential (primary) hypertension; E66.9 Obesity, unspecified; Z79.4 Long term (current) use of insulin; G89.3 Neoplasm related pain (acute) (chronic); Z96.651 Presence of right artificial knee joint; R29.6 Repeated falls; E78.5 Hyperlipidemia, unspecified; M19.90 Unspecified osteoarthritis, unspecified site; G47.30 Sleep apnea, unspecified; M50.13 Cervical disc disorder with radiculopathy, cervicothoracic region; M50.122 Cervical disc disorder at C5-C6 level with radiculopathy; M47.817 Spondylosis without myelopathy or radiculopathy, lumbosacral region; M48.07 Spinal stenosis, lumbosacral region; M47.816 Spondylosis without myelopathy or radiculopathy, lumbar region; M48.061 Spinal stenosis, lumbar region without neurogenic claudication; M48.02 Spinal stenosis, cervical region; M50.123 Cervical disc disorder at C6-C7 level with radiculopathy; M47.22 Other spondylosis with radiculopathy, cervical region; I25.10 Atherosclerotic heart disease of native coronary artery without angina pectoris; M25.78 Osteophyte, vertebrae; Z68.30 Body mass index [BMI] 30.0-30.9, adult; Z87.891 Personal history of nicotine dependence; Z79.899 Other long term (current) drug therapy; I25.2 Old myocardial infarction; Z88.6 Allergy status to analgesic agent
CPT/HCPCS: 36415; 71260; 72100; 72110; 72156; 72157; 72158; 72170; 74177; 80053; 83036; 84153; 85025; 85027; 88307; 88311; 96374; 96375; 96376; 99285

== ENCOUNTER 2024-09-11 15:38 | Inpatient (IN) | payer MEDICARE ==
[2024-09-11 16:29] LABS: Glucose,Whole Blood 83 mg/dL (70-110)
--- NOTE | 2024-09-11 16:34 | ED ---
Weakness HPI - General Source: patient, family, RN notes reviewed Mode of arrival: wheelchair Limitations: no limitations <Susie George - Last Filed: 09/11/24 16:33> <Luis Sweeney - Last Filed: 09/11/24 19:56> - General Chief complaint: Weakness Stated complaint: N/D - dizziness Time Seen by Provider: 09/11/24 15:50 - History of Present Illness Initial comments: Quick [id number] male presenting to emergency department with family with referral from Dr. Go with concerns for generalized weakness, hypotension, hypoglycemia. Patient states that he feels overall weak. Patient is currently treating for metastatic prostate cancer. (Susie George) This is an 79-year-old male who presents to the emergency department after having seen Dr. Malagon today. Patient came there and complained of weakness low blood sugar and a low blood pressure. Patient also had a fever while he was in the office. Patient denies any chest pain difficulty breathing or shortness of breath. Patient denies any abdominal pain patient [place] nausea vomiting diarrhea. Patient states he has a history of metastatic prostate cancer. (Luis Sweeney) - Related Data Home Medications Medication Instructions Recorded Confirmed Tamsulosin [Flomax] 0.4 mg PO PC-[id number] 03/23/21 09/09/24 Clopidogrel [Plavix] 75 mg PO HS 05/10/23 09/09/24 Empagliflozin/Metformin HCl 1 tab PO BID 05/10/23 09/09/24 [Synjardy 12.5-1,000 mg Tablet] Rosuvastatin [Crestor] 10 mg PO HS 05/10/23 09/09/24 Pantoprazole [Protonix] 40 mg PO DAILY 07/11/24 09/09/24 Cholecalciferol (Vitamin D3) 50 mcg PO DAILY 08/18/24 09/09/24 [Vitamin D3 (50 Mcg = 2000 Iu)] Previous Rx's Medication Instructions Recorded Calcium Carbonate [Tums] 500 mg PO TID #0 tab 09/03/24 Dicyclomine [Bentyl] 20 mg PO QID PRN 120 Days tab 09/03/24 HYDROcodone/APAP 10-325MG [[place] 1 each PO Q6H PRN #120 tab 09/03/24 10-325] Morphine Sulfate ER [Ms Contin] 15 mg PO Q12HR #60 tab 09/03/24 Nystatin 100,000 Unit/ml Susp 500,000 unit PO QID #200 ml 09/03/24 [Mycostatin Oral Susp] Allergies Allergy/AdvReac Type Severity Reaction Status Date / Time aspirin AdvReac Abdominal Verified 09/09/24 12:58 Pain Review of Systems ROS Other: All systems not noted in ROS Statement are negative. <Susie George - Last Filed: 09/11/24 16:33> ROS Other: All systems not noted in ROS Statement are negative. <Luis Sweeney - Last Filed: 09/11/24 19:56> ROS Statement: Those systems with pertinent positive or pertinent negative responses have been documented in the HPI. Past Medical History Past Medical History: Cancer, Diabetes Mellitus, Hyperlipidemia, Hypertension, Myocardial Infarction (OK), Osteoarthritis (OA), Prostate Disorder, Sleep Apnea/CPAP/BIPAP Additional Past Medical History / Comment(s): Prostate cancer with metatasis Last Myocardial Infarction Date:: 1999 History of Any Multi-Drug Resistant Organisms: None Reported Past Surgical History: Orthopedic Surgery Additional Past Surgical History / Comment(s): Right Knee replacement, cataracts surgery, Left knee steriod injection,biopsy of prostate by Dr. Devries 2023 Past Anesthesia/Blood Transfusion Reactions: No Reported Reaction Past Psychological History: No Psychological Hx Reported Smoking Status: Former smoker - Past Family History Father Additional Family Medical History / Comment(s): brain aneurysm Mother Family Medical History: Coronary Artery Disease (CAD), Diabetes Mellitus <Susie George - Last Filed: 09/11/24 16:33> General Exam Limitations: no limitations <Susie George - Last Filed: 09/11/24 16:33> <Luis Sweeney - Last Filed: 09/11/24 19:56> - General Exam Comments Initial Comments: Visual Physical Exam Vital signs reviewed General: Well-appearing, nontoxic, no acute distress. Head: Normocephalic, atraumatic Eyes: PERRLA, EOMI ENT: Airway patent Chest: Nonlabored breathing Skin: No visual rash, normal skin tone Neuro: Alert and oriented 3 Musculoskeletal: No gross abnormalities (Susie George) GENERAL: Patient is well-developed and well-nourished. Patient is nontoxic and well- hydrated and is in mild distress. Patient has an oral temp of 100.4 and this is after he received Tylenol ENT: Neck is soft and supple. No significant lymphadenopathy is noted. Oropharynx is clear. Moist mucous membranes. Neck has full range of motion without eliciting any pain. EYES: The sclera were anicteric and conjunctiva were pink and moist. Extraocular movements were intact and pupils were equal round and reactive to light. Eyelids were unremarkable. PULMONARY: Unlabored respirations. Good breath sounds bilaterally. No audible rales rhonchi or wheezing was noted. CARDIOVASCULAR: There is a regular rate and rhythm without any murmurs gallops or rubs. ABDOMEN: Soft and nontender with normal bowel sounds. No palpable organomegaly was noted. There is no palpable pulsatile mass. SKIN: Patient's skin is pale NEUROLOGIC: Patient is alert and oriented x3. Cranial nerves II through XII are grossly intact. Motor and sensory are also intact. Normal speech, volume and content. Symmetrical smile. MUSCULOSKELETAL: Normal extremities with adequate strength and full range of motion. No lower extremity swelling or edema. No calf tenderness. LYMPHATICS: No significant lymphadenopathy is noted PSYCHIATRIC: Normal psychiatric evaluation. (Luis Sweeney) Course Vital Signs 09/11/24 09/11/24 16:24 18:46 Temperature 100.8 F H 98.9 F Pulse Rate 85 84 Respiratory 16 17 Rate Blood Pressure 97/62 103/51 O2 Sat by Pulse 97 94 L Oximetry Medical Decision Making <Susie George - Last Filed: 09/11/24 16:33> - Lab Data Result diagrams: 09/11/24 16:32 09/11/24 16:32 <Luis Sweeney - Last Filed: 09/11/24 19:56> - Medical Decision Making I completed the quick note portion of this chart signed Susie George PA-C (Susie George) EKG is interpreted by myself but EKG shows atrial fibrillation 87 bpm QRS 104 QT interval 399 QTc is 444. Patient's EKG shows no ST segment elevation or depression Patient's ideal body weight is 51 kg. Patient was diagnosed with pneumonia at 6:25 PM Was pt. sent in by a medical professional or institution (RAFAEL Daugherty, CARDIOLOGY SPECIALIST, urgent care, hospital, or correction...) When possible be specific @ -No Did you speak to anyone other than the patient for history (EMS, parent, family, police, friend...)? What history was obtained from this source @ -No Did you review nursing and triage notes (agree or disagree)? Why? @ -I reviewed and agree with nursing and triage notes Were old charts reviewed (outside hosp., previous admission, EMS record, old EKG, old radiological studies, urgent care reports/EKG's, correction records)? Report findings @ -No old charts were reviewed Differential Diagnosis? @ -Differential Weakness: Hypoglycemia, shock, sepsis, hyponatremia, anemia, infection, OK, ETOH, adverse medicine reaction, overdose, stroke, this is not meant to be an all-inclusive list. Differential Fever: Pneumonia, viral URI, endocarditis, myocarditis, pericarditis, otitis, sinusitis, peritonsillar Abscess, retropharyngeal Abscess, epiglottitis, peritonitis, appendicitis, [place] cystitis, diverticulitis, hepatitis, colitis, UTI, PID, TOA, pyelonephritis, prostatitis, epididymitis, meningitis, encephalitis, pulmonary embolism, CVA, thyroid storm, pancreatitis, adrenal crisis, cavernous sinus thrombosis, this is not meant to be an all-inclusive list. EKG interpreted by me (3pts min.). @ -As above X-rays interpreted by me (1pt min.). @ -Chest x-ray shows opacifications consistent with pneumonia CT interpreted by me (1pt min.). @ -None done U/S interpreted by me (1pt. min.). @ -None done What testing was considered but not performed or refused? (CT, X-rays, U/S, labs)? Why? @ -None What meds were considered but not given or refused? Why? @ -None Did you discuss the management of the patient with other professionals (professionals i.e. , PA, CARDIOLOGY SPECIALIST, lab, RT, psych nurse, social work msw, fig bar machine operator, teacher, development officer, case management specialist)? Give summary @ -I spoke with Dr. Geiger he agreed admit the patient admit the patient wrote admitting orders Was smoking cessation discussed for >3mins.? @ -No Was critical care preformed (if so, how long)? @ -No Were there social determinants of health that impacted care today? How? (Homelessness, low income, unemployed, alcoholism, drug addiction, transportation, low edu. Level, literacy, decrease access to med. care, group home, rehab)? @ -No Was there de-escalation of care discussed even if they declined (Discuss DNR or withdrawal of care, Hospice)? DNR status @ -No What co-morbidities impacted this encounter? (DM, HTN, Smoking, COPD, CAD, Cancer, CVA, ARF, Chemo, Hep., AIDS, mental health diagnosis, sleep apnea, morbid obesity)? @ -None Was patient admitted / discharged? Hospital course, mention meds given and route, prescriptions, significant lab abnormalities, going to OR and other pertinent info. @ -Patient has pneumonia and was started on antibiotics. Patient also had a hypocalcemia and hyponatremia. Patient will be given calcium chloride and oncology will be consulted Undiagnosed new problem with uncertain prognosis? @ -No Drug Therapy requiring intensive monitoring for toxicity (Heparin, Nitro, Insulin, Cardizem)? @ -No Were any procedures done? @ -No Diagnosis/symptom? @ -Pneumonia Acute, or Chronic, or Acute on Chronic? @ -Acute Uncomplicated (without systemic symptoms) or Complicated (systemic symptoms)? @ -Complicated Side effects of treatment? @ -No Exacerbation, Progression, or Severe Exacerbation? @ -No Poses a threat to life or bodily function? How? (Chest pain, [place], OK, pneumonia, PE, COPD, DKA, ARF, appy, cholecystitis, CVA, Diverticulitis, Homicidal, Suicidal, threat to staff... and all critical care pts) @ -Yes this can lead to sepsis and endorgan dysfunction Diagnosis/symptom? @ -Hypocalcemia Acute, or Chronic, or Acute on Chronic? @ -Acute Uncomplicated (without systemic symptoms) or Complicated (systemic symptoms)? @ -Complicated Side effects of treatment? @ -None Exacerbation, Progression, or Severe Exacerbation] @ -No Poses a threat to life or bodily function? @ -Yes this can lead to weakness and cardiac arrhythmias. Diagnosis/symptom? @ -Hyponatremia Acute, or Chronic, or Acute on Chronic? @ -Acute Uncomplicated (without systemic symptoms) or Complicated (systemic symptoms)? @ -Uncomplicated Side effects of treatment? @ -None Exacerbation, Progression, or Severe Exacerbation] @ -No Poses a threat to life or bodily function? @ -No (Luis Sweeney) - Lab Data Lab Results 09/11/24 09/11/24 09/11/24 Range/Units 16:28 16:32 16:32 WBC 14.80 H (4.50-10.00) 10*3/uL RBC 2.76 L (4.40-5.60) 10*6/uL Hgb 8.7 L (13.0-17.0) g/dL Hct 26.0 L (39.6-50.0) % MCV 94.2 (80.0-97.0) fL MCH 31.5 (27.0-32.0) pg MCHC 33.5 (32.0-37.0) g/dL Plt Count 383 (140-440) 10*3/uL MPV 9.0 L (9.5-12.2) fL Immature Gran % (Auto) 1.1 % Neutrophils % 86.6 % Lymphocytes % 4.1 % Monocytes % 7.8 % Eosinophils % 0.1 % Basophils % 0.3 % Immature Gran # 0.17 H (0.00-0.04) 10*3/uL Neutrophils # 12.82 H (1.80-7.70) 10*3/uL Lymphocytes # 0.60 L (0.90-5.00) 10*3/uL Monocytes # 1.15 H (0.20-1.00) 10*3/uL Eosinophils # 0.02 L (0.04-0.35) 10*3/uL Basophils # 0.04 (0.00-0.10) 10*3/uL PT 13.7 H (10.0-12.5) sec INR 1.3 H (<1.2) APTT 25.5 (22.0-30.0) sec Sodium (137-145) mmol/L Potassium (3.5-5.1) mmol/L Chloride (98-107) mmol/L Carbon Dioxide (22-30) mmol/L Anion Gap mmol/L BUN (9-20) mg/dL Creatinine (0.66-1.25) mg/dL Est GFR (CKD-EPI)AfAm (>60 ml/min/1.73 sqM) Est GFR (CKD-EPI)NonAf (>60 ml/min/1.73 sqM) Glucose (74-99) mg/dL POC Glucose (mg/dL) 83 (70-110) mg/dL POC Glu Hooking Machine Operator ID Nikki Wei Lactic Ac Sepsis Rflx Plasma Lactic Acid Noé (0.7-2.0) mmol/L Calcium (8.4-10.2) mg/dL Magnesium (1.6-2.3) mg/dL Total Bilirubin (0.2-1.3) mg/dL AST (17-59) U/L ALT (4-49) U/L Alkaline Phosphatase (38-126) U/L Troponin I (0.000-0.034) ng/mL Total Protein (6.3-8.2) g/dL Albumin (3.5-5.0) g/dL Influenza Type A (PCR) (Not Detectd) Influenza Type B (PCR) (Not Detectd) RSV (PCR) (Not Detectd) SARS-CoV-2 (PCR) (Not Detectd) Blood Type Blood Type Recheck Bld Type Recheck Status Antibody Screen Spec Expiration Date 09/11/24 09/11/24 09/11/24 Range/Units 16:32 16:32 16:32 WBC (4.50-10.00) 10*3/uL RBC (4.40-5.60) 10*6/uL Hgb (13.0-17.0) g/dL Hct (39.6-50.0) % MCV (80.0-97.0) fL MCH (27.0-32.0) pg MCHC (32.0-37.0) g/dL Plt Count (140-440) 10*3/uL MPV (9.5-12.2) fL Immature Gran % (Auto) % Neutrophils % % Lymphocytes % % Monocytes % % Eosinophils % % Basophils % % Immature Gran # (0.00-0.04) 10*3/uL Neutrophils # (1.80-7.70) 10*3/uL Lymphocytes # (0.90-5.00) 10*3/uL Monocytes # (0.20-1.00) 10*3/uL Eosinophils # (0.04-0.35) 10*3/uL Basophils # (0.00-0.10) 10*3/uL PT (10.0-12.5) sec INR (<1.2) APTT (22.0-30.0) sec Sodium 132 L (137-145) mmol/L Potassium 3.9 (3.5-5.1) mmol/L Chloride 102 (98-107) mmol/L Carbon Dioxide 24 (22-30) mmol/L Anion Gap 6 mmol/L BUN 12 (9-20) mg/dL Creatinine 0.65 L (0.66-1.25) mg/dL Est GFR (CKD-EPI)AfAm >90 (>60 ml/min/1.73 sqM) Est GFR (CKD-EPI)NonAf >90 (>60 ml/min/1.73 sqM) Glucose 55 L (74-99) mg/dL POC Glucose (mg/dL) (70-110) mg/dL POC Glu Hooking Machine Operator ID Lactic Ac Sepsis Rflx Plasma Lactic Acid Noé 3.5 H* (0.7-2.0) mmol/L Calcium 6.0 L* (8.4-10.2) mg/dL Magnesium 1.3 L (1.6-2.3) mg/dL Total Bilirubin 0.3 (0.2-1.3) mg/dL AST 20 (17-59) U/L ALT 14 (4-49) U/L Alkaline Phosphatase 450 H (38-126) U/L Troponin I <0.012 (0.000-0.034) ng/mL Total Protein 4.9 L (6.3-8.2) g/dL Albumin 2.1 L (3.5-5.0) g/dL Influenza Type A (PCR) (Not Detectd) Influenza Type B (PCR) (Not Detectd) RSV (PCR) (Not Detectd) SARS-CoV-2 (PCR) (Not Detectd) Blood Type Blood Type Recheck Bld Type Recheck Status Antibody Screen Spec Expiration Date 09/11/24 09/11/24 09/11/24 Range/Units 16:32 16:34 17:45 WBC (4.50-10.00) 10*3/uL RBC (4.40-5.60) 10*6/uL Hgb (13.0-17.0) g/dL Hct (39.6-50.0) % MCV (80.0-97.0) fL MCH (27.0-32.0) pg MCHC (32.0-37.0) g/dL Plt Count (140-440) 10*3/uL MPV (9.5-12.2) fL Immature Gran % (Auto) % Neutrophils % % Lymphocytes % % Monocytes % % Eosinophils % % Basophils % % Immature Gran # (0.00-0.04) 10*3/uL Neutrophils # (1.80-7.70) 10*3/uL Lymphocytes # (0.90-5.00) 10*3/uL Monocytes # (0.20-1.00) 10*3/uL Eosinophils # (0.04-0.35) 10*3/uL Basophils # (0.00-0.10) 10*3/uL PT (10.0-12.5) sec INR (<1.2) APTT (22.0-30.0) sec Sodium (137-145) mmol/L Potassium (3.5-5.1) mmol/L Chloride (98-107) mmol/L Carbon Dioxide (22-30) mmol/L Anion Gap mmol/L BUN (9-20) mg/dL Creatinine (0.66-1.25) mg/dL Est GFR (CKD-EPI)AfAm (>60 ml/min/1.73 sqM) Est GFR (CKD-EPI)NonAf (>60 ml/min/1.73 sqM) Glucose (74-99) mg/dL POC Glucose (mg/dL) (70-110) mg/dL POC Glu Hooking Machine Operator ID Lactic Ac Sepsis Rflx Y Plasma Lactic Acid Noé (0.7-2.0) mmol/L Calcium (8.4-10.2) mg/dL Magnesium (1.6-2.3) mg/dL Total Bilirubin (0.2-1.3) mg/dL AST (17-59) U/L ALT (4-49) U/L Alkaline Phosphatase (38-126) U/L Troponin I (0.000-0.034) ng/mL Total Protein (6.3-8.2) g/dL Albumin (3.5-5.0) g/dL Influenza Type A (PCR) Not Detected (Not Detectd) Influenza Type B (PCR) Not Detected (Not Detectd) RSV (PCR) Not Detected (Not Detectd) SARS-CoV-2 (PCR) Not Detected (Not Detectd) Blood Type O Positive Blood Type Recheck O Pos Bld Type Recheck Status No Antibody Screen NEGATIVE Spec Expiration Date 09/14/2024 - 2331 Disposition <Susie George - Last Filed: 09/11/24 16:33> Time of Disposition: 19:56 <Luis Sweeney - Last Filed: 09/11/24 19:56> Clinical Impression: Hyponatremia, Hypocalcemia, Pneumonia Disposition: ADMITTED IP TO THIS HOSP Referrals: Seng Geiger MD [Primary Care Provider] - 1-2 days
[2024-09-11] MEDS: ACETAMINOPHEN TAB 500 MG TAB PO STA (17:21)
[2024-09-11] MEDS: IBUPROFEN 600 MG TAB PO STA (17:21)
[2024-09-11] MEDS: LACTATED RINGERS 1,000 ML IV ONE (17:23)
[2024-09-11 17:26] LABS: Basophils # (A) 0.04 10*3/uL (0.00-0.10); Basophils % (A) 0.3 %; Eosinophils # (A) 0.02 10*3/uL (0.04-0.35); Eosinophils % (A) 0.1 %; HGB 8.7 g/dL (13.0-17.0); Lymphocytes % (A) 4.1 %; MCH 31.5 pg (27.0-32.0); MCHC 33.5 g/dL (32.0-37.0); MCV 94.2 fL (80.0-97.0); Monocytes # (A) 1.15 10*3/uL (0.20-1.00); Monocytes % (A) 7.8 %; Neutrophils # (A) 12.82 10*3/uL (1.80-7.70); Neutrophils % (A) 86.6 %; Platelet Count 383 10*3/uL (140-440); RBC 2.76 10*6/uL (4.40-5.60); RDW 18.2 % (11.5-14.5)
[2024-09-11 17:35] LABS: ALT 14 U/L (4-49); AST 20 U/L (17-59); African American GFR (CKD) >90 (>60 ml/min/1.73 sqM); Albumin 2.1 g/dL (3.5-5.0); Alkaline Phosphatase 450 U/L (38-126); Anion Gap 6 mmol/L; Blood Urea Nitrogen 12 mg/dL (9-20); Carbon Dioxide 24 mmol/L (22-30); Chloride 102 mmol/L (98-107); Glucose 55 mg/dL (74-99); Magnesium 1.3 mg/dL (1.6-2.3); Non-African American GFR(CKD) >90 (>60 ml/min/1.73 sqM); Potassium 3.9 mmol/L (3.5-5.1); Sodium 132 mmol/L (137-145); Total Bilirubin 0.3 mg/dL (0.2-1.3); Total Protein 4.9 g/dL (6.3-8.2)
[2024-09-11 17:46] LABS: INR 1.3 (<1.2); Partial Thromboplastin Time 25.5 sec (22.0-30.0); Prothrombin Time 13.7 sec (10.0-12.5)
--- NOTE | 2024-09-11 17:46 | XR ---
EXAMINATION TYPE: XR chest 2V DATE OF EXAM: 09/11/2024 5:27 PM COMPARISON: Chest radiographs from 08/18/2024 CLINICAL INDICATION: Male, 79 years old with history of Weakness; [facility] TECHNIQUE: XR chest 2V Frontal and lateral views of the chest. FINDINGS: Lungs/Pleura: Multifocal airspace opacities. No evidence of pneumothorax or pleural effusion. Pulmonary vascularity: Unremarkable. Heart/mediastinum: Cardiomediastinal silhouette is unremarkable. Musculoskeletal: No acute osseous pathology. Other findings: None IMPRESSION: Multifocal airspace opacities concerning for pneumonia. [facility], , 09/11/2024 5:43 PM
[2024-09-11 18:00] LABS: Influenza A Not Detected (Not Detectd); Influenza B Not Detected (Not Detectd); RSV Not Detected (Not Detectd)
[2024-09-11] MEDS: CALCIUM CHLORIDE 100 MG/ML 10 ML SYRINGE IVP STA (18:48)
[2024-09-11] MEDS: cefTRIAXone IN SWFI 1,000 MG/10 ML SYRINGE IVP STA (18:48)
[2024-09-11] MEDS: LACTATED RINGERS 500 ML IV ONE (18:57)
[2024-09-11] MEDS ORDERED: PNEUMONIA PROTOCOL UTILIZED 1 EACH MISC PO PRN (19:57)
[2024-09-11] MEDS: PIPERACILLIN-TAZOBACTAM 3.375 GM in SODIUM CHLORIDE 0.9% 100 ML IVPB STA (20:19)
[2024-09-11 20:53] LABS: Appearance,Urine Clear (Clear); Bilirubin,Urine Negative (Negative); Blood,Urine Negative (Negative); Color,Urine Light Yellow; Glucose,Urine (UA) 4+ (Negative); Ketones,Urine Negative (Negative); Leukocyte Esterase,Urine Negative (Negative); Nitrite,Urine Negative (Negative); Protein,Urine Negative (Negative); Specific Gravity,Urine 1.016 (1.001-1.035); Urobilinogen,Urine <2.0 mg/dL (<2.0)
[2024-09-11] MEDS: AZITHROMYCIN 500 MG in SODIUM CHLORIDE 0.9% 250 ML IVPB STA (20:56)
[2024-09-11] MEDS: MAGNESIUM SULFATE-D5W PMX 1 GM in DEXTROSE/WATER 1 100ML.BAG IVPB SCH (21:14)
[2024-09-11] MEDS: FUROSEMIDE 10 MG/ML 2 ML VIAL IV ONE (21:41)
[2024-09-12] MEDS: PIPERACILLIN-TAZOBACTAM 3.375 GM in SODIUM CHLORIDE 0.9% 100 ML IVPB SCH (04:06)
[2024-09-12 04:20] LABS: Glucose,Whole Blood 44 mg/dL (70-110)
[2024-09-12 04:53] LABS: Glucose,Whole Blood 61 mg/dL (70-110)
[2024-09-12] MEDS ORDERED: DEXTROSE 50% SYRINGE 50 ML IVP PRN ×2 (04:54)
--- NOTE | 2024-09-12 05:32 | P.CNPUL ---
History of Present Illness Consult date: 09/12/24 Requesting physician: Luis Sweeney Reason for consult: pneumonia Chief complaint: Sent in from his oncologist office History of present illness: Patient is an 79-year-old male with past medical history significant for metastatic prostate cancer. He has osseous and pulmonary metastasis. Chest CT angiogram from Aug, 2024 showing stable multiple pulmonary nodules and mixed lytic and sclerotic lesions scattered throughout the thoracic spine and sternum. He does follow with Dr. Go from oncology. I believe he is on Erleada and Xgeva. He was sent in from the oncology office with generalized weakness, low blood sugars, hypotension. Did have a previous hospitalization and was discharged from the hospital on September 03 with similar concerns. Did have a brief stay in the intensive care unit. 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 Patient also has past medical history significant for diabetes mellitus insulin-dependent hyperlipidemia, obstructive sleep apnea, among other things. Patient was found to be hypotensive in the ED, and was given 1.5 L LR bolus. Also, blood sugar was noted to be hypoglycemic and treated per protocol. He had a fever with a temperature of 100.8 F. Workup in the emergency department including a chest x-ray showing multifocal airspace opacities concerning for pneumonia. CBC remarkable for leukocytosis wi th a WBC count of 14.8, hemoglobin 8.7, platelets 383. CMP: Sodium 132, potassium 3.9, chloride 102, serum bicarb 24, BUN 12, creatinine 0.65, glucose 55. Albumin 2.1. Lactic was elevated at 3.5 and is down to 1.5. Troponin less than 0.012. Viral 4 Plex negative for influenza A/B, RSV, COVID. Patient currently being evaluated in the emergency department. He is resting comfortably on room air. Denies any shortness of breath, coughing, sputum production, chest pain, hemoptysis. Did have a fever of 100.8 F on arrival. Denies any abdominal pain, diarrhea, nausea or vomiting. Denies any new urinary symptoms. Was previously started on combination of azithromycin and Rocephin. He is grossly anasarcic and edematous. Did previously receive a dose of 20 mg IV Lasix. Urinal is full at the bedside. Most recent vital signs include a heart rate of 63 bpm, blood pressure 96/68 mmHg, nontachypneic, SpO2 recorded at 96% on room air. Review of Systems Constitutional: Reports chills, Reports fatigue, Reports fever, Reports poor appetite, Denies weight gain, Denies weight loss Ears, nose, mouth and throat: Denies headache, Denies nasal congestion, Denies nasal discharge, Denies post-nasal drip, Denies sinus pain, Denies sinus pressure, Denies sore throat Cardiovascular: Reports edema, Denies chest pain, Denies lightheadedness, Denies orthopnea, Denies palpitations, Denies paroxysmal nocturnal dyspnea, Denies syncope Respiratory: Denies congestion, Denies cough, Denies dyspnea, Denies excessive sputum, Denies hemoptysis, Denies home oxygen, Denies wheezing Gastrointestinal: Denies abdominal pain, Denies diarrhea, Denies hematochezia, Denies melena, Denies nausea, Denies vomiting Genitourinary: Reports urinary hesitancy, Denies dysuria, Denies flank pain, Denies hematuria, Denies urinary frequency Musculoskeletal: Denies limitation of motion Integumentary: Denies rash Neurological: Denies head injury, Denies seizures, Denies syncope Psychiatric: Denies anxiety, Denies depression Past Medical History Past Medical History: Cancer, Diabetes Mellitus, Hyperlipidemia, Hypertension, Myocardial Infarction ([place]), Osteoarthritis (OA), Prostate Disorder, Sleep Apnea/CPAP/BIPAP Additional Past Medical History / Comment(s): Prostate cancer with metatasis Last Myocardial Infarction Date:: 1999 History of Any Multi-Drug Resistant Organisms: None Reported Past Surgical History: Orthopedic Surgery Additional Past Surgical History / Comment(s): Right Knee replacement, cataracts surgery, Left knee steriod injection,biopsy of prostate by Dr. Devries 2023 Past Anesthesia/Blood Transfusion Reactions: No Reported Reaction Past Psychological History: No Psychological Hx Reported Smoking Status: Former smoker - Past Family History Father Additional Family Medical History / Comment(s): brain aneurysm Mother Family Medical History: Coronary Artery Disease (CAD), Diabetes Mellitus Medications and Allergies Home Medications Medication Instructions Recorded Confirmed Type Tamsulosin [Flomax] 0.4 mg PO PC-BRKFST 03/23/21 09/11/24 History Clopidogrel [Plavix] 75 mg PO HS 05/10/23 09/11/24 History Empagliflozin/Metformin HCl 1 tab PO BID 05/10/23 09/11/24 History [Synjardy 12.5-1,000 mg Tablet] Rosuvastatin [Crestor] 10 mg PO HS 05/10/23 09/11/24 History Cholecalciferol (Vitamin D3) 50 mcg PO DAILY 08/18/24 09/11/24 History [Vitamin D3 (50 Mcg = 2000 Iu)] Calcium Carbonate [Tums] 500 mg PO TID #0 tab 09/03/24 09/11/24 Rx Apalutamide [Erleada] 240 mg PO DAILY 09/11/24 09/11/24 History HYDROcodone/APAP 10-325MG [[place] 1 tab PO Q6H PRN 09/11/24 09/11/24 History 10-325] Insulin Degludec [Tresiba 1 - 20 units SQ AC-SUPPER 09/11/24 09/11/24 History Flextouch U-100 Pen] Morphine Sulfate ER [Ms Contin] 15 mg PO BID@0900,2100 09/11/24 09/11/24 History Allergies Allergy/AdvReac Type Severity Reaction Status Date / Time aspirin AdvReac Abdominal Verified 09/11/24 20:48 Pain Physical Exam Vitals: Vital Signs Temp Pulse Resp BP Pulse Ox 09/12/24 04:10 63 17 96/68 96 09/11/24 23:15 97.8 F 67 18 100/54 97 09/11/24 21:16 77 18 99/63 98 09/11/24 20:31 71 20 124/69 95 09/11/24 18:46 98.9 F 84 17 103/51 94 L 09/11/24 16:24 100.8 F H 85 16 97/62 97 Intake and Output 09/11/24 09/11/24 09/12/24 14:59 22:59 06:59 Output Total 400 645 Balance -400 -645 Output: Urine 400 645 Other: # Voids 2 1 Weight 68.039 kg GENERAL EXAM: Alert, 79-year-old male, grossly anasarca, comfortable in no appa rent distress. HEAD: Normocephalic and atraumatic EYES: Normal reaction of pupils, equal size. NOSE: Clear with pink turbinates. THROAT: No erythema or exudates. NECK: No masses, no JVD. CHEST: No chest wall deformity. LUNGS: Equal air entry with no crackles, wheeze, rhonchi or dullness. On room air. No conversational dyspnea or accessory muscle use.. CVS: S1 and S2 normal with no audible murmur, irregular rhythm. No extra heart sounds ABDOMEN: No hepatosplenomegaly, active bowel sounds, no guarding or rigidity. SPINE: No scoliosis or deformity SKIN: No rashes CENTRAL NERVOUS SYSTEM: No focal deficits, tone is normal in all 4 extremities. EXTREMITIES: There is bilateral upper and lower extremity pitting edema. 2-3+ pitting edema in the bilateral lower extremities. No clubbing, or cyanosis. Peripheral pulses are intact. Results - Laboratory Findings CBC and BMP: 09/11/24 16:32 09/11/24 16:32 PT/INR, D-dimer PT 13.7 sec (10.0-12.5) H 09/11/24 16:32 INR 1.3 (<1.2) H 09/11/24 16:32 Abnormal lab findings: Abnormal Labs 09/11/24 09/11/24 09/11/24 16:32 16:32 16:32 WBC 14.80 H RBC 2.76 L Hgb 8.7 L Hct 26.0 L MPV 9.0 L Immature Gran # 0.17 H Neutrophils # 12.82 H Lymphocytes # 0.60 L Monocytes # 1.15 H Eosinophils # 0.02 L PT 13.7 H INR 1.3 H Sodium 132 L Creatinine 0.65 L Glucose 55 L POC Glucose (mg/dL) Plasma Lactic Acid Noé Calcium 6.0 L* Magnesium 1.3 L Alkaline Phosphatase 450 H Total Protein 4.9 L Albumin 2.1 L Urine Glucose (UA) 09/11/24 09/11/24 09/11/24 16:32 20:31 20:55 WBC RBC Hgb Hct MPV Immature Gran # Neutrophils # Lymphocytes # Monocytes # Eosinophils # PT INR Sodium Creatinine Glucose POC Glucose (mg/dL) Plasma Lactic Acid Noé 3.5 H* 2.3 H* Calcium Magnesium Alkaline Phosphatase Total Protein Albumin Urine Glucose (UA) 4+ H 09/12/24 04:16 WBC RBC Hgb Hct MPV Immature Gran # Neutrophils # Lymphocytes # Monocytes # Eosinophils # PT INR Sodium Creatinine Glucose POC Glucose (mg/dL) 44 L* Plasma Lactic Acid Noé Calcium Magnesium Alkaline Phosphatase Total Protein Albumin Urine Glucose (UA) - Diagnostic Findings Chest x-ray: image reviewed Assessment and Plan Assessment: Suspected multifocal community-acquired pneumonia Metastatic prostate cancer, with extensive skeletal metastases and pulmonary metastases. CAT scan of the chest was also consistent with tiny punctate nodular lesions consistent with metastatic disease. The patient was started on androgen deprivation therapy with Erleada and also I believe his Zometa infusions were transitioned to Xgeva Severe hypocalcemia, likely secondary to above Acute leukocytosis Febrile illness Hypotension, improved Meet SIRS/sepsis criteria Normocytic anemia Refractory hypoglycemia Insulin-dependent diabetes mellitus Gross anasarca Hypoalbuminemia Hypertension Hyperlipidemia Obstructive sleep apnea Plan: Patient's medications, labs, chest x-ray reviewed There is a new right upper lobe airspace opacity concerning for pneumonia. Follow to resolution, if no improvement, consider repeat CT of the chest Continue empiric antibiotics Blood culture pending Check procalcitonin level Manage hypoglycemia per protocol Given 1 g of calcium chloride. Check ionized calcium continue Lasix Continue Lasix 20 mg daily IV Oncology consulted To be discussed with Dr. Mehta, additional recommendations forthcoming. I have personally seen and examined the patient, performed the documentation and the assessment and plan as written. Number of minutes spent on the visit:20 Time with Patient: Greater than 30
[2024-09-12 05:59] LABS: Glucose,Whole Blood 93 mg/dL (70-110)
[2024-09-12 07:30] LABS: Glucose,Whole Blood 100 mg/dL (70-110)
--- NOTE | 2024-09-12 07:54 | XR ---
EXAMINATION TYPE: XR chest 1V portable DATE OF EXAM: 09/12/2024 6:37 AM COMPARISON: Chest radiograph from one day prior. CLINICAL INDICATION: Male, 79 years old with history of pneumonia; TECHNIQUE: XR chest 1V portable Frontal view of the chest. FINDINGS: Lungs/Pleura: Similar scattered airspace opacities. No evidence of pneumothorax or pleural effusion. Pulmonary vascularity: Unremarkable. Heart/mediastinum: Cardiomediastinal silhouette is unremarkable. Musculoskeletal: Degenerative changes of the shoulder joints. Other findings: None IMPRESSION: Similar multifocal airspace opacities. [facility], , 09/12/2024 7:52 AM
[2024-09-12] MEDS ORDERED: HYDROcodone/APAP 10-325MG 1 EACH TAB PO PRN (08:43)
--- NOTE | 2024-09-12 08:54 | P.HPIM ---
History of Present Illness H&P Date: 09/12/24 This is an 79-year-old male with a known history of metastatic prostate cancer who presented to the emergency department with complaints of a fever. Patient also had issues with hypoglycemia prior to admission. Patient's fever on arrival was 100.8 F. Chest x-ray shows multifocal airspace opacities concerning for pneumonia. Patient has been started on azithromycin and Rocephin. His blood sugar is slowly improving. Patient was also hypotensive on admission and blood pressure is improving. Pulmonology and oncology are on consult. Further medical history as noted below. Review of Systems Constitutional: Reports fever, Reports weakness, Denies chills Cardiovascular: Denies chest pain, Denies dyspnea on exertion Respiratory: Denies cough, Denies dyspnea Gastrointestinal: Reports loss of appetite, Denies abdominal pain, Denies nausea, Denies vomiting Musculoskeletal: Denies arm numbness/tingling, Denies leg numbness/tingling Neurological: Reports weakness, Denies headaches Past Medical History Past Medical History: Cancer, Diabetes Mellitus, Hyperlipidemia, Hypertension, Myocardial Infarction ([place]), Osteoarthritis (OA), Prostate Disorder, Sleep Apnea/CPAP/BIPAP Additional Past Medical History / Comment(s): Prostate cancer with metatasis Last Myocardial Infarction Date:: 1999 History of Any Multi-Drug Resistant Organisms: None Reported Past Surgical History: Orthopedic Surgery Additional Past Surgical History / Comment(s): Right Knee replacement, cataracts surgery, Left knee steriod injection,biopsy of prostate by Dr. Devries 2023 Past Anesthesia/Blood Transfusion Reactions: No Reported Reaction Past Psychological History: No Psychological Hx Reported Smoking Status: Former smoker - Past Family History Father Additional Family Medical History / Comment(s): brain aneurysm Mother Family Medical History: Coronary Artery Disease (CAD), Diabetes Mellitus Medications and Allergies Home Medications Medication Instructions Recorded Confirmed Type Tamsulosin [Flomax] 0.4 mg PO PC-BRKFST 03/23/21 09/11/24 History Clopidogrel [Plavix] 75 mg PO HS 05/10/23 09/11/24 History Empagliflozin/Metformin HCl 1 tab PO BID 05/10/23 09/11/24 History [Synjardy 12.5-1,000 mg Tablet] Rosuvastatin [Crestor] 10 mg PO HS 05/10/23 09/11/24 History Cholecalciferol (Vitamin D3) 50 mcg PO DAILY 08/18/24 09/11/24 History [Vitamin D3 (50 Mcg = 2000 Iu)] Calcium Carbonate [Tums] 500 mg PO TID #0 tab 09/03/24 09/11/24 Rx Apalutamide [Erleada] 240 mg PO DAILY 09/11/24 09/11/24 History HYDROcodone/APAP 10-325MG [[place] 1 tab PO Q6H PRN 09/11/24 09/11/24 History 10-325] Insulin Degludec [Tresiba 1 - 20 units SQ AC-SUPPER 09/11/24 09/11/24 History Flextouch U-100 Pen] Morphine Sulfate ER [Ms Contin] 15 mg PO BID@0900,2100 09/11/24 09/11/24 History Allergies Allergy/AdvReac Type Severity Reaction Status Date / Time aspirin AdvReac Abdominal Verified 09/11/24 20:48 Pain Physical Exam Vitals: Vital Signs Temp Pulse Pulse Resp BP BP Pulse Ox 09/12/24 07:30 97.5 F L 70 16 126/69 97 09/12/24 06:00 66 17 107/57 100 09/12/24 04:10 63 17 96/68 96 09/11/24 23:15 97.8 F 67 18 100/54 97 09/11/24 21:16 77 18 99/63 98 09/11/24 20:31 71 20 124/69 95 09/11/24 18:46 98.9 F 84 17 103/51 94 L 09/11/24 16:24 100.8 F H 85 16 97/62 97 Intake and Output 09/11/24 09/12/24 09/12/24 22:59 06:59 14:59 Output Total 400 645 250 Balance -400 -645 -250 Output: Urine 400 645 250 Other: # Voids 2 1 Weight 68.039 kg Results CBC & Chem 7: 09/11/24 16:32 09/11/24 16:32 Labs: Abnormal Lab Results - Last 24 Hours (Table) 09/11/24 09/11/24 09/11/24 Range/Units 16:32 16:32 16:32 WBC 14.80 H (4.50-10.00) 10*3/uL RBC 2.76 L (4.40-5.60) 10*6/uL Hgb 8.7 L (13.0-17.0) g/dL Hct 26.0 L (39.6-50.0) % MPV 9.0 L (9.5-12.2) fL Immature Gran # 0.17 H (0.00-0.04) 10*3/uL Neutrophils # 12.82 H (1.80-7.70) 10*3/uL Lymphocytes # 0.60 L (0.90-5.00) 10*3/uL Monocytes # 1.15 H (0.20-1.00) 10*3/uL Eosinophils # 0.02 L (0.04-0.35) 10*3/uL PT 13.7 H (10.0-12.5) sec INR 1.3 H (<1.2) Sodium 132 L (137-145) mmol/L Creatinine 0.65 L (0.66-1.25) mg/dL Glucose 55 L (74-99) mg/dL POC Glucose (mg/dL) (70-110) mg/dL Plasma Lactic Acid Noé (0.7-2.0) mmol/L Calcium 6.0 L* (8.4-10.2) mg/dL Ionized Calcium Carie (4.5-5.3) mg/dL Magnesium 1.3 L (1.6-2.3) mg/dL Alkaline Phosphatase 450 H (38-126) U/L Total Protein 4.9 L (6.3-8.2) g/dL Albumin 2.1 L (3.5-5.0) g/dL Urine Glucose (UA) (Negative) 09/11/24 09/11/24 09/11/24 Range/Units 16:32 20:31 20:55 WBC (4.50-10.00) 10*3/uL RBC (4.40-5.60) 10*6/uL Hgb (13.0-17.0) g/dL Hct (39.6-50.0) % MPV (9.5-12.2) fL Immature Gran # (0.00-0.04) 10*3/uL Neutrophils # (1.80-7.70) 10*3/uL Lymphocytes # (0.90-5.00) 10*3/uL Monocytes # (0.20-1.00) 10*3/uL Eosinophils # (0.04-0.35) 10*3/uL PT (10.0-12.5) sec INR (<1.2) Sodium (137-145) mmol/L Creatinine (0.66-1.25) mg/dL Glucose (74-99) mg/dL POC Glucose (mg/dL) (70-110) mg/dL Plasma Lactic Acid Noé 3.5 H* 2.3 H* (0.7-2.0) mmol/L Calcium (8.4-10.2) mg/dL Ionized Calcium Carie (4.5-5.3) mg/dL Magnesium (1.6-2.3) mg/dL Alkaline Phosphatase (38-126) U/L Total Protein (6.3-8.2) g/dL Albumin (3.5-5.0) g/dL Urine Glucose (UA) 4+ H (Negative) 09/12/24 09/12/24 09/12/24 Range/Units 04:16 04:52 06:33 WBC (4.50-10.00) 10*3/uL RBC (4.40-5.60) 10*6/uL Hgb (13.0-17.0) g/dL Hct (39.6-50.0) % MPV (9.5-12.2) fL Immature Gran # (0.00-0.04) 10*3/uL Neutrophils # (1.80-7.70) 10*3/uL Lymphocytes # (0.90-5.00) 10*3/uL Monocytes # (0.20-1.00) 10*3/uL Eosinophils # (0.04-0.35) 10*3/uL PT (10.0-12.5) sec INR (<1.2) Sodium (137-145) mmol/L Creatinine (0.66-1.25) mg/dL Glucose (74-99) mg/dL POC Glucose (mg/dL) 44 L* 61 L (70-110) mg/dL Plasma Lactic Acid Noé (0.7-2.0) mmol/L Calcium (8.4-10.2) mg/dL Ionized Calcium Carie 3.7 L (4.5-5.3) mg/dL Magnesium (1.6-2.3) mg/dL Alkaline Phosphatase (38-126) U/L Total Protein (6.3-8.2) g/dL Albumin (3.5-5.0) g/dL Urine Glucose (UA) (Negative) Assessment and Plan (1) Pneumonia Current Visit: Yes Status: Acute Code(s): J18.9 - PNEUMONIA, UNSPECIFIED ORGANISM SNOMED Code(s): 213897476 (2) Hypocalcemia Current Visit: Yes Status: Acute Code(s): E83.51 - HYPOCALCEMIA SNOMED Code(s): 2489175 (3) CAD (coronary artery disease) Current Visit: No Status: Acute Code(s): I25.10 - ATHSCL HEART DISEASE OF [place] CORONARY ARTERY W/O ANG PCTRS SNOMED Code(s): 95154136 (4) Diabetes Current Visit: No Status: Acute Code(s): E11.9 - TYPE 2 DIABETES MELLITUS WITHOUT COMPLICATIONS SNOMED Code(s): 60208592 (5) Prostate cancer metastatic to bone Current Visit: No Status: Acute Code(s): C61 - MALIGNANT NEOPLASM OF PROSTATE; C79.51 - SECONDARY MALIGNANT NEOPLASM OF BONE SNOMED Code(s): 94042704 Plan: Continue home medications. Will hold oral diabetic medications for now and put patient on sliding scale inulin. Check CBC, CMP and magnesium in the morning. Appreciate pulmonology and oncology input. Patient seen and evaluated by nurse practitioner, physician in agreement with plan.
[2024-09-12] MEDS: CALCIUM GLUCONATE IN NACL 1 GM in SALINE 1 100ML.BAG IVPB ONE (09:18)
[2024-09-12] MEDS: CHOLECALCIFEROL 25 MCG (1000 IU) TABLET PO SCH (10:37)
[2024-09-12] MEDS: MORPHINE SULFATE ER 15 MG TABLET PO SCH (10:37)
[2024-09-12] MEDS: FUROSEMIDE 10 MG/ML 2 ML VIAL IV SCH (10:37)
[2024-09-12] MEDS: AZITHROMYCIN 500 MG in SODIUM CHLORIDE 0.9% 250 ML IVPB SCH (10:38)
[2024-09-12 11:44] LABS: Glucose,Whole Blood 93 mg/dL (70-110)
[2024-09-12] MEDS: INSULIN LISPRO (HumaLOG) 100 UNIT/ML 10 mL VL SQ SCH (12:24)
--- NOTE | 2024-09-12 16:05 | P.CONS ---
History of Present Illness - Reason for Consult Consult date: 09/12/24 prostate carcinoma Requesting physician: Luis Sweeney - Chief Complaint hypotensive, hypoglycemic - History of Present Illness Mr. Reeves is a pleasant male patient of Dr. Malagon with a history of metastatic prostate cancer. He is currently on treatment with oral Erleada, rank ligand inhibitor Xgeva and intramuscular Lupron every 3 months. Patient was noted to have an elevated PSA in late 2022. 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 He had a DNA methylation test ordered by neurology, confirmed 57% likelihood of detecting cancer on a repeat biopsy. However the patient did not follow-up as he was having other medical issues at the time. He was having some lightheadedness and near syncopal episodes, CT of the brain and C-spine did not show any acute pathology. PSA in October 2023 was 18.1. MRI of the prostate November 2023 showing BI-RADS 5 lesion in the mid gland, crossing the midline, 3.8 x 2.2 x 3.6 cm, there was no obvious extra capsular extension seen. It seems that patient refused to follow-up with urology. He started developing back pain in February 2024. Finally, seeking medical attention, CTAP 05/25/2024 showed some wall thickening of the urinary bladder, mild constipation, no other findings. NM bone scan 06/21/2024 showed extensive bony metastatic disease. MRI of the lumbar spine without contrast showed diffuse abnormal appearance concerning for metastatic involvement of essentially all visualized vertebral bodies. Alk phos was 761 at that time. Patient was referred to medical oncology at that time. On initial evaluation it was concerning that the patient may be developing cord compression based on his symptoms. He was admitted 07/11/2024 to the hospital, extensive workup, including MRI spinal survey, by biopsy from L5, evaluation by radiation oncology and orthopedic spine surgeon. There was no evidence of cord compression or need for surgical intervention. Biopsy from L5 was positive for metastatic prostate cancer. He required pain medications and has been doing well since that time. Patient was started on Erleada, Xgeva and Lupron. He was in the office yesterday for follow-up when he was noted to have a temp of 100.5, he was hypotensive, blood sugar was also noted to be low at 50. He was sent to the hospital for treatment of the same and further workup. Patient had a temp of 100.8F on admission, ionized calcium 3.7, lactic acid 2.3, calcium 6, urine was showing glucose 4+, viral panel negative. When seen today patient feels weak and tired. He denies any nausea or vomiting, appetite is fair, no chest pain, abdominal pain, acute changes in bowel or bladder habits, swelling in the legs or bleeding to report Review of Systems 10 point ROS is neg except as stated in HPI Past Medical History Past Medical History: Cancer, Diabetes Mellitus, Hyperlipidemia, Hypertension, Myocardial Infarction ([place]), Osteoarthritis (OA), Prostate Disorder, Sleep Apnea/CPAP/BIPAP Additional Past Medical History / Comment(s): Prostate cancer with metatasis Last Myocardial Infarction Date:: 1999 History of Any Multi-Drug Resistant Organisms: None Reported Past Surgical History: Orthopedic Surgery Additional Past Surgical History / Comment(s): Right Knee replacement, cataracts surgery, Left knee steriod injection,biopsy of prostate by Dr. Devries 2023 Past Anesthesia/Blood Transfusion Reactions: No Reported Reaction Past Psychological History: No Psychological Hx Reported Smoking Status: Former smoker - Past Family History Father Additional Family Medical History / Comment(s): brain aneurysm Mother Family Medical History: Coronary Artery Disease (CAD), Diabetes Mellitus Medications and Allergies Home Medications Medication Instructions Recorded Confirmed Type Tamsulosin [Flomax] 0.4 mg PO PC-BRKFST 03/23/21 09/11/24 History Clopidogrel [Plavix] 75 mg PO HS 05/10/23 09/11/24 History Empagliflozin/Metformin HCl 1 tab PO BID 05/10/23 09/11/24 History [Synjardy 12.5-1,000 mg Tablet] Rosuvastatin [Crestor] 10 mg PO HS 05/10/23 09/11/24 History Cholecalciferol (Vitamin D3) 50 mcg PO DAILY 08/18/24 09/11/24 History [Vitamin D3 (50 Mcg = 2000 Iu)] Calcium Carbonate [Tums] 500 mg PO TID #0 tab 09/03/24 09/11/24 Rx Apalutamide [Erleada] 240 mg PO DAILY 09/11/24 09/11/24 History HYDROcodone/APAP 10-325MG [[place] 1 tab PO Q6H PRN 09/11/24 09/11/24 History 10-325] Insulin Degludec [Tresiba 1 - 20 units SQ AC-SUPPER 09/11/24 09/11/24 History Flextouch U-100 Pen] Morphine Sulfate ER [Ms Contin] 15 mg PO BID@0900,2100 09/11/24 09/11/24 History Allergies Allergy/AdvReac Type Severity Reaction Status Date / Time aspirin AdvReac Abdominal Verified 09/11/24 20:48 Pain Physical Exam Vitals: Vital Signs Temp Pulse Pulse Resp BP BP Pulse Ox 09/12/24 07:30 97.5 F L 70 16 126/69 97 09/12/24 06:00 66 17 107/57 100 09/12/24 04:10 63 17 96/68 96 09/11/24 23:15 97.8 F 67 18 100/54 97 09/11/24 21:16 77 18 99/63 98 09/11/24 20:31 71 20 124/69 95 09/11/24 18:46 98.9 F 84 17 103/51 94 L 09/11/24 16:24 100.8 F H 85 16 97/62 97 Intake and Output 09/11/24 09/12/24 09/12/24 22:59 06:59 14:59 Intake Total 240 Output Total 400 645 250 Balance -400 -645 -10 Intake: Oral 240 Output: Urine 400 645 250 Other: # Voids 2 1 Weight 68.039 kg - Constitutional General appearance: average body habitus, cooperative, no acute distress - EENT Eyes: anicteric sclerae, EOMI ENT: hearing grossly normal - Respiratory Respiratory: bilateral: rales (bases, L>R) - Cardiovascular Rhythm: regular Heart sounds: normal: S1, S2 Abnormal Heart Sounds: no systolic murmur, no diastolic murmur, no rub, no S3 Gallop, no S4 Gallop, no click, no other leg Peripheral Edema: bilateral: None - Gastrointestinal General gastrointestinal: no absent bowel sounds, no decreased bowel sounds, no distended, no hepatomegaly, no hyperactive bowel sounds, normal bowel sounds, no organomegaly, no rigid, no scaphoid, soft, no splenomegaly, no tenderness, no umbilical hernia, no ventral hernia - Integumentary Integumentary: normal - Neurologic Neurologic: CNII-XII intact - Musculoskeletal Musculoskeletal: generalized weakness - Psychiatric Psychiatric: A&O x's 3, appropriate affect, intact judgment & insight Results CBC & Chem 7: 09/11/24 16:32 09/11/24 16:32 Labs: Abnormal Lab Results - Last 24 Hours (Table) 09/11/24 09/11/24 09/11/24 Range/Units 16:32 16:32 16:32 WBC 14.80 H (4.50-10.00) 10*3/uL RBC 2.76 L (4.40-5.60) 10*6/uL Hgb 8.7 L (13.0-17.0) g/dL Hct 26.0 L (39.6-50.0) % MPV 9.0 L (9.5-12.2) fL Immature Gran # 0.17 H (0.00-0.04) 10*3/uL Neutrophils # 12.82 H (1.80-7.70) 10*3/uL Lymphocytes # 0.60 L (0.90-5.00) 10*3/uL Monocytes # 1.15 H (0.20-1.00) 10*3/uL Eosinophils # 0.02 L (0.04-0.35) 10*3/uL PT 13.7 H (10.0-12.5) sec INR 1.3 H (<1.2) Sodium 132 L (137-145) mmol/L Creatinine 0.65 L (0.66-1.25) mg/dL Glucose 55 L (74-99) mg/dL POC Glucose (mg/dL) (70-110) mg/dL Plasma Lactic Acid Noé (0.7-2.0) mmol/L Calcium 6.0 L* (8.4-10.2) mg/dL Ionized Calcium Carie (4.5-5.3) mg/dL Magnesium 1.3 L (1.6-2.3) mg/dL Alkaline Phosphatase 450 H (38-126) U/L Total Protein 4.9 L (6.3-8.2) g/dL Albumin 2.1 L (3.5-5.0) g/dL Urine Glucose (UA) (Negative) 09/11/24 09/11/24 09/11/24 Range/Units 16:32 20:31 20:55 WBC (4.50-10.00) 10*3/uL RBC (4.40-5.60) 10*6/uL Hgb (13.0-17.0) g/dL Hct (39.6-50.0) % MPV (9.5-12.2) fL Immature Gran # (0.00-0.04) 10*3/uL Neutrophils # (1.80-7.70) 10*3/uL Lymphocytes # (0.90-5.00) 10*3/uL Monocytes # (0.20-1.00) 10*3/uL Eosinophils # (0.04-0.35) 10*3/uL PT (10.0-12.5) sec INR (<1.2) Sodium (137-145) mmol/L Creatinine (0.66-1.25) mg/dL Glucose (74-99) mg/dL POC Glucose (mg/dL) (70-110) mg/dL Plasma Lactic Acid Noé 3.5 H* 2.3 H* (0.7-2.0) mmol/L Calcium (8.4-10.2) mg/dL Ionized Calcium Carie (4.5-5.3) mg/dL Magnesium (1.6-2.3) mg/dL Alkaline Phosphatase (38-126) U/L Total Protein (6.3-8.2) g/dL Albumin (3.5-5.0) g/dL Urine Glucose (UA) 4+ H (Negative) 09/12/24 09/12/24 09/12/24 Range/Units 04:16 04:52 06:33 WBC (4.50-10.00) 10*3/uL RBC (4.40-5.60) 10*6/uL Hgb (13.0-17.0) g/dL Hct (39.6-50.0) % MPV (9.5-12.2) fL Immature Gran # (0.00-0.04) 10*3/uL Neutrophils # (1.80-7.70) 10*3/uL Lymphocytes # (0.90-5.00) 10*3/uL Monocytes # (0.20-1.00) 10*3/uL Eosinophils # (0.04-0.35) 10*3/uL PT (10.0-12.5) sec INR (<1.2) Sodium (137-145) mmol/L Creatinine (0.66-1.25) mg/dL Glucose (74-99) mg/dL POC Glucose (mg/dL) 44 L* 61 L (70-110) mg/dL Plasma Lactic Acid Noé (0.7-2.0) mmol/L Calcium (8.4-10.2) mg/dL Ionized Calcium Carie 3.7 L (4.5-5.3) mg/dL Magnesium (1.6-2.3) mg/dL Alkaline Phosphatase (38-126) U/L Total Protein (6.3-8.2) g/dL Albumin (3.5-5.0) g/dL Urine Glucose (UA) (Negative) Chest x-ray: report reviewed Assessment and Plan (1) Pneumonia Current Visit: Yes Status: Acute Priority: High Code(s): J18.9 - PNEUMONIA, UNSPECIFIED ORGANISM SNOMED Code(s): 715510889 (2) Hypocalcemia Current Visit: Yes Status: Acute Priority: High Code(s): E83.51 - HYPOCALCEMIA SNOMED Code(s): 1347803 (3) Hypoglycemia Current Visit: Yes Status: Acute Priority: High Code(s): E16.2 - HYP OGLYCEMIA, UNSPECIFIED SNOMED Code(s): 750843710 (4) Prostate cancer metastatic to bone Current Visit: No Status: Chronic Priority: Medium Code(s): C61 - MALIGNANT NEOPLASM OF PROSTATE; C79.51 - SECONDARY MALIGNANT NEOPLASM OF BONE SNOMED Code(s): 99402540 Plan: Pneumonia - Chest x-ray suspicious for the same - Crackles in the bases of the lungs on exam -Pulmonary has seen the patient. - Antibiotics have been initiated along with supportive respiratory medications Hypocalcemia - [place] may possibly be related to rank ligand inhibitor that is given for bone metastasis. - Calcium has been supplemented parenterally -Monitor calcium levels Hypoglycemia - Patient's blood sugars have been corrected - Patient needs to follow-up with [facility] for management of the same Metastatic prostate cancer - Diagnosis and treatment as reported in HPI. - Patient is not due for Lupron for a few more months. He just received rank ligand inhibitor-may be contributing to some of his symptoms, this may need to be changed. He is on oral Erleada. This will be held acutely while ill Doctor attests: I performed a history and physical examination of this patient, developed impression and plan of care. Discussed with dictator. I agree with dictators note, documented as a scribe.
[2024-09-12] MEDS: CALCIUM GLUCONATE IN NACL 1 GM in SALINE 1 100ML.BAG IVPB SCH (16:25)
[2024-09-12 17:01] LABS: Glucose,Whole Blood 96 mg/dL (70-110)
[2024-09-12 20:09] LABS: Glucose,Whole Blood 112 mg/dL (70-110)
[2024-09-12] MEDS: CLOPIDOGREL 75 MG TAB PO SCH (20:31)
[2024-09-12] MEDS: ATORVASTATIN 20 MG TAB PO SCH (20:31)
[2024-09-13] MEDS: CALCIUM GLUCONATE IN NACL 1 GM in SALINE 1 100ML.BAG IVPB SCH (01:31)
[2024-09-13] MEDS ORDERED: ZINC OXIDE PASTE (Z-GUARD) 1 APPLIC TOPICAL PRN (05:48)
[2024-09-13 06:45] LABS: Glucose,Whole Blood 56 mg/dL (70-110)
[2024-09-13 07:16] LABS: Glucose,Whole Blood 65 mg/dL (70-110)
[2024-09-13 07:41] LABS: Glucose,Whole Blood 88 mg/dL (70-110)
--- NOTE | 2024-09-13 08:36 | P.PN ---
Subjective Progress Note Date: 09/13/24 Principal diagnosis: Pneumonia with metastatic prostate cancer. Patient states that swelling is improved. He feels as though his taste is returning. Poor appetite is noted. Objective - Vital Signs Vital signs: Vital Signs Temp 98.3 F 09/13/24 07:15 Pulse 71 09/13/24 07:15 Resp 16 09/13/24 07:15 BP 128/81 09/13/24 07:15 Pulse Ox 94 L 09/13/24 07:15 FiO2 Intake & Output 09/12/24 09/13/24 09/13/24 18:59 06:59 18:59 Intake Total 1560 250 Output Total 250 400 Balance 1310 -150 Weight 68.039 kg Intake: Oral 1560 250 Output: Urine 250 400 Other: Voiding Method Urinal # Voids 5 1 # Bowel Movements 1 - Constitutional General appearance: Present: average body habitus, cooperative. Absent: no acute distress - EENT Eyes: Absent: abnormal pupil - Neck Neck: Present: lymphadenopathy - Respiratory Respiratory: bilateral: diminished - Cardiovascular Rhythm: regular Heart sounds: normal: S1, S2 Abnormal Heart Sounds: Absent: S3 Gallop - Gastrointestinal General gastrointestinal: Present: soft. Absent: tenderness - Labs CBC & Chem 7: 09/11/24 16:32 09/11/24 16:32 Labs: Abnormal Lab Results - Last 24 Hours (Table) 09/12/24 09/13/24 09/13/24 Range/Units 20:08 06:43 07:14 POC Glucose (mg/dL) 112 H 56 L 65 L (70-110) mg/dL Microbiology - Last 24 Hours (Table) 09/11/24 16:32 Blood Culture - Preliminary Blood Assessment and Plan (1) Hypocalcemia Current Visit: Yes Status: Acute Priority: High Code(s): E83.51 - HYPOCALCEMIA SNOMED Code(s): 1030128 (2) Hypoglycemia Current Visit: Yes Status: Acute Priority: High Code(s): E16.2 - HYPOGLYCEMIA, UNSPECIFIED SNOMED Code(s): 240610998 (3) Diabetes Current Visit: No Status: Acute Code(s): E11.9 - TYPE 2 DIABETES MELLITUS WITHOUT COMPLICATIONS SNOMED Code(s): 77319819 (4) Prostate cancer Current Visit: No Status: Acute Priority: High Code(s): C61 - MALIGNANT NEOPLASM OF PROSTATE SNOMED Code(s): 745619478 (5) Prostate cancer metastatic to bone Current Visit: No Status: Chronic Priority: Medium Code(s): C61 - MALIGNANT NEOPLASM OF PROSTATE; C79.51 - SECONDARY MALIGNANT NEOPLASM OF BONE SNOMED Code(s): 02477959 Plan: Continue calcium supplementation. Check CBC and CMP in the a.m. Appreciate multiple consultants input.
[2024-09-13 08:38] LABS: Magnesium 1.4 mg/dL (1.5-2.4)
[2024-09-13 08:44] LABS: HCT 22.2 % (39.6-50.0); HGB 6.9 g/dL (13.0-17.0); MCH 30.5 pg (27.0-32.0); MCHC 31.1 g/dL (32.0-37.0); MCV 98.2 FL (80.0-97.0); Mean Platelet Volume 9.2 FL (9.5-12.2); NRBC Per 100 WBC 0 X 10*3/uL (0.00-0.01); Platelet Count 383 X 10*3/uL (140-440); RBC 2.26 X 10*6/uL (4.40-5.60); RDW 18.9 % (11.5-14.5); WBC 7.08 X 10*3/uL (4.50-10.00)
[2024-09-13 08:50] LABS: ALT 13 U/L (10-49); AST 22 U/L (14-35); Albumin 1.8 g/dL (3.8-4.9); Albumin/Globulin Ratio 0.82 Ratio (1.60-3.17); Alkaline Phosphatase 340 U/L (41-126); Blood Urea Nitrogen 9.3 mg/dL (9.0-27.0); Carbon Dioxide 21.9 mmol/L (21.6-31.8); Chloride 106 mmol/L (96-109); Globulin 2.2 g/dL (1.6-3.3); Glucose 53 mg/dL (70-110); Potassium 3.5 mmol/L (3.5-5.5); Sodium 136 mmol/L (135-145); Total Bilirubin <0.2 mg/dL (0.3-1.2)
[2024-09-13] MEDS: TAMSULOSIN 0.4 MG CAP.ER.24H PO SCH (09:21)
[2024-09-13 12:04] LABS: Glucose,Whole Blood 132 mg/dL (70-110)
--- NOTE | 2024-09-13 15:09 | P.PN ---
Subjective Progress Note Date: 09/13/24 Patient is an 79-year-old male with past medical history significant for metastatic prostate cancer. He has osseous and pulmonary metastasis. Chest CT angiogram from Aug, 2024 showing stable multiple pulmonary nodules and mixed lytic and sclerotic lesions scattered throughout the thoracic spine and sternum. He does follow with Dr. Go from oncology. I believe he is on Erleada and Xgeva. He was sent in from the oncology office with generalized weakness, low blood sugars, hypotension. Did have a previous hospitalization and was discharged from the hospital on September 03 with similar concerns. Did have a brief stay in the intensive care unit. 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 Patient also has past medical history significant for diabetes mellitus insulin-dependent hyperlipidemia, obstructive sleep apnea, among other things. Patient was found to be hypotensive in the ED, and was given 1.5 L LR bolus. Also, blood sugar was noted to be hypoglycemic and treated per protocol. He had a fever with a temperature of 100.8 F. Workup in the emergency department including a chest x-ray showing multifocal airspace opacities concerning for pneumonia. CBC remarkable for leukocytosis with a WBC count of 14.8, hemoglobin 8.7, platelets 383. CMP: Sodium 132, potassium 3.9, chloride 102, serum bicarb 24, BUN 12, creatinine 0.65, glucose 55. Albumin 2.1. Lactic was elevated at 3.5 and is down to 1.5. Troponin less than 0.012. Viral 4 Plex negative for influenza A/B, RSV, COVID. Patient currently being evaluated in the emergency department. He is resting comfortably on room air. Denies any shortness of breath, coughing, sputum production, chest pain, hemoptysis. Did have a fever of 100.8 F on arrival. Denies any abdominal pain, diarrhea, nausea or vomiting. Denies any new urinary symptoms. Was previously started on combination of azithromycin and Rocephin. He is grossly anasarcic and edematous. Did previously receive a dose of 20 mg IV Lasix. Urinal is full at the bedside. Most recent vital signs include a heart rate of 63 bpm, blood pressure 96/68 mmHg, nontachypneic, SpO2 recorded at 96% on room air. The patient is seen today September 13, 2024 in follow-up on the regular medical floor. He is currently sitting up in bed. Awake and alert in no acute distress. He is maintaining good O2 saturations in the upper 90s on room air oxygen. He has been afebrile. Hemodynamically stable. Blood culture revealing no growth. White count 7.0. Hemoglobin 6.9. Platelets 383. Sodium 136. Potassium 3.5. Bicarb 22. BUN 9. Creatinine 0.6. Glucose 132. Hemoglobin A1c 7.0. Calcium 6.0. He is receiving 1 unit of packed red blood cells thus far. Calcium is being replaced. He remains on IV diuretics. Continued on Zosyn. Pain is well-controlled this morning. Objective - Vital Signs Vital signs: Vital Signs Temp 98.1 F 09/13/24 14:03 Pulse 71 09/13/24 14:03 Resp 16 09/13/24 14:03 BP 119/68 09/13/24 14:03 Pulse Ox 97 09/13/24 14:03 FiO2 Intake & Output 09/12/24 09/13/24 09/13/24 18:59 06:59 18:59 Intake Total 4039 373 6682 Output Total 250 400 Balance 1310 -150 1450 Weight 68.039 kg Intake: Oral 9516 808 0727 Blood Product 310 Rc As-1 Unit 310 [id number] Output: Urine 250 400 Other: Voiding Method Urinal # Voids 5 1 # Bowel Movements 1 - Exam GENERAL EXAM: Alert, pleasant 79-year-old male, stable on room air oxygen, grossly anasarca, comfortable in no apparent distress. HEAD: Normocephalic and atraumatic EYES: Normal reaction of pupils, equal size. NOSE: Clear with pink turbinates. THROAT: No erythema or exudates. NECK: No masses, no JVD. CHEST: No chest wall deformity. LUNGS: Equal air entry with no crackles, wheeze, rhonchi or dullness. No conversational dyspnea or accessory muscle use.. CVS: S1 and S2 normal with no audible murmur, irregular rhythm. No extra heart sounds ABDOMEN: No hepatosplenomegaly, active bowel sounds, no guarding or rigidity. SPINE: No scoliosis or deformity SKIN: No rashes CENTRAL NERVOUS SYSTEM: No focal deficits, tone is normal in all 4 extremities. EXTREMITIES: There is bilateral upper and lower extremity pitting edema. 2-3+ pitting edema in the bilateral lower extremities. No clubbing, or cyanosis. Peripheral pulses are intact. - Labs CBC & Chem 7: 09/13/24 05:15 09/13/24 05:15 Labs: Abnormal Lab Results - Last 24 Hours (Table) 09/11/24 09/12/24 09/13/24 Range/Units 16:32 20:08 05:15 RBC (4.40-5.60) X 10*6/uL Hgb (13.0-17.0) g/dL Hct (39.6-50.0) % MCV (80.0-97.0) FL MCHC (32.0-37.0) g/dL RDW (11.5-14.5) % MPV (9.5-12.2) FL Glucose (70-110) mg/dL POC Glucose (mg/dL) 112 H (70-110) mg/dL Hemoglobin A1c 7.0 H (<=6.0) % Calcium (8.7-10.3) mg/dL Magnesium (1.5-2.4) mg/dL Total Bilirubin (0.3-1.2) mg/dL Alkaline Phosphatase (41-126) U/L Total Protein (6.2-8.2) g/dL Albumin (3.8-4.9) g/dL Albumin/Globulin Ratio (1.60-3.17) Ratio Crossmatch See Detail 09/13/24 09/13/24 09/13/24 Range/Units 05:15 05:15 06:43 RBC 2.26 L (4.40-5.60) X 10*6/uL Hgb 6.9 A* (13.0-17.0) g/dL Hct 22.2 L (39.6-50.0) % MCV 98.2 H (80.0-97.0) FL MCHC 31.1 L (32.0-37.0) g/dL RDW 18.9 H (11.5-14.5) % MPV 9.2 L (9.5-12.2) FL Glucose 53 L (70-110) mg/dL POC Glucose (mg/dL) 56 L (70-110) mg/dL Hemoglobin A1c (<=6.0) % Calcium 6.0 A* (8.7-10.3) mg/dL Magnesium 1.4 L (1.5-2.4) mg/dL Total Bilirubin <0.2 L (0.3-1.2) mg/dL Alkaline Phosphatase 340 H (41-126) U/L Total Protein 4.0 L (6.2-8.2) g/dL Albumin 1.8 L (3.8-4.9) g/dL Albumin/Globulin Ratio 0.82 L (1.60-3.17) Ratio Crossmatch 09/13/24 09/13/24 Range/Units 07:14 12:03 RBC (4.40-5.60) X 10*6/uL Hgb (13.0-17.0) g/dL Hct (39.6-50.0) % MCV (80.0-97.0) FL MCHC (32.0-37.0) g/dL RDW (11.5-14.5) % MPV (9.5-12.2) FL Glucose (70-110) mg/dL POC Glucose (mg/dL) 65 L 132 H (70-110) mg/dL Hemoglobin A1c (<=6.0) % Calcium (8.7-10.3) mg/dL Magnesium (1.5-2.4) mg/dL Total Bilirubin (0.3-1.2) mg/dL Alkaline Phosphatase (41-126) U/L Total Protein (6.2-8.2) g/dL Albumin (3.8-4.9) g/dL Albumin/Globulin Ratio (1.60-3.17) Ratio Crossmatch Microbiology - Last 24 Hours (Table) 09/11/24 16:32 Blood Culture - Preliminary Blood Assessment and Plan Assessment: Suspected multifocal community-acquired pneumonia. Procalcitonin negative. Remains on Zosyn Metastatic prostate cancer, with extensive skeletal metastases and pulmonary metastases. CAT scan of the chest was also consistent with tiny punctate nodular lesions consistent with metastatic disease. The patient was started on androgen deprivation therapy with Erleada and also I believe his Zometa infusions were transitioned to Xgeva Severe hypocalcemia, likely secondary to above Acute leukocytosis, recovered Febrile illness, recovered Hypotension, improved Meet SIRS/sepsis criteria Normocytic anemia, hemoglobin dropped to 6.9, receiving 1 unit of packed red blood cells Refractory hypoglycemia Insulin-dependent diabetes mellitus Gross anasarca Hypoalbuminemia Hypertension Hyperlipidemia Obstructive sleep apnea Plan: The patient was seen and evaluated Labs and medications reviewed Receiving 1 unit of packed red blood cells Remained stable on room air oxygen Continue Zosyn Continue IV diuretics Replace calcium Assure adequate pain control Increase his activity as tolerate We will continue to follow I have personally seen and examined the patient, performed the documentation and the assessment and plan as written. Number of minutes spent on the visit: 10 Dictation was produced using [employer] dictation software. Please excuse any grammatical, word or spelling errors.
[2024-09-13 16:47] LABS: Glucose,Whole Blood 133 mg/dL (70-110)
[2024-09-13] MEDS: INSULIN LISPRO (HumaLOG) 100 UNIT/ML 10 mL VL SQ SCH (16:57)
--- NOTE | 2024-09-13 18:36 | P.PN ---
Subjective Progress Note Date: 09/13/24 Pt reporting feeling improved today. Denies n/v, tolerating oral intake. Remains afebrile continues on IV abx. Hgb 6.9. 1 unit PRBCs ordered. Pt denies acute episodes of bleeding and melena. Pt working with PT, ambulating to bathroom. Objective - Vital Signs Vital signs: Vital Signs Temp 98.2 F 09/13/24 12:31 Pulse 75 09/13/24 12:31 Resp 16 09/13/24 12:31 BP 100/56 09/13/24 12:31 Pulse Ox 99 09/13/24 12:31 FiO2 Intake & Output 09/12/24 09/13/24 09/13/24 18:59 06:59 18:59 Intake Total 1560 250 900 Output Total 250 400 Balance 1310 -150 900 Weight 68.039 kg Intake: Oral 1560 250 900 Blood Product 0 Unit 0 Output: Urine 250 400 Other: Voiding Method Urinal # Voids 5 1 # Bowel Movements 1 - Constitutional General appearance: Present: no acute distress - EENT Eyes: Present: anicteric sclerae, EOMI ENT: Present: hearing grossly normal - Respiratory Details: breathing is even and unlabored - Cardiovascular Details: skin warm and dry - Gastrointestinal General gastrointestinal: Present: soft. Absent: tenderness - Integumentary Integumentary: Present: pale. Absent: cyanotic - Musculoskeletal Musculoskeletal: Present: generalized weakness - Psychiatric Psychiatric: Present: A&O x's 3 - Labs CBC & Chem 7: 09/13/24 05:15 09/13/24 05:15 Labs: Abnormal Lab Results - Last 24 Hours (Table) 09/11/24 09/12/24 09/13/24 Range/Units 16:32 20:08 05:15 RBC (4.40-5.60) X 10*6/uL Hgb (13.0-17.0) g/dL Hct (39.6-50.0) % MCV (80.0-97.0) FL MCHC (32.0-37.0) g/dL RDW (11.5-14.5) % MPV (9.5-12.2) FL Glucose (70-110) mg/dL POC Glucose (mg/dL) 112 H (70-110) mg/dL Hemoglobin A1c 7.0 H (<=6.0) % Calcium (8.7-10.3) mg/dL Magnesium (1.5-2.4) mg/dL Total Bilirubin (0.3-1.2) mg/dL Alkaline Phosphatase (41-126) U/L Total Protein (6.2-8.2) g/dL Albumin (3.8-4.9) g/dL Albumin/Globulin Ratio (1.60-3.17) Ratio Crossmatch See Detail 09/13/24 09/13/24 09/13/24 Range/Units 05:15 05:15 06:43 RBC 2.26 L (4.40-5.60) X 10*6/uL Hgb 6.9 A* (13.0-17.0) g/dL Hct 22.2 L (39.6-50.0) % MCV 98.2 H (80.0-97.0) FL MCHC 31.1 L (32.0-37.0) g/dL RDW 18.9 H (11.5-14.5) % MPV 9.2 L (9.5-12.2) FL Glucose 53 L (70-110) mg/dL POC Glucose (mg/dL) 56 L (70-110) mg/dL Hemoglobin A1c (<=6.0) % Calcium 6.0 A* (8.7-10.3) mg/dL Magnesium 1.4 L (1.5-2.4) mg/dL Total Bilirubin <0.2 L (0.3-1.2) mg/dL Alkaline Phosphatase 340 H (41-126) U/L Total Protein 4.0 L (6.2-8.2) g/dL Albumin 1.8 L (3.8-4.9) g/dL Albumin/Globulin Ratio 0.82 L (1.60-3.17) Ratio Crossmatch 09/13/24 09/13/24 Range/Units 07:14 12:03 RBC (4.40-5.60) X 10*6/uL Hgb (13.0-17.0) g/dL Hct (39.6-50.0) % MCV (80.0-97.0) FL MCHC (32.0-37.0) g/dL RDW (11.5-14.5) % MPV (9.5-12.2) FL Glucose (70-110) mg/dL POC Glucose (mg/dL) 65 L 132 H (70-110) mg/dL Hemoglobin A1c (<=6.0) % Calcium (8.7-10.3) mg/dL Magnesium (1.5-2.4) mg/dL Total Bilirubin (0.3-1.2) mg/dL Alkaline Phosphatase (41-126) U/L Total Protein (6.2-8.2) g/dL Albumin (3.8-4.9) g/dL Albumin/Globulin Ratio (1.60-3.17) Ratio Crossmatch Microbiology - Last 24 Hours (Table) 09/11/24 16:32 Blood Culture - Preliminary Blood Assessment and Plan (1) Hypocalcemia Current Visit: Yes Status: Acute Priority: High Code(s): E83.51 - HYPOCALCEMIA SNOMED Code(s): 4883243 (2) Hypoglycemia Current Visit: Yes Status: Acute Priority: High Code(s): E16.2 - HYPOGLYCEMIA, UNSPECIFIED SNOMED Code(s): 292047561 (3) Hyponatremia Current Visit: Yes Status: Acute Code(s): E87.1 - HYPO-OSMOLALITY AND H YPONATREMIA SNOMED Code(s): 46195536 (4) Pneumonia Current Visit: Yes Status: Acute Priority: High Code(s): J18.9 - PNEUMONIA, UNSPECIFIED ORGANISM SNOMED Code(s): 316891350 (5) Prostate cancer metastatic to bone Current Visit: Yes Status: Chronic Priority: Medium Code(s): C61 - MALIGNANT NEOPLASM OF PROSTATE; C79.51 - SECONDARY MALIGNANT NEOPLASM OF BONE SNOMED Code(s): 31515900 Plan: Pneumonia - Chest x-ray suspicious for the same - Crackles in the bases of the lungs on exam -Pulmonary has seen the patient. - Antibiotics have been initiated along with supportive respiratory medications Hypocalcemia - [place] may possibly be related to rank ligand inhibitor that is given for bone metastasis. - Calcium has been supplemented parenterally - Monitor calcium levels Hypoglycemia - Patient's blood sugars have been corrected - Patient needs to follow-up with [employer] for management of the same Metastatic prostate cancer - Diagnosis and treatment as reported in HPI. - Patient is not due for Lupron for a few more months. He just received rank ligand inhibitor-may be contributing to some of his symptoms, this may need to be changed. He is on oral Erleada. This will be held acutely while ill -F/u upon discharge
[2024-09-13 20:18] LABS: Glucose,Whole Blood 195 mg/dL (70-110)
[2024-09-14 01:39] LABS: Glucose,Whole Blood 177 mg/dL (70-110)
[2024-09-14 07:09] LABS: Glucose,Whole Blood 85 mg/dL (70-110)
[2024-09-14 07:34] LABS: HCT 26.3 % (39.6-50.0); HGB 8.6 g/dL (13.0-17.0); MCHC 32.7 g/dL (32.0-37.0); MCV 94.9 fL (80.0-97.0); Mean Platelet Volume 8.9 fL (9.5-12.2); Platelet Count 369 10*3/uL (140-440); RBC 2.77 10*6/uL (4.40-5.60); RDW 18.8 % (11.5-14.5)
[2024-09-14 08:04] LABS: ALT 13 U/L (4-49); AST 21 U/L (17-59); African American GFR (CKD) >90 (>60 ml/min/1.73 sqM); Albumin 1.8 g/dL (3.5-5.0); Albumin/Globulin Ratio 0.7; Alkaline Phosphatase 317 U/L (38-126); Anion Gap 4 mmol/L; Blood Urea Nitrogen 8 mg/dL (9-20); Carbon Dioxide 25 mmol/L (22-30); Chloride 105 mmol/L (98-107); Globulin 2.5 g/dL; Glucose 79 mg/dL (74-99); Non-African American GFR(CKD) >90 (>60 ml/min/1.73 sqM); Potassium 3.6 mmol/L (3.5-5.1); Sodium 134 mmol/L (137-145); Total Bilirubin 0.2 mg/dL (0.2-1.3); Total Protein 4.3 g/dL (6.3-8.2)
[2024-09-14 08:24] LABS: Calcium 5.9 mg/dL (8.4-10.2)
[2024-09-14 12:26] LABS: Glucose,Whole Blood 222 mg/dL (70-110)
--- NOTE | 2024-09-14 13:13 | P.PN ---
Subjective Progress Note Date: 09/14/24 Patient is an 79-year-old male with past medical history significant for metastatic prostate cancer. He has osseous and pulmonary metastasis. Chest CT angiogram from Aug, 2024 showing stable multiple pulmonary nodules and mixed lytic and sclerotic lesions scattered throughout the thoracic spine and sternum. He does follow with Dr. Go from oncology. I believe he is on Erleada and Xgeva. He was sent in from the oncology office with generalized weakness, low blood sugars, hypotension. Did have a previous hospitalization and was discharged from the hospital on September 03 with similar concerns. Did have a brief stay in the intensive care unit. 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 Patient also has past medical history significant for diabetes mellitus insulin-dependent hyperlipidemia, obstructive sleep apnea, among other things. Patient was found to be hypotensive in the ED, and was given 1.5 L LR bolus. Also, blood sugar was noted to be hypoglycemic and treated per protocol. He had a fever with a temperature of 100.8 F. Workup in the emergency department including a chest x-ray showing multifocal airspace opacities concerning for pneumonia. CBC remarkable for leukocytosis with a WBC count of 14.8, hemoglobin 8.7, platelets 383. CMP: Sodium 132, potassium 3.9, chloride 102, serum bicarb 24, BUN 12, creatinine 0.65, glucose 55. Albumin 2.1. Lactic was elevated at 3.5 and is down to 1.5. Troponin less than 0.012. Viral 4 Plex negative for influenza A/B, RSV, COVID. Patient currently being evaluated in the emergency department. He is resting comfortably on room air. Denies any shortness of breath, coughing, sputum production, chest pain, hemoptysis. Did have a fever of 100.8 F on arrival. Denies any abdominal pain, diarrhea, nausea or vomiting. Denies any new urinary symptoms. Was previously started on combination of azithromycin and Rocephin. He is grossly anasarcic and edematous. Did previously receive a dose of 20 mg IV Lasix. Urinal is full at the bedside. Most recent vital signs include a heart rate of 63 bpm, blood pressure 96/68 mmHg, nontachypneic, SpO2 recorded at 96% on room air. The patient is seen today September 13, 2024 in follow-up on the regular medical floor. He is currently sitting up in bed. Awake and alert in no acute distress. He is maintaining good O2 saturations in the upper 90s on room air oxygen. He has been afebrile. Hemodynamically stable. Blood culture revealing no growth. White count 7.0. Hemoglobin 6.9. Platelets 383. Sodium 136. Potassium 3.5. Bicarb 22. BUN 9. Creatinine 0.6. Glucose 132. Hemoglobin A1c 7.0. Calcium 6.0. He is receiving 1 unit of packed red blood cells thus far. Calcium is being replaced. He remains on IV diuretics. Continued on Zosyn. Pain is well-controlled this morning. The patient is seen today September 14, 2024 in follow-up on the regular medical floor. He is currently resting in bed. Awake and alert in no acute distress. Breathing easier today compared to yesterday. He is continued on Zosyn. Continued on IV diuretics. Blood culture reveals no growth. White count 8.3. Hemoglobin 8.6. Platelets 369. Sodium 134. Potassium 3.6. Bicarb 25. BUN 8. Creatinine 0.63. Glucose 79. Objective - Vital Signs Vital signs: Vital Signs Temp 97.8 F 09/14/24 12:30 Pulse 61 09/14/24 12:30 Resp 16 09/14/24 12:30 BP 113/72 09/14/24 12:30 Pulse Ox 96 09/14/24 12:30 FiO2 Intake & Output 09/13/24 09/14/24 09/14/24 18:59 06:59 18:59 Intake Total 2950 200 480 Output Total 750 Balance 2950 -550 480 Intake: Oral 2640 200 480 Blood Product 310 Rc As-1 Unit 310 [id number] Output: Urine 750 Other: Voiding Method Urinal # Voids 5 # Bowel Movements 1 - Exam GENERAL EXAM: Alert, 79-year-old male, resting comfortably in bed, stable on room air oxygen, grossly anasarca, in no apparent distress. HEAD: Normocephalic and atraumatic EYES: Normal reaction of pupils, equal size. NOSE: Clear with pink turbinates. THROAT: No erythema or exudates. NECK: No masses, no JVD. CHEST: No chest wall deformity. LUNGS: Equal air entry with no crackles, wheeze, rhonchi or dullness. No conversational dyspnea or accessory muscle use.. CVS: S1 and S2 normal with no audible murmur, irregular rhythm. No extra heart sounds ABDOMEN: No hepatosplenomegaly, active bowel sounds, no guarding or rigidity. SPINE: No scoliosis or deformity SKIN: No rashes CENTRAL NERVOUS SYSTEM: No focal deficits, tone is normal in all 4 extremities. EXTREMITIES: There is bilateral upper and lower extremity pitting edema. 2-3+ pitting edema in the bilateral lower extremities. No clubbing, or cyanosis. Peripheral pulses are intact. - Labs CBC & Chem 7: 09/14/24 06:45 09/14/24 06:45 Labs: Abnormal Lab Results - Last 24 Hours (Table) 09/11/24 09/13/24 09/13/24 Range/Units 16:32 16:45 20:16 RBC (4.40-5.60) 10*6/uL Hgb (13.0-17.0) g/dL Hct (39.6-50.0) % RDW (11.5-14.5) % MPV (9.5-12.2) fL Sodium (137-145) mmol/L BUN (9-20) mg/dL Creatinine (0.66-1.25) mg/dL POC Glucose (mg/dL) 133 H 195 H (70-110) mg/dL Calcium (8.4-10.2) mg/dL Alkaline Phosphatase (38-126) U/L Total Protein (6.3-8.2) g/dL Albumin (3.5-5.0) g/dL Crossmatch See Detail 09/14/24 09/14/24 09/14/24 Range/Units 01:37 06:45 06:45 RBC 2.77 L (4.40-5.60) 10*6/uL Hgb 8.6 L (13.0-17.0) g/dL Hct 26.3 L (39.6-50.0) % RDW 18.8 H (11.5-14.5) % MPV 8.9 L (9.5-12.2) fL Sodium 134 L (137-145) mmol/L BUN 8 L (9-20) mg/dL Creatinine 0.63 L (0.66-1.25) mg/dL POC Glucose (mg/dL) 177 H (70-110) mg/dL Calcium 5.9 L* (8.4-10.2) mg/dL Alkaline Phosphatase 317 H (38-126) U/L Total Protein 4.3 L (6.3-8.2) g/dL Albumin 1.8 L (3.5-5.0) g/dL Crossmatch 09/14/24 Range/Units 12:21 RBC (4.40-5.60) 10*6/uL Hgb (13.0-17.0) g/dL Hct (39.6-50.0) % RDW (11.5-14.5) % MPV (9.5-12.2) fL Sodium (137-145) mmol/L BUN (9-20) mg/dL Creatinine (0.66-1.25) mg/dL POC Glucose (mg/dL) 222 H (70-110) mg/dL Calcium (8.4-10.2) mg/dL Alkaline Phosphatase (38-126) U/L Total Protein (6.3-8.2) g/dL Albumin (3.5-5.0) g/dL Crossmatch Microbiology - Last 24 Hours (Table) 09/11/24 16:32 Blood Culture - Preliminary Blood Assessment and Plan Assessment: Suspected multifocal community-acquired pneumonia. Procalcitonin negative. Remains on Zosyn Metastatic prostate cancer, with extensive skeletal metastases and pulmonary metastases. CAT scan of the chest was also consistent with tiny punctate nodular lesions consistent with metastatic disease. The patient was started on androgen deprivation therapy with Erleada and also believe his Zometa infusions were transitioned to Xgeva Severe hypocalcemia, likely secondary to above Acute leukocytosis, recovered Febrile illness, recovered Hypotension, improved Meet SIRS/sepsis criteria Normocytic anemia, hemoglobin dropped to 6.9, receiving 1 unit of packed red blood cells Refractory hypoglycemia Insulin-dependent diabetes mellitus Gross anasarca Hypoalbuminemia Hypertension Hyperlipidemia Obstructive sleep apnea Plan: The patient was seen and evaluated Labs and medications reviewed Remains stable on room air oxygen Continue Zosyn Continue IV diuretics Continue to replace calcium Assure adequate pain control Increase his activity as tolerate We will continue to follow I have personally seen and examined the patient, performed the documentation and the assessment and plan as written. Number of minutes spent on the visit: 10 Dictation was produced using [employer] software. Please excuse any grammatical, word or spelling errors.
[2024-09-14 17:09] LABS: Glucose,Whole Blood 210 mg/dL (70-110)
--- NOTE | 2024-09-14 20:05 | P.PN ---
Subjective This is a pleasant 79 years old male who was sent by his oncologist when he was follow-up for his prostatic cancer with metastasis. Patient was sent to the hospital because of generalized weakness, hypotension and exertional dyspnea. On admission patient was found to have leukocytosis and multifocal pneumonia suspected based on chest x-ray showing multifocal airspace opacity although procalcitonin is -0.34. Patient treated with Zosyn. Pulmonary team following closely Also patient with acute on chronic anemia status 1 unit of blood transfusion and hemoglobin went up from 6.9-8.6 today. Calcium is low but 6.0 and 5.9. Patient also on oral vitamin D, will check the level in case he has abnormal absorption. When I reviewed the medication he is on IV Lasix 20 mg daily which might precipitate hypocalcemia therefore we are going to switch it to hydrochlorothiazide 25 mg from tomorrow which usually elevates raise calcium level. Patient WBC came down 14 down to 7, hemoglobin 8.6 calcium 5.9 magnesium 1.4 no checked today. Procalcitonin 0.348 hemoglobin A1c 7% chest x-ray showing multifocal opacity. Vitamin D is ordered Oncology team following closely and recommend to hold his cancer medication like Lupron and Erleada at bedside and all questions answered Review of systems GASTROINTESTINAL: No diarrhea, no nausea, no vomiting, no abdominal pain. Normoactive bowel sounds. NEUROLOGICAL: No headaches, no weakness, no numbness. HEMATOLOGICAL: Denies any bleeding or petechiae. GENITOURINARY: Denies any burning micturition, frequency, or urgency. MUSCULOSKELETAL/RHEUMATOLOGICAL: Denies any joint pain, swelling, or any muscle pain. ENDOCRINE: Denies any polyuria or polydipsia. Active Medications Generic Name Dose Route Start Last Admin Trade Name Freq PRN Reason Stop Dose Admin Hydrocodone Bitart/Acetaminophen 1 each 09/12/24 08:43 Hydrocodone/Apap 10-325mg 1 Each Tab PO Q6H PRN Pain Atorvastatin Calcium 20 mg 09/12/24 21:00 09/13/24 20:27 Atorvastatin 20 Mg Tab PO 20 mg HS KRYSTAL Administration Calcium Carbonate/Glycine 1,000 mg 09/14/24 20:00 Calcium Carbonate 500 Mg Chewable PO 09/19/24 19:59 TID KRYSTAL Cholecalciferol 50 mcg 09/12/24 09:00 09/14/24 08:12 Cholecalciferol 25 Mcg (1000 Iu) Tablet PO 50 mcg DAILY KRYSTAL Administration Clopidogrel Bisulfate 75 mg 09/12/24 21:00 09/13/24 20:27 Clopidogrel 75 Mg Tab PO 75 mg HS KRYSTAL Administration Dextrose/Water 25 ml 09/12/24 04:54 Dextrose 50% Syringe 50 Ml IVP PER PROTOCOL PRN Hypoglycemia Protocol Dextrose/Water 50 ml 09/12/24 04:54 Dextrose 50% Syringe 50 Ml IVP PER PROTOCOL PRN Hypoglycemia Protocol Docusate Sodium 100 mg 09/15/24 09:00 Docusate 100 Mg Cap PO 09/20/24 08:59 DAILY KRYSTAL Furosemide 20 mg 09/12/24 09:00 09/14/24 08:12 Furosemide 10 Mg/Ml 2 Ml Vial IV 20 mg DAILY KRYSTAL Administration Piperacillin Sod/Tazobactam 100 mls @ 25 mls/hr 09/12/24 04:00 09/14/24 19:56 Sod 3.375 gm/ Sodium Chloride IVPB 25 mls/hr Q8H KRYSTAL Administration Protocol Calcium Gluconate/Sodium 100 mls @ 100 mls/hr 09/13/24 02:00 09/14/24 19:20 Chloride 1 gm/ IV Solution IVPB 100 mls/hr Q6H KRYSTAL Administration Insulin Human Lispro 0 unit 09/13/24 17:30 09/14/24 18:02 Insulin Lispro (Humalog) 100 Unit/Ml 10 Ml Vl SQ 2 unit [id number] KRYSTAL Administration Protocol Miscellaneous Information 1 each 09/11/24 19:57 Pneumonia Protocol Utilized 1 Each Misc PO ONCE PRN Per Protocol Morphine Sulfate 15 mg 09/12/24 09:00 09/14/24 08:13 Morphine Sulfate Er 15 Mg Tablet PO 15 mg BID@0900,2100 KRYSTAL Administration Protocol Petrolatum 1 applic 09/13/24 05:48 Zinc Oxide Paste (Z-Guard) 1 Applic TOPICAL BID PRN Wound Healing Protocol Tamsulosin HCl 0.4 mg 09/13/24 08:30 09/14/24 08:12 Tamsulosin 0.4 Mg Cap.Er.24h PO 0.4 mg [id number] KRYSTAL Administration Objective - Vital Signs Vital signs: Vital Signs Temp 98.3 F 09/14/24 07:05 Pulse 66 09/14/24 07:05 Resp 16 09/14/24 07:05 BP 130/65 09/14/24 07:05 Pulse Ox 91 L 09/14/24 07:05 FiO2 Intake & Output 09/13/24 09/14/24 09/14/24 18:59 06:59 18:59 Intake Total 2950 200 480 Output Total 750 Balance 2950 -550 480 Intake: Oral 2640 200 480 Blood Product 310 Rc As-1 Unit 310 [id number] Output: Urine 750 Other: Voiding Method Urinal # Voids 5 # Bowel Movements 1 - Exam -GENERAL: The patient is alert and oriented x3, not in any acute distress. Well developed, well nourished. Generally weak HEENT: Pupils are round and equally reacting to light. EOMI. No scleral icterus. No conjunctival pallor. Normocephalic, atraumatic. No pharyngeal erythema. No thyromegaly. CARDIOVASCULAR: S1 and S2 present. No murmurs, rubs, or gallops. -PULMONARY: Chest is clear to auscultation, no wheezing , no crackles. Mild tachypnea at rest ABDOMEN: Soft, nontender, nondistended, normoactive bowel sounds. No palpable organomegaly. MUSCULOSKELETAL: No joint swelling or deformity. EXTREMITIES: No cyanosis, clubbing, or pedal edema. NEUROLOGICAL: Gross neurological examination did not reveal any focal deficits. SKIN: No rashes. no petechiae. - Labs CBC & Chem 7: 09/14/24 06:45 09/14/24 06:45 Labs: Abnormal Lab Results - Last 24 Hours (Table) 09/11/24 09/13/24 09/13/24 Range/Units 16:32 12:03 16:45 RBC (4.40-5.60) 10*6/uL Hgb (13.0-17.0) g/dL Hct (39.6-50.0) % RDW (11.5-14.5) % MPV (9.5-12.2) fL Sodium (137-145) mmol/L BUN (9-20) mg/dL Creatinine (0.66-1.25) mg/dL POC Glucose (mg/dL) 132 H 133 H (70-110) mg/dL Calcium (8.4-10.2) mg/dL Alkaline Phosphatase (38-126) U/L Total Protein (6.3-8.2) g/dL Albumin (3.5-5.0) g/dL Crossmatch See Detail 09/13/24 09/14/24 09/14/24 Range/Units 20:16 01:37 06:45 RBC 2.77 L (4.40-5.60) 10*6/uL Hgb 8.6 L (13.0-17.0) g/dL Hct 26.3 L (39.6-50.0) % RDW 18.8 H (11.5-14.5) % MPV 8.9 L (9.5-12.2) fL Sodium (137-145) mmol/L BUN (9-20) mg/dL Creatinine (0.66-1.25) mg/dL POC Glucose (mg/dL) 195 H 177 H (70-110) mg/dL Calcium (8.4-10.2) mg/dL Alkaline Phosphatase (38-126) U/L Total Protein (6.3-8.2) g/dL Albumin (3.5-5.0) g/dL Crossmatch 09/14/24 Range/Units 06:45 RBC (4.40-5.60) 10*6/uL Hgb (13.0-17.0) g/dL Hct (39.6-50.0) % RDW (11.5-14.5) % MPV (9.5-12.2) fL Sodium 134 L (137-145) mmol/L BUN 8 L (9-20) mg/dL Creatinine 0.63 L (0.66-1.25) mg/dL POC Glucose (mg/dL) (70-110) mg/dL Calcium 5.9 L* (8.4-10.2) mg/dL Alkaline Phosphatase 317 H (38-126) U/L Total Protein 4.3 L (6.3-8.2) g/dL Albumin 1.8 L (3.5-5.0) g/dL Crossmatch Microbiology - Last 24 Hours (Table) 09/11/24 16:32 Blood Culture - Preliminary Blood Assessment and Plan Assessment: Bilateral multifocal pneumonia Acute on chronic anemia status post 1 unit blood transfusion Hypotension secondary to above improved Hypocalcemia thought secondary to nutritional deficiency and medication effect. Check vitamin D level Metastatic prostate cancer Acute on chronic anemia status post with blood transfusion Hypomagnesemia Plan: Add calcium carbonate. Add Colace while he is on calcium carbonate as it is known to cause constipation DC IV Lasix and switch it to hydrochlorothiazide Check vitamin D, however patient taking currently vitamin D Hemoglobin A1c is 7.0% which is acceptable Continue with Zosyn Pulmonary team consult Continue with Plavix Labs and medication were reviewed.. Continue same treatment. Continue with symptomatic treatment. Resume home medication. Monitor labs and vitals. DVT and GI prophylaxis. Further recommendations as per clinical course of the patient DVT prophylaxis: Subcutaneous heparin GI Prophylaxis: Protonix PT/OT: Pending Prognosis is guarded
[2024-09-14] MEDS: CALCIUM CARBONATE 500 MG CHEWABLE PO SCH (20:13)
[2024-09-14 20:22] LABS: Glucose,Whole Blood 145 mg/dL (70-110)
[2024-09-15 01:22] LABS: Glucose,Whole Blood 121 mg/dL (70-110)
[2024-09-15 06:36] LABS: Basophils # (A) 0.05 10*3/uL (0.00-0.10); Basophils % (A) 0.6 %; Eosinophils % (A) 6.2 %; HCT 25.2 % (39.6-50.0); HGB 8.4 g/dL (13.0-17.0); Lymphocytes # (A) 0.79 10*3/uL (0.90-5.00); Lymphocytes % (A) 9.7 %; MCH 31.3 pg (27.0-32.0); MCHC 33.3 g/dL (32.0-37.0); Mean Platelet Volume 8.8 fL (9.5-12.2); Monocytes # (A) 0.97 10*3/uL (0.20-1.00); Monocytes % (A) 11.9 %; Neutrophils # (A) 5.75 10*3/uL (1.80-7.70); Neutrophils % (A) 70.7 %; Platelet Count 326 10*3/uL (140-440); RBC 2.68 10*6/uL (4.40-5.60); RDW 18.7 % (11.5-14.5); WBC 8.13 10*3/uL (4.50-10.00)
[2024-09-15 06:41] LABS: African American GFR (CKD) >90 (>60 ml/min/1.73 sqM); Anion Gap 3 mmol/L; Blood Urea Nitrogen 8 mg/dL (9-20); Carbon Dioxide 22 mmol/L (22-30); Chloride 106 mmol/L (98-107); Glucose 84 mg/dL (74-99); Non-African American GFR(CKD) >90 (>60 ml/min/1.73 sqM); Sodium 131 mmol/L (137-145)
[2024-09-15 06:42] LABS: Calcium 6.2 mg/dL (8.4-10.2)
[2024-09-15 06:43] LABS: Potassium 4.5 mmol/L (3.5-5.1)
[2024-09-15 06:54] LABS: Glucose,Whole Blood 97 mg/dL (70-110)
[2024-09-15] MEDS: hydroCHLOROthiazide 25 MG TAB PO SCH (08:38)
[2024-09-15] MEDS: DOCUSATE 100 MG CAP PO SCH (08:39)
[2024-09-15] MEDS: CALCIUM GLUCONATE IN NACL 1 GM in SALINE 1 100ML.BAG IVPB ONE (10:35)
[2024-09-15 12:00] LABS: Glucose,Whole Blood 140 mg/dL (70-110)
[2024-09-15 17:01] LABS: Glucose,Whole Blood 224 mg/dL (70-110)
[2024-09-15 20:38] LABS: Glucose,Whole Blood 257 mg/dL (70-110)
[2024-09-16 01:10] LABS: Glucose,Whole Blood 139 mg/dL (70-110)
--- NOTE | 2024-09-16 05:57 | P.PN ---
Subjective This is a pleasant 79 years old male who was sent by his oncologist when he was follow-up for his prostatic cancer with metastasis. Patient was sent to the hospital because of generalized weakness, hypotension and exertional dyspnea. On admission patient was found to have leukocytosis and multifocal pneumonia suspected based on chest x-ray showing multifocal airspace opacity although procalcitonin is -0.34. Patient treated with Zosyn. Pulmonary team following closely Also patient with acute on chronic anemia status 1 unit of blood transfusion and hemoglobin went up from 6.9-8.6 today. Calcium is low but 6.0 and 5.9. Patient also on oral vitamin D, will check the level in case he has abnormal absorption. When I reviewed the medication he is on IV Lasix 20 mg daily which might precipitate hypocalcemia therefore we are going to switch it to hydrochlorothiazide 25 mg from tomorrow which usually elevates raise calcium level. Patient WBC came down 14 down to 7, hemoglobin 8.6 calcium 5.9 magnesium 1.4 no checked today. Procalcitonin 0.348 hemoglobin A1c 7% chest x-ray showing multifocal opacity. Vitamin D is ordered Oncology team following closely and recommend to hold his cancer medication like Lupron and Erleada at bedside and all questions answered 09/15 Patient feels much better He has formed stool Balance gait is a lot better Also patient reports getting stronger including his leg He is hemodynamically stable and afebrile Remains on Zosyn for his pneumonia. Calcium still low but improving. We switched his Lasix to hydrochlorothiazide. He is also on oral calcium replacement therapy He has mild cough, COVID test negative. Ordered melatonin to help him sleep Review of systems CONSTITUTIONAL: No fever, no malaise, no fatigue. HEMATOLOGICAL: Denies any bleeding or petechiae. GENITOURINARY: Denies any burning micturition, frequency, or urgency. MUSCULOSKELETAL/RHEUMATOLOGICAL: Denies any joint pain, swelling, or any muscle pain. ENDOCRINE: Denies any polyuria or polydipsia. Active Medications Generic Name Dose Route Start Last Admin Trade Name Freq PRN Reason Stop Dose Admin Hydrocodone Bitart/Acetaminophen 1 each 09/12/24 08:43 Hydrocodone/Apap 10-325mg 1 Each Tab PO Q6H PRN Pain Atorvastatin Calcium 20 mg 09/12/24 21:00 09/15/24 21:01 Atorvastatin 20 Mg Tab PO 20 mg HS KRYSTAL Administration Calcium Carbonate/Glycine 1,000 mg 09/14/24 20:00 09/15/24 21:01 Calcium Carbonate 500 Mg Chewable PO 09/19/24 19:59 1,000 mg TID KRYSTAL Administration Cholecalciferol 50 mcg 09/12/24 09:00 09/15/24 08:38 Cholecalciferol 25 Mcg (1000 Iu) Tablet PO 50 mcg DAILY KRYSTAL Administration Clopidogrel Bisulfate 75 mg 09/12/24 21:00 09/15/24 21:01 Clopidogrel 75 Mg Tab PO 75 mg HS KRYSTAL Administration Dextrose/Water 25 ml 09/12/24 04:54 Dextrose 50% Syringe 50 Ml IVP PER PROTOCOL PRN Hypoglycemia Protocol Dextrose/Water 50 ml 09/12/24 04:54 Dextrose 50% Syringe 50 Ml IVP PER PROTOCOL PRN Hypoglycemia Protocol Docusate Sodium 100 mg 09/15/24 09:00 09/15/24 08:39 Docusate 100 Mg Cap PO 09/20/24 08:59 Not Given DAILY KRYSTAL Hydrochlorothiazide 25 mg 09/15/24 09:00 09/15/24 08:38 Hydrochlorothiazide 25 Mg Tab PO 09/20/24 08:59 25 mg DAILY KRYSTAL Administration Piperacillin Sod/Tazobactam 100 mls @ 25 mls/hr 09/12/24 04:00 09/16/24 03:56 Sod 3.375 gm/ Sodium Chloride IVPB 25 mls/hr Q8H KRYSTAL Administration Protocol Calcium Gluconate/Sodium 100 mls @ 100 mls/hr 09/13/24 02:00 09/16/24 01:44 Chloride 1 gm/ IV Solution IVPB 100 mls/hr Q6H KRYSTAL Administration Insulin Human Lispro 0 unit 09/13/24 17:30 09/16/24 01:41 Insulin Lispro (Humalog) 100 Unit/Ml 10 Ml Vl SQ Not Given EATH2IU KRYSTAL Protocol Miscellaneous Information 1 each 09/11/24 19:57 Pneumonia Protocol Utilized 1 Each Misc PO ONCE PRN Per Protocol Morphine Sulfate 15 mg 09/12/24 09:00 09/15/24 21:01 Morphine Sulfate Er 15 Mg Tablet PO 15 mg BID@0900,2100 KRYSTAL Administration Protocol Petrolatum 1 applic 09/13/24 05:48 Zinc Oxide Paste (Z-Guard) 1 Applic TOPICAL BID PRN Wound Healing Protocol Tamsulosin HCl 0.4 mg 09/13/24 08:30 09/15/24 08:38 Tamsulosin 0.4 Mg Cap.Er.24h PO 0.4 mg PC-BRKFST KRYSTAL Administration Objective - Vital Signs Vital signs: Vital Signs Temp 98.4 F 09/15/24 08:00 Pulse 70 09/15/24 08:00 Resp 16 09/15/24 08:00 BP 123/69 09/15/24 08:00 Pulse Ox 96 09/15/24 08:00 FiO2 Intake & Output 09/14/24 09/15/24 09/15/24 18:59 06:59 18:59 Intake Total 2460 400 480 Output Total 1000 Balance 2460 -600 480 Intake: Intake, IV Titration 400 Amount Calcium Gluconate in NaCl 200 1 gm In Saline 1 100ml. bag @ 100 mls/hr IVPB Q6H [facility] Rx#:[id number] Piperacillin-Tazobactam 3 200 .375 gm In Sodium Chloride 0.9% 100 ml @ 25 mls/hr IVPB Q8H [facility] Rx#: [id number] Oral 2460 480 Output: Urine 1000 Other: Voiding Method Urinal # Voids 7 # Bowel Movements 1 - Exam -GENERAL: The patient is alert and oriented x3, not in any acute distress. Well developed, well nourished. Generally weak HEENT: Pupils are round and equally reacting to light. EOMI. No scleral icterus. No conjunctival pallor. Normocephalic, atraumatic. No pharyngeal erythema. No thyromegaly. CARDIOVASCULAR: S1 and S2 present. No murmurs, rubs, or gallops. -PULMONARY: Chest is clear to auscultation, no wheezing , no crackles. Mild tachypnea at rest ABDOMEN: Soft, nontender, nondistended, normoactive bowel sounds. No palpable organomegaly. MUSCULOSKELETAL: No joint swelling or deformity. EXTREMITIES: No cyanosis, clubbing, or pedal edema. NEUROLOGICAL: Gross neurological examination did not reveal any focal deficits. SKIN: No rashes. no petechiae. - Labs CBC & Chem 7: 09/15/24 05:00 09/15/24 05:00 Labs: Abnormal Lab Results - Last 24 Hours (Table) 09/14/24 09/14/24 09/14/24 Range/Units 06:45 12:21 17:05 RBC (4.40-5.60) 10*6/uL Hgb (13.0-17.0) g/dL Hct (39.6-50.0) % RDW (11.5-14.5) % MPV (9.5-12.2) fL Immature Gran # (0.00-0.04) 10*3/uL Lymphocytes # (0.90-5.00) 10*3/uL Eosinophils # (0.04-0.35) 10*3/uL Sodium (137-145) mmol/L BUN (9-20) mg/dL Creatinine (0.66-1.25) mg/dL POC Glucose (mg/dL) 222 H 210 H (70-110) mg/dL Calcium (8.4-10.2) mg/dL Vitamin D 25-Hydroxy 13.9 L (30.0-100.0) ng/mL 09/14/24 09/15/24 09/15/24 Range/Units 20:21 01:21 05:00 RBC 2.68 L (4.40-5.60) 10*6/uL Hgb 8.4 L (13.0-17.0) g/dL Hct 25.2 L (39.6-50.0) % RDW 18.7 H (11.5-14.5) % MPV 8.8 L (9.5-12.2) fL Immature Gran # 0.07 H (0.00-0.04) 10*3/uL Lymphocytes # 0.79 L (0.90-5.00) 10*3/uL Eosinophils # 0.50 H (0.04-0.35) 10*3/uL Sodium (137-145) mmol/L BUN (9-20) mg/dL Creatinine (0.66-1.25) mg/dL POC Glucose (mg/dL) 145 H 121 H (70-110) mg/dL Calcium (8.4-10.2) mg/dL Vitamin D 25-Hydroxy (30.0-100.0) ng/mL 09/15/24 Range/Units 05:00 RBC (4.40-5.60) 10*6/uL Hgb (13.0-17.0) g/dL Hct (39.6-50.0) % RDW (11.5-14.5) % MPV (9.5-12.2) fL Immature Gran # (0.00-0.04) 10*3/uL Lymphocytes # (0.90-5.00) 10*3/uL Eosinophils # (0.04-0.35) 10*3/uL Sodium 131 L (137-145) mmol/L BUN 8 L (9-20) mg/dL Creatinine 0.46 L (0.66-1.25) mg/dL POC Glucose (mg/dL) (70-110) mg/dL Calcium 6.2 L* (8.4-10.2) mg/dL Vitamin D 25-Hydroxy (30.0-100.0) ng/mL Microbiology - Last 24 Hours (Table) 09/11/24 16:32 Blood Culture - Preliminary Blood Assessment and Plan Assessment: Bilateral multifocal pneumonia Acute on chronic anemia status post 1 unit blood transfusion Hypotension secondary to above improved Hypocalcemia thought secondary to nutritional deficiency and medication effect. Check vitamin D level Metastatic prostate cancer Acute on chronic anemia status post with blood transfusion Hypomagnesemia Plan: Add calcium carbonate. Add Colace while he is on calcium carbonate as it is known to cause constipation DC IV Lasix and switch it to hydrochlorothiazide Check vitamin D, however patient taking currently vitamin D Hemoglobin A1c is 7.0% which is acceptable Continue with Zosyn Pulmonary team consult Continue with Plavix Labs and medication were reviewed.. Continue same treatment. Continue with symptomatic treatment. Resume home medication. Monitor labs and vitals. DVT and GI prophylaxis. Further recommendations as per clinical course of the patient DVT prophylaxis: Subcutaneous heparin GI Prophylaxis: Protonix PT/OT: Pending Prognosis is guarded
[2024-09-16 07:03] LABS: Glucose,Whole Blood 78 mg/dL (70-110)
--- NOTE | 2024-09-16 08:39 | P.PN ---
Subjective Progress Note Date: 09/16/24 This is an 79-year-old male with a known history of metastatic prostate cancer who presented to the emergency department with complaints of a fever. Patient also had issues with hypoglycemia prior to admission. Patient's fever on arrival was 100.8 F. Chest x-ray shows multifocal airspace opacities conc erning for pneumonia. Patient has been started on azithromycin and Rocephin. His blood sugar is slowly improving. Patient was also hypotensive on admission and blood pressure is improving. Pulmonology and oncology are on consult. Further medical history as noted below. 09/16/2024 Patient seen this morning sitting up in bed eating breakfast. His is present at bedside. Patient reports he is feeling somewhat better. His calcium however is still low. Objective - Vital Signs Vital signs: Vital Signs Temp 98.4 F 09/16/24 07:00 Pulse 66 09/16/24 07:00 Resp 16 09/16/24 07:00 BP 115/70 09/16/24 07:00 Pulse Ox 95 09/16/24 07:00 FiO2 Intake & Output 09/15/24 09/16/24 09/16/24 18:59 06:59 18:59 Intake Total 2220 440 Output Total 1100 Balance 2220 -660 Intake: Oral 2220 440 Output: Urine 1100 Other: Voiding Method Urinal # Voids 8 # Bowel Movements 1 - Constitutional General appearance: Present: cooperative, no acute distress - EENT Eyes: Present: PERRLA - Neck Neck: Present: normal ROM. Absent: lymphadenopathy, rigidity - Respiratory Respiratory: bilateral: CTA - Cardiovascular Heart sounds: normal: S1, S2 - Gastrointestinal General gastrointestinal: Present: soft. Absent: tenderness - Integumentary Integumentary: Present: normal, normal turgor - Musculoskeletal Musculoskeletal: Present: generalized weakness - Psychiatric Psychiatric: Present: A&O x's 3 - Labs CBC & Chem 7: 09/15/24 05:00 09/15/24 05:00 Labs: Abnormal Lab Results - Last 24 Hours (Table) 09/14/24 09/15/24 09/15/24 Range/Units 06:45 11:59 16:59 POC Glucose (mg/dL) 140 H 224 H (70-110) mg/dL Ionized Calcium Carie (4.5-5.3) mg/dL Vitamin D 25-Hydroxy 13.9 L (30.0-100.0) ng/mL 09/15/24 09/16/24 09/16/24 Range/Units 20:37 01:09 04:21 POC Glucose (mg/dL) 257 H 139 H (70-110) mg/dL Ionized Calcium Carie 4.0 L (4.5-5.3) mg/dL Vitamin D 25-Hydroxy (30.0-100.0) ng/mL Microbiology - Last 24 Hours (Table) 09/11/24 16:32 Blood Culture - Preliminary Blood Assessment and Plan (1) Pneumonia Current Visit: Yes Status: Acute Priority: High Code(s): J18.9 - PNEUMONIA, UNSPECIFIED ORGANISM SNOMED Code(s): 030375496 (2) Hypocalcemia Current Visit: Yes Status: Acute Priority: High Code(s): E83.51 - HYPOCALCEMIA SNOMED Code(s): 6825992 (3) CAD (coronary artery disease) Current Visit: No Status: Acute Code(s): I25.10 - ATHSCL HEART DISEASE OF [place] CORONARY ARTERY W/O ANG PCTRS SNOMED Code(s): 05187642 (4) Diabetes Current Visit: No Status: Acute Code(s): E11.9 - TYPE 2 DIABETES MELLITUS W ITHOUT COMPLICATIONS SNOMED Code(s): 70735000 (5) Prostate cancer metastatic to bone Current Visit: Yes Status: Chronic Priority: Medium Code(s): C61 - MALIGNANT NEOPLASM OF PROSTATE; C79.51 - SECONDARY MALIGNANT NEOPLASM OF BONE SNOMED Code(s): 62580372 Plan: Check CBC and CMP in the morning. Anticipate discharge in the next 24 to 48 hours Patient seen and evaluated by nurse practitioner, physician in agreement with plan.
[2024-09-16] MEDS: CALCIUM GLUCONATE IN NACL 2 GM in SALINE 1 100ML.BAG IVPB SCH (09:52)
[2024-09-16 12:31] LABS: Glucose,Whole Blood 202 mg/dL (70-110)
[2024-09-16 17:22] LABS: Glucose,Whole Blood 220 mg/dL (70-110)
--- NOTE | 2024-09-16 17:49 | P.PN ---
Subjective Progress Note Date: 09/16/24 Principal diagnosis: Pneumonia, hypocalcemia, on treatment for metastatic prostate carcinoma In f/u today pt is sitting in chair, eating lunch, no fevers, breathing is stable, he can move around the room, he feels he is ready to go home soon. No other acute c/o. Objective - Vital Signs Vital signs: Vital Signs Temp 98.2 F 09/16/24 11:26 Pulse 61 09/16/24 11:26 Resp 16 09/16/24 11:26 BP 104/62 09/16/24 11:26 Pulse Ox 95 09/16/24 11:26 FiO2 Intake & Output 09/15/24 09/16/24 09/16/24 18:59 06:59 18:59 Intake Total 2220 440 1020 Output Total 1100 800 Balance 2220 -660 220 Intake: Oral 2220 440 1020 Output: Urine 1100 800 Other: Voiding Method Urinal # Voids 8 2 # Bowel Movements 1 1 - Constitutional General appearance: Present: average body habitus, cooperative, no acute distress - EENT Eyes: Present: anicteric sclerae, EOMI ENT: Present: hearing grossly normal - Respiratory Details: resp unlabored at rest - Cardiovascular Details: skin warm, well perfused - Integumentary Integumentary: Present: normal - Neurologic Neurologic: Present: CNII-XII intact - Musculoskeletal Musculoskeletal: Present: strength equal bilaterally - Psychiatric Psychiatric: Present: A&O x's 3, appropriate affect, intact judgment & insight - Labs CBC & Chem 7: 09/15/24 05:00 09/15/24 05:00 Labs: Abnormal Lab Results - Last 24 Hours (Table) 09/15/24 09/15/24 09/16/24 Range/Units 16:59 20:37 01:09 POC Glucose (mg/dL) 224 H 257 H 139 H (70-110) mg/dL Ionized Calcium Carie (4.5-5.3) mg/dL 09/16/24 09/16/24 Range/Units 04:21 12:29 POC Glucose (mg/dL) 202 H (70-110) mg/dL Ionized Calcium Carie 4.0 L (4.5-5.3) mg/dL Assessment and Plan (1) Pneumonia Current Visit: Yes Status: Acute Priority: High Code(s): J18.9 - PNEUMONIA, UNSPECIFIED ORGANISM SNOMED Code(s): 215600341 (2) Hypocalcemia Current Visit: Yes Status: Acute Priority: High Code(s): E83.51 - HYPOCALCEMIA SNOMED Code(s): 7881170 (3) Hypoglycemia Current Visit: Yes Status: Acute Priority: High Code(s): E16.2 - HYPOGLYCEMIA, UNSPECIFIED SNOMED Code(s): 217727610 (4) Prostate cancer metastatic to bone Current Visit: Yes Status: Chronic Priority: Medium Code(s): C61 - MALIGNANT NEOPLASM OF PROSTATE; C79.51 - SECONDARY MALIGNANT NEOPLASM OF BONE SNOMED Code(s): 22674939 Plan: Pneumonia - Chest x-ray suspicious for the same -Pulmonary following and treating the patient who has improved. - Antibiotics and supportive respiratory medications cont per Pulm recommendation Hypocalcemia - [place] may possibly be related to rank ligand inhibitor that is given for bone metastasis. - Calcium has been supplemented -Monitor calcium levels Hypoglycemia - Patient's blood sugars have been corrected - Patient needs to follow-up with [facility] [employer] [facility] for management of the same Metastatic prostate cancer - Diagnosis and treatment as reported in HPI. - Patient is not due for Lupron for a few more months. He just received rank ligand inhibitor-may be contributing to some of his symptoms, this may need to be changed. He is on oral Erleada. This will be held acutely while ill. He was told to resume once he completes antibiotics
[2024-09-16 20:05] LABS: Glucose,Whole Blood 246 mg/dL (70-110)
[2024-09-17 01:46] LABS: Glucose,Whole Blood 227 mg/dL (70-110)
[2024-09-17 05:37] LABS: ALT 13 U/L (4-49); AST 19 U/L (17-59); African American GFR (CKD) >90 (>60 ml/min/1.73 sqM); Albumin 1.9 g/dL (3.5-5.0); Albumin/Globulin Ratio 0.7; Alkaline Phosphatase 313 U/L (38-126); Anion Gap 5 mmol/L; Blood Urea Nitrogen 7 mg/dL (9-20); Calcium 7.8 mg/dL (8.4-10.2); Carbon Dioxide 24 mmol/L (22-30); Chloride 103 mmol/L (98-107); Globulin 2.7 g/dL; Glucose 160 mg/dL (74-99); Non-African American GFR(CKD) >90 (>60 ml/min/1.73 sqM); Potassium 3.7 mmol/L (3.5-5.1); Sodium 132 mmol/L (137-145); Total Bilirubin 0.1 mg/dL (0.2-1.3); Total Protein 4.6 g/dL (6.3-8.2)
[2024-09-17 06:14] LABS: Ionized Calcium 4.6 mg/dL (4.5-5.3)
[2024-09-17 07:18] LABS: Glucose,Whole Blood 154 mg/dL (70-110)
[2024-09-17 07:43] VITALS: BP 123/68; PULSE 53; RESP 16; TEMP 98
[2024-09-17 08:05] LABS: HCT 27.4 % (39.6-50.0); HGB 8.7 g/dL (13.0-17.0); MCH 30.7 pg (27.0-32.0); MCHC 31.8 g/dL (32.0-37.0); MCV 96.8 FL (80.0-97.0); NRBC Per 100 WBC 0 X 10*3/uL (0.00-0.01); Platelet Count 420 X 10*3/uL (140-440); RBC 2.83 X 10*6/uL (4.40-5.60); RDW 18.5 % (11.5-14.5); WBC 6.69 X 10*3/uL (4.50-10.00)
--- NOTE | 2024-09-17 08:59 | P.DS ---
Providers Date of admission: 09/11/24 20:00 Attending physician: Seng Geiger Consults: 09/11/24 19:57 Consult Physician Routine Consulting Provider: Jenna Argueta Consult Reason/Comments: Pneumonia Do you want consulting provider notified?: Yes 09/11/24 19:58 Consult Physician Routine Consulting Provider: Richard Go Consult Reason/Comments: Prostate cancer Do you want consulting provider notified?: Yes Primary care physician: Seng Geiger - Discharge Diagnosis(es) (1) Pneumonia Current Visit: Yes Status: Acute Priority: High (2) Hypocalcemia Current Visit: Yes Status: Acute Priority: High (3) CAD (coronary artery disease) Current Visit: No Status: Acute (4) Diabetes Current Visit: No Status: Acute (5) Prostate cancer metastatic to bone Current Visit: Yes Status: Chronic Priority: Medium Hospital Course: This is an 79-year-old male with a known history of metastatic prostate cancer who presented to the emergency department with complaints of a fever. Patient was found to have multifocal airspace opacities concerning for pneumonia on admission. He has completed an antibiotic course and is feeling much improved. Patient's calcium low during admission and has greatly improved. Patient may be discharged home today and will follow-up in our office within a week for repeat blood work. Patient should discontinue his Synjardy and continue a low dose of Tresiba at home of 6 units. Patient seen and evaluated by nurse practitioner, physician in agreement with plan. Plan - Discharge Summary New Discharge Prescriptions: Continue Rosuvastatin [Crestor] 10 mg PO HS Cholecalciferol (Vitamin D3) [Vitamin D3 (50 Mcg = 2000 Iu)] 50 mcg PO DAILY Morphine Sulfate ER [Ms Contin] 15 mg PO BID@0900,2100 HYDROcodone/APAP 10-325MG [[place] 10-325] 1 tab PO Q6H PRN PRN Reason: Pain Apalutamide [Erleada] 240 mg PO DAILY Tamsulosin [Flomax] 0.4 mg PO PC-BRKFST Clopidogrel [Plavix] 75 mg PO HS Calcium Carbonate [Tums] 500 mg PO TID #0 tab Changed Insulin Degludec [Tresiba Flextouch U-100 Pen] 6 units SQ AC-SUPPER #0 Discontinued Empagliflozin/Metformin HCl [Synjardy 12.5-1,000 mg Tablet] 1 tab PO BID Discharge Medication List Tamsulosin [Flomax] 0.4 mg PO PC-BRKFST 03/23/21 [History] Clopidogrel [Plavix] 75 mg PO HS 05/10/23 [History] Rosuvastatin [Crestor] 10 mg PO HS 05/10/23 [History] Cholecalciferol (Vitamin D3) [Vitamin D3 (50 Mcg = 2000 Iu)] 50 mcg PO DAILY 08/18/24 [History] Calcium Carbonate [Tums] 500 mg PO TID #0 tab 09/03/24 [Rx] Apalutamide [Erleada] 240 mg PO DAILY 09/11/24 [History] HYDROcodone/APAP 10-325MG [[place] 10-325] 1 tab PO Q6H PRN 09/11/24 [History] Morphine Sulfate ER [Ms Contin] 15 mg PO BID@0900,2100 09/11/24 [History] Insulin Degludec [Tresiba Flextouch U-100 Pen] 6 units SQ AC-SUPPER #0 09/17/24 [Rx] Follow up Appointment(s)/Referral(s): Erendira Hendrickson NPC [Nurse Practitioner] - 09/25/24 2:00 pm (This appt is at the office located behind [facility] [address] ) Seng Geiger MD [Primary Care Provider] - 1 Week [facility] Visiting Nurse, [NON-STAFF] - 1 Week Discharge Disposition: HOME WITH HOME HEALTH SERVICES
== END 2024-09-17 11:35 | disposition home health service (06) | DRG 194 ==
LOC: EC 15:38 → 5NMEDONC 20:00
PROVIDERS: ADMIT Family Medicine; ATTEND Family Medicine
DX: J18.9 Pneumonia, unspecified organism (principal); C78.00 Secondary malignant neoplasm of unspecified lung; C79.51 Secondary malignant neoplasm of bone; E83.51 Hypocalcemia; E88.09 Other disorders of plasma-protein metabolism, not elsewhere classified; C61 Malignant neoplasm of prostate; E11.649 Type 2 diabetes mellitus with hypoglycemia without coma; D64.9 Anemia, unspecified; I10 Essential (primary) hypertension; E87.1 Hypo-osmolality and hyponatremia; Z79.4 Long term (current) use of insulin; E78.5 Hyperlipidemia, unspecified; G47.33 Obstructive sleep apnea (adult) (pediatric); I25.10 Atherosclerotic heart disease of native coronary artery without angina pectoris; I25.2 Old myocardial infarction; Z87.891 Personal history of nicotine dependence; Z79.02 Long term (current) use of antithrombotics/antiplatelets; Z79.84 Long term (current) use of oral hypoglycemic drugs
CPT/HCPCS: 36415; 71045; 71046; 80048; 80053; 81003; 82306; 82330; 83036; 83605; 83735; 84145; 84484; 85025; 85027; 85610; 85730; 86850; 86900; 86901; 86920; 87040; 87449; 87636; 93005; 96361; 96365; 96366; 96367; 96368; 96375; 99285